=== PATIENT | male | born 1960 | race Caucasian/White ===

== ENCOUNTER → 2016-08-19 | Outpatient (CLI) | payer MEDICARE ==
[~2016-08-19] MED LIST: /ACETCOD2T PO; /DULO30CA OR; /ESOM40CA OR; /OMEP10CA OR; ALEVE; ALEVE OR; AMLO5TAB; AMLO5TAB OR; ASPI81CH12 PO; ASPI81TA31 OR; BABY81CH; BENA2CRE2 TOP; CEFTRIAXONE; CEPH500C OR; FLEXERIL OR; METF500T PO; NAPR500T OR; NICO21DI4; PRED10TA2; PRED20TA; PRIMATENE MIST INH; ROBA750T OR; SIMV40TA2 OR; SYMB16INH INH; TRAM50TA2; VICO5TAB OR; VICODINES TAB PO; ZANA4CAP OR; ZITH250T; ZOCO40TA; ZOCO40TA OR; exalgo PO; spiriva INH
--- NOTE | 2016-08-29 00:02 | ECWPNPC ---
PATIENT NAME: YIMI ESPINOSA : 1960 GENDER: MALE VISIT DATE: 08/19/2016 DISCHARGE DATE: 08/19/16 1459 VISIT LOCKED DATE TIME: PHYSICIAN: JOYCE MCGOVERN RESOURCE: JOYCE MCGOVERN REASON FOR APPOINTMENT 1. WC HISTORY OF PRESENT ILLNESS HISTORY OF PRESENT ILLNESS: PAIN THE PATIENT DESCRIBES THE PAIN... 55 YEAR OLD MALE PATIENT WITH HISTORY OF CHRONIC BACK PAIN. PATIENT DESCRIBES THE PAIN ACHING, SHARP, TENDER, AND SORE WITH PAIN SCORE OF 6/10 ON TODAY'S VISIT. PATIENT WAS INJURED IN A WORK RELATED INJURY ON 12-26-2004 WORKING FOR [employer] A WORK[employer]. PATIENT WAS PICKING UP A CALF WHEN HE INJURED HIS BACK. PATIENT REPORTS OF HAVING BACK SURGERY IN 2009. PATIENT REPORTS OF TRYING PHYSICAL THERAPY IN THE PAST WITH ANY IMPROVEMENTS IN MOBILITY AND FUNCTIONALITY. PATIENT REPORTS THAT HE IS DOING OKAY AT THIS TIME, BUT HE DOES HAVE TO BE CAREFUL DOING TOO MUCH WILL INCREASE HIS PAIN. PATIENT DENIES UNEXPLAINABLE WEIGHT LOSS, FEVER, CHILLS, NEW CHANGES ON HIS URINARY OR BOWEL CONTROL. FALL RISK SCREENING: SCREENING :NO FALLS IN THE PAST YEAR CURRENT MEDICATIONS TAKING AMLODIPINE BESYLATE 10 MG TABLET 1 TABLET ORALLY ONCE A DAY TAKING ASPIR-81 81 MG TABLET DELAYED RELEASE 1 TABLET ORALLY ONCE A DAY TAKING SPIRIVA RESPIMAT 18 AEROSOL SOLUTION 1 CAP INHALATION ONCE A DAY TAKING SYMBICORT 80-4.5 MCG/ACT AEROSOL 2 PUFFS INHALATION TWICE A DAY TAKING ATORVASTATIN CALCIUM 40 MG TABLET 1 TABLET ORALLY ONCE A DAY TAKING METFORMIN HCL 500 MG TABLET 1 TABLET WITH MEALS ORALLY TWICE A DAY TAKING TYLENOL WITH CODEINE #3 300-30 MG TABLET 1 TABLET ORALLY EVERY 6 HRS PRN PAIN MDD=4 NOT-TAKING CYCLOBENZAPRINE HCL 10 MG TABLET 1 TABLET ORALLY THREE TIMES A DAY NOT-TAKING DIPHENHYDRAMINE-ALLANTOIN 2-0.5 % CREAM EXTERNALLY NOT-TAKING TRIAMCINOLONE ACETONIDE 0.5 % CREAM 1 APPLICATION TO AFFECTED AREA EXTERNALLY TWICE A DAY DISCONTINUED SPIRIVA HANDIHALER 18 MCG CAPSULE 1 INHALATION DAILY DISCONTINUED ALBUTEROL SULFATE HFA 108 (90 BASE) MCG/ACT AEROSOL SOLUTION 2 PUFFS NEEDED INHALATION EVERY 4 HRS MEDICATION LIST REVIEWED AND RECONCILED WITH THE PATIENT PAST MEDICAL HISTORY COPD DIABETES HTN LS SPINE DESC HERNIATION WITH RETROLISTHESIS : D[facility]LL HOWELL [facility] PAIN MANAGEMENT DEPRESSION ALLERGIES FENTANYL: HIVES: ALLERGY BEE VENOM: SOB: ALLERGY SURGICAL HISTORY APPENDECTOMY HERNIA REPAIR LEFT INGUINAL FX LEFT ANKLE REPAIR 1997 SPINAL FUSION L3-4 L4-5 L5-S1 2009 COLONOSCOPY 04/2010 FAMILY HISTORY FATHER: 74 YRS, DIAGNOSED WITH HYPERTENSION, HEART DISEASE, STROKE MOTHER: 74 YRS, BREAST CA SOCIAL HISTORY GENERAL: PAIN CLINIC PFS, CLERGY, PUBLIC HEALTH REFERRALS CLERGY REFERRAL NEEDED?NO WAS THE PROVIDER NOTIFIED OF ANY PERTINENT INFO?NO PFS REFERRAL NEEDED?NO PUBLIC HEALTH REFERRAL NEEDED?NO PATIENT: ____. HOSPITALIZATION/MAJOR DIAGNOSTIC PROCEDURE SPINAL SURGERIES PNEUMONIA 2009 COPD EXACERBATION WITH ARDS 06/2012 REVIEW OF SYSTEMS CONSTITUTIONAL: ANY CHANGE IN YOUR MEDICAL CONDITION? NO . CHILLS NO . FEVER NO . INFECTION: DO YOU HAVE NEW INFECTIONS? NO . DO YOU HAVE HISTORY OF MRSA? NO . MUSCULOSKELETAL: ANY NEW PATTERNS OF PAIN OR NUMBNESS? NO . GASTROENTEROLOGY: ANY NEW CHANGE IN BOWEL CONTROL? NO . GENITOURINARY: ANY NEW CHANGE IN BLADDER CONTROL? NO . IS THERE A CHANCE YOU COULD BE ? NO . HEMATOLOGY/LYMPH: DO YOU TAKE ANY BLOOD THINNERS? (FOR EXAMPLE- COUMADIN, PLAVIX, AGGRENOX, PLATEL, PRADAXA, OR XARELTO) NO . WHEN WAS YOUR LAST DOSE? DATE: TIME: . NEUROLOGY: HAVE YOU FALLEN IN THE PAST 6 MONTHS? NO . ANY NEW EXTREMITY NUMBNESS OR WEAKNESS? NO . CARDIOLOGY: DO YOU HAVE A PACEMAKER OR DEFIBRILLATOR? NO . RESPIRATORY: HAVE YOU BEEN SICK IN THE PAST WEEK? NO . FEVER NO . FLU LIKE SYMPTOMS? NO . COUGH NO . INTEGUMENTARY: DO YOU HAVE ANY RASHES OR OPEN SORES? NO . ALLERGIC/IMMUNO: ARE YOU ALLERGIC TO SHELLFISH OR IV DYE? NO . ANY NEW ALLERGIES? NO . PSYCHIATRIC: DO YOU HAVE THOUGHTS OF HURTING YOURSELF OR SOMEONE ELSE? NO . ARE YOU ABUSED, NEGLECTED, OR IN AN UNSAFE ENVIRONMENT? NO . ENDOCRINOLOGY: ARE YOU DIABETIC? YES . OTHER: DO YOU NEED ANY PRESCRIPTIONS? NO . IF YES, PLEASE LIST: ____ . ANY NEW PROBLEMS WITH YOUR MEDICATIONS? NO . WHEN DID YOU LAST EAT? ____ . WHEN DID YOU LAST DRINK? ____ . WHAT DID YOU LAST DRINK? ____ . NAME OF PERSON DRIVING YOU HOME? ____ . DO YOU HAVE ANY OTHER QUESTIONS OR CONCERNS NO . REVIEWED BY: PROVIDER: JOYCE MCGOVERN MD . VITAL SIGNS WT 241.8 LBS, HT 66 IN, BMI 39.02 INDEX, BP 154/77 MM HG, HR 112 /MIN, RR 18 /MIN, TEMP 97.8 F, OXYGEN SAT % 93%, NA INITIALS SC 13:25. EXAMINATION : PATIENT IS ALERT O X 3 AND COOPERATIVE. PATIENT AMBULATES WITH A LIMP ON THE RIGH LEG. PATIENT'S RIGHT LEG IS WEAKER AT FLEXION AND EXTENSION COMPARED TO THE LEFT LEG. PATIENT HAS TENDERNESS IN THE LOW BACK PARASPINAL GROUP. MRI OF THE LUMBAR SPINE DONE ON 05/31/2010 SHOWS A POST POSTERIOR FUSION, DISC BULGE, AND A LIGAMENT TEAR. ASSESSMENTS LOW BACK PAIN - M54.5 (PRIMARY) POSTLAMINECTOMY SYNDROME, NOT ELSEWHERE CLASSIFIED - M96.1 TREATMENT LOW BACK PAIN START GABAPENTIN CAPSULE, 300 MG, 1 CAPSULE, ORALLY, BID FOR PAIN MDD2, 30 DAY(S), 60, REFILLS 2 NOTES: WE DISCUSSED SEVERAL ISSUES WITH MR. ESPINOSA'S PAIN MANAGEMENT CASE. PATIENT BROUGHT HIS MEDICATION BOTTLES TO TODAY'S VISIT. PATIENT WILL START GABAPENTIN FOR NEUROPATHIC PAIN AND IS CURRENTLY TAKING TYLENOL WITH CODEINE FOR SOMATIC PAIN. I DISCUSSED WITH THE PATIENT, I DO NOT DO REFILLS OVER THE PHONE AND IT IS IMPORTANT TO COME TO EVERY FOLLOW UP VISIT. UTOX ORDERED ON 05-10-2016 SHOWS CONSISTENT RESULTS. PATIENT TO FOLLOW UP WITH ME IN 2 MONTHS. INSTRUCTIONS WERE GIVEN, QUESTIONS WERE ANSWERED, PATIENT REPORTS UNDERSTANDING AND AGREES WITH THE PLAN. I, LINDA PRESTON, DOCUMENTED THE ABOVE INFORMATION ACTING A SCRIBE FOR DR. MCGOVERN. I HAVE REVIEWED THE ABOVE DOCUMENT, WRITTEN BY LINDA ARAUJOIBJami AND I VERIFY THAT IT IS ACCURATE. PROCEDURES PN WORKMANS' COMP OPINION IN YOUR OPINION, WAS THE INCIDENT THAT THE PATIENT DESCRIBED THE COMPETENT MEDICAL CAUSE OF THIS INJURY/ILLNESS? YES ARE THE PATIENT'S COMPLAINTS CONSISTENT WITH HIS/HER HISTORY OF THE INJURY/ILLNESS? YES IS THE PATIENT'S HISTORY OF THE INJURY/ILLNESS CONSISTENT WITH YOUR OBJECTIVE FINDING? YES WHAT IS THE PERCENTAGE OF TEMPORARY IMPAIRMENT? MODERATE TO MARKED = 66.7% IS THE PATIENT WORKING? NO DOCTOR ON SITE: JOYCE BEAULIEU MD PROCEDURE CODES FA211 ESTABILISHED PATIENT [facility] FAC[facility] CHARGE G6785 PAIN ASSESS POS TOOL F/U PLAN DOC G8427 DOC MEDS VERIFIED W/PT OR RE DISPOSITION & COMMUNICATION FOLLOW UP 2 MONTHS ELECTRONICALLY SIGNED BY JOYCE MCGOVERN MD ON 08/28/2016 AT 08:38 PM EDT DISCLAIMER : THIS IS A VISIT SUMMARY EXTRACTED FROM THE [employer] CHART. IT IS NOT A COPY OF THE [employer] PROGRESS NOTE. MTDD
== END | disposition home or self-care (01) ==
LOC: M PAIN 13:00
PROVIDERS: ATTEND Anesthesiology
DX: Z09 Encounter for follow-up examination after completed treatment for conditions other than malignant neoplasm (principal); G89.29 Other chronic pain; M54.5 Low back pain; M96.1 Postlaminectomy syndrome, not elsewhere classified; I10 Essential (primary) hypertension; J44.9 Chronic obstructive pulmonary disease, unspecified; E11.9 Type 2 diabetes mellitus without complications; F33.9 Major depressive disorder, recurrent, unspecified; Z79.899 Other long term (current) drug therapy; Z79.82 Long term (current) use of aspirin; Z79.84 Long term (current) use of oral hypoglycemic drugs; Z88.8 Allergy status to other drugs, medicaments and biological substances; Z91.030 Bee allergy status

== ENCOUNTER → 2016-10-06 | Outpatient (REF) | payer OTHER ==
[2016-10-06 11:52] LABS: ALBUMIN 4.2 GM/DL (3.2-5.2); ALBUMIN/GLOBULIN RATIO 1.35 (1.00-1.93); ALKALINE PHOSPHATASE 95 U/L (45-117); ALT/SGPT 85 U/L (12-78); ANION GAP 7 MEQ/L (8-16); AST/SGOT 40 U/L (15-37); BILIRUBIN,TOTAL 0.4 MG/DL (0.2-1.0); BLOOD UREA NITROGEN 11 MG/DL (7-18); CALCIUM LEVEL 8.6 MG/DL (8.5-10.1); CARBON DIOXIDE LEVEL 30 MEQ/L (21-32); CHLORIDE LEVEL 100 MEQ/L (98-107); CHOLESTEROL LEVEL 194 MG/DL (<200); CREATININE FOR GFR 0.78 MG/DL (0.70-1.30); GLOMERULAR FILTRATION RATE > 60.0 (>56); GLUCOSE, FASTING 150 MG/DL (70-105); POTASSIUM SERUM 4.4 MEQ/L (3.5-5.1); SODIUM LEVEL 137 MEQ/L (136-145); TOTAL PROTEIN 7.3 GM/DL (6.4-8.2); TRIGLYCERIDES LEVEL 169 MG/DL (<150)
== END ==
LOC: M SFHCCLAY 07:54
PROVIDERS: ATTEND Nurse Practitioner Family
DX: E11.9 Type 2 diabetes mellitus without complications (principal); E78.5 Hyperlipidemia, unspecified

== ENCOUNTER → 2016-10-10 | Outpatient (REF) | payer MEDICARE | LOC: M SFHCPLAZ 08:52 | PROVIDERS: ATTEND Nurse Practitioner Family | DX: R35.0 Frequency of micturition (principal); E78.5 Hyperlipidemia, unspecified; E11.9 Type 2 diabetes mellitus without complications; J44.9 Chronic obstructive pulmonary disease, unspecified; I10 Essential (primary) hypertension ==

== ENCOUNTER → 2016-10-24 | Outpatient (CLI) | payer OTHER, MEDICARE ==
--- NOTE | 2016-11-09 01:21 | ECWPNPC ---
PATIENT NAME: YIMI ESPINOSA : 1960 GENDER: MALE VISIT DATE: 10/24/2016 DISCHARGE DATE: 10/24/16 1703 VISIT LOCKED DATE TIME: PHYSICIAN: JOYCE MCGOVERN RESOURCE: JOYCE MCGOVERN REASON FOR APPOINTMENT 1. BACK W/C HISTORY OF PRESENT ILLNESS GENERAL: 55 YEAR OLD MALE PATIENT WITH HISTORY OF CHRONIC BACK PAIN. PATIENT DESCRIBES THE PAIN ACHING, SHARP, TENDER, AND SORE WITH PAIN SCORE OF 6/10 ON TODAY'S VISIT. 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 PATIENT WAS PICKING UP A CALF WHEN HE INJURED HIS BACK. PATIENT REPORTS OF HAVING BACK SURGERY IN 2009. PATIENT REPORTS OF TRYING PHYSICAL THERAPY IN THE PAST WITH ANY IMPROVEMENTS IN MOBILITY AND FUNCTIONALITY. PATIENT REPORTS THAT HE IS DOING OKAY AT THIS TIME, BUT HE DOES HAVE TO BE CAREFUL DOING TOO MUCH WILL INCREASE HIS PAIN. MR. ESPINOSA STATES THAT HE IS ONLY USING TYLENOL WITH CODEINE AND GABAPENTIN FOR PAIN MANAGEMENT. PATIENT DENIES UNEXPLAINABLE WEIGHT LOSS, FEVER, CHILLS, NEW CHANGES ON HIS URINARY OR BOWEL CONTROL. CURRENT MEDICATIONS TAKING GABAPENTIN 300 MG CAPSULE 1 CAPSULE ORALLY BID FOR PAIN MDD2 TAKING TYLENOL WITH CODEINE #3 300-30 MG TABLET 1 TABLET ORALLY EVERY 6 HRS PRN PAIN MDD=4 TAKING AMLODIPINE BESYLATE 10 MG TABLET 1 TABLET ORALLY ONCE A DAY TAKING ASPIR-81 81 MG TABLET DELAYED RELEASE 1 TABLET ORALLY ONCE A DAY TAKING SPIRIVA RESPIMAT 18 AEROSOL SOLUTION 1 CAP INHALATION ONCE A DAY TAKING SYMBICORT 80-4.5 MCG/ACT AEROSOL 2 PUFFS INHALATION TWICE A DAY TAKING ALBUTEROL SULFATE HFA 108 (90 BASE) MCG/ACT AEROSOL SOLUTION 2 PUFFS NEEDED INHALATION EVERY 4 HRS TAKING ATORVASTATIN CALCIUM 40 MG TABLET 1 TABLET ORALLY ONCE A DAY TAKING METFORMIN HCL 1000 MG TABLET 1 TABLET WITH MEALS ORALLY TWICE A DAY NOT-TAKING CYCLOBENZAPRINE HCL 10 MG TABLET 1 TABLET ORALLY THREE TIMES A DAY NOT-TAKING DIPHENHYDRAMINE-ALLANTOIN 2-0.5 % CREAM EXTERNALLY NOT-TAKING TRIAMCINOLONE ACETONIDE 0.5 % CREAM 1 APPLICATION TO AFFECTED AREA EXTERNALLY TWICE A DAY MEDICATION LIST REVIEWED AND RECONCILED WITH THE PATIENT PAST MEDICAL HISTORY COPD DIABETES HTN LS SPINE DESC HERNIATION WITH RETROLISTHESIS : DARELL HOWELL, [facility] PAIN MANAGEMENT DEPRESSION ALLERGIES FENTANYL: HIVES: ALLERGY BEE VENOM: SOB: ALLERGY SURGICAL HISTORY APPENDECTOMY HERNIA REPAIR LEFT INGUINAL FX LEFT ANKLE REPAIR 1997 SPINAL FUSION L3-4 L4-5 L5-S1 2009 COLONOSCOPY 04/2010 FAMILY HISTORY FATHER: 74 YRS, DIAGNOSED WITH HYPERTENSION, HEART DISEASE, STROKE MOTHER: 74 YRS, BREAST CA SOCIAL HISTORY GENERAL: TOBACCO USE ARE YOU A:FORMER SMOKER 40 YEARS BMI CARE GOAL FOLLOW-UP ABOVE NORMAL BMI FOLLOW-UPLIFESTYLE EDUCATION REGARDING DIET HIV / HEP-C SCREENING HIV TEST OFFERED TO PATIENT:NO HEP-C TEST OFFERED TO PATIENT:NO LEARNING BARRIERS / SPECIAL NEEDS CHANGE FROM LAST VISIT?NO BARRIERS TO LEARNING?NO HEARING IMPAIRED?NO VISION IMPAIRED?YES COGNITIVELY IMPAIRED?NO :CORRECTIVE LENSES READINESS TO LEARN?YES LEARNING PREFERENCES?NO LEARNING CAPABILITIES PRESENT?YES EMOTIONAL BARRIERS?NO SPECIAL DEVICES?NO JOB FORWARDER NEEDED?NO PAIN CLINIC PFS, CLERGY, PUBLIC HEALTH REFERRALS PFS REFERRAL NEEDED?NO CLERGY REFERRAL NEEDED?NO PUBLIC HEALTH REFERRAL NEEDED?NO WAS THE PROVIDER NOTIFIED OF ANY PERTINENT INFO?NO PATIENT: ____. HOSPITALIZATION/MAJOR DIAGNOSTIC PROCEDURE SPINAL SURGERIES PNEUMONIA 2009 COPD EXACERBATION WITH ARDS 06/2012 VITAL SIGNS WT 240.8 LBS, HT 66 IN, BMI 38.86 INDEX, BP 188/91 L ARM , REPEAT BP 195/104 R ARM, HR 111 /MIN, RR 18 /MIN, TEMP 98.0 F, OXYGEN SAT % 96%, NA INITIALS TL 1523, REVIEWED BY: CMMANUAL BP 172/98, RN Ralph AWARE- TLPT'S B/P HIGHER, STATES IS IN A LOT OF PAIN TODAY. DENIES HEADACHE OR BLURRED VISION. CM. EXAMINATION GENERAL: PATIENT IS ALERT O X 3 AND COOPERATIVE. PATIENT AMBULATES WITH A LIMP ON THE RIGHT LEG. PATIENT'S RIGHT LEG IS WEAKER AT FLEXION AND EXTENSION COMPARED TO THE LEFT LEG. PATIENT HAS TENDERNESS IN THE LOW BACK PARASPINAL GROUP. MRI OF THE LUMBAR SPINE DONE ON 05/31/2010 SHOWS A POST POSTERIOR FUSION, DISC BULGE, AND A LIGAMENT TEAR. ASSESSMENTS POSTLAMINECTOMY SYNDROME, NOT ELSEWHERE CLASSIFIED - M96.1 (PRIMARY) LOW BACK PAIN - M54.5 INTERVERTEBRAL DISC DISORDERS WITH RADICULOPATHY, LUMBAR REGION - M51.16 TREATMENT POSTLAMINECTOMY SYNDROME, NOT ELSEWHERE CLASSIFIED NOTES: WE DISCUSSED SEVERAL ISSUES WITH MR. ESPINOSA'S PAIN MANAGEMENT CASE. AT THIS TIME THE PATIENT WILL CONTINUE WITH THE SAME MEDICATION REGIME BEFORE. I WOULD LIKE THE PATIENT TO START CYMBALTA FOR THE NEUROPATHIC PAIN HE FEELS DOWN HIS LEGS FROM HIS BACK. PATIENT WILL CONTINUE USING TYLENOL WITH CODEINE FOR THE SOMATIC PAIN AND GABAPENTIN FOR THE NEUROPATHIC PAIN. PATIENT DENIES ABUSE OF ANY MEDICATION, DENIES USE OF ILLEGAL SUBSTANCES, AND STATES THAT HE ONLY USES THE MEDICATION FOR PAIN MANAGEMENT. URINE TOXICOLOGY REPORT DONE ON 05/06/2016 SHOWS CONSISTENT RESULTS WITH THE PATIENT'S MEDICATION LIST. PATIENT WAS ADVISED TO BRING ALL MEDICATIONS IN THERE ORIGINAL BOTTLES. PATIENT IS A GOOD CANDIDATE FOR A RADIOFREQUENCY, PATIENT IS AWARE THAT HE WOULD HAVE TO HAVE 2 DIAGNOSTIC TESTS DONE PRIOR TO THE RADIOFREQUENCY AND AT THIS TIME THE PATIENT WOULD LIKE TO MOVE FORWARD WITH MEDICATION MANAGEMENT AND HOLD OFF ON INJECTIONS. PATIENT WILL RETURN TO THE CLINIC IN 2 MONTHS BUT WAS ADVISED TO CALL IF THE PAIN SIGNIFICANTLY WORSENS. INSTRUCTIONS WERE GIVEN, QUESTIONS WERE ANSWERED, PATIENT REPORTS UNDERSTANDING AND AGREES WITH THE PLAN. I, JESUS ROSA, DOCUMENTED THE ABOVE INFORMATION ACTING A SCRIBE FOR DR. MCGOVERN. I HAVE REVIEWED THE ABOVE DOCUMENT, WRITTEN BY JESUS ARAUJOIBJami AND I VERIFY THAT IT IS ACCURATE. LOW BACK PAIN REFILL GABAPENTIN CAPSULE, 300 MG, 1 CAPSULE, ORALLY, BID FOR PAIN MDD2, 30 DAY(S), 60, REFILLS 2 OTHERS REFILL TYLENOL WITH CODEINE #3 TABLET, 300-30 MG, 1 TABLET, ORALLY, EVERY 6 HRS PRN PAIN MDD=4, 30 DAY(S), 110, REFILLS 3 START CYMBALTA CAPSULE DELAYED RELEASE PARTICLES, 30 MG, 1 CAPSULE, ORALLY FOR PAIN, TWICE A DAY, 30 DAY(S), 60, REFILLS 2 PROCEDURES PN WORKMANS' COMP OPINION IN YOUR OPINION, WAS THE INCIDENT THAT THE PATIENT DESCRIBED THE COMPETENT MEDICAL CAUSE OF THIS INJURY/ILLNESS? YES ARE THE PATIENT'S COMPLAINTS CONSISTENT WITH HIS/HER HISTORY OF THE INJURY/ILLNESS? YES IS THE PATIENT'S HISTORY OF THE INJURY/ILLNESS CONSISTENT WITH YOUR OBJECTIVE FINDING? YES WHAT IS THE PERCENTAGE OF TEMPORARY IMPAIRMENT? MODERATE TO MARKED = 66.7% IS THE PATIENT WORKING? NO DOCTOR ON SITE: JOYCE BEAULIEU MD PROCEDURE CODES FA211 ESTABILISHED PATIENT [facility] FACILITY CHARGE [id number] DOC MEDS VERIFIED W/PT OR RE Q8163 PAIN ASSESS POS TOOL F/U PLAN DOC DISPOSITION & COMMUNICATION FOLLOW UP 2 MONTHS ELECTRONICALLY SIGNED BY JOYCE MCGOVERN MD ON 11/07/2016 AT 03:00 PM EDT DISCLAIMER : THIS IS A VISIT SUMMARY EXTRACTED FROM THE [employer] CHART. IT IS NOT A COPY OF THE [employer] PROGRESS NOTE. ZAKIYA
== END ==
LOC: M PAIN 15:20
PROVIDERS: ATTEND Anesthesiology
DX: M96.1 Postlaminectomy syndrome, not elsewhere classified (principal); M54.5 Low back pain; M51.16 Intervertebral disc disorders with radiculopathy, lumbar region; Z79.82 Long term (current) use of aspirin; Z79.84 Long term (current) use of oral hypoglycemic drugs; Z79.899 Other long term (current) drug therapy; Z87.891 Personal history of nicotine dependence; Z88.5 Allergy status to narcotic agent; Z91.030 Bee allergy status

== ENCOUNTER → 2016-12-23 | Outpatient (CLI) | payer OTHER, MEDICARE ==
[~2016-12-23] MED LIST changes: +METF500T13 PO
--- NOTE | 2017-01-09 00:45 | ECWPNPC ---
PATIENT NAME: YIMI ESPINOSA : 1960 GENDER: MALE VISIT DATE: 12/23/2016 DISCHARGE DATE: 12/23/16 1344 VISIT LOCKED DATE TIME: PHYSICIAN: JOYCE MCGOVERN RESOURCE: JOYCE MCGOVERN REASON FOR APPOINTMENT 1. W/C LOW BACK PAIN HISTORY OF PRESENT ILLNESS HISTORY OF PRESENT ILLNESS: PAIN THE PATIENT DESCRIBES THE PAIN... 55 YEAR OLD MALE PATIENT WITH HISTORY OF CHRONIC BACK PAIN. PATIENT DESCRIBES THE PAIN ACHING, SHARP, TENDER, AND SORE WITH PAIN SCORE OF 7/10 ON TODAY'S VISIT. 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 PATIENT WAS PICKING UP A CALF WHEN HE INJURED HIS BACK. PATIENT REPORTS OF HAVING BACK SURGERY IN 2009. PATIENT REPORTS OF TRYING PHYSICAL THERAPY IN THE PAST WITH ANY IMPROVEMENTS IN MOBILITY AND FUNCTIONALITY. PATIENT REPORTS THAT HE IS DOING OKAY AT THIS TIME, BUT HE DOES HAVE TO BE CAREFUL DOING TOO MUCH WILL INCREASE HIS PAIN. MR. ESPINOSA STATES THAT HE IS ONLY USING TYLENOL WITH CODEINE AND GABAPENTIN FOR PAIN MANAGEMENT. PATIENT DENIES UNEXPLAINABLE WEIGHT LOSS, FEVER, CHILLS, NEW CHANGES ON HIS URINARY OR BOWEL CONTROL. FALL RISK SCREENING: SCREENING :NO FALLS IN THE PAST YEAR CURRENT MEDICATIONS TAKING AMLODIPINE BESYLATE 10 MG TABLET 1 TABLET ORALLY ONCE A DAY TAKING ASPIR-81 81 MG TABLET DELAYED RELEASE 1 TABLET ORALLY ONCE A DAY TAKING SPIRIVA RESPIMAT 18 AEROSOL SOLUTION 1 CAP INHALATION ONCE A DAY TAKING ALBUTEROL SULFATE HFA 108 (90 BASE) MCG/ACT AEROSOL SOLUTION 2 PUFFS NEEDED INHALATION EVERY 4 HRS TAKING ATORVASTATIN CALCIUM 40 MG TABLET 1 TABLET ORALLY ONCE A DAY TAKING METFORMIN HCL 1000 MG TABLET 1 TABLET WITH MEALS ORALLY TWICE A DAY TAKING GABAPENTIN 300 MG CAPSULE 1 CAPSULE ORALLY BID FOR PAIN MDD2 TAKING TYLENOL WITH CODEINE #3 300-30 MG TABLET 1 TABLET ORALLY EVERY 6 HRS PRN PAIN MDD=4 TAKING CYMBALTA 30 MG CAPSULE DELAYED RELEASE PARTICLES 1 CAPSULE ORALLY FOR PAIN TWICE A DAY TAKING SYMBICORT 80-4.5 MCG/ACT AEROSOL 2 PUFFS INHALATION TWICE A DAY NOT-TAKING CYCLOBENZAPRINE HCL 10 MG TABLET 1 TABLET ORALLY THREE TIMES A DAY NOT-TAKING DIPHENHYDRAMINE-ALLANTOIN 2-0.5 % CREAM EXTERNALLY NOT-TAKING TRIAMCINOLONE ACETONIDE 0.5 % CREAM 1 APPLICATION TO AFFECTED AREA EXTERNALLY TWICE A DAY MEDICATION LIST REVIEWED AND RECONCILED WITH THE PATIENT PAST MEDICAL HISTORY COPD DIABETES HTN LS SPINE DESC HERNIATION WITH RETROLISTHESIS : [facility] PAIN MANAGEMENT DEPRESSION ALLERGIES FENTANYL: HIVES: ALLERGY BEE VENOM: SOB: ALLERGY REVIEW OF SYSTEMS REVIEWED BY: PROVIDER: JOYCE MCGOVERN MD . CONSTITUTIONAL: ANY CHANGE IN YOUR MEDICAL CONDITION? NO . CHILLS NO . FEVER NO . INFECTION: DO YOU HAVE NEW INFECTIONS? NO . DO YOU HAVE HISTORY OF MRSA? NO . MUSCULOSKELETAL: ANY NEW PATTERNS OF PAIN OR NUMBNESS? NO . GASTROENTEROLOGY: ANY NEW CHANGE IN BOWEL CONTROL? NO . GENITOURINARY: ANY NEW CHANGE IN BLADDER CONTROL? NO . IS THERE A CHANCE YOU COULD BE ? NO . HEMATOLOGY/LYMPH: DO YOU TAKE ANY BLOOD THINNERS? (FOR EXAMPLE- COUMADIN, PLAVIX, AGGRENOX, PLATEL, PRADAXA, OR XARELTO) NO . WHEN WAS YOUR LAST DOSE? DATE: TIME: . NEUROLOGY: HAVE YOU FALLEN IN THE PAST 6 MONTHS? NO . ANY NEW EXTREMITY NUMBNESS OR WEAKNESS? NO . CARDIOLOGY: DO YOU HAVE A PACEMAKER OR DEFIBRILLATOR? NO . RESPIRATORY: HAVE YOU BEEN SICK IN THE PAST WEEK? NO . FEVER NO . FLU LIKE SYMPTOMS? NO . COUGH NO . INTEGUMENTARY: DO YOU HAVE ANY RASHES OR OPEN SORES? NO . ALLERGIC/IMMUNO: ARE YOU ALLERGIC TO SHELLFISH OR IV DYE? NO . ANY NEW ALLERGIES? NO . PSYCHIATRIC: DO YOU HAVE THOUGHTS OF HURTING YOURSELF OR SOMEONE ELSE? NO . ARE YOU ABUSED, NEGLECTED, OR IN AN UNSAFE ENVIRONMENT? NO . ENDOCRINOLOGY: ARE YOU DIABETIC? YES . OTHER: DO YOU NEED ANY PRESCRIPTIONS? NO . IF YES, PLEASE LIST: ____ . ANY NEW PROBLEMS WITH YOUR MEDICATIONS? NO . WHEN DID YOU LAST EAT? ____ . WHEN DID YOU LAST DRINK? ____ . WHAT DID YOU LAST DRINK? ____ . NAME OF PERSON DRIVING YOU HOME? ____ . DO YOU HAVE ANY OTHER QUESTIONS OR CONCERNS NO . VITAL SIGNS WT 239.2 LBS, HT 66 IN, BMI 38.60 INDEX, BP 167/86 MM HG, HR 113 /MIN, RR 18 /MIN, TEMP 96.3 F, OXYGEN SAT % 94%, NA INITIALS MP 1308, REVIEWED BY: LUANNE. EXAMINATION : PATIENT IS ALERT O X 3 AND COOPERATIVE. PATIENT AMBULATES WITH A LIMP ON THE RIGHT LEG. PATIENT'S RIGHT LEG IS WEAKER AT FLEXION AND EXTENSION COMPARED TO THE LEFT LEG. PATIENT HAS TENDERNESS IN THE LOW BACK PARASPINAL GROUP. MRI OF THE LUMBAR SPINE DONE ON 05/31/2010 SHOWS A POST POSTERIOR FUSION, DISC BULGE, AND A LIGAMENT TEAR. ASSESSMENTS POSTLAMINECTOMY SYNDROME, NOT ELSEWHERE CLASSIFIED - M96.1 (PRIMARY) LOW BACK PAIN - M54.5 INTERVERTEBRAL DISC DISORDERS WITH RADICULOPATHY, LUMBAR REGION - M51.16 TREATMENT POSTLAMINECTOMY SYNDROME, NOT ELSEWHERE CLASSIFIED NOTES: WE DISCUSSED SEVERAL ISSUES WITH MR. ESPINOSA'S PAIN MANAGEMENT CASE. AT THIS TIME THE PATIENT WILL CONTINUE TO USE THE TYLENOL WITH CODEINE FOR THE SOMATIC PAIN, GABAPENTIN AND CYMBALTA FOR THE NEUROPATHIC PAIN, AND I WOULD LIKE THE PATIENT TO START USING ZANAFLEX FOR THE MUSCLE SPASMS. PATIENT DENIES ABUSE OF ANY MEDICATION, DENIES USE OF ILLEGAL SUBSTANCES, AND STATES SHE IS ONLY USING THE MEDICATION FOR PAIN MANAGEMENT .WE BRIEFLY DISCUSSED DCS AND PATIENT WAS GIVEN INFORMATION ON THE PRODUCT. AFTER VIEWING WHERE THE PATIENT'S PAIN IS LOCATED AND THE PATIENT'S MRI I WOULD LIKE TO MOVE FORWARD WITH DIAGNOSTIC LUMBAR FACET BLOCK TO CONSIDER A RADIOFREQUENCY. PATIENT IS AWARE WE WILL NEED TO DO TWO DIAGNOSTIC TESTS TO MOVE FORWARD WITH THE RADIOFREQUENCY. WE DISCUSSED THE RISKS, BENENFITS, AND ALTNERATIVES OF THE INJECTION AND THE PATIENT WOULD LIKE TO PROCEED AT THIS TIME. INSTRUCTIONS WERE GIVEN, QUESTIONS WERE ANSWERED, PATIENT REPORTS UNDERSTANDING AND AGREES WITH THE PLAN. I, JESUS ROSA, DOCUMENTED THE ABOVE INFORMATION ACTING A SCRIBE FOR DR. MCGOVERN. I HAVE REVIEWED THE ABOVE DOCUMENT, WRITTEN BY JESUS MACDONALD AND I VERIFY THAT IT IS ACCURATE. LOW BACK PAIN REFILL GABAPENTIN CAPSULE, 300 MG, 1 CAPSULE, ORALLY, THREE TIMES DAILY MDD3, 30 DAY(S), 90, REFILLS 2 START ZANAFLEX CAPSULE, 2 MG, 1 CAPSULE NEEDED, ORALLY, BEFORE BEDTIME MAY REPEAT IN 5 HRS MDD2, 30 DAY(S), 50, REFILLS 2 NOTES: FACET JOINT INJECTION MATERIAL WAS PRINTED,FACET JOINT INJECTION: YOUR EXPERIENCE MATERIAL WAS PRINTED. OTHERS REFILL TYLENOL WITH CODEINE #3 TABLET, 300-30 MG, 1 TABLET, ORALLY, EVERY 6 HRS PRN PAIN MDD=4, 30 DAY(S), 110, REFILLS 3 REFILL CYMBALTA CAPSULE DELAYED RELEASE PARTICLES, 30 MG, 1 CAPSULE, ORALLY FOR PAIN, TWICE A DAY, 30 DAY(S), 60, REFILLS 2 PROCEDURES PN WORKMANS' COMP OPINION IN YOUR OPINION, WAS THE INCIDENT THAT THE PATIENT DESCRIBED THE COMPETENT MEDICAL CAUSE OF THIS INJURY/ILLNESS? YES ARE THE PATIENT'S COMPLAINTS CONSISTENT WITH HIS/HER HISTORY OF THE INJURY/ILLNESS? YES IS THE PATIENT'S HISTORY OF THE INJURY/ILLNESS CONSISTENT WITH YOUR OBJECTIVE FINDING? YES WHAT IS THE PERCENTAGE OF TEMPORARY IMPAIRMENT? MODERATE TO MARKED = 66.7% IS THE PATIENT WORKING? NO DOCTOR ON SITE: JOYCE BEAULIEU MD PROCEDURE CODES FA211 ESTABILISHED PATIENT [facility] FACILITY CHARGE G8427 DOC MEDS VERIFIED W/PT OR RE G8730 PAIN ASSESS POS TOOL F/U PLAN DOC DISPOSITION & COMMUNICATION FOLLOW UP LFBD #1 AFTER APPROVAL ELECTRONICALLY SIGNED BY JOYCE MCGOVERN MD ON 01/08/2017 AT 12:41 PM EDT DISCLAIMER : THIS IS A VISIT SUMMARY EXTRACTED FROM THE [employer] CHART. IT IS NOT A COPY OF THE [employer] PROGRESS NOTE. MTDD
== END ==
LOC: M PAIN 13:00
PROVIDERS: ATTEND Anesthesiology
DX: M96.1 Postlaminectomy syndrome, not elsewhere classified (principal); M54.5 Low back pain; M51.16 Intervertebral disc disorders with radiculopathy, lumbar region; G89.29 Other chronic pain; Z79.82 Long term (current) use of aspirin; Z79.84 Long term (current) use of oral hypoglycemic drugs; Z79.899 Other long term (current) drug therapy; Z88.8 Allergy status to other drugs, medicaments and biological substances; Z91.030 Bee allergy status

== ENCOUNTER → 2017-03-06 | Outpatient (CLI) | payer OTHER, MEDICARE ==
[~2017-03-06] MED LIST changes: +BUPIVACAINE HCL 0.25% 30 ML VIAL As Ordered ONE; +ISOVUE-M 300 61% 15ML VIAL (Q9967) As Ordered ONE; +LIDOCAINE 1% SDV INJ 30 ML VIAL As Ordered ONE
--- NOTE | 2017-03-06 15:47 | REP ---
FACET BLOCK: The images were reviewed with Dr. Townsend. The patient has a history of low back pain. The portable C-Arm was provided in the OR for Dr. Joshi for fluoroscopic guidance. 70 intraoperative last image hold fluoro spot films were obtained for needle placement verification for bilateral lumbar facet injection. The films are on the PACs system and are available for review. 1 minute and 23 seconds of fluoroscopy time was utilized for this procedure. Reviewed by TEZ Alvarez 03/06/2017 05:01 PEdited and Signed by Kmeal Townsend MD 03/07/2017 07:30 P
--- NOTE | 2017-03-12 23:47 | ECWPNPC ---
PATIENT NAME: YIMI ESPINOSA : 1960 GENDER: MALE VISIT DATE: 03/06/2017 DISCHARGE DATE: 03/06/17 1348 VISIT LOCKED DATE TIME: PHYSICIAN: JOYCE MCGOVERN RESOURCE: JOYCE MCGOVERN REASON FOR APPOINTMENT 1. LFBD HISTORY OF PRESENT ILLNESS HISTORY OF PRESENT ILLNESS: PAIN THE PATIENT DESCRIBES THE PAIN... FALL RISK SCREENING: SCREENING :NO FALLS IN THE PAST YEAR CURRENT MEDICATIONS TAKING AMLODIPINE BESYLATE 10 MG TABLET 1 TABLET ORALLY ONCE A DAY, NOTES: 03/05/17 TAKING ASPIR-81 81 MG TABLET DELAYED RELEASE 1 TABLET ORALLY ONCE A DAY, NOTES: 03/05/17 TAKING SPIRIVA RESPIMAT 18 AEROSOL SOLUTION 1 CAP INHALATION ONCE A DAY, NOTES: 03/05/17 TAKING ALBUTEROL SULFATE HFA 108 (90 BASE) MCG/ACT AEROSOL SOLUTION 2 PUFFS NEEDED INHALATION EVERY 4 HRS, NOTES: 03/06/17 0600 TAKING ATORVASTATIN CALCIUM 40 MG TABLET 1 TABLET ORALLY ONCE A DAY, NOTES: 03/05/17 TAKING METFORMIN HCL 1000 MG TABLET 1 TABLET WITH MEALS ORALLY TWICE A DAY, NOTES: 03/05/17 TAKING SYMBICORT 80-4.5 MCG/ACT AEROSOL 2 PUFFS INHALATION TWICE A DAY, NOTES: 03/05/17 TAKING TYLENOL WITH CODEINE #3 300-30 MG TABLET 1 TABLET ORALLY EVERY 6 HRS PRN PAIN MDD=4, NOTES: 03/05/17 TAKING GABAPENTIN 300 MG CAPSULE 1 CAPSULE ORALLY THREE TIMES DAILY MDD3, NOTES: 03/05/17 TAKING ZANAFLEX 2 MG CAPSULE 1 CAPSULE NEEDED ORALLY BEFORE BEDTIME MAY REPEAT IN 5 HRS MDD2, NOTES: 03/05/17 NOT-TAKING CYMBALTA 30 MG CAPSULE DELAYED RELEASE PARTICLES 1 CAPSULE ORALLY FOR PAIN TWICE A DAY, NOTES: DENIED UNKNOWN CYCLOBENZAPRINE HCL 10 MG TABLET 1 TABLET ORALLY THREE TIMES A DAY UNKNOWN DIPHENHYDRAMINE-ALLANTOIN 2-0.5 % CREAM EXTERNALLY UNKNOWN TRIAMCINOLONE ACETONIDE 0.5 % CREAM 1 APPLICATION TO AFFECTED AREA EXTERNALLY TWICE A DAY MEDICATION LIST REVIEWED AND RECONCILED WITH THE PATIENT PAST MEDICAL HISTORY COPD DIABETES HTN LS SPINE DESC HERNIATION WITH RETROLISTHESIS : DARELL HOWELL, [facility] PAIN MANAGEMENT DEPRESSION ALLERGIES FENTANYL: HIVES: ALLERGY BEE VENOM: SOB: ALLERGY SURGICAL HISTORY APPENDECTOMY HERNIA REPAIR LEFT INGUINAL FX LEFT ANKLE REPAIR 1997 SPINAL FUSION L3-4 L4-5 L5-S1 2009 COLONOSCOPY 04/2010 DORSAL COLUMN STIMULATOR PLACED AND REMOVED HOSPITALIZATION/MAJOR DIAGNOSTIC PROCEDURE SPINAL SURGERIES PNEUMONIA 2009 COPD EXACERBATION WITH ARDS 06/2012 REVIEW OF SYSTEMS REVIEWED BY: PROVIDER: . CONSTITUTIONAL: ANY CHANGE IN YOUR MEDICAL CONDITION? NO . CHILLS NO . FEVER NO . INFECTION: DO YOU HAVE NEW INFECTIONS? NO . DO YOU HAVE HISTORY OF MRSA? NO . MUSCULOSKELETAL: ANY NEW PATTERNS OF PAIN OR NUMBNESS? NO . GASTROENTEROLOGY: ANY NEW CHANGE IN BOWEL CONTROL? NO . GENITOURINARY: ANY NEW CHANGE IN BLADDER CONTROL? NO . IS THERE A CHANCE YOU COULD BE ? NO . HEMATOLOGY/LYMPH: DO YOU TAKE ANY BLOOD THINNERS? (FOR EXAMPLE- COUMADIN, PLAVIX, AGGRENOX, PLATEL, PRADAXA, OR XARELTO) NO . WHEN WAS YOUR LAST DOSE? DATE: TIME: . NEUROLOGY: HAVE YOU FALLEN IN THE PAST 6 MONTHS? NO . ANY NEW EXTREMITY NUMBNESS OR WEAKNESS? NO . CARDIOLOGY: DO YOU HAVE A PACEMAKER OR DEFIBRILLATOR? NO . RESPIRATORY: HAVE YOU BEEN SICK IN THE PAST WEEK? NO . FEVER NO . FLU LIKE SYMPTOMS? NO . COUGH NO . INTEGUMENTARY: DO YOU HAVE ANY RASHES OR OPEN SORES? NO . ALLERGIC/IMMUNO: ARE YOU ALLERGIC TO SHELLFISH OR IV DYE? YES . ANY NEW ALLERGIES? NO . PSYCHIATRIC: DO YOU HAVE THOUGHTS OF HURTING YOURSELF OR SOMEONE ELSE? NO . ARE YOU ABUSED, NEGLECTED, OR IN AN UNSAFE ENVIRONMENT? NO . ENDOCRINOLOGY: ARE YOU DIABETIC? NO . OTHER: DO YOU NEED ANY PRESCRIPTIONS? NO . IF YES, PLEASE LIST: ____ . ANY NEW PROBLEMS WITH YOUR MEDICATIONS? NO . WHEN DID YOU LAST EAT? ____ . WHEN DID YOU LAST DRINK? ____ . WHAT DID YOU LAST DRINK? ____ . NAME OF PERSON DRIVING YOU HOME? ____ . DO YOU HAVE ANY OTHER QUESTIONS OR CONCERNS NO . VITAL SIGNS WT 240 LBS, HT 66 IN, BMI 38.73 INDEX, BP 174/96 MM HG, HR 100 /MIN, RR 18 /MIN, TEMP 98.4 F, OXYGEN SAT % 95%, NA INITIALS SC 11:16, REVIEWED BY: YARELY. ASSESSMENTS SPONDYLOSIS OF LUMBAR REGION WITHOUT MYELOPATHY OR RADICULOPATHY - M47.816 (PRIMARY) SPONDYLOSIS OF LUMBOSACRAL REGION WITHOUT MYELOPATHY OR RADICULOPATHY - M47.817 PROCEDURES PN LUMBAR FACET BLOCK DIAGNOSTIC PRE PROCEDURE DIAGNOSIS LUMBAR SPONDYLOSIS, LUMBOSACRAL SPONDYLOSIS POST PROCEDURE DIAGNOSIS LUMBAR SPONDYLOSIS, LUMBOSACRAL SPONDYLOSIS PROCEDURE BILATERAL L4-L5 AND BILATERAL L4-S1 FACET BLOCK DIAGNOSTIC NUMBER [address] JOYCE MCGOVERN QUALITY IMPROVEMENT COORDINATOR NONE ANESTHESIA LOCAL PRE PROCEDURE NOTE THE PATIENT WITH HISTORY OF CHRONIC LOW BACK PAIN. I EVALUATED THE PATIENT AND REVIEWED THE CHART. I WENT OVER THE RISKS, ALTERNATIVES, AND BENEFITS ASSOCIATED WITH THIS PROCEDURE. THE PATIENT WOULD LIKE TO PROCEED AND GAVE CONSENT TO PERFORM THE PROCEDURE. AGREED WITH THE PATIENT WE ARE DOING THIS PROCEDURE TO DETERMINE IF THE PATIENT IS A CANDIDATE FOR A RADIOFREQUENCY ABLATION OF THE FACETS JOINTS. THE PATIENT DENIES UNEXPLAINABLE WEIGHT LOSS, FEVER, CHILLS, OR NEW CHANGES IN URINARY OR BOWEL CONTROL DESCRIPTION OF PROCEDURE THE PATIENT WAS BROUGHT TO THE PROCEDURE ROOM AND PLACED IN THE PRONE POSITION. THE LUMBOSACRAL AREA WAS CLEANED WITH CHLORAPREP SOLUTION AND DRAPED ASEPTICALLY. THE PROCEDURE WAS DONE UNDER STERILE CONDITIONS. I CHECKED LATERALITY AND THE LEVEL WHERE THE PROCEDURE WAS GOING TO BE PERFORMED WITH THE PATIENT AND THE SUPPORTING STAFF AT THE MOMENT OF THE TIME OUT IN THE PROCEDURE ROOM. UNDER FLUOROSCOPIC GUIDANCE, TARGETS WERE SELECTED AT THE INTERSECTION OF THE RIGHT AND LEFT TRANSVERSE PROCESS OF L4, L5 AND ALA OF S1 WITH ITS RESPECTIVE SUPERIOR ARTICULAR PROCESS. LIDOCAINE WAS USED TO NUMB THE SKIN AND THE SUBCUTANEOUS TISSUE BELOW IT. SPINAL NEEDLE, 22-GAUGE WAS ADVANCED UNDER FLUOROSCOPIC GUIDANCE AND FOLLOWING PATIENT FEEDBACK UNTIL THE TARGETS WERE REACHED. POSITION OF THE NEEDLES WAS VERIFIED WITH AP AND LATERAL VIEWS. AFTER PROPER POSITION OF THE NEEDLES WAS ACHIEVED, ISOVUE-M DYE 30% 0.1 ML WAS INJECTED AT EACH SITE SHOWING ADEQUATE SPREAD OF THE DYE. THEN A SOLUTION OF 0.4 ML OF BUPIVACAINE 0.25% WAS INJECTED AT EACH SITE. THERE WAS NO EVIDENCE OF BLOOD, PARESTHESIA OR CEREBROSPINAL FLUID DURING THE PROCEDURE. THE PATIENT WAS SENT TO THE RECOVERY ROOM. THE PATIENT WAS MOVING THE EXTREMITIES AND DOING WELL. THERE WAS NO COMPLICATION DURING THE PROCEDURE. FLUOROSCOPY TIME WAS 83 SECONDS POST PROCEDURE NOTE THE PATIENT WILL DOCUMENT HIS PAIN LEVEL AND RESPONSE TO THIS PROCEDURE EVERY 30 MINUTES. THE PATIENT WILL BE SEEN IN A FOLLOW UP IN THE NEXT FEW WEEKS. FURTHER DETERMINATION FOR HIS CASE WILL BE DONE AT THE NEXT VISIT. INSTRUCTIONS WERE GIVEN, QUESTIONS WERE ANSWERED, AND THE PATIENT EXPRESSED UNDERSTANDING AND AGREED WITH THE PLAN. I, JESUS ROSA, DOCUMENTED THE ABOVE INFORMATION ACTING A SCRIBE FOR DR. MCGOVERN. I HAVE REVIEWED THE ABOVE DOCUMENT, WRITTEN BY JESUS MACDONALD AND I VERIFY THAT IT IS ACCURATE PN WORKMANS' COMP OPINION IN YOUR OPINION, WAS THE INCIDENT THAT THE PATIENT DESCRIBED THE COMPETENT MEDICAL CAUSE OF THIS INJURY/ILLNESS? YES ARE THE PATIENT'S COMPLAINTS CONSISTENT WITH HIS/HER HISTORY OF THE INJURY/ILLNESS? YES IS THE PATIENT'S HISTORY OF THE INJURY/ILLNESS CONSISTENT WITH YOUR OBJECTIVE FINDING? YES WHAT IS THE PERCENTAGE OF TEMPORARY IMPAIRMENT? MODERATE TO MARKED = 66.7% IS THE PATIENT WORKING? NO DOCTOR ON SITE: JOYCE BEAULIEU MD PROCEDURE CODES 89517 INJ PARAVERT F JNT L/S 1 LEV, MODIFIERS: 50 [id number] INJ PARAVERT F JNT L/S 2 LEV, MODIFIERS: 50 [id number] RADXPS IN END [id number] PXD DISPOSITION & COMMUNICATION FOLLOW UP 2 WEEKS ELECTRONICALLY SIGNED BY JOYCE MCGOVERN MD ON 03/12/2017 AT 01:29 PM EDT DISCLAIMER : THIS IS A VISIT SUMMARY EXTRACTED FROM THE [employer] CHART. IT IS NOT A COPY OF THE [employer] PROGRESS NOTE. MTDD
== END ==
LOC: M PAIN 11:00
PROVIDERS: ATTEND Anesthesiology
DX: G89.29 Other chronic pain (principal); M47.816 Spondylosis without myelopathy or radiculopathy, lumbar region; M47.817 Spondylosis without myelopathy or radiculopathy, lumbosacral region; E11.9 Type 2 diabetes mellitus without complications; I10 Essential (primary) hypertension; J44.9 Chronic obstructive pulmonary disease, unspecified; F32.9 Major depressive disorder, single episode, unspecified; Z88.5 Allergy status to narcotic agent; Z91.030 Bee allergy status; Z79.82 Long term (current) use of aspirin; Z79.84 Long term (current) use of oral hypoglycemic drugs; Z79.899 Other long term (current) drug therapy
CPT/HCPCS: 64493; 64494; Q9967

== ENCOUNTER → 2017-04-07 | Outpatient (CLI) | payer OTHER, MEDICARE ==
[~2017-04-07] MED LIST changes: -BUPIVACAINE HCL 0.25% 30 ML VIAL As Ordered ONE; -ISOVUE-M 300 61% 15ML VIAL (Q9967) As Ordered ONE; -LIDOCAINE 1% SDV INJ 30 ML VIAL As Ordered ONE
--- NOTE | 2017-04-10 00:23 | ECWPNPC ---
PATIENT NAME: YIMI ESPINOSA : 1960 GENDER: MALE VISIT DATE: 04/07/2017 DISCHARGE DATE: 04/07/17927 VISIT LOCKED DATE TIME: PHYSICIAN: HARRY HOWELL RESOURCE: HARRY HOWELL REASON FOR APPOINTMENT 1. POST PROCEDURE W/C HISTORY OF PRESENT ILLNESS HISTORY OF PRESENT ILLNESS: PAIN THE PATIENT DESCRIBES THE PAIN... FALL RISK SCREENING: SCREENING :NO FALLS IN THE PAST YEAR TODAY'S VISIT: NOTES: FOLLOWUP FOR BACK PAIN .( DOI 12/26/04). TODAY IS A BAD DAY WITH PAIN RADIATING TO LEFT LEG. DENIES ANY NEW NUMBNESS OR TINGLING TO BUTTUCKS OR LEGS. . DENIES ANY NEW WEAKNESS TO LEGS. IS S/P DIAGNOSTIC LUMBAR FACET BLOCK DONE BILATERALLY AT L4-5 AND L5-S1 (#1) COMPLETED ON 03/06/17. YIMI REPORTS HE HAD NO CHANGE AND NO IMPROVEMENT IN PAIN OVER THE LOW BACK, EVEN FOR A FEW HOURS. STATES THE PAIN WAS ABSOLUTELY UNCHANGED. STATES HE HAS GAINED WEIGHT SINCE STARTING GABAPENTIN AND THAT HE HAS BEEN HAVING INCREASED SWELLING IN HIS LEGS AND FEET. HAS NOTED NO IMPROVEMENT IN BACK NHAN OR IN SLEEP WITH THIS MED. REPORTS HIS TYLENOL WITH CODEINE DOES DECREASE HIS PAIN BY ABOUT 50-6 % AND THIS ALLOWS HIM TO FUNCTION AT HOME. . CURRENT MEDICATIONS TAKING AMLODIPINE BESYLATE 10 MG TABLET 1 TABLET ORALLY ONCE A DAY TAKING ASPIR-81 81 MG TABLET DELAYED RELEASE 1 TABLET ORALLY ONCE A DAY TAKING SPIRIVA RESPIMAT 18 AEROSOL SOLUTION 1 CAP INHALATION ONCE A DAY TAKING ALBUTEROL SULFATE HFA 108 (90 BASE) MCG/ACT AEROSOL SOLUTION 2 PUFFS NEEDED INHALATION EVERY 4 HRS TAKING ATORVASTATIN CALCIUM 40 MG TABLET 1 TABLET ORALLY ONCE A DAY TAKING SYMBICORT 80-4.5 MCG/ACT AEROSOL 2 PUFFS INHALATION TWICE A DAY TAKING TYLENOL WITH CODEINE #3 300-30 MG TABLET 1 TABLET ORALLY EVERY 6 HRS PRN PAIN MDD=4 TAKING GABAPENTIN 300 MG CAPSULE 1 CAPSULE ORALLY THREE TIMES DAILY MDD3 TAKING METFORMIN HCL 1000 MG TABLET 1 TABLET WITH MEALS ORALLY TWICE A DAY NOT-TAKING ZANAFLEX 2 MG CAPSULE 1 CAPSULE NEEDED ORALLY BEFORE BEDTIME MAY REPEAT IN 5 HRS MDD2 NOT-TAKING CYCLOBENZAPRINE HCL 10 MG TABLET 1 TABLET ORALLY THREE TIMES A DAY DISCONTINUED CYMBALTA 30 MG CAPSULE DELAYED RELEASE PARTICLES 1 CAPSULE ORALLY FOR PAIN TWICE A DAY, NOTES: DENIED UNKNOWN DIPHENHYDRAMINE-ALLANTOIN 2-0.5 % CREAM EXTERNALLY UNKNOWN TRIAMCINOLONE ACETONIDE 0.5 % CREAM 1 APPLICATION TO AFFECTED AREA EXTERNALLY TWICE A DAY MEDICATION LIST REVIEWED AND RECONCILED WITH THE PATIENT PAST MEDICAL HISTORY COPD DIABETES HTN LS SPINE DESC HERNIATION WITH RETROLISTHESIS : DARELL HOWELL, [facility] PAIN MANAGEMENT DEPRESSION ALLERGIES FENTANYL: HIVES: ALLERGY BEE VENOM: SOB: ALLERGY SOCIAL HISTORY GENERAL: TOBACCO USE ARE YOU A:FORMER SMOKER 40 YEARS BMI CARE GOAL FOLLOW-UP ABOVE NORMAL BMI FOLLOW-UPLIFESTYLE EDUCATION REGARDING DIET HIV / HEP-C SCREENING HIV TEST OFFERED TO PATIENT:NO HEP-C TEST OFFERED TO PATIENT:NO LEARNING BARRIERS / SPECIAL NEEDS CHANGE FROM LAST VISIT?NO BARRIERS TO LEARNING?NO HEARING IMPAIRED?NO VISION IMPAIRED?YES COGNITIVELY IMPAIRED?NO :CORRECTIVE LENSES READINESS TO LEARN?YES LEARNING PREFERENCES?NO LEARNING CAPABILITIES PRESENT?YES EMOTIONAL BARRIERS?NO SPECIAL DEVICES?NO EDITOR BOOK NEEDED?NO PAIN CLINIC PFS, CLERGY, PUBLIC HEALTH REFERRALS PFS REFERRAL NEEDED?NO CLERGY REFERRAL NEEDED?NO PUBLIC HEALTH REFERRAL NEEDED?NO WAS THE PROVIDER NOTIFIED OF ANY PERTINENT INFO?NO PATIENT: ____. REVIEW OF SYSTEMS REVIEWED BY: PROVIDER: HARRY HUSSEINP . CONSTITUTIONAL: ANY CHANGE IN YOUR MEDICAL CONDITION? NO . CHILLS NO . FEVER NO . INFECTION: DO YOU HAVE NEW INFECTIONS? NO . DO YOU HAVE HISTORY OF MRSA? NO . MUSCULOSKELETAL: ANY NEW PATTERNS OF PAIN OR NUMBNESS? NO . GASTROENTEROLOGY: ANY NEW CHANGE IN BOWEL CONTROL? NO . GENITOURINARY: ANY NEW CHANGE IN BLADDER CONTROL? NO . IS THERE A CHANCE YOU COULD BE ? NO . HEMATOLOGY/LYMPH: DO YOU TAKE ANY BLOOD THINNERS? (FOR EXAMPLE- COUMADIN, PLAVIX, AGGRENOX, PLATEL, PRADAXA, OR XARELTO) NO . WHEN WAS YOUR LAST DOSE? DATE: TIME: . NEUROLOGY: HAVE YOU FALLEN IN THE PAST 6 MONTHS? NO . ANY NEW EXTREMITY NUMBNESS OR WEAKNESS? NO . CARDIOLOGY: DO YOU HAVE A PACEMAKER OR DEFIBRILLATOR? NO . RESPIRATORY: HAVE YOU BEEN SICK IN THE PAST WEEK? NO . FEVER NO . FLU LIKE SYMPTOMS? NO . COUGH NO . INTEGUMENTARY: DO YOU HAVE ANY RASHES OR OPEN SORES? NO . ALLERGIC/IMMUNO: ARE YOU ALLERGIC TO SHELLFISH OR IV DYE? NO . ANY NEW ALLERGIES? NO . PSYCHIATRIC: DO YOU HAVE THOUGHTS OF HURTING YOURSELF OR SOMEONE ELSE? NO . ARE YOU ABUSED, NEGLECTED, OR IN AN UNSAFE ENVIRONMENT? NO . ENDOCRINOLOGY: ARE YOU DIABETIC? YES - BLOOD SUGARS RUNNING HIGH . OTHER: DO YOU NEED ANY PRESCRIPTIONS? YES . IF YES, PLEASE LIST: ZANAFLEX, GABAPENTIN, TYLENOL #3 DIDN'T GET REFILL ON CYMBALTACYMBALTA . ANY NEW PROBLEMS WITH YOUR MEDICATIONS? NO . WHEN DID YOU LAST EAT? ____ . WHEN DID YOU LAST DRINK? ____ . WHAT DID YOU LAST DRINK? ____ . NAME OF PERSON DRIVING YOU HOME? ____ . DO YOU HAVE ANY OTHER QUESTIONS OR CONCERNS NO . VITAL SIGNS WT 245.4 LBS, HT 66 IN, BMI 39.60 INDEX, BP 175/94 MM HG, HR 94%, RR 18 /MIN, TEMP 98.0 F, OXYGEN SAT % 94%, NA INITIALS SC 08:37, REVIEWED BY: KWADWO. EXAMINATION GENERAL EXAMINATION: LUNGS:SCATTERED WHEEZES BILATERALLY. SOME DIFFICULTY WITH TAKING A FULL BREATH. HEART:HEART RATE REGULAR . MUSCULOSKELETAL:MUSCLE STRENGTH TESTING 5/5 BILATERAL LOWER EXTREMITIES. ABLE TO RISE EASILY TO STANDING POSITION. GAIT NON ANTALGIC. TENDER TO PALPATION OVER LUMBAR SPINOUS PROCESSES AND ACROSS THE LUMBALSACRAL AXIS, RIGHT GREATER THAN LEFT . EXTREMITIES:1+ EDEMA BILATERAL LOWER EXTREMITIES. ASSESSMENTS SPONDYLOSIS OF LUMBAR REGION WITHOUT MYELOPATHY OR RADICULOPATHY - M47.816 (PRIMARY) CHRONICALLY ON OPIATE THERAPY - Z79.899 SPONDYLOSIS OF LUMBOSACRAL REGION WITHOUT MYELOPATHY OR RADICULOPATHY - M47.817 TREATMENT SPONDYLOSIS OF LUMBAR REGION WITHOUT MYELOPATHY OR RADICULOPATHY NOTES: UTOX TODAY. CONTINUE WITH TYLENOL WITH CODEINE #3 FOR BACK PAIN.DECREASE RADHA PENTIN TO JUST AT BEDTIME. CALL IF CHANGE IN FLUID RETENTION OR INCREASE IN PAIN. CALL WHEN SCRIPTS DUESTOP TIZANIDINE. WALK TWICE A DAY. ON BAD WEATHER DAYS DO LOWER BACK AND LEG EXERCISES. CLINICAL NOTES: ISTOP REGISTRY REVIEWED AND DEMNOSTRATES COMPLLIANCE. (REF # [id number]) BRINGS IN MEDICATIONS WHICH IS APPROPRIATE FOR WHAT WAS DISPENSED. RECENT URINE TOXICOLOGY REVIEWED. NO UNAUTHORIZED MEDICATIONS. NO ILLICIT SUBSTANCES AND PRESCRIBED MEDICATIONS WERE PRESENT. PROCEDURES PN WORKMANS' COMP OPINION IN YOUR OPINION, WAS THE INCIDENT THAT THE PATIENT DESCRIBED THE COMPETENT MEDICAL CAUSE OF THIS INJURY/ILLNESS? YES ARE THE PATIENT'S COMPLAINTS CONSISTENT WITH HIS/HER HISTORY OF THE INJURY/ILLNESS? YES IS THE PATIENT'S HISTORY OF THE INJURY/ILLNESS CONSISTENT WITH YOUR OBJECTIVE FINDING? YES WHAT IS THE PERCENTAGE OF TEMPORARY IMPAIRMENT? MODERATE TO MARKED = 66.7% IS THE PATIENT WORKING? NO DOCTOR ON SITE: JOYCE BEAULIEU MD PROCEDURE CODES FA211 ESTABILISHED PATIENT [facility] CHARGE DISPOSITION & COMMUNICATION FOLLOW UP 12/07 TO 3 MONTHS (REASON: WC BACK PAIN) ELECTRONICALLY SIGNED BY SEBASTIAN EDWARDS ON 04/09/2017 AT 01:55 PM EST DISCLAIMER : THIS IS A VISIT SUMMARY EXTRACTED FROM THE [employer] CHART. IT IS NOT A COPY OF THE [employer] PROGRESS NOTE. ZAKIYA
== END ==
LOC: M PAIN 08:30
PROVIDERS: ATTEND Nurse Practitioner Family
DX: G89.29 Other chronic pain (principal); M47.816 Spondylosis without myelopathy or radiculopathy, lumbar region; M47.817 Spondylosis without myelopathy or radiculopathy, lumbosacral region; E11.9 Type 2 diabetes mellitus without complications; I10 Essential (primary) hypertension; E78.5 Hyperlipidemia, unspecified; J44.9 Chronic obstructive pulmonary disease, unspecified; F32.9 Major depressive disorder, single episode, unspecified; Z88.5 Allergy status to narcotic agent; Z91.030 Bee allergy status; Z79.891 Long term (current) use of opiate analgesic; Z79.4 Long term (current) use of insulin; Z79.899 Other long term (current) drug therapy; Z87.891 Personal history of nicotine dependence

== ENCOUNTER → 2017-04-24 | Outpatient (REF) | payer OTHER, MEDICARE ==
[2017-04-24 11:23] LABS: BASO # 0.1 10^3/uL (0.0-0.2); BASO % 0.4 % (0.0-1.0); EOS # 0.1 10^3/uL (0.0-0.50); EOS % 0.9 % (0.0-3.0); IMMATURE GRANULOCYTE % 0.5 % (0-0); LYMPH # 1.8 10^3/uL (1.5-4.5); LYMPH % 15.4 % (24.0-44.0); MEAN CORPUSCULAR HEMOGLOBIN 30.4 pg (27.0-33.0); MEAN CORPUSCULAR HGB CONC 33.1 g/dl (32.0-36.5); MEAN CORPUSCULAR VOLUME 92.1 fl (80.0-96.0); NEUTROPHILS # 8.4 10^3/uL (1.8-7.7); NEUTROPHILS % 73.8 % (36.0-66.0); PLATELET COUNT, AUTOMATED 237 10^3/uL (150-450); RED CELL DISTRIBUTION WIDTH 12.2 % (11.5-14.5); WHITE BLOOD COUNT 11.3 10^3/uL (4.0-10.0)
[2017-04-24 11:49] LABS: ALBUMIN 3.8 GM/DL (3.2-5.2); ALBUMIN/GLOBULIN RATIO 1.12 (1.00-1.93); ALKALINE PHOSPHATASE 107 U/L (45-117); ALT/SGPT 65 U/L (12-78); ANION GAP 7 MEQ/L (8-16); AST/SGOT 26 U/L (7-37); BILIRUBIN,TOTAL 0.3 MG/DL (0.2-1.0); BLOOD UREA NITROGEN 8 MG/DL (7-18); CALCIUM LEVEL 9.4 MG/DL (8.5-10.1); CARBON DIOXIDE LEVEL 30 MEQ/L (21-32); CHLORIDE LEVEL 101 MEQ/L (98-107); CHOLESTEROL LEVEL 154 MG/DL (<200); CREATININE FOR GFR 0.78 MG/DL (0.70-1.30); GLOMERULAR FILTRATION RATE > 60.0 (>56); GLUCOSE, FASTING 198 MG/DL (70-105); POTASSIUM SERUM 4.5 MEQ/L (3.5-5.1); SODIUM LEVEL 138 MEQ/L (136-145); TOTAL PROTEIN 7.2 GM/DL (6.4-8.2); TRIGLYCERIDES LEVEL 195 MG/DL (<150)
== END ==
LOC: M SFHCCLAY 07:49
PROVIDERS: ATTEND Nurse Practitioner Family
DX: J44.9 Chronic obstructive pulmonary disease, unspecified (principal); E11.9 Type 2 diabetes mellitus without complications; E78.5 Hyperlipidemia, unspecified

== ENCOUNTER → 2017-05-12 | Outpatient (CLI) | payer MEDICARE ==
--- NOTE | 2017-05-12 10:50 | REP ---
LOW-DOSE LUNG CANCER SCREENING CHEST CT WITHOUT CONTRAST: HISTORY: Tobacco abuse. Lung cancer screening. Greater than 40 pack-year smoking history. Comparison chest CT study May 23, 2009. CT FINDINGS: Digital preliminary labor training manager radiograph demonstrates a granulomatous calcification in the left mid lung zone. This is confirmed on axial CT images as a benign granulomatous calcification. It is unchanged from the 2010 study. There are two other stable granulomatous calcifications adjacent to it in the lingular segment of the left upper lobe. There is a stable benign focus of pleural-based opacity 5 mm in diameter in the of the base of the major fissure on the right unchanged from 2010. There is also a small stable 5 mm nodular opacity in the superior segment right lower lobe on image number 43 of today's study which measures 5 mm in diameter. This is visible on the 2010 study and is unchanged as well and therefore benign. There are two stable nodular opacities in the left lower lobe at the left base. These are visible on May 23, 2009 CT images done as part of the abdominal CT study on that date and are unchanged. There are three small subcentimeter nodules in the right lower lobe which are also all visible and unchanged when compared with the 2010 prior study. No other significant finding. IMPRESSION: Negative low-dose lung cancer screening chest CT. Multiple stable subcentimeter pulmonary nodules bilaterally. No change since [address] imaging. Signed by Yosef Hernandez MD 05/12/2017 01:36 P
== END ==
LOC: M RAD 08:24
PROVIDERS: ATTEND Nurse Practitioner Family
DX: F17.210 Nicotine dependence, cigarettes, uncomplicated (principal)

== ENCOUNTER → 2017-06-23 | Outpatient (CLI) | payer OTHER | LOC: M PAIN 08:30 | DX: M47.816 Spondylosis without myelopathy or radiculopathy, lumbar region (principal); M47.817 Spondylosis without myelopathy or radiculopathy, lumbosacral region; J44.9 Chronic obstructive pulmonary disease, unspecified; E11.9 Type 2 diabetes mellitus without complications; I10 Essential (primary) hypertension; F32.9 Major depressive disorder, single episode, unspecified; Z79.82 Long term (current) use of aspirin; Z79.4 Long term (current) use of insulin; Z79.899 Other long term (current) drug therapy; Z88.5 Allergy status to narcotic agent; Z91.030 Bee allergy status; Z87.891 Personal history of nicotine dependence | CPT/HCPCS: G0463 ==

== ENCOUNTER → 2017-07-07 | Outpatient (REF) | payer OTHER ==
[2017-07-07 12:00] LABS: ALBUMIN 4.1 GM/DL (3.2-5.2); ALBUMIN/GLOBULIN RATIO 1.24 (1.00-1.93); ALKALINE PHOSPHATASE 112 U/L (45-117); ALT/SGPT 49 U/L (12-78); ANION GAP 7 MEQ/L (8-16); AST/SGOT 20 U/L (7-37); BILIRUBIN,TOTAL 0.3 MG/DL (0.2-1.0); BLOOD UREA NITROGEN 10 MG/DL (7-18); CALCIUM LEVEL 9.4 MG/DL (8.5-10.1); CARBON DIOXIDE LEVEL 30 MEQ/L (21-32); CHLORIDE LEVEL 99 MEQ/L (98-107); CHOLESTEROL LEVEL 154 MG/DL (<200); CHOLESTEROL RISK RATIO 2.655 (<5); CREATININE FOR GFR 0.71 MG/DL (0.70-1.30); GLOMERULAR FILTRATION RATE > 60.0 (>56); GLUCOSE, FASTING 146 MG/DL (70-100); HDL CHOLESTEROL 58 MG/DL (>40); LDL CHOLESTEROL 54.6 MG/DL (<100); NON-HDL-C 96 MG/DL; POTASSIUM SERUM 4.4 MEQ/L (3.5-5.1); SODIUM LEVEL 136 MEQ/L (136-145); TOTAL PROTEIN 7.4 GM/DL (6.4-8.2); TRIGLYCERIDES LEVEL 207 MG/DL (<150)
[2017-07-07 12:01] LABS: ESTIMATED AVERAGE GLUCOSE 174 MG/DL (60-110); HEMOGLOBIN A1c 7.7 %
== END ==
LOC: M SFHCCLAY 07:33
DX: E11.9 Type 2 diabetes mellitus without complications (principal); E78.5 Hyperlipidemia, unspecified
CPT/HCPCS: 80053

== ENCOUNTER → 2017-10-06 | Outpatient (REF) | payer OTHER ==
[2017-10-06 11:52] LABS: BASO # 0.1 10^3/uL (0.0-0.2); BASO % 0.5 % (0.0-1.0); EOS # 0.1 10^3/uL (0.0-0.50); EOS % 1.3 % (0.0-3.0); HEMATOCRIT 47.9 % (42.0-52.0); HEMOGLOBIN 15.7 g/dl (13.5-17.5); IMMATURE GRANULOCYTE % 0.7 % (0-3.0); LYMPH # 2.7 10^3/uL (1.5-4.5); LYMPH % 28.7 % (24.0-44.0); MEAN CORPUSCULAR HEMOGLOBIN 30.7 pg (27.0-33.0); MEAN CORPUSCULAR HGB CONC 32.8 g/dl (32.0-36.5); MEAN CORPUSCULAR VOLUME 93.6 fl (80.0-96.0); MONO % 10.3 % (0.0-5.0); NEUTROPHILS # 5.5 10^3/uL (1.8-7.7); NEUTROPHILS % 58.5 % (36.0-66.0); PLATELET COUNT, AUTOMATED 243 10^3/uL (150-450); RED BLOOD COUNT 5.12 10^6/uL (4.30-6.10); RED CELL DISTRIBUTION WIDTH 12.8 % (11.5-14.5); WHITE BLOOD COUNT 9.4 10^3/uL (4.0-10.0)
[2017-10-06 12:05] LABS: ALBUMIN 4.1 GM/DL (3.2-5.2); ALBUMIN/GLOBULIN RATIO 1.21 (1.00-1.93); ALKALINE PHOSPHATASE 98 U/L (45-117); ALT/SGPT 56 U/L (12-78); ANION GAP 6 MEQ/L (8-16); AST/SGOT 27 U/L (7-37); BILIRUBIN,TOTAL 0.3 MG/DL (0.2-1.0); BLOOD UREA NITROGEN 8 MG/DL (7-18); CALCIUM LEVEL 9.3 MG/DL (8.5-10.1); CARBON DIOXIDE LEVEL 31 MEQ/L (21-32); CHLORIDE LEVEL 101 MEQ/L (98-107); CHOLESTEROL LEVEL 146 MG/DL (<200); CHOLESTEROL RISK RATIO 2.474 (<5); CREATININE FOR GFR 0.81 MG/DL (0.70-1.30); GLOMERULAR FILTRATION RATE > 60.0 (>56); GLUCOSE, FASTING 147 MG/DL (70-100); HDL CHOLESTEROL 59 MG/DL (>40); LDL CHOLESTEROL 52.4 MG/DL (<100); NON-HDL-C 87 MG/DL; POTASSIUM SERUM 4.6 MEQ/L (3.5-5.1); SODIUM LEVEL 138 MEQ/L (136-145); TOTAL PROTEIN 7.5 GM/DL (6.4-8.2); TRIGLYCERIDES LEVEL 173 MG/DL (<150)
[2017-10-06 13:47] LABS: ESTIMATED AVERAGE GLUCOSE 171 MG/DL (60-110); HEMOGLOBIN A1c 7.6 %
== END ==
LOC: M SFHCCLAY 07:19
DX: J44.9 Chronic obstructive pulmonary disease, unspecified (principal); E11.9 Type 2 diabetes mellitus without complications; E78.5 Hyperlipidemia, unspecified
CPT/HCPCS: 80053

== ENCOUNTER → 2017-10-06 | Outpatient (CLI) | payer OTHER | LOC: M PAIN 08:30 | DX: M47.816 Spondylosis without myelopathy or radiculopathy, lumbar region (principal); M47.817 Spondylosis without myelopathy or radiculopathy, lumbosacral region; J44.9 Chronic obstructive pulmonary disease, unspecified; E11.9 Type 2 diabetes mellitus without complications; I10 Essential (primary) hypertension; F32.9 Major depressive disorder, single episode, unspecified; Z79.82 Long term (current) use of aspirin; Z79.84 Long term (current) use of oral hypoglycemic drugs; Z79.899 Other long term (current) drug therapy; Z88.5 Allergy status to narcotic agent; Z91.030 Bee allergy status; Z87.891 Personal history of nicotine dependence | CPT/HCPCS: G0463 ==

== ENCOUNTER → 2017-12-29 | Outpatient (CLI) | payer OTHER | LOC: M PAIN 14:00 | DX: M47.816 Spondylosis without myelopathy or radiculopathy, lumbar region (principal); M47.817 Spondylosis without myelopathy or radiculopathy, lumbosacral region; J44.9 Chronic obstructive pulmonary disease, unspecified; E11.9 Type 2 diabetes mellitus without complications; I10 Essential (primary) hypertension; F32.9 Major depressive disorder, single episode, unspecified; Z79.82 Long term (current) use of aspirin; Z79.84 Long term (current) use of oral hypoglycemic drugs; Z79.899 Other long term (current) drug therapy; Z88.5 Allergy status to narcotic agent; Z91.030 Bee allergy status; Z87.891 Personal history of nicotine dependence | CPT/HCPCS: G0463 ==

== ENCOUNTER → 2018-05-03 | Outpatient (CLI) | payer OTHER ==
--- NOTE | 2018-05-23 00:02 | ECWPNPC ---
PATIENT NAME: YIMI ESPINOSA : 1960 GENDER: MALE VISIT DATE: 05/03/2018 DISCHARGE DATE: 05/03/18 1726 VISIT LOCKED DATE TIME: PHYSICIAN: JOYCE MCGOVERN MD RESOURCE: JOYCE MCGOVERN MD REASON FOR APPOINTMENT 1. W/C BACK HISTORY OF PRESENT ILLNESS DEPRESSION SCREENING: PHQ-2 IN LAST TWO WEEKS HAVE YOU BEEN BOTHERED BY LITTLE INTEREST OR PLEASURE IN DOING THINGSNO FEELING DOWN, DEPRESSED, OR HOPELESSNO HISTORY OF PRESENT ILLNESS: PAIN THE PATIENT DESCRIBES THE PAIN... 57 YEAR OLD MALE PATIENT WITH A HISTORY OF CHRONIC LOW BACK PAIN. PATIENT DESCRIBES THE PAIN ACHING, STABBING, AND HAVING IT ALL THE TIME WITH A PAIN SCORE OF 5-9/10 DEPENDING ON PHYSICAL ACTIVITIES SUCH CLEANING AND COOKING. PATIENT WAS HURT IN A WORK RELATED INJURY ON 12/26/2004 WHILE WORKING FOR [employer] A WORKHAND WHEN WAS PICKING UP A CALF AND INJURED HIS BACK. THE PATIENT STATES THAT THE PAIN RADIATES DOWN HIS RIGHT LEG. THE PATIENT IS CURRENTLY TAKING TYLENOL WITH CODEINE #4 AND STATES THAT IT DOES NOT BUSINESS PLANNING DIRECTOR IN PAIN RELIEF. PATIENT DENIES UNEXPLAINABLE WEIGHT LOSS, FEVER, CHILLS, NEW CHANGES ON HIS URINARY OR BOWEL CONTROL. FALL RISK SCREENING: SCREENING :NO FALLS IN THE PAST YEAR CURRENT MEDICATIONS TAKING ASPIR-81 81 MG TABLET DELAYED RELEASE 1 TABLET ORALLY ONCE A DAY TAKING LANCET DEVICE - MISCELLANEOUS DIRECTED SUBCUTANEOUSLY BID TAKING FREESTYLE LITE TEST - STRIP DIRECTED IN VITRO BID TAKING VICTOZA 18 MG/3ML SOLUTION PEN-INJECTOR 1.2 MG SUBCUTANEOUS DAILY TAKING SPIRIVA HANDIHALER 18 MCG CAPSULE 1 CAPSULE INHALATION ONCE A DAY TAKING TYLENOL WITH CODEINE #4 300-60 MG TABLET 1 TABLET NEEDED ORALLY EVERY 6 HRS PRN PAIN MDD=4 TAKING AMLODIPINE BESYLATE 10 MG TABLET 1 TABLET ORALLY ONCE A DAY TAKING SYMBICORT 80-4.5 MCG/ACT AEROSOL 2 PUFFS INHALATION TWICE A DAY TAKING METFORMIN HCL 1000 MG TABLET 1 TABLET WITH MEALS ORALLY TWICE A DAY TAKING PEN NEEDLES 31G X 6 MM MISCELLANEOUS DIRECTED SUBCUTANEOUSLY DAILY TAKING ATORVASTATIN CALCIUM 80 MG TABLET 1 TABLET ORALLY ONCE A DAY NOT-TAKING ALBUTEROL SULFATE HFA 108 (90 BASE) MCG/ACT AEROSOL SOLUTION 2 PUFFS NEEDED INHALATION EVERY 4 HRS NOT-TAKING TYLENOL WITH CODEINE #3 300-30 MG TABLET 1 TABLET ORALLY EVERY 6 HRS PRN PAIN MDD=4 NOT-TAKING INCRUSE ELLIPTA 62.5 MCG/INH AEROSOL POWDER BREATH ACTIVATED 1 PUFF INHALATION ONCE A DAY, NOTES: NOT USIN TOO EXPENSIVE MEDICATION LIST REVIEWED AND RECONCILED WITH THE PATIENT PAST MEDICAL HISTORY COPD DIABETES HTN LS SPINE DESC HERNIATION WITH RETROLISTHESIS : DARELL HOWELL, [facility] PAIN MANAGEMENT DEPRESSION ALLERGIES FENTANYL: HIVES: ALLERGY BEE VENOM: SOB: ALLERGY SURGICAL HISTORY APPENDECTOMY HERNIA REPAIR LEFT INGUINAL FX LEFT ANKLE REPAIR 1997 SPINAL FUSION L3-4 L4-5 L5-S1 2009 COLONOSCOPY 04/2010 DORSAL COLUMN STIMULATOR PLACED AND REMOVED FAMILY HISTORY FATHER: 74 YRS, DIAGNOSED WITH HYPERTENSION, HEART DISEASE, STROKE MOTHER: 74 YRS, BREAST CA SOCIAL HISTORY GENERAL: TOBACCO USE ARE YOU A:FORMER SMOKER 38 YEARS HOW LONG HAS IT BEEN SINCE YOU LAST SMOKED?1-5 YEARS VAPORNO E-CIGARETTENO BMI CARE GOAL FOLLOW-UP ABOVE NORMAL BMI FOLLOW-UPLIFESTYLE EDUCATION REGARDING DIET ALCOHOL SCREENING DID YOU HAVE A DRINK CONTAINING ALCOHOL IN THE PAST YEAR?YES HOW OFTEN DID YOU HAVE SIX OR MORE DRINKS ON ONE OCCASION IN THE PAST YEAR?DAILY OR ALMOST DAILY (4 POINTS) HOW MANY DRINKS DID YOU HAVE ON A TYPICAL DAY WHEN YOU WERE DRINKING IN THE PAST YEAR?7 TO 9 (3 POINTS) HOW OFTEN DID YOU HAVE A DRINK CONTAINING ALCOHOL IN THE PAST YEAR?FOUR OR MORE TIMES A WEEK (4 POINTS) [id number] INTERPRETATIONPOSITIVE RECREATIONAL DRUG USE DRUG USE?NO CAFFEINE CAFFEINE USE?YES HOW OFTEN AND HOW MUCH? 1 CUP PER DAY HIV / HEP-C SCREENING HIV TEST OFFERED TO PATIENT:YES DATE OFFERED:06/26/2017 TEST ACCEPTED:NO HEP-C TEST OFFERED TO PATIENT:YES DATE OFFERED:06/26/2017 REASON:PATIENT DECLINED TEST ACCEPTED:NO REASON:PATIENT DECLINED FAITH [id number] NONE NO EVANGELICAL BELIEFS THAT WOULD IMPACT HEALTH CARE. LANGUAGE LANGUAGES SPOKEN:[place] LEARNING BARRIERS / SPECIAL NEEDS CHANGE FROM LAST VISIT?NO BARRIERS TO LEARNING?NO HEARING IMPAIRED?NO VISION IMPAIRED?YES COGNITIVELY IMPAIRED?NO :CORRECTIVE LENSES READINESS TO LEARN?YES LEARNING PREFERENCES?NO LEARNING CAPABILITIES PRESENT?YES EMOTIONAL BARRIERS?NO SPECIAL DEVICES?NO NUCLEAR EQUIPMENT DESIGN ENGINEER NEEDED?NO OCCUPATION: DISABLED. DIET: REGULAR. MARITAL STATUS: . OTHERS AT HOME: SPOUSE, CHILD. PAIN CLINIC PFS, CLERGY, PUBLIC HEALTH REFERRALS PFS REFERRAL NEEDED?NO CLERGY REFERRAL NEEDED?NO PUBLIC HEALTH REFERRAL NEEDED?NO WAS THE PROVIDER NOTIFIED OF ANY PERTINENT INFO?NO HAS THE PATIENT BEEN EDUCATED REGARDING HIS/HER PLAN OF CARE?YES HAS THE PATIENT BEEN EDUCATED REGARDING PAIN, THE RISK FOR PAIN, THE IMPORTANCE OF EFFECTIVE PAIN MANAGEMENT, AND THE PAIN ASSESSMENT PROCESS?YES ADVANCE DIRECTIVE ADVANCE DIRECTIVE DISCUSSED WITH PATIENT:YES PT DOES NOT HAVE A HCP. PT DOES NOT WANT INFO AT THIS TIME. ASSISTANCE OFFERED WITH FILLING OUT FORM, AND PT DECLINES. 05/03/18 REVIEWED WITH PT 05/03/18 1642 BV. HOSPITALIZATION/MAJOR DIAGNOSTIC PROCEDURE SPINAL SURGERIES PNEUMONIA 2009 COPD EXACERBATION WITH ARDS 06/2012 REVIEW OF SYSTEMS REVIEWED BY: PROVIDER: JOYCE MCGOVERN MD . CONSTITUTIONAL: ANY CHANGE IN YOUR MEDICAL CONDITION? NO . CHILLS NO . FEVER NO . INFECTION: DO YOU HAVE NEW INFECTIONS? NO . DO YOU HAVE HISTORY OF MRSA? NO . MUSCULOSKELETAL: ANY NEW PATTERNS OF PAIN OR NUMBNESS? NO . GASTROENTEROLOGY: ANY NEW CHANGE IN BOWEL CONTROL? NO . GENITOURINARY: ANY NEW CHANGE IN BLADDER CONTROL? NO . IS THERE A CHANCE YOU COULD BE ? NO . HEMATOLOGY/LYMPH: DO YOU TAKE ANY BLOOD THINNERS? (FOR EXAMPLE- COUMADIN, PLAVIX, AGGRENOX, PLATEL, PRADAXA, OR XARELTO) NO . WHEN WAS YOUR LAST DOSE? DATE: TIME: . NEUROLOGY: HAVE YOU FALLEN IN THE PAST 6 MONTHS? NO . ANY NEW EXTREMITY NUMBNESS OR WEAKNESS? NO . CARDIOLOGY: DO YOU HAVE A PACEMAKER OR DEFIBRILLATOR? NO . RESPIRATORY: HAVE YOU BEEN SICK IN THE PAST WEEK? NO . FEVER NO . FLU LIKE SYMPTOMS? NO . COUGH NO . INTEGUMENTARY: DO YOU HAVE ANY RASHES OR OPEN SORES? NO . ALLERGIC/IMMUNO: ARE YOU ALLERGIC TO SHELLFISH OR IV DYE? NO . ANY NEW ALLERGIES? NO . PSYCHIATRIC: DO YOU HAVE THOUGHTS OF HURTING YOURSELF OR SOMEONE ELSE? NO . ARE YOU ABUSED, NEGLECTED, OR IN AN UNSAFE ENVIRONMENT? NO . ENDOCRINOLOGY: ARE YOU DIABETIC? YES, ON MEDICATION . OTHER: DO YOU NEED ANY PRESCRIPTIONS? YES, TYLENOL WITH CODEINE #4 . IF YES, PLEASE LIST: ____ . ANY NEW PROBLEMS WITH YOUR MEDICATIONS? NO . WHEN DID YOU LAST EAT? ____ . WHEN DID YOU LAST DRINK? ____ . WHAT DID YOU LAST DRINK? ____ . NAME OF PERSON DRIVING YOU HOME? ____ . DO YOU HAVE ANY OTHER QUESTIONS OR CONCERNS NO . VITAL SIGNS WT 231.4 LBS, HT 66 IN, BMI 37.34 INDEX, BP 170/91 MM HG, HR 106 /MIN, RR 18 /MIN, TEMP 98.4 F, OXYGEN SAT % 93%, NA INITIALS AW 1611, REVIEWED BY: BV. EXAMINATION GENERAL EXAMINATION: PATIENT IS ALERT O X 3 AND COOPERATIVE. ANTALGIC GAIT. TENDERNESS OVER PARASPINAL MUSCLE GROUP OF THE LOW BACK. STRAIGHT LEG RAISE OF THE RIGHT LEG IS POSITIVE AT 40 DEGREES FOR RADICULOPATHY. MRI OF THE LUMBAR SPINE DONE ON 05/31/10 SHOWS A FUSION AT L3-4, L4-5 AND L5-S1. URINE TOXICOLOGY DONE ON 04/07/17 SHOWS CONCURRENT RESULTS. ASSESSMENTS LUMBAR POST-LAMINECTOMY SYNDROME - M96.1 (PRIMARY) LUMBAR RADICULOPATHY - M54.16 TREATMENT LUMBAR POST-LAMINECTOMY SYNDROME CLINICAL NOTES: WE DISCUSSED SEVERAL ISSUES WITH MR. ESPINOSA'S PAIN MANAGEMENT CASE. AT THIS TIME, I WOULD LIKE TO START THE PATIENT ON CYMBALTA TO BUSINESS PLANNING DIRECTOR IN PAIN RELIEF. I WOULD ALSO LIKE TO ORDER A LUMBAR MRI TO GET A BETTER UNDERSTANDING OF WHERE THE PATIENT'S PAIN IS COMING FROM AND A BUN AND CREATININE TEST TO SEE IF THE PATIENT CAN DO THE MRI WITH CONTRAST. I WILL REQUEST AUTHORIZATION AND BOOK AFTER APPROVED. I WOULD ALSO LIKE FOR THE PATIENT TO DO A URINE TOXICOLOGY TEST AT TODAY'S APPOINTMENT. THE PATIENT WILL FOLLOW UP WITH ME IN 1 MONTH. , INSTRUCTIONS WERE GIVEN, QUESTIONS WERE ANSWERED, PATIENT REPORTS UNDERSTANDING AND AGREES WITH THE PLAN. I, GRAYSON REILLY, DOCUMENTED THE ABOVE INFORMATION ACTING A SCRIBE FOR DR. MCGOVERN. I HAVE REVIEWED THE ABOVE DOCUMENT, WRITTEN BY GRAYSON REILLY SCRIBJami AND I VERIFY THAT IT IS ACCURATE. OTHERS REFILL TYLENOL WITH CODEINE #4 TABLET, 300-60 MG, 1 TABLET NEEDED, ORALLY, EVERY 6 HRS PRN PAIN MDD=4, 30 DAY(S), 110, REFILLS 1 START CYMBALTA CAPSULE DELAYED RELEASE PARTICLES, 30 MG, 1 CAPSULE, ORALLY WITH FOOD, BID FOR PAIN, 30 DAY(S), 60, REFILLS 1 PROCEDURE CODES FA211 ESTABILISHED PATIENT [facility] CHARGE G4554 CURRENT MEDS W/DOSAGES DOCUMENTED G8730 PAIN ASSESS POS TOOL F/U PLAN DOC DISPOSITION & COMMUNICATION FOLLOW UP 3 WEEKS ELECTRONICALLY SIGNED BY JOYCE MCGOVERN MD, MD ON 05/22/2018 AT 05:26 PM EST DISCLAIMER : THIS IS A VISIT SUMMARY EXTRACTED FROM THE [email or web address] CHART. IT IS NOT A COPY OF THE [email or web address] PROGRESS NOTE. MTDD
== END ==
LOC: M PAIN 16:00
PROVIDERS: ATTEND Anesthesiology
DX: M96.1 Postlaminectomy syndrome, not elsewhere classified (principal); M54.16 Radiculopathy, lumbar region; J44.9 Chronic obstructive pulmonary disease, unspecified; E11.9 Type 2 diabetes mellitus without complications; I10 Essential (primary) hypertension; M51.26 Other intervertebral disc displacement, lumbar region; F32.9 Major depressive disorder, single episode, unspecified; Z87.891 Personal history of nicotine dependence; Z79.82 Long term (current) use of aspirin; Z79.84 Long term (current) use of oral hypoglycemic drugs; Z79.899 Other long term (current) drug therapy; Z91.030 Bee allergy status; Z88.5 Allergy status to narcotic agent

== ENCOUNTER → 2018-06-05 | Outpatient (REF) | payer OTHER ==
[2018-06-05 11:56] LABS: BASO # 0.1 10^3/uL (0.0-0.2); BASO % 0.8 % (0.0-1.0); EOS # 0.2 10^3/uL (0.0-0.50); EOS % 1.8 % (0.0-3.0); HEMOGLOBIN 16.1 g/dl (13.5-17.5); LYMPH # 2.5 10^3/uL (1.5-4.5); LYMPH % 24.6 % (24.0-44.0); MEAN CORPUSCULAR HEMOGLOBIN 30.8 pg (27.0-33.0); MEAN CORPUSCULAR HGB CONC 33.5 g/dl (32.0-36.5); MONO % 9.9 % (0.0-5.0); NEUTROPHILS # 6.2 10^3/uL (1.8-7.7); NEUTROPHILS % 62.5 % (36.0-66.0); PLATELET COUNT, AUTOMATED 248 10^3/uL (150-450); RED BLOOD COUNT 5.22 10^6/uL (4.30-6.10)
[2018-06-05 12:17] LABS: ALBUMIN 4.1 GM/DL (3.2-5.2); ALT/SGPT 60 U/L (12-78); BILIRUBIN,TOTAL 0.5 MG/DL (0.2-1.0); BLOOD UREA NITROGEN 5 MG/DL (7-18); CALCIUM LEVEL 8.9 MG/DL (8.5-10.1); CARBON DIOXIDE LEVEL 28 MEQ/L (21-32); CHLORIDE LEVEL 100 MEQ/L (98-107); CREATININE FOR GFR 0.73 MG/DL (0.70-1.30); GLOMERULAR FILTRATION RATE > 60.0 (>56); GLUCOSE, FASTING 138 MG/DL (70-100); POTASSIUM SERUM 4.5 MEQ/L (3.5-5.1); SODIUM LEVEL 136 MEQ/L (136-145); TOTAL PROTEIN 7.2 GM/DL (6.4-8.2)
[2018-06-05 13:56] LABS: HEMOGLOBIN A1c 7.5 %
[2018-06-06 14:04] LABS: CREATININE, URINE 82.1 MG/DL; MALB URINE SIEMENS 42.3 MG/L; MAU/CREAT RATIO 51.5 MCG/MG (0.0-30.0)
== END ==
LOC: M SFHCCLAY 08:08
PROVIDERS: ATTEND Nurse Practitioner Family
DX: J44.9 Chronic obstructive pulmonary disease, unspecified (principal); E11.9 Type 2 diabetes mellitus without complications; I10 Essential (primary) hypertension

== ENCOUNTER → 2018-06-12 | Outpatient (CLI) | payer OTHER, MEDICARE ==
[2018-06-12 18:20] LABS: BLOOD UREA NITROGEN 9 MG/DL (7-18); CREATININE FOR GFR 0.75 MG/DL (0.70-1.30); GLOMERULAR FILTRATION RATE > 60.0 (>56)
== END ==
LOC: M LAB 17:01
PROVIDERS: ATTEND Anesthesiology
DX: M96.1 Postlaminectomy syndrome, not elsewhere classified (principal)

== ENCOUNTER → 2018-06-12 | Outpatient (CLI) | payer OTHER, MEDICARE ==
--- NOTE | 2018-06-25 00:44 | ECWPNPC ---
PATIENT NAME: YIMI ESPINOSA : 1960 GENDER: MALE VISIT DATE: 06/12/2018 DISCHARGE DATE: 06/12/18 1627 VISIT LOCKED DATE TIME: PHYSICIAN: JOYCE MCGOVERN MD RESOURCE: JOYCE MCGOVERN MD REASON FOR APPOINTMENT 1. F/U BACK PAIN W/C HISTORY OF PRESENT ILLNESS HISTORY OF PRESENT ILLNESS: PAIN THE PATIENT DESCRIBES THE PAIN... 57 YEAR OLD MALE PATIENT WITH A HISTORY OF CHRONIC LOW BACK PAIN. THE PATIENT DESCRIBES THE PAIN ACHING, SORE, TENDER, AND CONTINUOUS WITH A PAIN SCORE OF 5-8/10 DEPENDING ON PHYSICAL ACTIVITY. THE PATIENT WAS HURT IN A WORK RELATED INJURY ON 12/26/2004 WHILE WORKING FOR [employer] A WORKHAND WHEN WAS PICKING UP A CALF AND INJURED HIS BACK. THE PATIENT SAYS THAT THE PAIN IS IN HIS LOW BACK AND IT RADIATES DOWN HIS RIGHT LEG WITH SOME OCCASIONAL NUMBNESS. THE PATIENT IS CURRENTLY USING TYLENOL #4 AND CYMBALTA TO AID IN PAIN RELIEF. THE PATIENT STATES THAT THE USE OF THESE MEDICATIONS HELP DECREASE HIS PAIN AND INCREASE HIS FUNCTIONALITY. PATIENT DENIES UNEXPLAINABLE WEIGHT LOSS, FEVER, CHILLS, NEW CHANGES ON HIS URINARY OR BOWEL CONTROL. FALL RISK SCREENING: SCREENING :NO FALLS IN THE PAST YEAR CURRENT MEDICATIONS TAKING TYLENOL WITH CODEINE #4 300-60 MG TABLET 1 TABLET NEEDED ORALLY EVERY 6 HRS PRN PAIN MDD=4 TAKING CYMBALTA 30 MG CAPSULE DELAYED RELEASE PARTICLES 1 CAPSULE ORALLY WITH FOOD BID FOR PAIN TAKING ASPIR-81 81 MG TABLET DELAYED RELEASE 1 TABLET ORALLY ONCE A DAY TAKING LANCET DEVICE - MISCELLANEOUS DIRECTED SUBCUTANEOUSLY BID TAKING FREESTYLE LITE TEST - STRIP DIRECTED IN VITRO BID TAKING SPIRIVA HANDIHALER 18 MCG CAPSULE 1 CAPSULE INHALATION ONCE A DAY TAKING SYMBICORT 80-4.5 MCG/ACT AEROSOL 2 PUFFS INHALATION TWICE A DAY TAKING METFORMIN HCL 1000 MG TABLET 1 TABLET WITH MEALS ORALLY TWICE A DAY TAKING PEN NEEDLES 31G X 6 MM MISCELLANEOUS DIRECTED SUBCUTANEOUSLY DAILY TAKING ATORVASTATIN CALCIUM 80 MG TABLET 1 TABLET ORALLY ONCE A DAY TAKING AMLODIPINE BESYLATE 10 MG TABLET 1 TABLET ORALLY ONCE A DAY TAKING TRULICITY 0.75 MG/0.5ML SOLUTION PEN-INJECTOR DIRECTED SUBCUTANEOUS WEEKLY, NOTES: WILL START AFTER VICTOZA RUNS OUT TAKING VICTOZA 18 MG/3ML SOLUTION PEN-INJECTOR SUBCUTANEOUS , NOTES: STOPPING AFTER HE RUNS OUT NOT-TAKING ALBUTEROL SULFATE HFA 108 (90 BASE) MCG/ACT AEROSOL SOLUTION 2 PUFFS NEEDED INHALATION EVERY 4 HRS NOT-TAKING TYLENOL WITH CODEINE #3 300-30 MG TABLET 1 TABLET ORALLY EVERY 6 HRS PRN PAIN MDD=4 NOT-TAKING INCRUSE ELLIPTA 62.5 MCG/INH AEROSOL POWDER BREATH ACTIVATED 1 PUFF INHALATION ONCE A DAY, NOTES: NOT USIN TOO EXPENSIVE MEDICATION LIST REVIEWED AND RECONCILED WITH THE PATIENT PAST MEDICAL HISTORY COPD DIABETES HTN LS SPINE DESC HERNIATION WITH RETROLISTHESIS : DARELL HOWELL, [facility] PAIN MANAGEMENT DEPRESSION ALLERGIES FENTANYL: HIVES: ALLERGY BEE VENOM: SOB: ALLERGY SURGICAL HISTORY APPENDECTOMY HERNIA REPAIR LEFT INGUINAL FX LEFT ANKLE REPAIR 1997 SPINAL FUSION L3-4 L4-5 L5-S1 2009 COLONOSCOPY 04/2010 DORSAL COLUMN STIMULATOR PLACED AND REMOVED FAMILY HISTORY FATHER: 74 YRS, DIAGNOSED WITH HYPERTENSION, HEART DISEASE, STROKE MOTHER: 74 YRS, BREAST CA SOCIAL HISTORY GENERAL: TOBACCO USE ARE YOU A:FORMER SMOKER 38 YEARS HOW LONG HAS IT BEEN SINCE YOU LAST SMOKED?1-5 YEARS VAPORNO E-CIGARETTENO BMI CARE GOAL FOLLOW-UP ABOVE NORMAL BMI FOLLOW-UPLIFESTYLE EDUCATION REGARDING DIET ALCOHOL SCREENING DID YOU HAVE A DRINK CONTAINING ALCOHOL IN THE PAST YEAR?YES HOW OFTEN DID YOU HAVE SIX OR MORE DRINKS ON ONE OCCASION IN THE PAST YEAR?MONTHLY (2 POINTS) HOW MANY DRINKS DID YOU HAVE ON A TYPICAL DAY WHEN YOU WERE DRINKING IN THE PAST YEAR?5 OR 6 (2 POINTS) HOW OFTEN DID YOU HAVE A DRINK CONTAINING ALCOHOL IN THE PAST YEAR?FOUR OR MORE TIMES A WEEK (4 POINTS) POINTS8 INTERPRETATIONPOSITIVE RECREATIONAL DRUG USE DRUG USE?NO CAFFEINE CAFFEINE USE?YES HOW OFTEN AND HOW MUCH? OCCASIONAL HIV / HEP-C SCREENING HIV TEST OFFERED TO PATIENT:YES DATE OFFERED:06/26/2017 TEST ACCEPTED:NO HEP-C TEST OFFERED TO PATIENT:YES DATE OFFERED:06/26/2017 REASON:PATIENT DECLINED TEST ACCEPTED:NO REASON:PATIENT DECLINED HINDU [id number] NONE NO PENTECOSTAL BELIEFS THAT WOULD IMPACT HEALTH CARE. LANGUAGE LANGUAGES SPOKEN:SPANISH LEARNING BARRIERS / SPECIAL NEEDS CHANGE FROM LAST VISIT?NO 06/07/2018 BARRIERS TO LEARNING?NO HEARING IMPAIRED?NO VISION IMPAIRED?YES :CORRECTIVE LENSES COGNITIVELY IMPAIRED?NO READINESS TO LEARN?YES LEARNING PREFERENCES?NO LEARNING CAPABILITIES PRESENT?YES EMOTIONAL BARRIERS?NO SPECIAL DEVICES?NO BUNKER WORKER NEEDED?NO OCCUPATION: DISABLED. DIET: REGULAR. MARITAL STATUS: . OTHERS AT HOME: SPOUSE, CHILD. PAIN CLINIC PFS, CLERGY, PUBLIC HEALTH REFERRALS PFS REFERRAL NEEDED?NO CLERGY REFERRAL NEEDED?NO PUBLIC HEALTH REFERRAL NEEDED?NO WAS THE PROVIDER NOTIFIED OF ANY PERTINENT INFO?NO HAS THE PATIENT BEEN EDUCATED REGARDING HIS/HER PLAN OF CARE?YES HAS THE PATIENT BEEN EDUCATED REGARDING PAIN, THE RISK FOR PAIN, THE IMPORTANCE OF EFFECTIVE PAIN MANAGEMENT, AND THE PAIN ASSESSMENT PROCESS?YES ADVANCE DIRECTIVE ADVANCE DIRECTIVE DISCUSSED WITH PATIENT:YES PT DOES NOT HAVE A HCP. PT DOES NOT WANT INFO AT THIS TIME. ASSISTANCE OFFERED WITH FILLING OUT FORM, AND PT DECLINES. 05/03/18 REVIEWED WITH PT 05/03/18 1642 BVREVIEWED WITH PATIENT 06/12/18 1537 JS. HOSPITALIZATION/MAJOR DIAGNOSTIC PROCEDURE SPINAL SURGERIES PNEUMONIA 2009 COPD EXACERBATION WITH ARDS 06/2012 REVIEW OF SYSTEMS REVIEWED BY: PROVIDER: JOYCE MCGOVERN MD . CONSTITUTIONAL: ANY CHANGE IN YOUR MEDICAL CONDITION? NO . CHILLS NO . FEVER NO . INFECTION: DO YOU HAVE NEW INFECTIONS? NO . DO YOU HAVE HISTORY OF MRSA? NO . MUSCULOSKELETAL: ANY NEW PATTERNS OF PAIN OR NUMBNESS? NO . GASTROENTEROLOGY: ANY NEW CHANGE IN BOWEL CONTROL? NO . GENITOURINARY: ANY NEW CHANGE IN BLADDER CONTROL? NO . IS THERE A CHANCE YOU COULD BE ? NO . HEMATOLOGY/LYMPH: DO YOU TAKE ANY BLOOD THINNERS? (FOR EXAMPLE- COUMADIN, PLAVIX, AGGRENOX, PLATEL, PRADAXA, OR XARELTO) NO . WHEN WAS YOUR LAST DOSE? DATE: TIME: . NEUROLOGY: HAVE YOU FALLEN IN THE PAST 12 MONTHS? NO . ANY NEW EXTREMITY NUMBNESS OR WEAKNESS? NO . CARDIOLOGY: DO YOU HAVE A PACEMAKER OR DEFIBRILLATOR? NO . RESPIRATORY: HAVE YOU BEEN SICK IN THE PAST WEEK? NO . FEVER NO . FLU LIKE SYMPTOMS? NO . COUGH NO . INTEGUMENTARY: DO YOU HAVE ANY RASHES OR OPEN SORES? NO . ALLERGIC/IMMUNO: ARE YOU ALLERGIC TO IV DYE? NO . ANY NEW ALLERGIES? NO . PSYCHIATRIC: DO YOU HAVE THOUGHTS OF HURTING YOURSELF OR SOMEONE ELSE? NO . ARE YOU ABUSED, NEGLECTED, OR IN AN UNSAFE ENVIRONMENT? NO . ENDOCRINOLOGY: ARE YOU DIABETIC? YES, FSBS 120 YESTERDAY AT 1200 . OTHER: DO YOU NEED ANY PRESCRIPTIONS? NO . IF YES, PLEASE LIST: ____ . ANY NEW PROBLEMS WITH YOUR MEDICATIONS? NO . WHEN DID YOU LAST EAT? ____ . WHEN DID YOU LAST DRINK? ____ . WHAT DID YOU LAST DRINK? ____ . NAME OF PERSON DRIVING YOU HOME? ____ . DO YOU HAVE ANY OTHER QUESTIONS OR CONCERNS NO . VITAL SIGNS WT 227 LBS, HT 66 IN, BMI 36.63 INDEX, BP 163/84 MM HG, HR 109 /MIN, RR 18 /MIN, TEMP 97.3 F, OXYGEN SAT % 90%, BLOOD GLUCOSE LEVEL 120 YESTERDAY, SAFE IN ENV? (Y/N) YES, NA INITIALS AW 1524, REVIEWED BY: JS. EXAMINATION GENERAL EXAMINATION: PATIENT IS ALERT O X 3 AND COOPERATIVE. PATIENT IS LIMPING FROM HIS RIGHT LEG. MRI OF THE LUMBAR SPINE DONE ON 05/31/2010 SHOWS A FUSION AT L3-L4, L4-L5, AND L5-S1. ASSESSMENTS LUMBAR POST-LAMINECTOMY SYNDROME - M96.1 (PRIMARY) LUMBAR RADICULOPATHY - M54.16 TREATMENT LUMBAR POST-LAMINECTOMY SYNDROME CLINICAL NOTES: WE DISCUSSED SEVERAL ISSUES WITH MR. ESPINOSA'S PAIN MANAGEMENT CASE. THE PATIENT IS HAVING A NEW LUMBAR MRI DONE WITHIN THE NEXT FEW WEEKS, SO I WILL REVIEW THAT AFTER IT IS COMPLETED TO GET A BETTER UNDERSTANDING ON WHERE THE PATIENT'S PAIN IS COMING FROM. THE PATIENT WILL CONTINUE USING CYMBALTA, BUT WE WILL REDUCE THE TYLENOL _4 AND THE PATIENT WILL USE IT ONLY NEEDED IF THE PAIN IS SEVERE. URINE TOXICOLOGY DONE ON 05/03/2018 SHOWS CONCURRENT RESULTS. ISTOP [id number] WAS REVIEWED. THE PATIENT BROUGHT HIS MEDICATION TO TODAY'S VISIT IN THE ORIGINAL BOTTLE. THE PATIENT WILL FOLLOW UP IN 2 MONTHS. INSTRUCTIONS WERE GIVEN, QUESTIONS WERE ANSWERED, PATIENT REPORTS UNDERSTANDING AND AGREES WITH THE PLAN. I, KRISTIN CARDENAS, DOCUMENTED THE ABOVE INFORMATION ACTING A SCRIBE FOR DR. MCGOVERN. I HAVE REVIEWED THE ABOVE DOCUMENT, WRITTEN BY KRSITIN ARAUJOIBJami AND I VERIFY THAT IT IS ACCURATE. PROCEDURES PN WORKMANS' COMP OPINION IN YOUR OPINION, WAS THE INCIDENT THAT THE PATIENT DESCRIBED THE COMPETENT MEDICAL CAUSE OF THIS INJURY/ILLNESS? YES ARE THE PATIENT'S COMPLAINTS CONSISTENT WITH HIS/HER HISTORY OF THE INJURY/ILLNESS? YES IS THE PATIENT'S HISTORY OF THE INJURY/ILLNESS CONSISTENT WITH YOUR OBJECTIVE FINDING? YES WHAT IS THE PERCENTAGE OF TEMPORARY IMPAIRMENT? MODERATE TO MARKED = 66.7% IS THE PATIENT WORKING? NO DOCTOR ON SITE: JOYCE BEAULIEU MD PROCEDURE CODES FA211 ESTABILISHED PATIENT [facility] CHARGE G8427 CURRENT MEDS W/DOSAGES DOCUMENTED G8730 PAIN ASSESS POS TOOL F/U PLAN DOC DISPOSITION & COMMUNICATION FOLLOW UP 2 MONTHS ELECTRONICALLY SIGNED BY JOYCE MCGOVERN MD, MD ON 06/24/2018 AT 06:48 PM EST DISCLAIMER : THIS IS A VISIT SUMMARY EXTRACTED FROM THE [employer] CHART. IT IS NOT A COPY OF THE [employer] PROGRESS NOTE. ZAKIYA
== END ==
LOC: M PAIN 15:15
PROVIDERS: ATTEND Anesthesiology
DX: M96.1 Postlaminectomy syndrome, not elsewhere classified (principal); M54.16 Radiculopathy, lumbar region; J44.9 Chronic obstructive pulmonary disease, unspecified; E11.9 Type 2 diabetes mellitus without complications; I10 Essential (primary) hypertension; F32.9 Major depressive disorder, single episode, unspecified; E66.9 Obesity, unspecified; Z68.36 Body mass index [BMI] 36.0-36.9, adult; Z87.891 Personal history of nicotine dependence; Z88.5 Allergy status to narcotic agent; Z91.030 Bee allergy status; Z79.82 Long term (current) use of aspirin; Z79.84 Long term (current) use of oral hypoglycemic drugs; Z79.899 Other long term (current) drug therapy

== ENCOUNTER → 2018-08-10 | Outpatient (CLI) | payer OTHER, MEDICARE ==
[~2018-08-10] MED LIST changes: -/ACETCOD2T PO; -/DULO30CA OR; -/ESOM40CA OR; +ACET1TAB15 PO; +CYMB1CAP5 OR; +NEXI1CAP3 OR
--- NOTE | 2018-08-26 23:57 | ECWPNPC ---
PATIENT NAME: YIMI ESPINOSA : 1960 GENDER: MALE VISIT DATE: 08/10/2018 DISCHARGE DATE: 08/10/18 1456 VISIT LOCKED DATE TIME: PHYSICIAN: JOYCE MCGOVERN MD RESOURCE: JOYCE MCGOVERN MD REASON FOR APPOINTMENT 1. W/C LOW BACK HISTORY OF PRESENT ILLNESS HISTORY OF PRESENT ILLNESS: PAIN THE PATIENT DESCRIBES THE PAIN... 57 YEAR OLD MALE PATIENT WITH A HISTORY OF CHRONIC LOW BACK PAIN. THE PATIENT DESCRIBES THE PAIN ACHING, SORE, SHARP AND CONTINUOUS WITH A PAIN SCORE OF 6-9/10 DEPENDING ON PHYSICAL ACTIVITY. THE PATIENT WAS HURT IN A WORK RELATED INJURY ON 12/26/2004 WHILE WORKING FOR [employer] WHEN HE WAS PICKING UP A CALF AND HURT HIS BACK. THE PATIENT IS CURRENTLY TAKING CYMBALTA 30 MG AND STATES IT IS HELPING BUT HE STILL HAS DIFFICULTY WITH DAILY ACTIVITIES SUCH CLEANING AND COOKING DUE TO PAIN., PATIENT DENIES UNEXPLAINABLE WEIGHT LOSS, FEVER, CHILLS, NEW CHANGES ON HIS URINARY OR BOWEL CONTROL. FALL RISK SCREENING: SCREENING : NO FALLS IN THE PAST YEAR. CURRENT MEDICATIONS TAKING ASPIR-81 81 MG TABLET DELAYED RELEASE 1 TABLET ORALLY ONCE A DAY TAKING LANCET DEVICE - MISCELLANEOUS DIRECTED SUBCUTANEOUSLY BID TAKING FREESTYLE LITE TEST - STRIP DIRECTED IN VITRO BID TAKING SPIRIVA HANDIHALER 18 MCG CAPSULE 1 CAPSULE INHALATION ONCE A DAY TAKING SYMBICORT 80-4.5 MCG/ACT AEROSOL 2 PUFFS INHALATION TWICE A DAY TAKING METFORMIN HCL 1000 MG TABLET 1 TABLET WITH MEALS ORALLY TWICE A DAY TAKING PEN NEEDLES 31G X 6 MM MISCELLANEOUS DIRECTED SUBCUTANEOUSLY DAILY TAKING ATORVASTATIN CALCIUM 80 MG TABLET 1 TABLET ORALLY ONCE A DAY TAKING AMLODIPINE BESYLATE 10 MG TABLET 1 TABLET ORALLY ONCE A DAY TAKING TRULICITY 0.75 MG/0.5ML SOLUTION PEN-INJECTOR DIRECTED SUBCUTANEOUS WEEKLY, NOTES: WILL START AFTER VICTOZA RUNS OUT TAKING VICTOZA 18 MG/3ML SOLUTION PEN-INJECTOR SUBCUTANEOUS , NOTES: STOPPING AFTER HE RUNS OUT TAKING CYMBALTA 30 MG CAPSULE DELAYED RELEASE PARTICLES 1 CAPSULE ORALLY WITH FOOD BID FOR PAIN TAKING ALBUTEROL SULFATE HFA 108 (90 BASE) MCG/ACT AEROSOL SOLUTION 2 PUFFS NEEDED INHALATION EVERY 4 HRS NOT-TAKING TYLENOL WITH CODEINE #4 300-60 MG TABLET 1 TABLET NEEDED ORALLY EVERY 6 HRS PRN PAIN MDD=4 NOT-TAKING TYLENOL WITH CODEINE #3 300-30 MG TABLET 1 TABLET ORALLY EVERY 6 HRS PRN PAIN MDD=4 NOT-TAKING INCRUSE ELLIPTA 62.5 MCG/INH AEROSOL POWDER BREATH ACTIVATED 1 PUFF INHALATION ONCE A DAY, NOTES: NOT USIN TOO EXPENSIVE MEDICATION LIST REVIEWED AND RECONCILED WITH THE PATIENT PAST MEDICAL HISTORY COPD DIABETES HTN LS SPINE DESC HERNIATION WITH RETROLISTHESIS : DARELL HOWELL, [facility] PAIN MANAGEMENT DEPRESSION ALLERGIES FENTANYL: HIVES - ALLERGY BEE VENOM: SOB - ALLERGY SURGICAL HISTORY APPENDECTOMY HERNIA REPAIR LEFT INGUINAL FX LEFT ANKLE REPAIR 1997 SPINAL FUSION L3-4 L4-5 L5-S1 2009 COLONOSCOPY 04/2010 DORSAL COLUMN STIMULATOR PLACED AND REMOVED FAMILY HISTORY FATHER: 74 YRS, DIAGNOSED WITH HYPERTENSION, HEART DISEASE, STROKE MOTHER: 74 YRS, BREAST CA MOM LIVER FAILURE. SOCIAL HISTORY GENERAL: TOBACCO USE ARE YOU A:FORMER SMOKER 38 YEARS HOW LONG HAS IT BEEN SINCE YOU LAST SMOKED?5-10 YEARS VAPORNO E-CIGARETTENO LATEX QUESTIONNAIRE LATEX ALLERGY : HAVE YOU EVER DEVELOPED ANY TYPE OF REACTION AFTER HANDLING LATEX PRODUCTS SUCH RUBBER GLOVES, CONDOMS, DIAPHRAGMS, BALLOONS, SOCKS, OR UNDERWEAR?NO LATEX ALLERGY : HAVE YOU EVER DEVELOPED ANY TYPE OF REACTION DURING OR AFTER DENTAL APPOINTMENT, VAGINAL/RECTAL EXAMINATION, SURGICAL PROCEDURE, OR ANY OTHER EXPOSURE?NO LATEX RISK : HAVE YOU EVER HAD ANY DIFFICULTY BREATHING OR HIVES AFTER EATING OR HANDLING ANY FRUITS, OR VEGETABLES; SUCH KIWI, BANANAS, STONE FRUITS, OR CHESTNUTSNO LATEX RISK : DO YOU HAVE A PREVIOUS PERSONAL HISTORY OF MORE THAN NINE SURGERIES, SPINA BIFIDA, OR REPEATED CATHERTIZATIONS? NO LATEX RISK : ARE YOU FREQUENTLY EXPOSED TO LATEX PRODUCTS IN YOUR OCCUPATION?NO DATE ASKED : 08/10/2018 BMI CARE GOAL FOLLOW-UP ABOVE NORMAL BMI FOLLOW-[facility] EDUCATION REGARDING DIET ALCOHOL SCREENING DID YOU HAVE A DRINK CONTAINING ALCOHOL IN THE PAST YEAR?YES HOW OFTEN DID YOU HAVE A DRINK CONTAINING ALCOHOL IN THE PAST YEAR?FOUR OR MORE TIMES A WEEK (4 POINTS) HOW MANY DRINKS DID YOU HAVE ON A TYPICAL DAY WHEN YOU WERE DRINKING IN THE PAST YEAR?5 OR 6 (2 POINTS) HOW OFTEN DID YOU HAVE SIX OR MORE DRINKS ON ONE OCCASION IN THE PAST YEAR?MONTHLY (2 POINTS) POINTS8 INTERPRETATIONPOSITIVE RECREATIONAL DRUG USE DRUG USE?NO CAFFEINE CAFFEINE USE?YES HOW OFTEN AND HOW MUCH? OCCASIONAL HIV / HEP-C SCREENING HIV TEST OFFERED TO PATIENT:YES DATE OFFERED:06/26/2017 TEST ACCEPTED:NO REASON:PATIENT DECLINED HEP-C TEST OFFERED TO PATIENT:YES DATE OFFERED:06/26/2017 TEST ACCEPTED:NO REASON:PATIENT DECLINED PROTESTANT [id number] NONE NO RESTORATION BELIEFS THAT WOULD IMPACT HEALTH CARE. LANGUAGE LANGUAGES SPOKEN:SCOTTISH LEARNING BARRIERS / SPECIAL NEEDS CHANGE FROM LAST VISIT?NO 06/07/2018 BARRIERS TO LEARNING?NO HEARING IMPAIRED?NO VISION IMPAIRED?YES :CORRECTIVE LENSES COGNITIVELY IMPAIRED?NO READINESS TO LEARN?YES LEARNING PREFERENCES?NO LEARNING CAPABILITIES PRESENT?YES EMOTIONAL BARRIERS?NO SPECIAL DEVICES?NO TELEPHONE DIRECTORY DISTRIBUTOR DRIVER NEEDED?NO OCCUPATION: DISABLED. DIET: REGULAR. MARITAL STATUS: . OTHERS AT HOME: SPOUSE, CHILD. PAIN CLINIC PFS, CLERGY, PUBLIC HEALTH REFERRALS PFS REFERRAL NEEDED?NO CLERGY REFERRAL NEEDED?NO PUBLIC HEALTH REFERRAL NEEDED?NO WAS THE PROVIDER NOTIFIED OF ANY PERTINENT INFO?NO HAS THE PATIENT BEEN EDUCATED REGARDING HIS/HER PLAN OF CARE?YES HAS THE PATIENT BEEN EDUCATED REGARDING PAIN, THE RISK FOR PAIN, THE IMPORTANCE OF EFFECTIVE PAIN MANAGEMENT, AND THE PAIN ASSESSMENT PROCESS?YES ADVANCE DIRECTIVE ADVANCE DIRECTIVE DISCUSSED WITH PATIENT:YES PT DOES NOT HAVE A HCP. PT DOES NOT WANT INFO AT THIS TIME. ASSISTANCE OFFERED WITH FILLING OUT FORM, AND PT DECLINES. REVIEWED WITH PT 05/03/18 1642 BVREVIEWED WITH PATIENT 06/12/18 1537 JSREVIEWED WITH PATIENT 08/10/18 1434 LAS. HOSPITALIZATION/MAJOR DIAGNOSTIC PROCEDURE SPINAL SURGERIES PNEUMONIA 2010 COPD EXACERBATION WITH ARDS 06/2012 REVIEW OF SYSTEMS REVIEWED BY: PROVIDER: JOYCE MCGOVERN MD . CONSTITUTIONAL: ANY CHANGE IN YOUR MEDICAL CONDITION? NO . CHILLS NO . FEVER NO . INFECTION: DO YOU HAVE NEW INFECTIONS? NO . DO YOU HAVE HISTORY OF MRSA? NO . MUSCULOSKELETAL: ANY NEW PATTERNS OF PAIN OR NUMBNESS? NO . GASTROENTEROLOGY: ANY NEW CHANGE IN BOWEL CONTROL? NO . GENITOURINARY: ANY NEW CHANGE IN BLADDER CONTROL? PT REPORTS INCREASED FREQUENCY ESPECIALLY DURING THE NIGHT . IS THERE A CHANCE YOU COULD BE ? NO . HEMATOLOGY/LYMPH: DO YOU TAKE ANY BLOOD THINNERS? (FOR EXAMPLE- COUMADIN, PLAVIX, AGGRENOX, PLATEL, PRADAXA, OR XARELTO) NO . WHEN WAS YOUR LAST DOSE? DATE: TIME: . NEUROLOGY: HAVE YOU FALLEN IN THE PAST 12 MONTHS? NO . ANY NEW EXTREMITY NUMBNESS OR WEAKNESS? NO . CARDIOLOGY: DO YOU HAVE A PACEMAKER OR DEFIBRILLATOR? NO . RESPIRATORY: HAVE YOU BEEN SICK IN THE PAST WEEK? NO . FEVER NO . FLU LIKE SYMPTOMS? NO . COUGH NO . INTEGUMENTARY: DO YOU HAVE ANY RASHES OR OPEN SORES? NO . ALLERGIC/IMMUNO: ARE YOU ALLERGIC TO IV DYE? NO . ANY NEW ALLERGIES? NO . PSYCHIATRIC: DO YOU HAVE THOUGHTS OF HURTING YOURSELF OR SOMEONE ELSE? NO . ARE YOU ABUSED, NEGLECTED, OR IN AN UNSAFE ENVIRONMENT? NO . ENDOCRINOLOGY: ARE YOU DIABETIC? YES . OTHER: DO YOU NEED ANY PRESCRIPTIONS? NO . IF YES, PLEASE LIST: ____ . ANY NEW PROBLEMS WITH YOUR MEDICATIONS? NO . WHEN DID YOU LAST EAT? ____ . WHEN DID YOU LAST DRINK? ____ . WHAT DID YOU LAST DRINK? ____ . NAME OF PERSON DRIVING YOU HOME? ____ . DO YOU HAVE ANY OTHER QUESTIONS OR CONCERNS NO . VITAL SIGNS WT 226.6 LBS, HT 66 IN, BMI 36.57 INDEX, BP 176/82 MM HG, HR 107 /MIN, RR 18 /MIN, TEMP 97.6 F, OXYGEN SAT % 93%. EXAMINATION GENERAL EXAMINATION: PATIENT IS ALERT O X 3 AND COOPERATIVE. TENDERNESS IN THE LOW BACK AREA. PRESENCE OF TRIGGER POINTS IN THE SACRAL LUMBAR AREA. RESTRICTION OF MOVEMENT. MRI OF THE LUMBAR SPINE DONE ON 05/31/2010 SHOWS A FUSION AT L3-L4, L4-L5 AND L5-S1. MRI LUMBAR SPINE DONE 06/22/2018 SHOWS STATUS POST FUSION CHANGES. 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 ESPINOSA'S PAIN MANAGEMENT CASE. I WILL INCREASE THE CYMBALTA TO 60 MG TWICE A DAY. WE DISCUSSED THE POSSIBILITY OF A TRIGGER POINT INJECTION OR FACET BLOCK IN THE FUTURE BUT FOR NOW, THE PATIENT WOULD LIKE TO TRY MEDICATION MANAGEMENT. THE PATIENT WILL FOLLOW UP WITH ME IN 3 MONTHS. INSTRUCTIONS WERE GIVEN, QUESTIONS WERE ANSWERED, PATIENT REPORTS UNDERSTANDING AND AGREES WITH THE PLAN. I, ZAHIDA MATSON, DOCUMENTED THE ABOVE INFORMATION ACTING A SCRIBE FOR DR. MCGOVERN. I HAVE REVIEWED THE ABOVE DOCUMENT, WRITTEN BY ZAHIDA MACDONALD AND I VERIFY THAT IT IS ACCURATE. OTHERS REFILL CYMBALTA CAPSULE DELAYED RELEASE PARTICLES, 60 MG, 1 CAPSULE, ORALLY, BID FOR PAIN, 30 DAY(S), 60, REFILLS 1 PROCEDURES PN WORKMANS' COMP OPINION IN YOUR OPINION, WAS THE INCIDENT THAT THE PATIENT DESCRIBED THE COMPETENT MEDICAL CAUSE OF THIS INJURY/ILLNESS? YES ARE THE PATIENT'S COMPLAINTS CONSISTENT WITH HIS/HER HISTORY OF THE INJURY/ILLNESS? YES IS THE PATIENT'S HISTORY OF THE INJURY/ILLNESS CONSISTENT WITH YOUR OBJECTIVE FINDING? YES WHAT IS THE PERCENTAGE OF TEMPORARY IMPAIRMENT? MODERATE TO MARKED = 66.7% IS THE PATIENT WORKING? NO DOCTOR ON SITE: JOYCE BEAULIEU MD PROCEDURE CODES FA211 ESTABILISHED PATIENT [facility] FACILITY CHARGE G8427 CURRENT MEDS W/DOSAGES DOCUMENTED G8730 PAIN ASSESS POS TOOL F/U PLAN DOC DISPOSITION & COMMUNICATION ELECTRONICALLY SIGNED BY JOYCE MCGOVERN MD, MD ON 08/26/2018 AT 03:57 PM EDT DISCLAIMER : THIS IS A VISIT SUMMARY EXTRACTED FROM THE [employer] CHART. IT IS NOT A COPY OF THE [employer] PROGRESS NOTE. ZAKIYA
== END ==
LOC: M PAIN 14:15
PROVIDERS: ATTEND Anesthesiology
DX: M96.1 Postlaminectomy syndrome, not elsewhere classified (principal); M54.16 Radiculopathy, lumbar region; J44.9 Chronic obstructive pulmonary disease, unspecified; E11.9 Type 2 diabetes mellitus without complications; I10 Essential (primary) hypertension; Z79.82 Long term (current) use of aspirin; Z79.84 Long term (current) use of oral hypoglycemic drugs; Z79.899 Other long term (current) drug therapy; Z87.891 Personal history of nicotine dependence; Z88.5 Allergy status to narcotic agent; Z91.030 Bee allergy status

== ENCOUNTER → 2018-08-27 | Outpatient (REF) | payer MEDICARE | LOC: M SFHCCLAY 07:59 | PROVIDERS: ATTEND Nurse Practitioner Family | DX: R35.0 Frequency of micturition (principal) | CPT/HCPCS: 81002; G0103; G0463 ==

== ENCOUNTER → 2018-11-09 | Outpatient (CLI) | payer OTHER, MEDICARE ==
--- NOTE | 2018-11-20 02:22 | ECWPNPC ---
PATIENT NAME: YIMI ESPINOSA : 1960 GENDER: MALE VISIT DATE: 11/09/2018 DISCHARGE DATE: 11/09/18 0950 VISIT LOCKED DATE TIME: PHYSICIAN: JOYCE MCGOVERN MD RESOURCE: JOYCE MCGOVERN MD DISCLAIMER : THIS IS A VISIT SUMMARY EXTRACTED FROM THE [employer] CHART. IT IS NOT A COPY OF THE [employer] PROGRESS NOTE. MTDD
== END ==
LOC: M PAIN 08:30
PROVIDERS: ATTEND Anesthesiology
DX: M76.891 Other specified enthesopathies of right lower limb, excluding foot (principal); M96.1 Postlaminectomy syndrome, not elsewhere classified; J44.9 Chronic obstructive pulmonary disease, unspecified; E11.9 Type 2 diabetes mellitus without complications; I10 Essential (primary) hypertension; F32.9 Major depressive disorder, single episode, unspecified; Z87.891 Personal history of nicotine dependence; Z79.82 Long term (current) use of aspirin; Z79.84 Long term (current) use of oral hypoglycemic drugs; Z79.899 Other long term (current) drug therapy; Z91.030 Bee allergy status; Z88.8 Allergy status to other drugs, medicaments and biological substances

== ENCOUNTER → 2018-11-26 | Outpatient (REF) | payer MEDICARE, OTHER ==
[2018-11-26 12:13] LABS: BASO # 0.1 10^3/uL (0.0-0.2); BASO % 0.6 % (0.0-1.0); EOS # 0.2 10^3/uL (0.0-0.50); EOS % 2.1 % (0.0-3.0); HEMATOCRIT 47.1 % (42.0-52.0); HEMOGLOBIN 15.7 g/dl (13.5-17.5); LYMPH % 25.2 % (24.0-44.0); MEAN CORPUSCULAR HEMOGLOBIN 31.8 pg (27.0-33.0); MEAN CORPUSCULAR HGB CONC 33.3 g/dl (32.0-36.5); MEAN CORPUSCULAR VOLUME 95.5 fl (80.0-96.0); MONO # 0.9 10^3/uL (0.0-0.8); MONO % 11.6 % (0.0-5.0); NEUTROPHILS # 4.7 10^3/uL (1.8-7.7); NEUTROPHILS % 59.9 % (36.0-66.0); PLATELET COUNT, AUTOMATED 258 10^3/uL (150-450); RED BLOOD COUNT 4.93 10^6/uL (4.30-6.10); WHITE BLOOD COUNT 7.9 10^3/uL (4.0-10.0)
[2018-11-26 12:21] LABS: ALBUMIN 4.2 GM/DL (3.2-5.2); ALT/SGPT 35 U/L (12-78); BILIRUBIN,TOTAL 0.4 MG/DL (0.2-1.0); BLOOD UREA NITROGEN 8 MG/DL (7-18); CALCIUM LEVEL 8.9 MG/DL (8.5-10.1); CARBON DIOXIDE LEVEL 30 MEQ/L (21-32); CHLORIDE LEVEL 103 MEQ/L (98-107); CREATININE FOR GFR 0.78 MG/DL (0.70-1.30); GLOMERULAR FILTRATION RATE > 60.0 (>56); GLUCOSE, FASTING 150 MG/DL (70-100); POTASSIUM SERUM 5.1 MEQ/L (3.5-5.1); SODIUM LEVEL 138 MEQ/L (136-145); TOTAL PROTEIN 7.3 GM/DL (6.4-8.2)
[2018-11-26 12:31] LABS: HEMOGLOBIN A1c 6.8 %
== END ==
LOC: M SFHCCLAY 07:48
PROVIDERS: ATTEND Nurse Practitioner Family
DX: E11.9 Type 2 diabetes mellitus without complications (principal); I10 Essential (primary) hypertension
CPT/HCPCS: 80053; 83036; 85025; G0463

== ENCOUNTER → 2019-01-01 | Outpatient (CLI) | payer OTHER ==
[~2019-01-01] MED LIST changes: +BUPIVACAINE HCL 0.25% 30 ML VIAL As Ordered ONE; +ISOVUE-M 200 41% 20ML VIAL (Q9966) As Ordered ONE; +LIDOCAINE 1% SDV INJ 30 ML VIAL As Ordered ONE; +TRIAMCINOLONE ACETONIDE SUSP 40 MG/ML VIAL (J3301) As Ordered ONE; +diazePAM 5 MG TAB As Ordered ONE; +oxyCODONE 5MG TAB As Ordered ONE
--- NOTE | 2019-01-01 13:39 | REP ---
Right pelvis: limited three views. History: Fluoroscopic guidance. Right ileal lumbar ligament injection for pain. 13 seconds of fluoroscopy time is reported. Findings: A sequence of three last image hold fluoroscopic spot radiographs document needle position and contrast injection associated with injection was. Electronically Signed by Yosef Hernandez MD 01/01/2019 01:30 P
--- NOTE | 2019-01-09 01:15 | ECWPNPC ---
PATIENT NAME: YIMI ESPINOSA : 1960 GENDER: MALE VISIT DATE: 01/01/2019 DISCHARGE DATE: 01/01/19 1216 VISIT LOCKED DATE TIME: PHYSICIAN: JOYCE MCGOVERN MD RESOURCE: JOYCE MCGOVERN MD REASON FOR APPOINTMENT 1. RIGHT ILIOLUMBAR LIGAMENT INJECTION UNDER FLUORO HISTORY OF PRESENT ILLNESS HISTORY OF PRESENT ILLNESS: PAIN THE PATIENT DESCRIBES THE PAIN... FALL RISK SCREENING: SCREENING :NO FALLS REPORTED IN THE LAST YEAR CURRENT MEDICATIONS TAKING AMLODIPINE BESYLATE 10 MG TABLET 1 TABLET ORALLY ONCE A DAY, NOTES: 12/31/181999 TAKING LANCET DEVICE - MISCELLANEOUS DIRECTED SUBCUTANEOUSLY BID TAKING FREESTYLE LITE TEST - STRIP DIRECTED IN VITRO BID TAKING SPIRIVA HANDIHALER 18 MCG CAPSULE 1 CAPSULE INHALATION ONCE A DAY, NOTES: 01/01/19 08 TAKING SYMBICORT 80-4.5 MCG/ACT AEROSOL 2 PUFFS INHALATION TWICE A DAY, NOTES: 01/01/19 08 TAKING PEN NEEDLES 31G X 6 MM MISCELLANEOUS DIRECTED SUBCUTANEOUSLY DAILY TAKING ALBUTEROL SULFATE HFA 108 (90 BASE) MCG/ACT AEROSOL SOLUTION 2 PUFFS NEEDED INHALATION EVERY 4 HRS, NOTES: > 1 MONTH TAKING METFORMIN HCL 1000 MG TABLET 1 TABLET WITH MEALS ORALLY TWICE A DAY, NOTES: 12/31/181999 TAKING CYMBALTA 60 MG CAPSULE DELAYED RELEASE PARTICLES 1 CAPSULE ORALLY ONCE A DAY, NOTES: > 1 MONTH TAKING ATORVASTATIN CALCIUM 80 MG TABLET 1 TABLET ORALLY ONCE A DAY, NOTES: 12/31/181999 TAKING TRULICITY 0.75 MG/0.5ML SOLUTION PEN-INJECTOR DIRECTED SUBCUTANEOUS WEEKLY, NOTES: 12/30/18 MEDICATION LIST REVIEWED AND RECONCILED WITH THE PATIENT PAST MEDICAL HISTORY COPD DIABETES HTN LS SPINE DESC HERNIATION WITH RETROLISTHESIS : DARELL HOWELL, [facility] PAIN MANAGEMENT DEPRESSION ALLERGIES FENTANYL: HIVES - ALLERGY BEE VENOM: SOB - ALLERGY SURGICAL HISTORY APPENDECTOMY HERNIA REPAIR LEFT INGUINAL FX LEFT ANKLE REPAIR 1997 SPINAL FUSION L3-4 L4-5 L5-S1 2009 COLONOSCOPY 04/2010 DORSAL COLUMN STIMULATOR PLACED AND REMOVED FAMILY HISTORY FATHER: 74 YRS, DIAGNOSED WITH HYPERTENSION, HEART DISEASE, STROKE MOTHER: 74 YRS, BREAST CA MOM LIVER FAILURE. SOCIAL HISTORY GENERAL: TOBACCO USE ARE YOU A:FORMER SMOKER 38 YEARS HOW LONG HAS IT BEEN SINCE YOU LAST SMOKED?5-10 YEARS VAPORNO E-CIGARETTENO HIV / HEP-C SCREENING HIV TEST OFFERED TO PATIENT:YES DATE OFFERED:08/27/2018 TEST ACCEPTED:NO REASON:PATIENT DECLINED BROCHURE PROVIDED TO PATIENTYANNICK HEP-C TEST OFFERED TO PATIENT:YES DATE OFFERED:08/27/2018 TEST ACCEPTED:NO REASON:PATIENT DECLINED OTHERS AT HOME: SPOUSE, CHILD. DIET: REGULAR. LANGUAGE LANGUAGES SPOKEN:TAJIK DOMESTIC VIOLENCE DO YOU FEEL SAFE IN YOUR ENVIRONMENT?YES BMI CARE GOAL FOLLOW-UP ABOVE NORMAL BMI FOLLOW-UPLIFESTYLE EDUCATION REGARDING DIET RECREATIONAL DRUG USE DRUG USE?NO EXERCISE: NO REGULAR EXERCISE. LEARNING BARRIERS / SPECIAL NEEDS CHANGE FROM LAST VISIT?NO 11/26/2018 BARRIERS TO LEARNING?NO HEARING IMPAIRED?NO VISION IMPAIRED?YES :CORRECTIVE LENSES COGNITIVELY IMPAIRED?NO READINESS TO LEARN?YES LEARNING PREFERENCES?NO LEARNING CAPABILITIES PRESENT?YES EMOTIONAL BARRIERS?NO SPECIAL DEVICES?NO MUSHROOM GROWER NEEDED?NO PAIN CLINIC PFS, CLERGY, PUBLIC HEALTH REFERRALS PFS REFERRAL NEEDED?NO CLERGY REFERRAL NEEDED?NO PUBLIC HEALTH REFERRAL NEEDED?NO WAS THE PROVIDER NOTIFIED OF ANY PERTINENT INFO?NO HAS THE PATIENT BEEN EDUCATED REGARDING HIS/HER PLAN OF CARE?YES HAS THE PATIENT BEEN EDUCATED REGARDING PAIN, THE RISK FOR PAIN, THE IMPORTANCE OF EFFECTIVE PAIN MANAGEMENT, AND THE PAIN ASSESSMENT PROCESS?YES LATEX QUESTIONNAIRE LATEX ALLERGY : HAVE YOU EVER DEVELOPED ANY TYPE OF REACTION AFTER HANDLING LATEX PRODUCTS SUCH RUBBER GLOVES, CONDOMS, DIAPHRAGMS, BALLOONS, SOCKS, OR UNDERWEAR?NO LATEX ALLERGY : HAVE YOU EVER DEVELOPED ANY TYPE OF REACTION DURING OR AFTER DENTAL APPOINTMENT, VAGINAL/RECTAL EXAMINATION, SURGICAL PROCEDURE, OR ANY OTHER EXPOSURE?NO LATEX RISK : HAVE YOU EVER HAD ANY DIFFICULTY BREATHING OR HIVES AFTER EATING OR HANDLING ANY FRUITS, OR VEGETABLES; SUCH KIWI, BANANAS, STONE FRUITS, OR CHESTNUTSNO LATEX RISK : DO YOU HAVE A PREVIOUS PERSONAL HISTORY OF MORE THAN NINE SURGERIES, SPINA BIFIDA, OR REPEATED CATHERIZATIONS? NO LATEX RISK : ARE YOU FREQUENTLY EXPOSED TO LATEX PRODUCTS IN YOUR OCCUPATION?NO DATE ASKED : 08/10/2018 CAFFEINE CAFFEINE USE?YES HOW OFTEN AND HOW MUCH? OCCASIONAL ADVANCE DIRECTIVE ADVANCE DIRECTIVE DISCUSSED WITH PATIENT:YES PT DOES NOT HAVE A HCP. PT DOES NOT WANT INFO AT THIS TIME. ASSISTANCE OFFERED WITH FILLING OUT FORM, AND PT DECLINES. JUDAISM [id number] NONE NO RASTAFARIAN BELIEFS THAT WOULD IMPACT HEALTH CARE. MARITAL STATUS: . ALCOHOL SCREENING DID YOU HAVE A DRINK CONTAINING ALCOHOL IN THE PAST YEAR?YES HOW OFTEN DID YOU HAVE A DRINK CONTAINING ALCOHOL IN THE PAST YEAR?FOUR OR MORE TIMES A WEEK (4 POINTS) HOW MANY DRINKS DID YOU HAVE ON A TYPICAL DAY WHEN YOU WERE DRINKING IN THE PAST YEAR?5 OR 6 (2 POINTS) HOW OFTEN DID YOU HAVE SIX OR MORE DRINKS ON ONE OCCASION IN THE PAST YEAR?MONTHLY (2 POINTS) POINTS8 INTERPRETATIONPOSITIVE OCCUPATION: DISABLED. REVIEWED WITH PT 05/03/18 1642 BVREVIEWED WITH PATIENT 06/12/18 1537 JSREVIEWED WITH PATIENT 08/10/18 1434 LASREVIEWED WITH PATIENT 01/01/19 1000 LAS. HOSPITALIZATION/MAJOR DIAGNOSTIC PROCEDURE SPINAL SURGERIES PNEUMONIA 2009 COPD EXACERBATION WITH ARDS 06/2012 REVIEW OF SYSTEMS REVIEWED BY: PROVIDER: . CONSTITUTIONAL: ANY CHANGE IN YOUR MEDICAL CONDITION? NO . CHILLS NO . FEVER NO . INFECTION: DO YOU HAVE NEW INFECTIONS? NO . DO YOU HAVE HISTORY OF MRSA? NO . MUSCULOSKELETAL: ANY NEW PATTERNS OF PAIN OR NUMBNESS? NO . GASTROENTEROLOGY: ANY NEW CHANGE IN BOWEL CONTROL? NO . GENITOURINARY: ANY NEW CHANGE IN BLADDER CONTROL? NO . IS THERE A CHANCE YOU COULD BE ? NO . HEMATOLOGY/LYMPH: DO YOU TAKE ANY BLOOD THINNERS? (FOR EXAMPLE- COUMADIN, PLAVIX, AGGRENOX, PLATEL, PRADAXA, OR XARELTO) NO . WHEN WAS YOUR LAST DOSE? DATE: TIME: . NEUROLOGY: HAVE YOU FALLEN IN THE PAST 12 MONTHS? NO . ANY NEW EXTREMITY NUMBNESS OR WEAKNESS? NO . CARDIOLOGY: DO YOU HAVE A PACEMAKER OR DEFIBRILLATOR? NO . RESPIRATORY: HAVE YOU BEEN SICK IN THE PAST WEEK? NO . FEVER NO . FLU LIKE SYMPTOMS? NO . COUGH NO . INTEGUMENTARY: DO YOU HAVE ANY RASHES OR OPEN SORES? NO . ALLERGIC/IMMUNO: ARE YOU ALLERGIC TO IV DYE? NO . ANY NEW ALLERGIES? NO . PSYCHIATRIC: DO YOU HAVE THOUGHTS OF HURTING YOURSELF OR SOMEONE ELSE? NO . ARE YOU ABUSED, NEGLECTED, OR IN AN UNSAFE ENVIRONMENT? NO . ENDOCRINOLOGY: ARE YOU DIABETIC? YES . OTHER: DO YOU NEED ANY PRESCRIPTIONS? NO . IF YES, PLEASE LIST: ____ . ANY NEW PROBLEMS WITH YOUR MEDICATIONS? NO . WHEN DID YOU LAST EAT? ____12/31/18 1200 . WHEN DID YOU LAST DRINK? ____12/31/18 1200 . WHAT DID YOU LAST DRINK? ____WATER . NAME OF PERSON DRIVING YOU HOME? ____WIFE . DO YOU HAVE ANY OTHER QUESTIONS OR CONCERNS NO . VITAL SIGNS WT 225.8 LBS, HT 66 IN, BMI 36.44 INDEX, BP 182/87 MM HG, HR 108 /MIN, RR 18 /MIN, TEMP 99.1 F, OXYGEN SAT % 92%, BLOOD GLUCOSE LEVEL 110 THIS AM PER PT, SAFE IN ENV? (Y/N) YES, NA INITIALS AW 0943, REVIEWED BY: NANETTE. ASSESSMENTS OTHER SPECIFIED ENTHESOPATHIES OF RIGHT LOWER LIMB, EXCLUDING FOOT - M76.891 (PRIMARY) TREATMENT OTHER SPECIFIED ENTHESOPATHIES OF RIGHT LOWER LIMB, EXCLUDING FOOT [facility] FLUORO GUIDANCE (PAIN)[id number] CLINICAL NOTES: PRE-PROCEDURE DIAGNOSIS: RIGHT ILIO-LUMBAR LIGAMENT INFLAMMATION POST-PROCEDURE DIAGNOSIS: RIGHT ILIO-LUMBAR LIGAMENT INFLAMMATION PROCEDURE: RIGHT ILIO-LUMBAR LIGAMENT BLOCK SURGEON: JOYCE MCGOVERN MD ANESTHESIA: LOCAL COMPLICATIONS: NONE PRE-PROCEDURE NOTE: THE PATIENT IS SUFFERING OF BACK PAIN. I REVIEWED THE CHART AND DISCUSSED THE CASE WITH THE PATIENT. DUE TO THE PAIN LOCATION AND SYMPTOMS I WOULD LIKE TO PROCEED WITH A RIGHT ILIOLUMBAR LIGAMENT INJECTION. I DISCUSSED ALTERNATIVES AND THE PATIENT EXPRESSED THAT HE WOULD LIKE TO MOVE FORWARD. THE PATIENT DENIES UNEXPLAINABLE, WEIGHT LOSS, FEVER, CHILLS, OR CHANGES IN URINARY OR BOWEL CONTROL. PROCEDURE NOTE: AFTER REVIEW THE CASE WITH THE PATIENT HE WAS BROUGHT TO THE PROCEDURE ROOM AND PLACED IN THE PRONE POSITION. THE TARGET AREA WAS CLEANED WITH CHLORAPREP SOLUTION AND DRAPED ASEPTICALLY. TARGET WAS SELECTED AT THE SUPERIOR BORDER OF THE RIGHT ILIAC CREST. LIDOCAINE 1% WAS USED LOCAL ANESTHETIC. SPINAL NEEDLE 22 GAUGE WAS ADVANCED UNDER FLUOROSCOPIC GUIDANCE UNTIL THE TARGET WAS REACHED. ISOVUE M-200 CONTRAST WAS INJECTED SHOWING ADEQUATE SPREAD OF THE DYE. THEN A SOLUTION OF 20 CC OF BUPIVACAINE 0.125% AND KENALOG 20 MG WAS INJECTED AT THE RIGHT SIDE. THE PATIENT TOLERATES THE PROCEDURE WITHOUT COMPLICATIONS AND WAS SENT TO THE RECOVERY ROOM. FLUOROSCOPY TIME WAS 13 SECONDS. POST-PROCEDURE NOTE: I WILL SEE THE PATIENT IN A FOLLOW UP IN THE NEXT FEW WEEKS. WE ARE LOOKING FOR LONG LASTING PAIN RELIEVE WITH THIS INTERVENTION. INSTRUCTIONS WERE GIVEN QUESTIONS WERE ANSWERED AND THE PATIENT REPORTS UNDERSTANDING AND AGREES. I, ELIAS FLYNN, DOCUMENTED THE ABOVE INFORMATION ACTING A SCRIBE FOR DR. MCGOVERN. I HAVE REVIEWED THE ABOVE DOCUMENT, WRITTEN BY ELIAS ARAUJOIBJami AND I VERIFY THAT IT IS ACCURATE.. PROCEDURES PN WORKMANS' COMP OPINION IN YOUR OPINION, WAS THE INCIDENT THAT THE PATIENT DESCRIBED THE COMPETENT MEDICAL CAUSE OF THIS INJURY/ILLNESS? YES ARE THE PATIENT'S COMPLAINTS CONSISTENT WITH HIS/HER HISTORY OF THE INJURY/ILLNESS? YES IS THE PATIENT'S HISTORY OF THE INJURY/ILLNESS CONSISTENT WITH YOUR OBJECTIVE FINDING? YES WHAT IS THE PERCENTAGE OF TEMPORARY IMPAIRMENT? MODERATE TO MARKED = 66.7% IS THE PATIENT WORKING? NO DOCTOR ON SITE: JOYCE BEAULIEU MD PROCEDURE CODES 07189 INJ TENDON SHEATH/LIGAMENT, MODIFIERS: RT 15052 NEEDLE LOCALIZATION BY XRAY, MODIFIERS: [id number] RADXPS IN END [id number] PXD DISPOSITION & COMMUNICATION FOLLOW UP 3 WEEKS ELECTRONICALLY SIGNED BY JOYCE MCGOVERN MD, MD ON 01/08/2019 AT 03:35 PM EDT DISCLAIMER : THIS IS A VISIT SUMMARY EXTRACTED FROM THE [employer] CHART. IT IS NOT A COPY OF THE [employer] PROGRESS NOTE. MTDD
== END ==
LOC: M PAIN 09:45
PROVIDERS: ATTEND Anesthesiology
DX: M76.891 Other specified enthesopathies of right lower limb, excluding foot (principal); J44.9 Chronic obstructive pulmonary disease, unspecified; E11.9 Type 2 diabetes mellitus without complications; I10 Essential (primary) hypertension; Z79.84 Long term (current) use of oral hypoglycemic drugs; Z79.899 Other long term (current) drug therapy; Z88.8 Allergy status to other drugs, medicaments and biological substances; Z91.030 Bee allergy status; Z87.891 Personal history of nicotine dependence
CPT/HCPCS: 20550; 77002; J3301; Q9966

== ENCOUNTER → 2019-01-15 | Outpatient (CLI) | payer OTHER ==
[~2019-01-15] MED LIST changes: -BUPIVACAINE HCL 0.25% 30 ML VIAL As Ordered ONE; -ISOVUE-M 200 41% 20ML VIAL (Q9966) As Ordered ONE; -LIDOCAINE 1% SDV INJ 30 ML VIAL As Ordered ONE; -TRIAMCINOLONE ACETONIDE SUSP 40 MG/ML VIAL (J3301) As Ordered ONE; -diazePAM 5 MG TAB As Ordered ONE; -oxyCODONE 5MG TAB As Ordered ONE
--- NOTE | 2019-01-17 00:12 | ECWPNPC ---
PATIENT NAME: YIMI ESPINOSA : 1960 GENDER: MALE VISIT DATE: 01/15/2019 DISCHARGE DATE: 01/15/19 0945 VISIT LOCKED DATE TIME: PHYSICIAN: BECKIE CALVILLO RESOURCE: BECKIE CALVILLO REASON FOR APPOINTMENT 1. W/C, POST PROC HISTORY OF PRESENT ILLNESS HISTORY OF PRESENT ILLNESS: PAIN THE PATIENT DESCRIBES THE PAIN... 58 YEAR OLD MALE IN FOR POST ILIOLUMBAR INJECTION. HE FEELS THE PROCEDURE WORKED FOR ABOUT A WEEK AND WOULD RATE HIS PAIN AT A 6/10 PRE PROCEDURE AND A 2/10 POST PROCEDURE. HE WOULD RATE HIS PAIN AT A 5/10 CURRENTLY AND DESCRIBES IT ACHING, SHARP, AND TENDER. FALL RISK SCREENING: SCREENING :NO FALLS REPORTED IN THE LAST YEAR CURRENT MEDICATIONS TAKING AMLODIPINE BESYLATE 10 MG TABLET 1 TABLET ORALLY ONCE A DAY TAKING LANCET DEVICE - MISCELLANEOUS DIRECTED SUBCUTANEOUSLY BID TAKING FREESTYLE LITE TEST - STRIP DIRECTED IN VITRO BID TAKING SPIRIVA HANDIHALER 18 MCG CAPSULE 1 CAPSULE INHALATION ONCE A DAY TAKING SYMBICORT 80-4.5 MCG/ACT AEROSOL 2 PUFFS INHALATION TWICE A DAY TAKING PEN NEEDLES 31G X 6 MM MISCELLANEOUS DIRECTED SUBCUTANEOUSLY DAILY TAKING ALBUTEROL SULFATE HFA 108 (90 BASE) MCG/ACT AEROSOL SOLUTION 2 PUFFS NEEDED INHALATION EVERY 4 HRS TAKING METFORMIN HCL 1000 MG TABLET 1 TABLET WITH MEALS ORALLY TWICE A DAY TAKING CYMBALTA 60 MG CAPSULE DELAYED RELEASE PARTICLES 1 CAPSULE ORALLY ONCE A DAY TAKING ATORVASTATIN CALCIUM 80 MG TABLET 1 TABLET ORALLY ONCE A DAY TAKING TRULICITY 0.75 MG/0.5ML SOLUTION PEN-INJECTOR DIRECTED SUBCUTANEOUS WEEKLY MEDICATION LIST REVIEWED AND RECONCILED WITH THE PATIENT PAST MEDICAL HISTORY COPD DIABETES HTN LS SPINE DESC HERNIATION WITH RETROLISTHESIS : DARELL HOWELL, [facility] PAIN MANAGEMENT DEPRESSION ALLERGIES FENTANYL: HIVES - ALLERGY BEE VENOM: SOB - ALLERGY SURGICAL HISTORY APPENDECTOMY HERNIA REPAIR LEFT INGUINAL FX LEFT ANKLE REPAIR 1997 SPINAL FUSION L3-4 L4-5 L5-S1 2009 COLONOSCOPY 04/2010 DORSAL COLUMN STIMULATOR PLACED AND REMOVED FAMILY HISTORY FATHER: 74 YRS, DIAGNOSED WITH STROKE, HYPERTENSION, HEART DISEASE MOTHER: 74 YRS, BREAST CA MOM LIVER FAILURE. SOCIAL HISTORY GENERAL: TOBACCO USE ARE YOU A:FORMER SMOKER 40 YEARS HOW LONG HAS IT BEEN SINCE YOU LAST SMOKED?5-10 YEARS VAPORNO E-CIGARETTENO HIV / HEP-C SCREENING HIV TEST OFFERED TO PATIENT:YES DATE OFFERED:08/27/2018 TEST ACCEPTED:NO REASON:PATIENT DECLINED BROCHURE PROVIDED TO PATIENTYES HEP-C TEST OFFERED TO PATIENT:YES DATE OFFERED:08/27/2018 TEST ACCEPTED:NO REASON:PATIENT DECLINED OTHERS AT HOME: SPOUSE, CHILD. DIET: REGULAR. LANGUAGE LANGUAGES SPOKEN:SYRIAC DOMESTIC VIOLENCE DO YOU FEEL SAFE IN YOUR ENVIRONMENT?YES BMI CARE GOAL FOLLOW-UP ABOVE NORMAL BMI FOLLOW-UPLIFESTYLE EDUCATION REGARDING DIET RECREATIONAL DRUG USE DRUG USE?NO EXERCISE: NO REGULAR EXERCISE. LEARNING BARRIERS / SPECIAL NEEDS CHANGE FROM LAST VISIT?NO 11/26/2018 BARRIERS TO LEARNING?NO HEARING IMPAIRED?NO VISION IMPAIRED?YES :CORRECTIVE LENSES COGNITIVELY IMPAIRED?NO READINESS TO LEARN?YES LEARNING PREFERENCES?NO LEARNING CAPABILITIES PRESENT?YES EMOTIONAL BARRIERS?NO SPECIAL DEVICES?NO EVENT DECORATOR AND DESIGNER NEEDED?NO PAIN CLINIC PFS, CLERGY, PUBLIC HEALTH REFERRALS PFS REFERRAL NEEDED?NO CLERGY REFERRAL NEEDED?NO PUBLIC HEALTH REFERRAL NEEDED?NO WAS THE PROVIDER NOTIFIED OF ANY PERTINENT INFO?NO HAS THE PATIENT BEEN EDUCATED REGARDING HIS/HER PLAN OF CARE?YES HAS THE PATIENT BEEN EDUCATED REGARDING PAIN, THE RISK FOR PAIN, THE IMPORTANCE OF EFFECTIVE PAIN MANAGEMENT, AND THE PAIN ASSESSMENT PROCESS?YES LATEX QUESTIONNAIRE LATEX ALLERGY : HAVE YOU EVER DEVELOPED ANY TYPE OF REACTION AFTER HANDLING LATEX PRODUCTS SUCH RUBBER GLOVES, CONDOMS, DIAPHRAGMS, BALLOONS, SOCKS, OR UNDERWEAR?NO LATEX ALLERGY : HAVE YOU EVER DEVELOPED ANY TYPE OF REACTION DURING OR AFTER DENTAL APPOINTMENT, VAGINAL/RECTAL EXAMINATION, SURGICAL PROCEDURE, OR ANY OTHER EXPOSURE?NO LATEX RISK : HAVE YOU EVER HAD ANY DIFFICULTY BREATHING OR HIVES AFTER EATING OR HANDLING ANY FRUITS, OR VEGETABLES; SUCH KIWI, BANANAS, STONE FRUITS, OR CHESTNUTSNO LATEX RISK : DO YOU HAVE A PREVIOUS PERSONAL HISTORY OF MORE THAN NINE SURGERIES, SPINA BIFIDA, OR REPEATED CATHERIZATIONS? NO LATEX RISK : ARE YOU FREQUENTLY EXPOSED TO LATEX PRODUCTS IN YOUR OCCUPATION?NO DATE ASKED : 08/10/2018 CAFFEINE CAFFEINE USE?YES HOW OFTEN AND HOW MUCH? OCCASIONAL ADVANCE DIRECTIVE ADVANCE DIRECTIVE DISCUSSED WITH PATIENT:YES PT DOES NOT HAVE A HCP. PT DOES NOT WANT INFO AT THIS TIME. ASSISTANCE OFFERED WITH FILLING OUT FORM, AND PT DECLINES. WORSHIP [id number] NONE NO JAIN BELIEFS THAT WOULD IMPACT HEALTH CARE. MARITAL STATUS: . ALCOHOL SCREENING DID YOU HAVE A DRINK CONTAINING ALCOHOL IN THE PAST YEAR?YES HOW OFTEN DID YOU HAVE A DRINK CONTAINING ALCOHOL IN THE PAST YEAR?FOUR OR MORE TIMES A WEEK (4 POINTS) HOW MANY DRINKS DID YOU HAVE ON A TYPICAL DAY WHEN YOU WERE DRINKING IN THE PAST YEAR?5 OR 6 (2 POINTS) HOW OFTEN DID YOU HAVE SIX OR MORE DRINKS ON ONE OCCASION IN THE PAST YEAR?MONTHLY (2 POINTS) POINTS8 INTERPRETATIONPOSITIVE OCCUPATION: DISABLED. REVIEWED WITH PT 05/03/18 1642 BVREVIEWED WITH PATIENT 06/12/18 1537 JSREVIEWED WITH PATIENT 08/10/18 1434 LASREVIEWED WITH PATIENT 01/01/19 1000 LASREVIEWED WITH PATIENT 01/15/19 0909 NLJ. HOSPITALIZATION/MAJOR DIAGNOSTIC PROCEDURE SPINAL SURGERIES PNEUMONIA 2010 COPD EXACERBATION WITH ARDS 06/2012 REVIEW OF SYSTEMS REVIEWED BY: PROVIDER: SAVITA CORTES . CONSTITUTIONAL: ANY CHANGE IN YOUR MEDICAL CONDITION? NO . CHILLS NO . FEVER NO . INFECTION: DO YOU HAVE NEW INFECTIONS? NO . DO YOU HAVE HISTORY OF MRSA? NO . MUSCULOSKELETAL: ANY NEW PATTERNS OF PAIN OR NUMBNESS? YES- INCREASED PAIN IN LOWER BACK, STATES THAT EFFECT OF INJECTIONS IS STARTING TO WEAR OFF . GASTROENTEROLOGY: ANY NEW CHANGE IN BOWEL CONTROL? NO . GENITOURINARY: ANY NEW CHANGE IN BLADDER CONTROL? NO . IS THERE A CHANCE YOU COULD BE ? NO . HEMATOLOGY/LYMPH: DO YOU TAKE ANY BLOOD THINNERS? (FOR EXAMPLE- COUMADIN, PLAVIX, AGGRENOX, PLATEL, PRADAXA, OR XARELTO) NO . WHEN WAS YOUR LAST DOSE? DATE: TIME: . NEUROLOGY: HAVE YOU FALLEN IN THE PAST 12 MONTHS? NO . ANY NEW EXTREMITY NUMBNESS OR WEAKNESS? NO . CARDIOLOGY: DO YOU HAVE A PACEMAKER OR DEFIBRILLATOR? NO . RESPIRATORY: HAVE YOU BEEN SICK IN THE PAST WEEK? NO . FEVER NO . FLU LIKE SYMPTOMS? NO . COUGH NO . INTEGUMENTARY: DO YOU HAVE ANY RASHES OR OPEN SORES? NO . ALLERGIC/IMMUNO: ARE YOU ALLERGIC TO IV DYE? NO . ANY NEW ALLERGIES? NO . PSYCHIATRIC: DO YOU HAVE THOUGHTS OF HURTING YOURSELF OR SOMEONE ELSE? NO . ARE YOU ABUSED, NEGLECTED, OR IN AN UNSAFE ENVIRONMENT? NO . ENDOCRINOLOGY: ARE YOU DIABETIC? YES . OTHER: DO YOU NEED ANY PRESCRIPTIONS? NO . IF YES, PLEASE LIST: ____ . ANY NEW PROBLEMS WITH YOUR MEDICATIONS? NO . WHEN DID YOU LAST EAT? ____ . WHEN DID YOU LAST DRINK? ____ . WHAT DID YOU LAST DRINK? ____ . NAME OF PERSON DRIVING YOU HOME? ____ . DO YOU HAVE ANY OTHER QUESTIONS OR CONCERNS YES- INJECTION WORKED WELL FOR ABOUT 1 TO 1 1/2 WEEKS PAIN IS STARTING TO RETURN . VITAL SIGNS WT 219.8 LBS, HT 66 IN, BMI 35.47 INDEX, BP 193/90 MM HG, HR 105 /MIN, RR 18 /MIN, TEMP 96.0 F, OXYGEN SAT % 94%, SAFE IN ENV? (Y/N) YES, NA INITIALS AW 0909, REVIEWED BY: DELORIS. EXAMINATION GENERAL EXAMINATION: GENERALNO ACUTE DISTRESS, WELL NOURISHED AND HYDRATED. PSYCHAPPROPRIATE MOOD AND AFFECT . LUNGS:CLEAR TO AUSCULTATION BILATERALLY, NO WHEEZES, RHONCHI, RALES. HEART:NO MURMURS, REGULAR RATE AND RHYTHM. BACK:POINT TENDER OVER LUMBAR SPINE, SURROUNDING SKIN SHOWS NO ERYTHEMA, INCREASED WARMTH, ECCHYMOSIS, AND/OR SKIN ERUPTIONS.. ASSESSMENTS OTHER SPECIFIED ENTHESOPATHIES OF RIGHT LOWER LIMB, EXCLUDING FOOT - M76.891 (PRIMARY) TREATMENT OTHER SPECIFIED ENTHESOPATHIES OF RIGHT LOWER LIMB, EXCLUDING FOOT NOTES: RIGHT ILIOLUMBAR INJECTION . CLINICAL NOTES: 66 YEAR OLD MALE IN FOR S/P ILIOLUMBAR PROCEDURE. GIVEN PRESENTING SYMPTOMS AND RESULTS OF PHYSICAL EXAMINATION RECOMMENDED REPEAT PROCEDURE WITH FOLLOW UP. PATIENT HAS EXPRESSED UNDERSTANDING OF AND WAS IN AGREEMENT WITH TREATMENT PLAN. GIVEN TIME TO ASK QUESTIONS AND EXPRESS CONCERNS. PROCEDURES PN WORKMANS' COMP OPINION IN YOUR OPINION, WAS THE INCIDENT THAT THE PATIENT DESCRIBED THE COMPETENT MEDICAL CAUSE OF THIS INJURY/ILLNESS? YES ARE THE PATIENT'S COMPLAINTS CONSISTENT WITH HIS/HER HISTORY OF THE INJURY/ILLNESS? YES IS THE PATIENT'S HISTORY OF THE INJURY/ILLNESS CONSISTENT WITH YOUR OBJECTIVE FINDING? YES WHAT IS THE PERCENTAGE OF TEMPORARY IMPAIRMENT? MODERATE TO MARKED = 66.7% IS THE PATIENT WORKING? NO DOCTOR ON SITE: JOYCE BEAULIEU MD PREVENTIVE MEDICINE PAIN CLINIC TEACHING: PROCEDURE TEACHING ILIO LUMBAR LIGAMENT INJECTION PROCEDURE REVIEWED WITH PATIENT, PATIENT DECLINED PRINTED MATERIAL. 01/15/19 0946 DELORIS. PROCEDURE CODES FA211 ESTABILISHED PATIENT [facility] FACILITY CHARGE DISPOSITION & COMMUNICATION FOLLOW UP POST PROCEDURE (REASON: RIGHT ILIOLUMBAR INJECTION ) ELECTRONICALLY SIGNED BY ESMER CASTAÑEDA ON 01/16/2019 AT 01:18 PM EDT DISCLAIMER : THIS IS A VISIT SUMMARY EXTRACTED FROM THE [employer] CHART. IT IS NOT A COPY OF THE [employer] PROGRESS NOTE. ZAKIYA
== END ==
LOC: M PAIN 09:00
PROVIDERS: ATTEND Family Medicine
DX: M76.891 Other specified enthesopathies of right lower limb, excluding foot (principal); J44.9 Chronic obstructive pulmonary disease, unspecified; E11.9 Type 2 diabetes mellitus without complications; I10 Essential (primary) hypertension; Z86.59 Personal history of other mental and behavioral disorders; Z87.891 Personal history of nicotine dependence; Z88.5 Allergy status to narcotic agent; Z91.030 Bee allergy status; Z79.84 Long term (current) use of oral hypoglycemic drugs; Z79.899 Other long term (current) drug therapy

== ENCOUNTER → 2019-03-12 | Outpatient (CLI) | payer OTHER ==
--- NOTE | 2019-03-14 00:29 | ECWPNPC ---
PATIENT NAME: YIMI ESPINOSA : 1960 GENDER: MALE VISIT DATE: 03/12/2019 DISCHARGE DATE: 03/12/19 1520 VISIT LOCKED DATE TIME: PHYSICIAN: BECKIE CALVILLO RESOURCE: BECKIE CALVILLO REASON FOR APPOINTMENT 1. W/C PROC DENIAL HISTORY OF PRESENT ILLNESS HISTORY OF PRESENT ILLNESS: PAIN THE PATIENT DESCRIBES THE PAIN... THE PATIENT DESCRIBES THE PAIN... 57 YEAR OLD MALE PATIENT WITH A HISTORY OF CHRONIC LOW BACK PAIN. THE PATIENT DESCRIBES THE PAIN ACHING, SHARP, TENDER, AND CONTINUOUS WITH A PAIN SCORE OF 6/10 DEPENDING ON PHYSICAL ACTIVITY. THE PATIENT WAS HURT IN A WORK RELATED INJURY ON 12/26/2004 WHILE WORKING FOR [employer] WHEN HE WAS PICKING UP A CALF AND INJURED HIS BACK. THE PATIENT SAYS HE HAS DIFFICULTY DOING DAILY ACTIVITIES SUCH WORKING AROUND HIS HOUSE, WALKING, AND CLEANING DUE TO THIS PAIN. THE PATIENT SAYS THAT HE IS ONLY ABLE TO WALK AROUND FOR 2 MINUTES BEFORE HE HAS TO SIT DOWN. FALL RISK SCREENING: SCREENING :NO FALLS REPORTED IN THE LAST YEAR CURRENT MEDICATIONS TAKING LANCET DEVICE - MISCELLANEOUS DIRECTED SUBCUTANEOUSLY BID TAKING FREESTYLE LITE TEST - STRIP DIRECTED IN VITRO BID TAKING SPIRIVA HANDIHALER 18 MCG CAPSULE 1 CAPSULE INHALATION ONCE A DAY TAKING PEN NEEDLES 31G X 6 MM MISCELLANEOUS DIRECTED SUBCUTANEOUSLY DAILY TAKING ALBUTEROL SULFATE HFA 108 (90 BASE) MCG/ACT AEROSOL SOLUTION 2 PUFFS NEEDED INHALATION EVERY 4 HRS TAKING METFORMIN HCL 1000 MG TABLET 1 TABLET WITH MEALS ORALLY TWICE A DAY TAKING CYMBALTA 60 MG CAPSULE DELAYED RELEASE PARTICLES 1 CAPSULE ORALLY ONCE A DAY TAKING ATORVASTATIN CALCIUM 80 MG TABLET 1 TABLET ORALLY ONCE A DAY TAKING SYMBICORT 80-4.5 MCG/ACT AEROSOL 2 PUFFS INHALATION TWICE A DAY TAKING TRULICITY 0.75 MG/0.5ML SOLUTION PEN-INJECTOR DIRECTED SUBCUTANEOUS WEEKLY TAKING AMLODIPINE BESYLATE 10 MG TABLET 1 TABLET ORALLY ONCE A DAY TAKING ASPIRIN 81 MG TABLET CHEWABLE 1 TABLET ORALLY ONCE A DAY MEDICATION LIST REVIEWED AND RECONCILED WITH THE PATIENT PAST MEDICAL HISTORY COPD DIABETES HTN LS SPINE DESC HERNIATION WITH RETROLISTHESIS : ADRELL HOWELL, [facility] PAIN MANAGEMENT DEPRESSION ALLERGIES FENTANYL: HIVES - ALLERGY BEE VENOM: SOB - ALLERGY SURGICAL HISTORY APPENDECTOMY HERNIA REPAIR LEFT INGUINAL FX LEFT ANKLE REPAIR 1997 SPINAL FUSION L3-4 L4-5 L5-S1 2009 COLONOSCOPY 04/2010 DORSAL COLUMN STIMULATOR PLACED AND REMOVED FAMILY HISTORY FATHER: 74 YRS, DIAGNOSED WITH UNSPECIFIED HEART DISEASE, HYPERTENSION, UNSPECIFIED CEREBRAL ARTERY OCCLUSION WITH CEREBRAL INFARCTION MOTHER: 74 YRS, BREAST CA MOM LIVER FAILURE. SOCIAL HISTORY GENERAL: TOBACCO USE ARE YOU A:FORMER SMOKER 38 YEARS HOW LONG HAS IT BEEN SINCE YOU LAST SMOKED?5-10 YEARS VAPORNO E-CIGARETTENO HIV / HEP-C SCREENING HIV TEST OFFERED TO PATIENT:YES DATE OFFERED:08/27/2018 TEST ACCEPTED:NO HEP-C TEST OFFERED TO PATIENT:YES DATE OFFERED:08/27/2018 REASON:PATIENT DECLINED TEST ACCEPTED:NO REASON:PATIENT DECLINED BROCHURE PROVIDED TO PATIENTYES OTHERS AT HOME: SPOUSE, CHILD. DIET: REGULAR. LANGUAGE LANGUAGES SPOKEN:URDU DOMESTIC VIOLENCE DO YOU FEEL SAFE IN YOUR ENVIRONMENT?YES BMI CARE GOAL FOLLOW-UP ABOVE NORMAL BMI FOLLOW-UPLIFESTYLE EDUCATION REGARDING DIET RECREATIONAL DRUG USE DRUG USE?NO EXERCISE: NO REGULAR EXERCISE. LEARNING BARRIERS / SPECIAL NEEDS CHANGE FROM LAST VISIT?NO 11/26/2018 BARRIERS TO LEARNING?NO HEARING IMPAIRED?NO VISION IMPAIRED?YES COGNITIVELY IMPAIRED?NO :CORRECTIVE LENSES READINESS TO LEARN?YES LEARNING PREFERENCES?NO LEARNING CAPABILITIES PRESENT?YES EMOTIONAL BARRIERS?NO SPECIAL DEVICES?NO FILING AND POLISHING SUPERVISOR NEEDED?NO PAIN CLINIC PFS, CLERGY, PUBLIC HEALTH REFERRALS PFS REFERRAL NEEDED?NO CLERGY REFERRAL NEEDED?NO PUBLIC HEALTH REFERRAL NEEDED?NO WAS THE PROVIDER NOTIFIED OF ANY PERTINENT INFO?NO HAS THE PATIENT BEEN EDUCATED REGARDING HIS/HER PLAN OF CARE?YES HAS THE PATIENT BEEN EDUCATED REGARDING PAIN, THE RISK FOR PAIN, THE IMPORTANCE OF EFFECTIVE PAIN MANAGEMENT, AND THE PAIN ASSESSMENT PROCESS?YES LATEX QUESTIONNAIRE LATEX ALLERGY : HAVE YOU EVER DEVELOPED ANY TYPE OF REACTION AFTER HANDLING LATEX PRODUCTS SUCH RUBBER GLOVES, CONDOMS, DIAPHRAGMS, BALLOONS, SOCKS, OR UNDERWEAR?NO LATEX ALLERGY : HAVE YOU EVER DEVELOPED ANY TYPE OF REACTION DURING OR AFTER DENTAL APPOINTMENT, VAGINAL/RECTAL EXAMINATION, SURGICAL PROCEDURE, OR ANY OTHER EXPOSURE?NO DATE ASKED : 08/10/2018 LATEX RISK : HAVE YOU EVER HAD ANY DIFFICULTY BREATHING OR HIVES AFTER EATING OR HANDLING ANY FRUITS, OR VEGETABLES; SUCH KIWI, BANANAS, STONE FRUITS, OR CHESTNUTSNO LATEX RISK : DO YOU HAVE A PREVIOUS PERSONAL HISTORY OF MORE THAN NINE SURGERIES, SPINA BIFIDA, OR REPEATED CATHERIZATIONS? NO LATEX RISK : ARE YOU FREQUENTLY EXPOSED TO LATEX PRODUCTS IN YOUR OCCUPATION?NO CAFFEINE CAFFEINE USE?YES HOW OFTEN AND HOW MUCH? OCCASIONAL ADVANCE DIRECTIVE ADVANCE DIRECTIVE DISCUSSED WITH PATIENT:YES PT DOES NOT HAVE A HCP. PT DOES NOT WANT INFO AT THIS TIME. ASSISTANCE OFFERED WITH FILLING OUT FORM, AND PT DECLINES. YAZIDI [id number] NONE NO ANGLICAN BELIEFS THAT WOULD IMPACT HEALTH CARE. MARITAL STATUS: . ALCOHOL SCREENING DID YOU HAVE A DRINK CONTAINING ALCOHOL IN THE PAST YEAR?YES HOW OFTEN DID YOU HAVE SIX OR MORE DRINKS ON ONE OCCASION IN THE PAST YEAR?MONTHLY (2 POINTS) HOW MANY DRINKS DID YOU HAVE ON A TYPICAL DAY WHEN YOU WERE DRINKING IN THE PAST YEAR?5 OR 6 (2 POINTS) HOW OFTEN DID YOU HAVE A DRINK CONTAINING ALCOHOL IN THE PAST YEAR?FOUR OR MORE TIMES A WEEK (4 POINTS) POINTS8 INTERPRETATIONPOSITIVE OCCUPATION: DISABLED. REVIEWED WITH PT 05/03/18 1642 BVREVIEWED WITH PATIENT 06/12/18 1537 JSREVIEWED WITH PATIENT 08/10/18 1434 LASREVIEWED WITH PATIENT 01/01/19 1000 LASREVIEWED WITH PATIENT 01/15/19 0909 NLJREVIEWED WITH PATIENT 03/12/19 1436 NLJ. HOSPITALIZATION/MAJOR DIAGNOSTIC PROCEDURE SPINAL SURGERIES PNEUMONIA 2009 COPD EXACERBATION WITH ARDS 06/2012 REVIEW OF SYSTEMS REVIEWED BY: PROVIDER: SAVITA CORTES . CONSTITUTIONAL: ANY CHANGE IN YOUR MEDICAL CONDITION? NO . CHILLS NO . FEVER NO . INFECTION: DO YOU HAVE NEW INFECTIONS? NO . DO YOU HAVE HISTORY OF MRSA? NO . MUSCULOSKELETAL: ANY NEW PATTERNS OF PAIN OR NUMBNESS? YES- STATES PAIN REMAINS IN LOWER BACK, STATES HE FEELS LIKE THE MEDS DO NOT HELP WITH PAIN . GASTROENTEROLOGY: ANY NEW CHANGE IN BOWEL CONTROL? NO . GENITOURINARY: ANY NEW CHANGE IN BLADDER CONTROL? NO . IS THERE A CHANCE YOU COULD BE ? NO . HEMATOLOGY/LYMPH: DO YOU TAKE ANY BLOOD THINNERS? (FOR EXAMPLE- COUMADIN, PLAVIX, AGGRENOX, PLATEL, PRADAXA, OR XARELTO) YES- ASPIRIN . WHEN WAS YOUR LAST DOSE? DATE:03/12/19 TIME: 700 . NEUROLOGY: HAVE YOU FALLEN IN THE PAST 12 MONTHS? NO . ANY NEW EXTREMITY NUMBNESS OR WEAKNESS? NO . CARDIOLOGY: DO YOU HAVE A PACEMAKER OR DEFIBRILLATOR? NO . RESPIRATORY: HAVE YOU BEEN SICK IN THE PAST WEEK? NO . FEVER NO . FLU LIKE SYMPTOMS? NO . COUGH NO . INTEGUMENTARY: DO YOU HAVE ANY RASHES OR OPEN SORES? NO . ALLERGIC/IMMUNO: ARE YOU ALLERGIC TO IV DYE? NO . ANY NEW ALLERGIES? NO . PSYCHIATRIC: DO YOU HAVE THOUGHTS OF HURTING YOURSELF OR SOMEONE ELSE? NO . ARE YOU ABUSED, NEGLECTED, OR IN AN UNSAFE ENVIRONMENT? NO . ENDOCRINOLOGY: ARE YOU DIABETIC? YES . OTHER: DO YOU NEED ANY PRESCRIPTIONS? NO . IF YES, PLEASE LIST: ____ . ANY NEW PROBLEMS WITH YOUR MEDICATIONS? NO . WHEN DID YOU LAST EAT? ____ . WHEN DID YOU LAST DRINK? ____ . WHAT DID YOU LAST DRINK? ____ . NAME OF PERSON DRIVING YOU HOME? ____ . DO YOU HAVE ANY OTHER QUESTIONS OR CONCERNS YES- STATES HE WOULD LIKE TO MOVE FORWARD WITH A PROCEDURE FOR HIS PAIN THAT [facility] BE APPROVED . VITAL SIGNS WT 218 LBS, HT 66 IN, BMI 35.18 INDEX, BP 176/98 MM HG, HR 98 /MIN, RR 18 /MIN, TEMP 98.8 F, OXYGEN SAT % 96%, SAFE IN ENV? (Y/N) YES, NA INITIALS SC 14:40, REVIEWED BY: DELORIS. EXAMINATION GENERAL EXAMINATION: GENERALNO ACUTE DISTRESS, WELL NOURISHED AND HYDRATED. PSYCHAPPROPRIATE MOOD AND AFFECT . LUNGS:CLEAR TO AUSCULTATION BILATERALLY, NO WHEEZES, RHONCHI, RALES. HEART:NO MURMURS, REGULAR RATE AND RHYTHM. BACK:POINT TENDER LOW BACK SURROUNDING SKIN SHOWS NO ERYTHEMA, ECCHYMOSIS, INCREASED WARMTH, AND/OR SKIN ERUPTIONS NOTED. . ASSESSMENTS MYALGIA, OTHER SITE - M79.18 (PRIMARY) TREATMENT MYALGIA, OTHER SITE NOTES: BILATERAL LOW BACK TPI. CLINICAL NOTES: WORKMEN'S COMP. CHRONIC PAIN FOLLOW-UP. GIVEN PRESENTING SYMPTOMS AND RESULTS OF PHYSICAL EXAMINATION RECOMMENDED BILATERAL TPI OF THE LOW BACK WITH POST PROCEDURAL FOLLOW-UP. PATIENT HAS EXPRESSED UNDERSTANDING OF AND WAS IN AGREEMENT WITH TREATMENT PLAN. GIVEN TIME TO ASK QUESTIONS AND EXPRESS CONCERNS. OTHERS NOTES: TRIGGER POINT INJECTION MATERIAL WAS PRINTED AND REVIEWED WITH PATIENT 03/12/19 5765 DELORIS. PROCEDURES PN WORKMANS' COMP OPINION IN YOUR OPINION, WAS THE INCIDENT THAT THE PATIENT DESCRIBED THE COMPETENT MEDICAL CAUSE OF THIS INJURY/ILLNESS? YES ARE THE PATIENT'S COMPLAINTS CONSISTENT WITH HIS/HER HISTORY OF THE INJURY/ILLNESS? YES IS THE PATIENT'S HISTORY OF THE INJURY/ILLNESS CONSISTENT WITH YOUR OBJECTIVE FINDING? YES WHAT IS THE PERCENTAGE OF TEMPORARY IMPAIRMENT? MODERATE TO MARKED = 66.7% IS THE PATIENT WORKING? NO DOCTOR ON SITE: JOYCE BEAULIEU MD PROCEDURE CODES FA211 ESTABILISHED PATIENT [facility] CHARGE DISPOSITION & COMMUNICATION FOLLOW UP POSTPROCEDURE (REASON: BILATERAL LOW BACK TPI) ELECTRONICALLY SIGNED BY ESMER CASTAÑEDA ON 03/13/2019 AT 04:26 PM EDT DISCLAIMER : THIS IS A VISIT SUMMARY EXTRACTED FROM THE [employer] CHART. IT IS NOT A COPY OF THE [employer] PROGRESS NOTE. ZAKIYA
== END ==
LOC: M PAIN 14:15
PROVIDERS: ATTEND Family Medicine
DX: M79.18 Myalgia, other site (principal); J44.9 Chronic obstructive pulmonary disease, unspecified; E11.9 Type 2 diabetes mellitus without complications; I10 Essential (primary) hypertension; Z86.59 Personal history of other mental and behavioral disorders; Z87.891 Personal history of nicotine dependence; Z88.5 Allergy status to narcotic agent; Z91.030 Bee allergy status; Z79.82 Long term (current) use of aspirin; Z79.84 Long term (current) use of oral hypoglycemic drugs; Z79.899 Other long term (current) drug therapy

== ENCOUNTER → 2019-04-15 | Outpatient (CLI) | payer OTHER ==
[~2019-04-15] MED LIST changes: +BUPIVACAINE HCL 0.25% 10 ML VIAL As Ordered ONE; +BUPIVACAINE HCL 0.25% 30 ML VIAL As Ordered ONE; +TRIAMCINOLONE ACETONIDE SUSP 40 MG/ML VIAL (J3301) As Ordered ONE; +diazePAM 5 MG TAB As Ordered ONE; +oxyCODONE 5MG TAB As Ordered ONE
--- NOTE | 2019-05-01 03:50 | ECWPNPC ---
PATIENT NAME: YIMI ESPINOSA : 1960 GENDER: MALE VISIT DATE: 04/15/2019 DISCHARGE DATE: 04/15/19 1431 VISIT LOCKED DATE TIME: PHYSICIAN: JOYCE MCGOVERN MD RESOURCE: JOYCE MCGOVERN MD REASON FOR APPOINTMENT 1. BILATERAL LOW BACK TPI-W/C HISTORY OF PRESENT ILLNESS HISTORY OF PRESENT ILLNESS: PAIN THE PATIENT DESCRIBES THE PAIN... FALL RISK SCREENING: SCREENING :NO FALLS REPORTED IN THE LAST YEAR CURRENT MEDICATIONS TAKING LANCET DEVICE - MISCELLANEOUS DIRECTED SUBCUTANEOUSLY BID TAKING SPIRIVA HANDIHALER 18 MCG CAPSULE 1 CAPSULE INHALATION ONCE A DAY, NOTES: 04/14 1300 TAKING PEN NEEDLES 31G X 6 MM MISCELLANEOUS DIRECTED SUBCUTANEOUSLY DAILY TAKING ALBUTEROL SULFATE HFA 108 (90 BASE) MCG/ACT AEROSOL SOLUTION 2 PUFFS NEEDED INHALATION EVERY 4 HRS, NOTES: 04/14 1300 TAKING ATORVASTATIN CALCIUM 80 MG TABLET 1 TABLET ORALLY ONCE A DAY, NOTES: 04/15 7AM TAKING SYMBICORT 80-4.5 MCG/ACT AEROSOL 2 PUFFS INHALATION TWICE A DAY, NOTES: 04/14 1300 TAKING TRULICITY 0.75 MG/0.5ML SOLUTION PEN-INJECTOR DIRECTED SUBCUTANEOUS WEEKLY, NOTES: LAST WEEK TAKING AMLODIPINE BESYLATE 10 MG TABLET 1 TABLET ORALLY ONCE A DAY, NOTES: 04/15 07 TAKING ASPIRIN 81 MG TABLET CHEWABLE 1 TABLET ORALLY ONCE A DAY, NOTES: 04/14 1300 TAKING FREESTYLE LITE TEST - STRIP DIRECTED IN VITRO BID TAKING GLUCOMETER (VERIO IQ) GLUCOMETER DIRECTED E11.9 - TAKING TRULICITY 0.75 MG/0.5ML SOLUTION PEN-INJECTOR DIRECTED SUBCUTANEOUS WEEKLY TAKING FLOMAX 0.4 MG CAPSULE 1 CAPSULE ORALLY ONCE A DAY, NOTES: 04/15 07 TAKING METFORMIN HCL 1000 MG TABLET 1 TABLET WITH MEALS ORALLY TWICE A DAY, NOTES: 04/15 700 MEDICATION LIST REVIEWED AND RECONCILED WITH THE PATIENT PAST MEDICAL HISTORY COPD DIABETES HTN LS SPINE DESC HERNIATION WITH RETROLISTHESIS : DARELL HOWELL, [facility] PAIN MANAGEMENT DEPRESSION ALLERGIES FENTANYL: HIVES - ALLERGY BEE VENOM: SOB - ALLERGY SURGICAL HISTORY APPENDECTOMY HERNIA REPAIR LEFT INGUINAL FX LEFT ANKLE REPAIR 1997 SPINAL FUSION L3-4 L4-5 L5-S1 2009 COLONOSCOPY 04/2010 DORSAL COLUMN STIMULATOR PLACED AND REMOVED FAMILY HISTORY FATHER: 74 YRS, DIAGNOSED WITH UNSPECIFIED CEREBRAL ARTERY OCCLUSION WITH CEREBRAL INFARCTION, HYPERTENSION, UNSPECIFIED HEART DISEASE MOTHER: 74 YRS, BREAST CA MOM LIVER FAILURE. SOCIAL HISTORY GENERAL: TOBACCO USE ARE YOU A:FORMER SMOKER 38 YEARS HOW LONG HAS IT BEEN SINCE YOU LAST SMOKED?5-10 YEARS VAPORNO E-CIGARETTENO HIV / HEP-C SCREENING HIV TEST OFFERED TO PATIENT:YES DATE OFFERED:08/27/2018 TEST ACCEPTED:NO HEP-C TEST OFFERED TO PATIENT:YES DATE OFFERED:08/27/2018 REASON:PATIENT DECLINED TEST ACCEPTED:NO REASON:PATIENT DECLINED BROCHURE PROVIDED TO PATIENTYES OTHERS AT HOME: SPOUSE, CHILD. DIET: REGULAR. LANGUAGE LANGUAGES SPOKEN:LUX[place]OURGISH DOMESTIC VIOLENCE DO YOU FEEL SAFE IN YOUR ENVIRONMENT?YES BMI CARE GOAL FOLLOW-UP ABOVE NORMAL BMI FOLLOW-UPLIFESTYLE EDUCATION REGARDING DIET RECREATIONAL DRUG USE DRUG USE?NO EXERCISE: NO REGULAR EXERCISE. LEARNING BARRIERS / SPECIAL NEEDS CHANGE FROM LAST VISIT?NO 03/21/2019 BARRIERS TO LEARNING?NO HEARING IMPAIRED?NO VISION IMPAIRED?YES COGNITIVELY IMPAIRED?NO :CORRECTIVE LENSES READINESS TO LEARN?YES LEARNING PREFERENCES?NO LEARNING CAPABILITIES PRESENT?YES EMOTIONAL BARRIERS?NO SPECIAL DEVICES?NO PRODUCT LINE MANAGER NEEDED?NO PAIN CLINIC PFS, CLERGY, PUBLIC HEALTH REFERRALS PFS REFERRAL NEEDED?NO CLERGY REFERRAL NEEDED?NO PUBLIC HEALTH REFERRAL NEEDED?NO WAS THE PROVIDER NOTIFIED OF ANY PERTINENT INFO?YES HAS THE PATIENT BEEN EDUCATED REGARDING HIS/HER PLAN OF CARE?YES HAS THE PATIENT BEEN EDUCATED REGARDING PAIN, THE RISK FOR PAIN, THE IMPORTANCE OF EFFECTIVE PAIN MANAGEMENT, AND THE PAIN ASSESSMENT PROCESS?YES LATEX QUESTIONNAIRE LATEX ALLERGY : HAVE YOU EVER DEVELOPED ANY TYPE OF REACTION AFTER HANDLING LATEX PRODUCTS SUCH RUBBER GLOVES, CONDOMS, DIAPHRAGMS, BALLOONS, SOCKS, OR UNDERWEAR?NO LATEX ALLERGY : HAVE YOU EVER DEVELOPED ANY TYPE OF REACTION DURING OR AFTER DENTAL APPOINTMENT, VAGINAL/RECTAL EXAMINATION, SURGICAL PROCEDURE, OR ANY OTHER EXPOSURE?NO LATEX RISK : HAVE YOU EVER HAD ANY DIFFICULTY BREATHING OR HIVES AFTER EATING OR HANDLING ANY FRUITS, OR VEGETABLES; SUCH KIWI, BANANAS, STONE FRUITS, OR CHESTNUTSNO LATEX RISK : DO YOU HAVE A PREVIOUS PERSONAL HISTORY OF MORE THAN NINE SURGERIES, SPINA BIFIDA, OR REPEATED CATHERIZATIONS? NO LATEX RISK : ARE YOU FREQUENTLY EXPOSED TO LATEX PRODUCTS IN YOUR OCCUPATION?NO DATE ASKED : 04/15/2019 CAFFEINE CAFFEINE USE?YES HOW OFTEN AND HOW MUCH? OCCASIONAL ADVANCE DIRECTIVE ADVANCE DIRECTIVE DISCUSSED WITH PATIENT:YES PT DOES NOT HAVE A HCP. PT DOES NOT WANT INFO AT THIS TIME. ASSISTANCE OFFERED WITH FILLING OUT FORM, AND PT DECLINES. JEWISH [id number] NONE NO HOLINESS BELIEFS THAT WOULD IMPACT HEALTH CARE. MARITAL STATUS: . ALCOHOL SCREENING DID YOU HAVE A DRINK CONTAINING ALCOHOL IN THE PAST YEAR?YES HOW OFTEN DID YOU HAVE SIX OR MORE DRINKS ON ONE OCCASION IN THE PAST YEAR?MONTHLY (2 POINTS) HOW MANY DRINKS DID YOU HAVE ON A TYPICAL DAY WHEN YOU WERE DRINKING IN THE PAST YEAR?5 OR 6 (2 POINTS) HOW OFTEN DID YOU HAVE A DRINK CONTAINING ALCOHOL IN THE PAST YEAR?FOUR OR MORE TIMES A WEEK (4 POINTS) POINTS8 INTERPRETATIONPOSITIVE OCCUPATION: DISABLED. REVIEWED WITH PT 05/03/18 1642 BVREVIEWED WITH PATIENT 06/12/18 1537 JSREVIEWED WITH PATIENT 08/10/18 1434 LASREVIEWED WITH PATIENT 01/01/19 1000 LASREVIEWED WITH PATIENT 01/15/19 0909 NLJREVIEWED WITH PATIENT 03/12/19 1436 NLJ. HOSPITALIZATION/MAJOR DIAGNOSTIC PROCEDURE SPINAL SURGERIES PNEUMONIA 2010 COPD EXACERBATION WITH ARDS 06/2012 REVIEW OF SYSTEMS REVIEWED BY: PROVIDER: . CONSTITUTIONAL: ANY CHANGE IN YOUR MEDICAL CONDITION? NO . CHILLS NO . FEVER NO . INFECTION: DO YOU HAVE NEW INFECTIONS? NO . DO YOU HAVE HISTORY OF MRSA? NO . MUSCULOSKELETAL: ANY NEW PATTERNS OF PAIN OR NUMBNESS? NO . GASTROENTEROLOGY: ANY NEW CHANGE IN BOWEL CONTROL? NO . GENITOURINARY: ANY NEW CHANGE IN BLADDER CONTROL? NO . IS THERE A CHANCE YOU COULD BE ? NO . HEMATOLOGY/LYMPH: DO YOU TAKE ANY BLOOD THINNERS? (FOR EXAMPLE- COUMADIN, PLAVIX, AGGRENOX, PLATEL, PRADAXA, OR XARELTO) NO . WHEN WAS YOUR LAST DOSE? DATE: TIME: . NEUROLOGY: HAVE YOU FALLEN IN THE PAST 12 MONTHS? NO . ANY NEW EXTREMITY NUMBNESS OR WEAKNESS? NO . CARDIOLOGY: DO YOU HAVE A PACEMAKER OR DEFIBRILLATOR? NO . RESPIRATORY: HAVE YOU BEEN SICK IN THE PAST WEEK? NO . FEVER NO . FLU LIKE SYMPTOMS? NO . COUGH NO . INTEGUMENTARY: DO YOU HAVE ANY RASHES OR OPEN SORES? NO . ALLERGIC/IMMUNO: ARE YOU ALLERGIC TO IV DYE? NO . ANY NEW ALLERGIES? NO . PSYCHIATRIC: DO YOU HAVE THOUGHTS OF HURTING YOURSELF OR SOMEONE ELSE? NO . ARE YOU ABUSED, NEGLECTED, OR IN AN UNSAFE ENVIRONMENT? NO . ENDOCRINOLOGY: ARE YOU DIABETIC? YES , FSBS 110 @ 1200 . OTHER: DO YOU NEED ANY PRESCRIPTIONS? NO . IF YES, PLEASE LIST: ____ . ANY NEW PROBLEMS WITH YOUR MEDICATIONS? NO . WHEN DID YOU LAST EAT? 04-15 . WHEN DID YOU LAST DRINK? 04/15 700 . WHAT DID YOU LAST DRINK? WATER . NAME OF PERSON DRIVING YOU HOME? . DO YOU HAVE ANY OTHER QUESTIONS OR CONCERNS YES, PT STATES THAT HE TOOK METFORMIN THIS MORNING AROUND 7AM, MD MCGOVERN NOTIFIED. DS . VITAL SIGNS WT 212.2 LBS, HT 66 IN, BMI 34.25 INDEX, BP 173/90 MM HG, HR 112 /MIN, RR 18 /MIN, TEMP 98.7 F, OXYGEN SAT % 96%, BLOOD GLUCOSE LEVEL 110, SAFE IN ENV? (Y/N) JB, NA INITIALS GA 13:34, REVIEWED BY: JB. ASSESSMENTS MYALGIA, OTHER SITE - M79.18 (PRIMARY) PROCEDURES PN WORKMANS' COMP OPINION IN YOUR OPINION, WAS THE INCIDENT THAT THE PATIENT DESCRIBED THE COMPETENT MEDICAL CAUSE OF THIS INJURY/ILLNESS? YES ARE THE PATIENT'S COMPLAINTS CONSISTENT WITH HIS/HER HISTORY OF THE INJURY/ILLNESS? YES IS THE PATIENT'S HISTORY OF THE INJURY/ILLNESS CONSISTENT WITH YOUR OBJECTIVE FINDING? YES WHAT IS THE PERCENTAGE OF TEMPORARY IMPAIRMENT? MODERATE TO MARKED = 66.7% IS THE PATIENT WORKING? NO DOCTOR ON SITE: JOYCE BEAULIEU MD PN TRIGGER POINT INJECTION WITH STEROIDS PRE PROCEDURE DIAGNOSIS 1. MYALGIA 2. PAIN AT RIGHT AND LEFT LOW BACK AREA. POST PROCEDURE DIAGNOSIS 1. MYALGIA 2. PAIN AT RIGHT AND LEFT LOW BACK AREA. PROCEDURE TRIGGER POINT INJECTION AT RIGHT AND LEFT LOW BACK AREA. SURGEON DR. JOYCE MCGOVERN RETAIL PRODUCT ADVISOR NONE ANESTHESIA LOCAL PRE PROCEDURE NOTE THE PATIENT HAS A HISTORY OF CHRONIC PAIN AT THE RIGHT AND LEFT LOW BACK AREA. I EVALUATED THE PATIENT AND REVIEWED THE CHART. THERE IS EVIDENCE OF BANDS OF TISSUE WITH RESTRICTION OF MOVEMENT AND PRESENCE OF TRIGGER POINT AT THE AFFECTED AREA. I WENT OVER THE RISKS, ALTERNATIVES, AND BENEFITS ASSOCIATED WITH THIS PROCEDURE. THE PATIENT WOULD LIKE TO PROCEED AND GIVES CONSENT TO PERFORM THE PROCEDURE. THE PATIENT DENIES UNEXPLAINABLE WEIGHT LOSS, FEVER, CHILLS, OR NEW CHANGES IN URINARY OR BOWEL CONTROL DESCRIPTION OF PROCEDURE THE PATIENT WAS BROUGHT TO THE PROCEDURE ROOM AND PLACED IN THE SITTING POSITION. THE AREA WAS CLEANED WITH ALCOHOL. THE PROCEDURE WAS DONE USING ASEPTIC STERILE TECHNIQUE. I CHECKED LATERALITY AND THE LEVEL WHERE THE PROCEDURE WAS GOING TO BE PERFORMED WITH THE PATIENT AND THE SUPPORTING STAFF AT THE MOMENT OF THE TIME OUT IN THE PROCEDURE ROOM. USING A 25-GAUGE NEEDLE, TRIGGER POINTS WERE INJECTED AT THE RIGHT AND LEFT LOW BACK AREA WITH A TOTAL OF 40 ML OF BUPIVACAINE 0.25% AND KENALOG 40 MG. THERE WAS NO EVIDENCE OF BLOOD, PARESTHESIA OR CEREBROSPINAL FLUID DURING THE PROCEDURE. THE PATIENT WAS SENT TO THE RECOVERY ROOM. THE PATIENT WAS MOVING THE EXTREMITIES AND DOING WELL. THERE WAS NO COMPLICATION DURING THE PROCEDURE POST PROCEDURE NOTE THE PATIENT WILL BE SEEN IN A FOLLOW UP IN THE NEXT FEW WEEKS. I AM LOOKING FOR LONG LASTING PAIN RELIEF WITH THIS INJECTION FOR THE PATIENT. INSTRUCTIONS WERE GIVEN, QUESTIONS WERE ANSWERED, AND THE PATIENT EXPRESSED UNDERSTANDING AND AGREES WITH THE PLAN. I, ELIAS FLYNN, DOCUMENTED THE ABOVE INFORMATION ACTING A SCRIBE FOR DR. MCGOVERN. I HAVE REVIEWED THE ABOVE DOCUMENT, WRITTEN BY ELIAS FLYNN SCRIBE AND I VERIFY THAT IT IS ACCURATE. PROCEDURE CODES 29307 INJ TRIGGER POINT / MUSC DISPOSITION & COMMUNICATION FOLLOW UP 3 WEEKS ELECTRONICALLY SIGNED BY JOYCE MCGOVERN MD, MD ON 04/30/2019 AT 07:53 PM EST DISCLAIMER : THIS IS A VISIT SUMMARY EXTRACTED FROM THE [employer] CHART. IT IS NOT A COPY OF THE [employer] PROGRESS NOTE. ZAKIYA
== END ==
LOC: M PAIN 13:30
PROVIDERS: ATTEND Anesthesiology
DX: M79.18 Myalgia, other site (principal); J44.9 Chronic obstructive pulmonary disease, unspecified; E11.9 Type 2 diabetes mellitus without complications; I10 Essential (primary) hypertension; Z86.59 Personal history of other mental and behavioral disorders; Z87.891 Personal history of nicotine dependence; Z88.5 Allergy status to narcotic agent; Z91.030 Bee allergy status; Z79.82 Long term (current) use of aspirin; Z79.84 Long term (current) use of oral hypoglycemic drugs; Z79.899 Other long term (current) drug therapy
CPT/HCPCS: 20552; J3301

== ENCOUNTER → 2019-05-28 | Outpatient (CLI) | payer OTHER ==
[~2019-05-28] MED LIST changes: -BUPIVACAINE HCL 0.25% 10 ML VIAL As Ordered ONE; -BUPIVACAINE HCL 0.25% 30 ML VIAL As Ordered ONE; -TRIAMCINOLONE ACETONIDE SUSP 40 MG/ML VIAL (J3301) As Ordered ONE; -diazePAM 5 MG TAB As Ordered ONE; -oxyCODONE 5MG TAB As Ordered ONE
--- NOTE | 2019-05-30 01:42 | ECWPNPC ---
PATIENT NAME: YIMI ESPINOSA : 1960 GENDER: MALE VISIT DATE: 05/28/2019 DISCHARGE DATE: 05/28/19 1030 VISIT LOCKED DATE TIME: PHYSICIAN: BECKIE CALVILLO RESOURCE: BECKIE CALVILLO REASON FOR APPOINTMENT 1. W/C POST TPI HISTORY OF PRESENT ILLNESS HISTORY OF PRESENT ILLNESS: PAIN THE PATIENT DESCRIBES THE PAIN... 57 YEAR OLD MALE PATIENT WITH A HISTORY OF CHRONIC LOW BACK PAIN. THE PATIENT DESCRIBES THE PAIN ACHING, SHARP, TENDER, AND CONTINUOUS WITH A PAIN SCORE OF 4/10 DEPENDING ON PHYSICAL ACTIVITY. THE PATIENT WAS HURT IN A WORK RELATED INJURY ON 12/26/2004 WHILE WORKING FOR [employer] A WORKHAND WHEN HE WAS PICKING UP A CALF AND INJURED HIS BACK. THE PATIENT SAYS HE HAS DIFFICULTY DOING DAILY ACTIVITIES SUCH WORKING AROUND HIS HOUSE, WALKING, AND CLEANING DUE TO THIS PAIN. THE PATIENT SAYS THAT HE IS ONLY ABLE TO WALK AROUND FOR 2 MINUTES BEFORE HE HAS TO SIT DOWN. THE PATIENT HAD TRIGGER POINT INJECTIONS DONE IN MARCH AND REPORTS RELIEF OF SYMPTOMS TIMES ONE MONTH. HE WOULD LIKE TO DISCUSS REPEAT TRIGGER POINT INJECTIONS WITH A GOAL OF INCREASED FUNCTIONALITY AND A DECREASE IN PAIN. FALL RISK SCREENING: SCREENING :NO FALLS REPORTED IN THE LAST YEAR CURRENT MEDICATIONS TAKING LANCET DEVICE - MISCELLANEOUS DIRECTED SUBCUTANEOUSLY BID TAKING SPIRIVA HANDIHALER 18 MCG CAPSULE 1 CAPSULE INHALATION ONCE A DAY TAKING PEN NEEDLES 31G X 6 MM MISCELLANEOUS DIRECTED SUBCUTANEOUSLY DAILY TAKING ALBUTEROL SULFATE HFA 108 (90 BASE) MCG/ACT AEROSOL SOLUTION 2 PUFFS NEEDED INHALATION EVERY 4 HRS TAKING SYMBICORT 80-4.5 MCG/ACT AEROSOL 2 PUFFS INHALATION TWICE A DAY TAKING TRULICITY 0.75 MG/0.5ML SOLUTION PEN-INJECTOR DIRECTED SUBCUTANEOUS WEEKLY TAKING AMLODIPINE BESYLATE 10 MG TABLET 1 TABLET ORALLY ONCE A DAY TAKING ASPIRIN 81 MG TABLET CHEWABLE 1 TABLET ORALLY ONCE A DAY TAKING FREESTYLE LITE TEST - STRIP DIRECTED IN VITRO BID TAKING GLUCOMETER (VERIO IQ) GLUCOMETER DIRECTED E11.9 - TAKING FLOMAX 0.4 MG CAPSULE 1 CAPSULE ORALLY ONCE A DAY TAKING METFORMIN HCL 1000 MG TABLET 1 TABLET WITH MEALS ORALLY TWICE A DAY TAKING ATORVASTATIN CALCIUM 80 MG TABLET 1 TABLET ORALLY ONCE A DAY DISCONTINUED TRULICITY 0.75 MG/0.5ML SOLUTION PEN-INJECTOR DIRECTED SUBCUTANEOUS WEEKLY MEDICATION LIST REVIEWED AND RECONCILED WITH THE PATIENT PAST MEDICAL HISTORY COPD DIABETES HTN LS SPINE DESC HERNIATION WITH RETROLISTHESIS : DARELL HOWELL [facility] PAIN MANAGEMENT DEPRESSION ALLERGIES FENTANYL: HIVES - ALLERGY BEE VENOM: SOB - ALLERGY SURGICAL HISTORY APPENDECTOMY HERNIA REPAIR LEFT INGUINAL FX LEFT ANKLE REPAIR 1997 SPINAL FUSION L3-4 L4-5 L5-S1 2009 COLONOSCOPY 04/2010 DORSAL COLUMN STIMULATOR PLACED AND REMOVED FAMILY HISTORY FATHER: 74 YRS, DIAGNOSED WITH UNSPECIFIED HEART DISEASE, UNSPECIFIED CEREBRAL ARTERY OCCLUSION WITH CEREBRAL INFARCTION, HYPERTENSION MOTHER: 74 YRS, BREAST CA 1 SON(S) , 2 DAUGHTER(S) - HEALTHY. MOM LIVER FAILURE. SOCIAL HISTORY GENERAL: TOBACCO USE ARE YOU A:FORMER SMOKER 38 YEARS HOW LONG HAS IT BEEN SINCE YOU LAST SMOKED?5-10 YEARS VAPORNO E-CIGARETTENO HIV / HEP-C SCREENING HIV TEST OFFERED TO PATIENT:YES DATE OFFERED:08/27/2018 TEST ACCEPTED:NO HEP-C TEST OFFERED TO PATIENT:YES DATE OFFERED:08/27/2018 REASON:PATIENT DECLINED TEST ACCEPTED:NO REASON:PATIENT DECLINED BROCHURE PROVIDED TO PATIENTYES OTHERS AT HOME: SPOUSE, CHILD. DIET: REGULAR. LANGUAGE LANGUAGES SPOKEN:NAURUAN DOMESTIC VIOLENCE DO YOU FEEL SAFE IN YOUR ENVIRONMENT?YES BMI CARE GOAL FOLLOW-UP ABOVE NORMAL BMI FOLLOW-UPLIFESTYLE EDUCATION REGARDING DIET RECREATIONAL DRUG USE DRUG USE?NO EXERCISE: NO REGULAR EXERCISE. LEARNING BARRIERS / SPECIAL NEEDS CHANGE FROM LAST VISIT?NO 03/21/2019 BARRIERS TO LEARNING?NO HEARING IMPAIRED?NO VISION IMPAIRED?YES COGNITIVELY IMPAIRED?NO :CORRECTIVE LENSES READINESS TO LEARN?YES LEARNING PREFERENCES?NO LEARNING CAPABILITIES PRESENT?YES EMOTIONAL BARRIERS?NO SPECIAL DEVICES?NO MACHINE STRIPPER NEEDED?NO PAIN CLINIC PFS, CLERGY, PUBLIC HEALTH REFERRALS PFS REFERRAL NEEDED?NO CLERGY REFERRAL NEEDED?NO PUBLIC HEALTH REFERRAL NEEDED?NO WAS THE PROVIDER NOTIFIED OF ANY PERTINENT INFO?YES HAS THE PATIENT BEEN EDUCATED REGARDING HIS/HER PLAN OF CARE?YES HAS THE PATIENT BEEN EDUCATED REGARDING PAIN, THE RISK FOR PAIN, THE IMPORTANCE OF EFFECTIVE PAIN MANAGEMENT, AND THE PAIN ASSESSMENT PROCESS?YES LATEX QUESTIONNAIRE LATEX ALLERGY : HAVE YOU EVER DEVELOPED ANY TYPE OF REACTION AFTER HANDLING LATEX PRODUCTS SUCH RUBBER GLOVES, CONDOMS, DIAPHRAGMS, BALLOONS, SOCKS, OR UNDERWEAR?NO LATEX ALLERGY : HAVE YOU EVER DEVELOPED ANY TYPE OF REACTION DURING OR AFTER DENTAL APPOINTMENT, VAGINAL/RECTAL EXAMINATION, SURGICAL PROCEDURE, OR ANY OTHER EXPOSURE?NO DATE ASKED : 04/15/2019 LATEX RISK : HAVE YOU EVER HAD ANY DIFFICULTY BREATHING OR HIVES AFTER EATING OR HANDLING ANY FRUITS, OR VEGETABLES; SUCH KIWI, BANANAS, STONE FRUITS, OR CHESTNUTSNO LATEX RISK : DO YOU HAVE A PREVIOUS PERSONAL HISTORY OF MORE THAN NINE SURGERIES, SPINA BIFIDA, OR REPEATED CATHERIZATIONS? NO LATEX RISK : ARE YOU FREQUENTLY EXPOSED TO LATEX PRODUCTS IN YOUR OCCUPATION?NO CAFFEINE CAFFEINE USE?YES HOW OFTEN AND HOW MUCH? OCCASIONAL ADVANCE DIRECTIVE ADVANCE DIRECTIVE DISCUSSED WITH PATIENT:YES PT DOES NOT HAVE A HCP. PT DOES NOT WANT INFO AT THIS TIME. ASSISTANCE OFFERED WITH FILLING OUT FORM, AND PT DECLINES. RELIGIOUS [id number] NONE NO AMISH BELIEFS THAT WOULD IMPACT HEALTH CARE. MARITAL STATUS: . ALCOHOL SCREENING DID YOU HAVE A DRINK CONTAINING ALCOHOL IN THE PAST YEAR?YES HOW OFTEN DID YOU HAVE SIX OR MORE DRINKS ON ONE OCCASION IN THE PAST YEAR?MONTHLY (2 POINTS) HOW MANY DRINKS DID YOU HAVE ON A TYPICAL DAY WHEN YOU WERE DRINKING IN THE PAST YEAR?5 OR 6 (2 POINTS) HOW OFTEN DID YOU HAVE A DRINK CONTAINING ALCOHOL IN THE PAST YEAR?FOUR OR MORE TIMES A WEEK (4 POINTS) POINTS8 INTERPRETATIONPOSITIVE OCCUPATION: DISABLED. REVIEWED WITH PT 05/03/18 1642 BVREVIEWED WITH PATIENT 06/12/18 1537 JSREVIEWED WITH PATIENT 08/10/18 1434 LASREVIEWED WITH PATIENT 01/01/19 1000 LASREVIEWED WITH PATIENT 01/15/19 0909 NLJREVIEWED WITH PATIENT 03/12/19 1436 NLJ. HOSPITALIZATION/MAJOR DIAGNOSTIC PROCEDURE SPINAL SURGERIES PNEUMONIA 2010 COPD EXACERBATION WITH ARDS 06/2012 REVIEW OF SYSTEMS REVIEWED BY: PROVIDER: SAVITA CORTES . CONSTITUTIONAL: ANY CHANGE IN YOUR MEDICAL CONDITION? NO . CHILLS NO . FEVER NO . INFECTION: DO YOU HAVE NEW INFECTIONS? NO . DO YOU HAVE HISTORY OF MRSA? NO . MUSCULOSKELETAL: ANY NEW PATTERNS OF PAIN OR NUMBNESS? NO . GASTROENTEROLOGY: ANY NEW CHANGE IN BOWEL CONTROL? NO . GENITOURINARY: ANY NEW CHANGE IN BLADDER CONTROL? YES, STRESS INCONTINENCE X 2 MOS PCP AWARE, FLOMAX PRESCRIBED . IS THERE A CHANCE YOU COULD BE ? NO . HEMATOLOGY/LYMPH: DO YOU TAKE ANY BLOOD THINNERS? (FOR EXAMPLE- COUMADIN, PLAVIX, AGGRENOX, PLATEL, PRADAXA, OR XARELTO) NO . WHEN WAS YOUR LAST DOSE? DATE: TIME: . NEUROLOGY: HAVE YOU FALLEN IN THE PAST 12 MONTHS? NO . ANY NEW EXTREMITY NUMBNESS OR WEAKNESS? NO . CARDIOLOGY: DO YOU HAVE A PACEMAKER OR DEFIBRILLATOR? NO . RESPIRATORY: HAVE YOU BEEN SICK IN THE PAST WEEK? YES, URI . FEVER NO . FLU LIKE SYMPTOMS? NO . COUGH YES, PRODUCTIVE YELLOW SPUTUM . INTEGUMENTARY: DO YOU HAVE ANY RASHES OR OPEN SORES? NO . ALLERGIC/IMMUNO: ARE YOU ALLERGIC TO IV DYE? NO . ANY NEW ALLERGIES? NO . PSYCHIATRIC: DO YOU HAVE THOUGHTS OF HURTING YOURSELF OR SOMEONE ELSE? NO . ARE YOU ABUSED, NEGLECTED, OR IN AN UNSAFE ENVIRONMENT? NO . ENDOCRINOLOGY: ARE YOU DIABETIC? YES . OTHER: DO YOU NEED ANY PRESCRIPTIONS? NO . IF YES, PLEASE LIST: ____ . ANY NEW PROBLEMS WITH YOUR MEDICATIONS? NO . WHEN DID YOU LAST EAT? ____ . WHEN DID YOU LAST DRINK? ____ . WHAT DID YOU LAST DRINK? ____ . NAME OF PERSON DRIVING YOU HOME? ____ . DO YOU HAVE ANY OTHER QUESTIONS OR CONCERNS NO . VITAL SIGNS WT 211.2 LBS, HT 66 IN, BMI 34.08 INDEX, BP 182/83 MM HG, HR 113 /MIN, RR 18 /MIN, TEMP 97.0 F, OXYGEN SAT % 94%, NA INITIALS AW 1002, REVIEWED BY: EM. EXAMINATION GENERAL EXAMINATION: GENERALNO ACUTE DISTRESS, WELL NOURISHED AND HYDRATED. PSYCHAPPROPRIATE MOOD AND AFFECT . LUNGS:CLEAR TO AUSCULTATION BILATERALLY, NO WHEEZES, RHONCHI, RALES. HEART:NO MURMURS, REGULAR RATE AND RHYTHM. BACK:POINT TENDER BILATERAL LOW BACK, SURROUNDING SKIN SHOWS NO ERYTHEMA, ECCHYMOSIS, INCREASED WARMTH, AND/OR SKIN ERUPTIONS NOTED. . ASSESSMENTS MYALGIA, OTHER SITE - M79.18 (PRIMARY) TREATMENT MYALGIA, OTHER SITE NOTES: TPI LOW BACK BILATERALLY. 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 CHRONIC PAIN FOLLOW-UP. GIVEN PRESENTING SYMPTOMS AND RESULTS PHYSICAL EXAMINATION RECOMMENDED TPI OF THE LOW BACK BILATERALLY WITH POST PROCEDURAL FOLLOW-UP. PATIENT HAS EXPRESSED UNDERSTANDING OF AND WAS IN AGREEMENT WITH TREATMENT PLAN. GIVEN TIME TO ASK QUESTIONS AND EXPRESS CONCERNS. PROCEDURES PN WORKMANS' COMP OPINION IN YOUR OPINION, WAS THE INCIDENT THAT THE PATIENT DESCRIBED THE COMPETENT MEDICAL CAUSE OF THIS INJURY/ILLNESS? YES ARE THE PATIENT'S COMPLAINTS CONSISTENT WITH HIS/HER HISTORY OF THE INJURY/ILLNESS? YES IS THE PATIENT'S HISTORY OF THE INJURY/ILLNESS CONSISTENT WITH YOUR OBJECTIVE FINDING? YES WHAT IS THE PERCENTAGE OF TEMPORARY IMPAIRMENT? MODERATE TO MARKED = 66.7% IS THE PATIENT WORKING? NO DOCTOR ON SITE: JOYCE BEAULIEU MD PROCEDURE CODES FA211 ESTABILISHED PATIENT [facility] CHARGE DISPOSITION & COMMUNICATION FOLLOW UP POSTPROCEDURE (REASON: TPI BILATERAL LOW BACK) ELECTRONICALLY SIGNED BY ESMER CASTAÑEDA ON 05/29/2019 AT 08:08 AM EST DISCLAIMER : THIS IS A VISIT SUMMARY EXTRACTED FROM THE [employer] CHART. IT IS NOT A COPY OF THE [employer] PROGRESS NOTE. ZAKIYA
== END ==
LOC: M PAIN 10:00
PROVIDERS: ATTEND Family Medicine
DX: M79.18 Myalgia, other site (principal); E11.9 Type 2 diabetes mellitus without complications; I10 Essential (primary) hypertension; Z79.82 Long term (current) use of aspirin; Z79.84 Long term (current) use of oral hypoglycemic drugs; Z79.899 Other long term (current) drug therapy; Z87.891 Personal history of nicotine dependence; Z88.8 Allergy status to other drugs, medicaments and biological substances; Z91.030 Bee allergy status

== ENCOUNTER → 2019-06-21 | Outpatient (CLI) | payer OTHER ==
[~2019-06-21] MED LIST changes: +BUPIVACAINE HCL 0.25% 30 ML VIAL As Ordered ONE; +diazePAM 5 MG TAB As Ordered ONE; +oxyCODONE 5MG TAB As Ordered ONE
--- NOTE | 2019-06-29 03:37 | ECWPNPC ---
PATIENT NAME: YIMI ESPINOSA : 1960 GENDER: MALE VISIT DATE: 06/21/2019 DISCHARGE DATE: 06/21/19 1011 VISIT LOCKED DATE TIME: PHYSICIAN: JOYCE MCGOVERN MD RESOURCE: JOYCE MCGOVERN MD REASON FOR APPOINTMENT 1. W/C, TPI BILATERAL LOW BACK HISTORY OF PRESENT ILLNESS HISTORY OF PRESENT ILLNESS: PAIN THE PATIENT DESCRIBES THE PAIN... FALL RISK SCREENING: SCREENING :NO FALLS REPORTED IN THE LAST YEAR CURRENT MEDICATIONS TAKING LANCET DEVICE - MISCELLANEOUS DIRECTED SUBCUTANEOUSLY BID TAKING SPIRIVA HANDIHALER 18 MCG CAPSULE 1 CAPSULE INHALATION ONCE A DAY, NOTES: 06/20/19 TAKING PEN NEEDLES 31G X 6 MM MISCELLANEOUS DIRECTED SUBCUTANEOUSLY DAILY TAKING ALBUTEROL SULFATE HFA 108 (90 BASE) MCG/ACT AEROSOL SOLUTION 2 PUFFS NEEDED INHALATION EVERY 4 HRS, NOTES: NONE RECENT TAKING TRULICITY 0.75 MG/0.5ML SOLUTION PEN-INJECTOR DIRECTED SUBCUTANEOUS WEEKLY, NOTES: 2 WEEKS AGO TAKING ASPIRIN 81 MG TABLET CHEWABLE 1 TABLET ORALLY ONCE A DAY, NOTES: 06/20/19 TAKING FREESTYLE LITE TEST - STRIP DIRECTED IN VITRO BID TAKING GLUCOMETER (VERIO IQ) GLUCOMETER DIRECTED E11.9 - TAKING METFORMIN HCL 1000 MG TABLET 1 TABLET WITH MEALS ORALLY TWICE A DAY, NOTES: 06/20/191999 TAKING ATORVASTATIN CALCIUM 80 MG TABLET 1 TABLET ORALLY ONCE A DAY, NOTES: 06/20/191999 TAKING AMLODIPINE BESYLATE 10 MG TABLET 1 TABLET ORALLY ONCE A DAY, NOTES: 06/20/19 TAKING FLOMAX 0.4 MG CAPSULE 1 CAPSULE ORALLY ONCE A DAY, NOTES: 06/20/29 TAKING SYMBICORT 80-4.5 MCG/ACT AEROSOL 2 PUFFS INHALATION TWICE A DAY, NOTES: 06/20/19 1400 MEDICATION LIST REVIEWED AND RECONCILED WITH THE PATIENT PAST MEDICAL HISTORY COPD DIABETES HTN LS SPINE DESC HERNIATION WITH RETROLISTHESIS : DARELL HOWELL, [facility] PAIN MANAGEMENT DEPRESSION ALLERGIES FENTANYL: HIVES - ALLERGY BEE VENOM: SOB - ALLERGY SURGICAL HISTORY APPENDECTOMY HERNIA REPAIR LEFT INGUINAL FX LEFT ANKLE REPAIR 1997 SPINAL FUSION L3-4 L4-5 L5-S1 2009 COLONOSCOPY 04/2010 DORSAL COLUMN STIMULATOR PLACED AND REMOVED FAMILY HISTORY FATHER: 74 YRS, DIAGNOSED WITH UNSPECIFIED CEREBRAL ARTERY OCCLUSION WITH CEREBRAL INFARCTION, HYPERTENSION, UNSPECIFIED HEART DISEASE MOTHER: 74 YRS, BREAST CA 1 SON(S) , 2 DAUGHTER(S) - HEALTHY. MOM LIVER FAILURE. SOCIAL HISTORY GENERAL: TOBACCO USE ARE YOU A:FORMER SMOKER 38 YEARS HOW LONG HAS IT BEEN SINCE YOU LAST SMOKED?5-10 YEARS VAPORNO E-CIGARETTENO HIV / HEP-C SCREENING HIV TEST OFFERED TO PATIENT:YES DATE OFFERED:08/27/2018 TEST ACCEPTED:NO HEP-C TEST OFFERED TO PATIENT:YES DATE OFFERED:08/27/2018 REASON:PATIENT DECLINED TEST ACCEPTED:NO REASON:PATIENT DECLINED BROCHURE PROVIDED TO PATIENTYES OTHERS AT HOME: SPOUSE, CHILD. DIET: REGULAR. LANGUAGE LANGUAGES SPOKEN:POLISH DOMESTIC VIOLENCE DO YOU FEEL SAFE IN YOUR ENVIRONMENT?YES BMI CARE GOAL FOLLOW-UP ABOVE NORMAL BMI FOLLOW-UPLIFESTYLE EDUCATION REGARDING DIET RECREATIONAL DRUG USE DRUG USE?NO EXERCISE: NO REGULAR EXERCISE. LEARNING BARRIERS / SPECIAL NEEDS CHANGE FROM LAST VISIT?NO 03/21/2019 BARRIERS TO LEARNING?NO HEARING IMPAIRED?NO VISION IMPAIRED?YES COGNITIVELY IMPAIRED?NO :CORRECTIVE LENSES READINESS TO LEARN?YES LEARNING PREFERENCES?NO LEARNING CAPABILITIES PRESENT?YES EMOTIONAL BARRIERS?NO SPECIAL DEVICES?NO BASEBALL GLOVE SHAPER NEEDED?NO PAIN CLINIC PFS, CLERGY, PUBLIC HEALTH REFERRALS PFS REFERRAL NEEDED?NO CLERGY REFERRAL NEEDED?NO PUBLIC HEALTH REFERRAL NEEDED?NO WAS THE PROVIDER NOTIFIED OF ANY PERTINENT INFO?YES HAS THE PATIENT BEEN EDUCATED REGARDING HIS/HER PLAN OF CARE?YES HAS THE PATIENT BEEN EDUCATED REGARDING PAIN, THE RISK FOR PAIN, THE IMPORTANCE OF EFFECTIVE PAIN MANAGEMENT, AND THE PAIN ASSESSMENT PROCESS?YES LATEX QUESTIONNAIRE LATEX ALLERGY : HAVE YOU EVER DEVELOPED ANY TYPE OF REACTION AFTER HANDLING LATEX PRODUCTS SUCH RUBBER GLOVES, CONDOMS, DIAPHRAGMS, BALLOONS, SOCKS, OR UNDERWEAR?NO LATEX ALLERGY : HAVE YOU EVER DEVELOPED ANY TYPE OF REACTION DURING OR AFTER DENTAL APPOINTMENT, VAGINAL/RECTAL EXAMINATION, SURGICAL PROCEDURE, OR ANY OTHER EXPOSURE?NO DATE ASKED : 04/15/2019 LATEX RISK : HAVE YOU EVER HAD ANY DIFFICULTY BREATHING OR HIVES AFTER EATING OR HANDLING ANY FRUITS, OR VEGETABLES; SUCH KIWI, BANANAS, STONE FRUITS, OR CHESTNUTSNO LATEX RISK : DO YOU HAVE A PREVIOUS PERSONAL HISTORY OF MORE THAN NINE SURGERIES, SPINA BIFIDA, OR REPEATED CATHERIZATIONS? NO LATEX RISK : ARE YOU FREQUENTLY EXPOSED TO LATEX PRODUCTS IN YOUR OCCUPATION?NO CAFFEINE CAFFEINE USE?YES HOW OFTEN AND HOW MUCH? OCCASIONAL ADVANCE DIRECTIVE ADVANCE DIRECTIVE DISCUSSED WITH PATIENT:YES PT DOES NOT HAVE A HCP. PT DOES NOT WANT INFO AT THIS TIME. ASSISTANCE OFFERED WITH FILLING OUT FORM, AND PT DECLINES. MANDAEN [id number] NONE NO MUSLIM BELIEFS THAT WOULD IMPACT HEALTH CARE. MARITAL STATUS: . ALCOHOL SCREENING DID YOU HAVE A DRINK CONTAINING ALCOHOL IN THE PAST YEAR?YES HOW OFTEN DID YOU HAVE SIX OR MORE DRINKS ON ONE OCCASION IN THE PAST YEAR?MONTHLY (2 POINTS) HOW MANY DRINKS DID YOU HAVE ON A TYPICAL DAY WHEN YOU WERE DRINKING IN THE PAST YEAR?5 OR 6 (2 POINTS) HOW OFTEN DID YOU HAVE A DRINK CONTAINING ALCOHOL IN THE PAST YEAR?FOUR OR MORE TIMES A WEEK (4 POINTS) POINTS8 INTERPRETATIONPOSITIVE OCCUPATION: DISABLED. REVIEWED WITH PT 05/03/18 1642 BVREVIEWED WITH PATIENT 06/12/18 1537 JSREVIEWED WITH PATIENT 08/10/18 1434 LASREVIEWED WITH PATIENT 01/01/19 1000 LASREVIEWED WITH PATIENT 01/15/19 0909 NLJREVIEWED WITH PATIENT 03/12/19 1436 NLJREVIEWED WITH PATIENT 06/21/19 0900 BV. HOSPITALIZATION/MAJOR DIAGNOSTIC PROCEDURE SPINAL SURGERIES PNEUMONIA 2009 COPD EXACERBATION WITH ARDS 06/2012 REVIEW OF SYSTEMS REVIEWED BY: PROVIDER: . CONSTITUTIONAL: ANY CHANGE IN YOUR MEDICAL CONDITION? NO . CHILLS NO . FEVER NO . INFECTION: DO YOU HAVE NEW INFECTIONS? NO . DO YOU HAVE HISTORY OF MRSA? NO . MUSCULOSKELETAL: ANY NEW PATTERNS OF PAIN OR NUMBNESS? NO . GASTROENTEROLOGY: ANY NEW CHANGE IN BOWEL CONTROL? NO . GENITOURINARY: ANY NEW CHANGE IN BLADDER CONTROL? PT STATES THIS IS NOT NEW, STATES HE HAS BEEN TREATED BY UROLOGIST FOR STRESS INCONTINENCY FOR SEVERAL MONTHS. CURRENTLY ON FLOMAX . IS THERE A CHANCE YOU COULD BE ? NO . HEMATOLOGY/LYMPH: DO YOU TAKE ANY BLOOD THINNERS? (FOR EXAMPLE- COUMADIN, PLAVIX, AGGRENOX, PLATEL, PRADAXA, OR XARELTO) NO . WHEN WAS YOUR LAST DOSE? DATE: TIME: . NEUROLOGY: HAVE YOU FALLEN IN THE PAST 12 MONTHS? NO . ANY NEW EXTREMITY NUMBNESS OR WEAKNESS? NO . CARDIOLOGY: DO YOU HAVE A PACEMAKER OR DEFIBRILLATOR? NO . RESPIRATORY: HAVE YOU BEEN SICK IN THE PAST WEEK? YES, PT STATES HE HAS A COUGH FOR THE PAST COUPLE WEEKS, DENIES ANY OTHER FLU-LIKE SYMPTOMS. DENIES ANY FEVER. DR. MCGOVERN IS AWARE, AND OKAY TO PROCEDURE WITH PROCEDURE . FEVER NO . FLU LIKE SYMPTOMS? NO . COUGH NO . INTEGUMENTARY: DO YOU HAVE ANY RASHES OR OPEN SORES? NO . ALLERGIC/IMMUNO: ARE YOU ALLERGIC TO IV DYE? NO . ANY NEW ALLERGIES? NO . PSYCHIATRIC: DO YOU HAVE THOUGHTS OF HURTING YOURSELF OR SOMEONE ELSE? NO . ARE YOU ABUSED, NEGLECTED, OR IN AN UNSAFE ENVIRONMENT? NO . ENDOCRINOLOGY: ARE YOU DIABETIC? NO . OTHER: DO YOU NEED ANY PRESCRIPTIONS? NO . IF YES, PLEASE LIST: ____ . ANY NEW PROBLEMS WITH YOUR MEDICATIONS? NO . WHEN DID YOU LAST EAT? YES, 06/20/19 6PM . WHEN DID YOU LAST DRINK? 06/21/19 0600 AM . WHAT DID YOU LAST DRINK? WATER . NAME OF PERSON DRIVING YOU HOME? . DO YOU HAVE ANY OTHER QUESTIONS OR CONCERNS NO . VITAL SIGNS WT 211.4 LBS, HT 66 IN, BMI 34.12 INDEX, BP 173/84 MM HG, HR 92 /MIN, RR 18 /MIN, TEMP 98.4 F, OXYGEN SAT % 97, REVIEWED BY: YARELY. ASSESSMENTS MYALGIA, OTHER SITE - M79.18 (PRIMARY) PROCEDURES PN WORKMANS' COMP OPINION IN YOUR OPINION, WAS THE INCIDENT THAT THE PATIENT DESCRIBED THE COMPETENT MEDICAL CAUSE OF THIS INJURY/ILLNESS? YES ARE THE PATIENT'S COMPLAINTS CONSISTENT WITH HIS/HER HISTORY OF THE INJURY/ILLNESS? YES IS THE PATIENT'S HISTORY OF THE INJURY/ILLNESS CONSISTENT WITH YOUR OBJECTIVE FINDING? YES WHAT IS THE PERCENTAGE OF TEMPORARY IMPAIRMENT? MODERATE TO MARKED = 66.7% IS THE PATIENT WORKING? NO DOCTOR ON SITE: JOYCE BEAULIEU MD PN TRIGGER POINT INJECTION NO STEROIDS DATE OF PROCEDURE : PRE PROCEDURE DIAGNOSIS 1. MYALGIA 2. PAIN AT BILATERAL LOW BACK AREA. POST PROCEDURE DIAGNOSIS 1. MYALGIA 2. PAIN AT BILATERAL LOW BACK AREA. PROCEDURE TRIGGER POINT INJECTION AT RIGHT AND LEFT LOW BACK AREA. SURGEON DR. JOYCE MCGOVERN SPECIALIZED DEVELOPER NONE ANESTHESIA LOCAL PRE PROCEDURE NOTE 58 YEAR-OLD PATIENT WITH HISTORY OF CHRONIC PAIN AT RIGHT AND LEFT LOW BACK AREA. I EVALUATED THE PATIENT AND REVIEWED THE CHART. THERE IS EVIDENCE OF BANDS OF TISSUE WITH RESTRICTION OF MOVEMENT AND PRESENCE OF TRIGGER POINT AT THE AFFECTED AREA. I WENT OVER THE RISKS, ALTERNATIVES, AND BENEFITS ASSOCIATED WITH THIS PROCEDURE. THE PATIENT WOULD LIKE TO PROCEED AND GAVE CONSENT TO PERFORM THE PROCEDURE. THE PATIENT DENIES UNEXPLAINABLE WEIGHT LOSS, FEVER, CHILLS, OR NEW CHANGES IN URINARY OR BOWEL CONTROL. DESCRIPTION OF PROCEDURE THE PATIENT WAS BROUGHT TO THE PROCEDURE ROOM AND PLACED IN THE SITTING POSITION. THE AREA WAS CLEANED WITH ALCOHOL. THE PROCEDURE WAS DONE USING ASEPTIC STERILE TECHNIQUES. I CHECKED LATERALITY AND THE LEVEL WHERE THE PROCEDURE WAS GOING TO BE PERFORMED WITH THE PATIENT AND THE SUPPORTING STAFF AT THE MOMENT OF THE TIME OUT IN THE PROCEDURE ROOM. USING A 25-GAUGE NEEDLE, TRIGGER POINTS WERE INJECTED AT THE RIGHT AND LEFT LOW BACK AREA WITH A TOTAL OF 40 ML OF BUPIVACAINE 0.25%. AGREED WITH THE PATIENT THE PROCEDURE WAS DONE WITHOUT STEROIDS. THERE WAS NO EVIDENCE OF BLOOD, PARESTHESIA OR CEREBROSPINAL FLUID DURING THE PROCEDURE. THE PATIENT WAS SENT TO THE RECOVERY ROOM. THE PATIENT WAS MOVING THE EXTREMITIES AND DOING WELL. THERE WAS NO COMPLICATION DURING THE PROCEDURE. POST PROCEDURE NOTE THE PATIENT WILL BE SEEN IN A FOLLOW UP IN THE NEXT FEW WEEKS. I AM LOOKING FOR LONG LASTING PAIN RELIEF WITH THIS INJECTION. INSTRUCTIONS WERE GIVEN, QUESTIONS WERE ANSWERED, AND THE PATIENT EXPRESSED UNDERSTANDING AND AGREED WITH THE PLAN. I, ELIAS FLYNN, DOCUMENTED THE ABOVE INFORMATION ACTING A SCRIBE FOR DR. MCGOVERN. I HAVE REVIEWED THE ABOVE DOCUMENT, WRITTEN BY ELIAS MACDONALD AND I VERIFY THAT IT IS ACCURATE. PROCEDURE CODES 15000 INJ TRIGGER POINT 05/23 [facility] DISPOSITION & COMMUNICATION FOLLOW UP 3 WEEKS ELECTRONICALLY SIGNED BY JOYCE MCGOVERN MD, MD ON 06/28/2019 AT 03:28 PM EST DISCLAIMER : THIS IS A VISIT SUMMARY EXTRACTED FROM THE [employer] CHART. IT IS NOT A COPY OF THE [employer] PROGRESS NOTE. MTDBhavana
== END ==
LOC: M PAIN 08:45
PROVIDERS: ATTEND Anesthesiology
DX: M79.18 Myalgia, other site (principal)

== ENCOUNTER → 2019-07-02 | Outpatient (REF) | payer MEDICARE ==
[~2019-07-02] MED LIST changes: -BUPIVACAINE HCL 0.25% 30 ML VIAL As Ordered ONE; -diazePAM 5 MG TAB As Ordered ONE; -oxyCODONE 5MG TAB As Ordered ONE
[2019-07-02 16:45] LABS: BASO # 0.1 10^3/uL (0.0-0.2); BASO % 0.5 % (0.0-1.0); EOS # 0.1 10^3/uL (0.0-0.5); EOS % 0.9 % (0.0-3.0); HEMATOCRIT 45.8 % (42.0-52.0); HEMOGLOBIN 14.8 g/dl (13.5-17.5); LYMPH # 2.1 10^3/uL (1.5-5.0); LYMPH % 23.2 % (24.0-44.0); MEAN CORPUSCULAR HEMOGLOBIN 30.5 pg (27.0-33.0); MEAN CORPUSCULAR HGB CONC 32.3 g/dl (32.0-36.5); MEAN CORPUSCULAR VOLUME 94.4 fl (80.0-96.0); MONO # 0.8 10^3/uL (0.0-0.8); MONO % 9.1 % (0.0-5.0); NEUTROPHILS % 65.9 % (36.0-66.0); PLATELET COUNT, AUTOMATED 226 10^3/uL (150-450); RED BLOOD COUNT 4.85 10^6/uL (4.30-6.10); WHITE BLOOD COUNT 9.1 10^3/uL (4.0-10.0)
[2019-07-02 18:03] LABS: ALT/SGPT 21 U/L (12-78); BILIRUBIN,TOTAL 0.4 MG/DL (0.2-1.0); BLOOD UREA NITROGEN 20 MG/DL (7-18); CALCIUM LEVEL 9.5 MG/DL (8.8-10.2); CARBON DIOXIDE LEVEL 29 MEQ/L (21-32); CHLORIDE LEVEL 102 MEQ/L (98-107); CREATININE FOR GFR 1.21 MG/DL (0.70-1.30); GLOMERULAR FILTRATION RATE > 60.0 (>49); GLUCOSE, FASTING 123 MG/DL (70-100); POTASSIUM SERUM 4.6 MEQ/L (3.5-5.1); SODIUM LEVEL 139 MEQ/L (136-145); TOTAL PROTEIN 7.3 GM/DL (6.4-8.2)
== END ==
LOC: M SFHCCLAY 14:01
PROVIDERS: ATTEND Nurse Practitioner Family
DX: J44.1 Chronic obstructive pulmonary disease with (acute) exacerbation (principal)

== ENCOUNTER → 2019-07-02 | Outpatient (CLI) | payer MEDICARE ==
--- NOTE | 2019-07-02 14:49 | REP ---
Clinical: COPD with acute exacerbation . Comparison: 05/26/2009 . Technique: PA and lateral. Findings: The mediastinum and cardiac silhouette are normal. The lung nguyen are clear and without acute consolidation, effusion, or pneumothorax. Stable calcified granuloma in the periphery of the left mid lung zone. The skeletal structures are intact and normal. Impression: 1. No acute cardiopulmonary process. Electronically Signed by Hermes Monroy MD 07/02/2019 02:41 P
== END ==
LOC: M CLY 14:22
PROVIDERS: ATTEND Nurse Practitioner Family
DX: J44.1 Chronic obstructive pulmonary disease with (acute) exacerbation (principal)

== ENCOUNTER → 2019-07-05 | Outpatient (CLI) | payer OTHER, MEDICARE ==
--- NOTE | 2019-07-16 02:35 | ECWPNPC ---
PATIENT NAME: YIMI ESPINOSA : 1960 GENDER: MALE VISIT DATE: 07/05/2019 DISCHARGE DATE: 07/05/19 1032 VISIT LOCKED DATE TIME: PHYSICIAN: BECKIE CALVILLO RESOURCE: BECKIE CALVILLO REASON FOR APPOINTMENT 1. W/C POST TPI HISTORY OF PRESENT ILLNESS HISTORY OF PRESENT ILLNESS: PAIN THE PATIENT DESCRIBES THE PAIN... 58-YEAR-OLD MALE IN FOR WORKER'S COMP. POST TPI FOLLOW-UP. PATIENT FEELS THE PROCEDURE WORKED WELL OVERALL STATING THAT HE HAS GAINED GREATER THAN 50% PAIN RELIEF AND THAT CONTINUES TODAY. HE RATES HIS PAIN CURRENTLY AT A 4 OUT OF 10 AND DESCRIBES IT ACHING, SHARP, AND SORE. THE PATIENT WAS HURT IN A WORK RELATED INJURY ON 12/26/2004 WHILE WORKING FOR [employer] A WORKHAND WHEN HE WAS PICKING UP A CALF AND INJURED HIS BACK. THE PATIENT SAYS HE HAS DIFFICULTY DOING DAILY ACTIVITIES SUCH WORKING AROUND HIS HOUSE, WALKING, AND CLEANING DUE TO THIS PAIN. FALL RISK SCREENING: SCREENING :NO FALLS REPORTED IN THE LAST YEAR CURRENT MEDICATIONS TAKING LANCET DEVICE - MISCELLANEOUS DIRECTED SUBCUTANEOUSLY BID TAKING SPIRIVA HANDIHALER 18 MCG CAPSULE 1 CAPSULE INHALATION ONCE A DAY TAKING PEN NEEDLES 31G X 6 MM MISCELLANEOUS DIRECTED SUBCUTANEOUSLY DAILY TAKING ALBUTEROL SULFATE HFA 108 (90 BASE) MCG/ACT AEROSOL SOLUTION 2 PUFFS NEEDED INHALATION EVERY 4 HRS TAKING TRULICITY 0.75 MG/0.5ML SOLUTION PEN-INJECTOR DIRECTED SUBCUTANEOUS WEEKLY TAKING ASPIRIN 81 MG TABLET CHEWABLE 1 TABLET ORALLY ONCE A DAY TAKING FREESTYLE LITE TEST - STRIP DIRECTED IN VITRO BID TAKING GLUCOMETER (VERIO IQ) GLUCOMETER DIRECTED E11.9 - TAKING METFORMIN HCL 1000 MG TABLET 1 TABLET WITH MEALS ORALLY TWICE A DAY TAKING ATORVASTATIN CALCIUM 80 MG TABLET 1 TABLET ORALLY ONCE A DAY TAKING AMLODIPINE BESYLATE 10 MG TABLET 1 TABLET ORALLY ONCE A DAY TAKING SYMBICORT 80-4.5 MCG/ACT AEROSOL 2 PUFFS INHALATION TWICE A DAY TAKING TRULICITY 0.75 MG/0.5ML SOLUTION PEN-INJECTOR DIRECTED SUBCUTANEOUS WEEKLY TAKING FLOMAX 0.4 MG CAPSULE 1 CAPSULE ORALLY ONCE A DAY TAKING ALBUTEROL SULFATE HFA 108 (90 BASE) MCG/ACT AEROSOL SOLUTION 1 PUFF NEEDED INHALATION EVERY 4 HRS TAKING PREDNISONE 20 MG TABLET 2 TABLET ORALLY ONCE A DAY TAKING AMOXICILLIN-POT CLAVULANATE 875-125 MG TABLET 1 TABLET ORALLY EVERY 12 HRS MEDICATION LIST REVIEWED AND RECONCILED WITH THE PATIENT PAST MEDICAL HISTORY COPD DIABETES HTN LS SPINE DESC HERNIATION WITH RETROLISTHESIS : [facility] HOW[facility] PAIN MANAGEMENT DEPRESSION ALLERGIES FENTANYL: HIVES - ALLERGY BEE VENOM: SOB - ALLERGY SURGICAL HISTORY APPENDECTOMY HERNIA REPAIR LEFT INGUINAL FX LEFT ANKLE REPAIR 1997 SPINAL FUSION L3-4 L4-5 L5-S1 2009 COLONOSCOPY 04/2010 DORSAL COLUMN STIMULATOR PLACED AND REMOVED FAMILY HISTORY FATHER: 74 YRS, DIAGNOSED WITH HYPERTENSION, UNSPECIFIED HEART DISEASE, UNSPECIFIED CEREBRAL ARTERY OCCLUSION WITH CEREBRAL INFARCTION MOTHER: 74 YRS, BREAST CA 1 SON(S) , 2 DAUGHTER(S) - HEALTHY. MOM LIVER FAILURE. SOCIAL HISTORY GENERAL: TOBACCO USE ARE YOU A:FORMER SMOKER 38 YEARS HOW LONG HAS IT BEEN SINCE YOU LAST SMOKED?5-10 YEARS VAPORNO E-CIGARETTENO HIV / HEP-C SCREENING HIV TEST OFFERED TO PATIENT:YES DATE OFFERED:08/27/2018 TEST ACCEPTED:NO HEP-C TEST OFFERED TO PATIENT:YES DATE OFFERED:08/27/2018 REASON:PATIENT DECLINED TEST ACCEPTED:NO REASON:PATIENT DECLINED BROCHURE PROVIDED TO PATIENTYES OTHERS AT HOME: SPOUSE, CHILD. DIET: REGULAR. LANGUAGE LANGUAGES SPOKEN:KAZAKH DOMESTIC VIOLENCE DO YOU FEEL SAFE IN YOUR ENVIRONMENT?YES BMI CARE GOAL FOLLOW-UP ABOVE NORMAL BMI FOLLOW-UPLIFESTYLE EDUCATION REGARDING DIET RECREATIONAL DRUG USE DRUG USE?NO EXERCISE: NO REGULAR EXERCISE. LEARNING BARRIERS / SPECIAL NEEDS CHANGE FROM LAST VISIT?NO 07/02/2019 BARRIERS TO LEARNING?NO HEARING IMPAIRED?NO VISION IMPAIRED?YES COGNITIVELY IMPAIRED?NO :CORRECTIVE LENSES READINESS TO LEARN?YES LEARNING PREFERENCES?NO LEARNING CAPABILITIES PRESENT?YES EMOTIONAL BARRIERS?NO SPECIAL DEVICES?NO STEAM BOX TENDER NEEDED?NO PAIN CLINIC PFS, CLERGY, PUBLIC HEALTH REFERRALS PFS REFERRAL NEEDED?NO CLERGY REFERRAL NEEDED?NO PUBLIC HEALTH REFERRAL NEEDED?NO WAS THE PROVIDER NOTIFIED OF ANY PERTINENT INFO?YES HAS THE PATIENT BEEN EDUCATED REGARDING HIS/HER PLAN OF CARE?YES HAS THE PATIENT BEEN EDUCATED REGARDING PAIN, THE RISK FOR PAIN, THE IMPORTANCE OF EFFECTIVE PAIN MANAGEMENT, AND THE PAIN ASSESSMENT PROCESS?YES LATEX QUESTIONNAIRE LATEX ALLERGY : HAVE YOU EVER DEVELOPED ANY TYPE OF REACTION AFTER HANDLING LATEX PRODUCTS SUCH RUBBER GLOVES, CONDOMS, DIAPHRAGMS, BALLOONS, SOCKS, OR UNDERWEAR?NO LATEX ALLERGY : HAVE YOU EVER DEVELOPED ANY TYPE OF REACTION DURING OR AFTER DENTAL APPOINTMENT, VAGINAL/RECTAL EXAMINATION, SURGICAL PROCEDURE, OR ANY OTHER EXPOSURE?NO LATEX RISK : HAVE YOU EVER HAD ANY DIFFICULTY BREATHING OR HIVES AFTER EATING OR HANDLING ANY FRUITS, OR VEGETABLES; SUCH KIWI, BANANAS, STONE FRUITS, OR CHESTNUTSNO LATEX RISK : DO YOU HAVE A PREVIOUS PERSONAL HISTORY OF MORE THAN NINE SURGERIES, SPINA BIFIDA, OR REPEATED CATHERIZATIONS? NO LATEX RISK : ARE YOU FREQUENTLY EXPOSED TO LATEX PRODUCTS IN YOUR OCCUPATION?NO DATE ASKED : 07/05/2019 CAFFEINE CAFFEINE USE?YES HOW OFTEN AND HOW MUCH? OCCASIONAL ADVANCE DIRECTIVE ADVANCE DIRECTIVE DISCUSSED WITH PATIENT:YES PT DOES NOT HAVE A HCP. PT DOES NOT WANT INFO AT THIS TIME. ASSISTANCE OFFERED WITH FILLING OUT FORM, AND PT DECLINES. CATHOLIC [id number] NONE NO PENTECOSTALISM BELIEFS THAT WOULD IMPACT HEALTH CARE. MARITAL STATUS: . ALCOHOL SCREENING DID YOU HAVE A DRINK CONTAINING ALCOHOL IN THE PAST YEAR?YES HOW OFTEN DID YOU HAVE SIX OR MORE DRINKS ON ONE OCCASION IN THE PAST YEAR?MONTHLY (2 POINTS) HOW MANY DRINKS DID YOU HAVE ON A TYPICAL DAY WHEN YOU WERE DRINKING IN THE PAST YEAR?5 OR 6 (2 POINTS) HOW OFTEN DID YOU HAVE A DRINK CONTAINING ALCOHOL IN THE PAST YEAR?FOUR OR MORE TIMES A WEEK (4 POINTS) POINTS8 INTERPRETATIONPOSITIVE OCCUPATION: DISABLED. REVIEWED WITH PT 05/03/18 1642 BVREVIEWED WITH PATIENT 06/12/18 1537 JSREVIEWED WITH PATIENT 08/10/18 1434 LASREVIEWED WITH PATIENT 01/01/19 1000 LASREVIEWED WITH PATIENT 01/15/19 0909 NLJREVIEWED WITH PATIENT 03/12/19 1436 NLJREVIEWED WITH PATIENT 06/21/19 0900 BVREVIEWED WITH PATIENT 07/05/2019 DS. HOSPITALIZATION/MAJOR DIAGNOSTIC PROCEDURE SPINAL SURGERIES PNEUMONIA 2009 COPD EXACERBATION WITH ARDS 06/2012 REVIEW OF SYSTEMS REVIEWED BY: PROVIDER: SAVITA CORTES . CONSTITUTIONAL: ANY CHANGE IN YOUR MEDICAL CONDITION? NO . CHILLS NO . FEVER NO . INFECTION: DO YOU HAVE NEW INFECTIONS? NO . DO YOU HAVE HISTORY OF MRSA? NO . MUSCULOSKELETAL: ANY NEW PATTERNS OF PAIN OR NUMBNESS? YES, DECREASED IN INTENSITY . GASTROENTEROLOGY: ANY NEW CHANGE IN BOWEL CONTROL? NO . GENITOURINARY: ANY NEW CHANGE IN BLADDER CONTROL? YES, PT CONSULTING WITH UROLOGIST . IS THERE A CHANCE YOU COULD BE ? NO . HEMATOLOGY/LYMPH: DO YOU TAKE ANY BLOOD THINNERS? (FOR EXAMPLE- COUMADIN, PLAVIX, AGGRENOX, PLATEL, PRADAXA, OR XARELTO) NO . WHEN WAS YOUR LAST DOSE? DATE: TIME: . NEUROLOGY: HAVE YOU FALLEN IN THE PAST 12 MONTHS? NO . ANY NEW EXTREMITY NUMBNESS OR WEAKNESS? NO . CARDIOLOGY: DO YOU HAVE A PACEMAKER OR DEFIBRILLATOR? NO . RESPIRATORY: HAVE YOU BEEN SICK IN THE PAST WEEK? YES, PT STATES COUGH, CONGESTION, FEVER HAS RESOLVED . FEVER NO . FLU LIKE SYMPTOMS? NO . COUGH NO . INTEGUMENTARY: DO YOU HAVE ANY RASHES OR OPEN SORES? NO . ALLERGIC/IMMUNO: ARE YOU ALLERGIC TO IV DYE? NO . ANY NEW ALLERGIES? NO . PSYCHIATRIC: DO YOU HAVE THOUGHTS OF HURTING YOURSELF OR SOMEONE ELSE? NO . ARE YOU ABUSED, NEGLECTED, OR IN AN UNSAFE ENVIRONMENT? NO . ENDOCRINOLOGY: ARE YOU DIABETIC? YES, MANAGED WITH MEDS AND DIET . OTHER: DO YOU NEED ANY PRESCRIPTIONS? NO . IF YES, PLEASE LIST: ____ . ANY NEW PROBLEMS WITH YOUR MEDICATIONS? NO . WHEN DID YOU LAST EAT? ____ . WHEN DID YOU LAST DRINK? ____ . WHAT DID YOU LAST DRINK? ____ . NAME OF PERSON DRIVING YOU HOME? ____ . DO YOU HAVE ANY OTHER QUESTIONS OR CONCERNS NO . VITAL SIGNS WT 213.0 LBS, HT 66 IN, BMI 34.38 INDEX, BP 175/80 MM HG, HR 121 /MIN, RR 18 /MIN, TEMP 97.2 F, OXYGEN SAT % 94%, SAFE IN ENV? (Y/N) Y, NA INITIALS AW 1012, REVIEWED BY: DSLET NURSE KNOW ABOUT HRPT STATES THAT HE USED INHALER JUST PRIOR TO APPT, CAUSING INCREASED HR. EXAMINATION GENERAL EXAMINATION: GENERALNO ACUTE DISTRESS, WELL NOURISHED AND HYDRATED. PSYCHAPPROPRIATE MOOD AND AFFECT . LUNGS:CLEAR TO AUSCULTATION BILATERALLY, NO WHEEZES, RHONCHI, RALES. HEART:NO MURMURS, REGULAR RATE AND RHYTHM. ASSESSMENTS MYALGIA, OTHER SITE - M79.18 (PRIMARY) TREATMENT MYALGIA, OTHER SITE CLINICAL NOTES: 58-YEAR-OLD MALE IN FOR POST TPI WORKER'S COMP. CHRONIC PAIN FOLLOW-UP. GIVEN PRESENTING SYMPTOMS AND RESULTS OF PHYSICAL EXAMINATION RECOMMEND FOLLOW-UP IN 3 MONTHS. PATIENT HAS EXPRESSED UNDERSTANDING OF AND WAS IN AGREEMENT WITH TREATMENT PLAN. GIVEN TIME TO ASK QUESTIONS AND EXPRESS CONCERNS. PROCEDURES PN WORKMANS' COMP OPINION IN YOUR OPINION, WAS THE INCIDENT THAT THE PATIENT DESCRIBED THE COMPETENT MEDICAL CAUSE OF THIS INJURY/ILLNESS? YES ARE THE PATIENT'S COMPLAINTS CONSISTENT WITH HIS/HER HISTORY OF THE INJURY/ILLNESS? YES IS THE PATIENT'S HISTORY OF THE INJURY/ILLNESS CONSISTENT WITH YOUR OBJECTIVE FINDING? YES WHAT IS THE PERCENTAGE OF TEMPORARY IMPAIRMENT? MODERATE TO MARKED = 66.7% IS THE PATIENT WORKING? NO DOCTOR ON SITE: JOYCE BEAULIEU MD PREVENTIVE MEDICINE PAIN CLINIC TEACHING: THE PATIENT HAS BEEN EDUCATED REGARDING PAIN, THE RISK FOR PAIN, THE IMPORTANCE OF EFFECTIVE PAIN MANAGEMENT, AND THE PAIN ASSESSMENT PROCESS. : REVIEWED AND DISCUSSED TREATMENT PLAN WITH PT, PT ACKNOWLEDGED UNDERSTANDING. DS PROCEDURE CODES FA211 ESTABILISHED PATIENT [facility] CHARGE DISPOSITION & COMMUNICATION FOLLOW UP 3 MONTHS (REASON: LOW BACK PAIN, WORKER'S COMP.) ELECTRONICALLY SIGNED BY ESMER CASTAÑEDA ON 07/15/2019 AT 10:07 AM EST DISCLAIMER : THIS IS A VISIT SUMMARY EXTRACTED FROM THE [employer] CHART. IT IS NOT A COPY OF THE [employer] PROGRESS NOTE. ZAKIYA
== END ==
LOC: M PAIN 10:00
PROVIDERS: ATTEND Family Medicine
DX: M79.18 Myalgia, other site (principal); J44.9 Chronic obstructive pulmonary disease, unspecified; E11.9 Type 2 diabetes mellitus without complications; I10 Essential (primary) hypertension; Z86.59 Personal history of other mental and behavioral disorders; Z87.891 Personal history of nicotine dependence; Z88.5 Allergy status to narcotic agent; Z91.030 Bee allergy status; Z79.82 Long term (current) use of aspirin; Z79.84 Long term (current) use of oral hypoglycemic drugs; Z79.899 Other long term (current) drug therapy

== ENCOUNTER → 2019-07-16 | Outpatient (REF) | payer MEDICARE ==
[2019-07-16 17:45] LABS: APPEARANCE, URINE CLEAR (CLEAR); BACTERIA, URINE AUTO NEGATIVE (NEGATIVE); BILIRUBIN, URINE AUTO NEGATIVE (NEGATIVE); BLOOD, URINE BLOOD NEGATIVE (NEGATIVE); COLOR, URINE STRAW (YELLOW); GLUCOSE, URINE (UA) AUTO NEGATIVE (NEGATIVE); KETONE, URINE AUTO NEGATIVE (NEGATIVE); LEUKOCYTE ESTERASE, URINE AUTO 1+ (NEGATIVE); MUCUS, URINE SMALL (NEGATIVE); NITRITE, URINE AUTO NEGATIVE (NEGATIVE); PROTEIN, URINE AUTO NEGATIVE (NEGATIVE); RBC, URINE AUTO 2 /HPF (0-3); SQUAMOUS EPITHELIAL CELL UR AU 0 /HPF (0-6); UROBILINOGEN, URINE AUTO 0.2 mg/dL (0.0-2.0); WBC, URINE AUTO 22 /HPF (0-3)
== END ==
LOC: M SMT 17:01
PROVIDERS: ATTEND Nurse Practitioner Family
DX: R32 Unspecified urinary incontinence (principal)
CPT/HCPCS: 51702; 51798; 81001; 87088; 87186; G0463

== ENCOUNTER → 2019-07-23 | Outpatient (CLI) | payer MEDICARE ==
--- NOTE | 2019-07-23 13:44 | REP ---
RENAL ULTRASOUND: Real-time sonographic evaluation of the kidneys performed. Kidneys are mildly prominent in size, right kidney measuring 13.7 x 6.3 x 6.9 cm and left kidney 14.7 x 6.9 x 6.5 cm. There is moderate to severe bilateral hydronephrosis. There is moderate to severe proximal hydroureter bilaterally. No renal stone is seen bilaterally. Urinary bladder is mildly distended. There is bladder wall thickening. This is most significantly posteriorly. With Doppler color evaluation minimal right ureteral jet is visualized. A left ureteral jet is not seen. IMPRESSION: Moderate to severe bilateral hydroureteronephrosis. Posterior bladder wall thickening. Very small right ureteral jet. No left ureteral jet. Electronically Signed by Kemal Townsend MD 07/23/2019 07:56 P
== END ==
LOC: M RAD 12:37
PROVIDERS: ATTEND Nurse Practitioner Family
DX: N13.30 Unspecified hydronephrosis (principal); N32.89 Other specified disorders of bladder

== ENCOUNTER → 2019-08-01 | Outpatient (CLI) | payer MEDICARE ==
[~2019-08-01] MED LIST changes: +ISOVUE-370 76% 100ML VIAL (Q9967) As Ordered ONE
--- NOTE | 2019-08-02 05:09 | REP ---
Clinical: Hydronephrosis. Technique: Axial precontrast, contrast enhanced, and delayed images of the abdomen and pelvis using 100 ml Isovue 370 intravenous contrast material with coronal and sagittal re-formations. Volume rendered 3-D urogram obtained. Comparison: 05/23/2009 Findings: Evaluation of the urinary check system demonstrates mild subtle perinephric, periureteral and perivesicular stranding along with mild bilateral renal pelviectasis (right greater than left) and tortuous appearance of the proximal ureters (right greater than left). No nephroureterolithiasis, hydroureter, renal cystic or mass lesion is identified. Rene catheter is noted within the partially collapsed bladder with suggestions for irregular bladder wall thickening. Liver, spleen, pancreas, gallbladder, and right adrenal gland are normal. Left adrenal gland demonstrates stable 1.7 cm benign adenoma. The enteric system is without obstruction or acute inflammatory process. Scattered diverticulosis noted without acute diverticulitis. Mildly prominent prostate gland with parenchymal calcifications identified. No ascites. No significant adenopathy. Atherosclerotic changes to the aorta and vasculature noted without aneurysm. Musculoskeletal structures demonstrate degenerative and postsurgical changes without focal acute abnormality. Lung bases demonstrate small calcified and noncalcified granulomata similar to prior examination. Impression: 1. Changes related to the urinary tract system as described above may represent element of pyelonephritis. 2. Irregular bladder wall thickening cannot be excluded and evaluation is somewhat limited due to a Rene catheter in collapsed state of the bladder. Consider cystoscopy if necessary. 3. Stable benign left adrenal adenoma. 4. Colonic diverticula without acute diverticulitis. Electronically Signed by Hermes Monroy MD 08/02/2019 05:00 A
== END ==
LOC: M RAD 13:32
PROVIDERS: ATTEND Nurse Practitioner Family
DX: N13.30 Unspecified hydronephrosis (principal); D35.00 Benign neoplasm of unspecified adrenal gland; K57.30 Diverticulosis of large intestine without perforation or abscess without bleeding
CPT/HCPCS: 74178; Q9967

== ENCOUNTER → 2019-08-16 | Outpatient (REF) | payer MEDICARE ==
[~2019-08-16] MED LIST changes: +ALBU8.5H INH; -ISOVUE-370 76% 100ML VIAL (Q9967) As Ordered ONE; +NORV5TAB PO; +SIMV40TA20 PO; +TRUL10IN SQ
[2019-08-16 13:57] LABS: APPEARANCE, URINE CLOUDY (CLEAR); BACTERIA, URINE AUTO 1+ (NEGATIVE); BILIRUBIN, URINE AUTO NEGATIVE (NEGATIVE); BLOOD, URINE BLOOD 1+ (NEGATIVE); COLOR, URINE AMBER (YELLOW); GLUCOSE, URINE (UA) AUTO NEGATIVE (NEGATIVE); KETONE, URINE AUTO NEGATIVE (NEGATIVE); LEUKOCYTE ESTERASE, URINE AUTO 3+ (NEGATIVE); NITRITE, URINE AUTO POSITIVE (NEGATIVE); PROTEIN, URINE AUTO 2+ mg/dL (NEGATIVE); RBC, URINE AUTO 2 /HPF (0-3); SPECIFIC GRAVITY URINE AUTO 1.009 (1.002-1.035); SQUAMOUS EPITHELIAL CELL UR AU 0 /HPF (0-6); UROBILINOGEN, URINE AUTO 0.2 mg/dL (0.0-2.0); WBC, URINE AUTO TNTC /HPF (0-3)
== END ==
LOC: M SMT 13:37
PROVIDERS: ATTEND Urology
DX: R33.9 Retention of urine, unspecified (principal)
CPT/HCPCS: 51703; 81001; 87088; 87186; 96372; J0696

== ENCOUNTER → 2019-09-12 | Outpatient (REF) | payer MEDICARE ==
[~2019-09-12] MED LIST changes: +AMLO1TAB25 PO; +ATOR80TA59 PO; +EPIN11.7 IH; +METF10004 PO; +PANT40TA29 PO; +TIOT18INH INH
[2019-09-12 18:07] LABS: APPEARANCE, URINE TURBID (CLEAR); BACTERIA, URINE AUTO 1+ (NEGATIVE); BILIRUBIN, URINE AUTO NEGATIVE (NEGATIVE); BLOOD, URINE BLOOD 1+ (NEGATIVE); COLOR, URINE YELLOW (YELLOW); GLUCOSE, URINE (UA) AUTO NEGATIVE (NEGATIVE); KETONE, URINE AUTO NEGATIVE (NEGATIVE); LEUKOCYTE ESTERASE, URINE AUTO 3+ (NEGATIVE); NITRITE, URINE AUTO NEGATIVE (NEGATIVE); PROTEIN, URINE AUTO 2+ mg/dL (NEGATIVE); RBC, URINE AUTO 54 /HPF (0-3); SPECIFIC GRAVITY URINE AUTO 1.013 (1.002-1.035); SQUAMOUS EPITHELIAL CELL UR AU 0 /HPF (0-6); UROBILINOGEN, URINE AUTO 0.2 mg/dL (0.0-2.0); WBC, URINE AUTO TNTC /HPF (0-3)
== END ==
LOC: M SMT 16:28
PROVIDERS: ATTEND Urology
DX: N39.0 Urinary tract infection, site not specified (principal)

== ENCOUNTER → 2019-09-13 | Outpatient (CLI) | payer MEDICARE ==
[~2019-09-13] MED LIST changes: -AMLO1TAB25 PO; -ATOR80TA59 PO; -EPIN11.7 IH; -METF10004 PO; -PANT40TA29 PO; -TIOT18INH INH
--- NOTE | 2019-09-13 17:39 | REP ---
CHEST, TWO VIEWS: Two views of the chest are performed and compared to prior study of 07/02/2019. There is no acute infiltrate or pulmonary edema. There is a calcified granuloma in the left base. The heart is normal in size. There is mild calcification of the thoracic aorta. Mediastinal silhouette is unchanged. There are mild degenerative changes of the spine. IMPRESSION: No acute pulmonary disease. Electronically Signed by Kemal Townsend MD 09/13/2019 07:28 P
== END ==
LOC: M CLY 13:09
PROVIDERS: ATTEND Urology
DX: R33.9 Retention of urine, unspecified (principal); I10 Essential (primary) hypertension

== ENCOUNTER → 2019-09-13 | Outpatient (REF) | payer MEDICARE ==
[2019-09-13 16:42] LABS: INR 0.94; PROTHROMBIN TIME 12.3 SECONDS (11.8-14.0)
[2019-09-13 16:43] LABS: PARTIAL THROMBOPLASTIN TIME 31.1 SECONDS (25.0-38.4)
== END ==
LOC: M LABSMT 13:03
PROVIDERS: ATTEND Nurse Practitioner Women's Health
DX: R33.9 Retention of urine, unspecified (principal); I10 Essential (primary) hypertension

== ENCOUNTER → 2019-09-17 | Outpatient (CLI) | payer MEDICARE | LOC: M LABSMTC 11:51 | PROVIDERS: ATTEND Anesthesiology | DX: Z11.59 Encounter for screening for other viral diseases (principal) ==

== ENCOUNTER → 2019-09-17 | Outpatient (REF) | payer MEDICARE ==
[2019-09-17 11:17] LABS: HEMATOCRIT 41.3 % (42.0-52.0); HEMOGLOBIN 13.3 g/dl (13.5-17.5); MEAN CORPUSCULAR HEMOGLOBIN 29.4 pg (27.0-33.0); MEAN CORPUSCULAR HGB CONC 32.2 g/dl (32.0-36.5); MEAN CORPUSCULAR VOLUME 91.4 fl (80.0-96.0); PLATELET COUNT, AUTOMATED 357 10^3/uL (150-450); RED BLOOD COUNT 4.52 10^6/uL (4.30-6.10); WHITE BLOOD COUNT 8.2 10^3/uL (4.0-10.0)
[2019-09-17 11:50] LABS: BLOOD UREA NITROGEN 13 MG/DL (7-18); CALCIUM LEVEL 9.7 MG/DL (8.8-10.2); CARBON DIOXIDE LEVEL 29 MEQ/L (21-32); CHLORIDE LEVEL 106 MEQ/L (98-107); CREATININE FOR GFR 1.13 MG/DL (0.70-1.30); GLOMERULAR FILTRATION RATE > 60.0 (>49); GLUCOSE, FASTING 127 MG/DL (70-100); POTASSIUM SERUM 4.3 MEQ/L (3.5-5.1); SODIUM LEVEL 141 MEQ/L (136-145)
== END ==
LOC: M LABSMT 09:05
PROVIDERS: ATTEND Nurse Practitioner Women's Health
DX: I10 Essential (primary) hypertension (principal); Z11.59 Encounter for screening for other viral diseases
CPT/HCPCS: 80048; 85027; U0002

== ENCOUNTER 2019-09-18 11:28 | Day surgery (SDC) | payer MEDICARE ==
[~2019-09-18] VITALS: Ht 167.6 cm; Wt 90.7 kg
[~2019-09-18 11:28] MED LIST changes: +LR 1,000 ML IV ONE; +ceFAZolin SOD 2 GM in IV 1 EA IV ONE
[2019-09-18] MEDS ORDERED: propofoL 200 MG/20 ML VIAL As Ordered ONE (15:01)
[2019-09-18] MEDS ORDERED: MIDAZOLAM INJ 2MG/2ML VIAL (J2250 PER 1MG) As Ordered ONE (15:01)
[2019-09-18] MEDS ORDERED: LIDOCAINE 2% 100MG/5ML SDV (FOR ANES.) As Ordered ONE (15:01)
[2019-09-18] MEDS ORDERED: dexameTHASONE 4 MG/ML 1ML VIAL (J1100 PER 1MG) As Ordered ONE (15:01)
[2019-09-18] MEDS ORDERED: fentaNYL 250 MCG/5 ML INJECTION (J3010) As Ordered ONE (15:01)
[2019-09-18] MEDS ORDERED: ONDANSETRON 4MG/2ML VIAL As Ordered ONE ×2 (15:01→16:31)
[2019-09-18] MEDS ORDERED: HYDROmorphone HCL 2 MG/ML 1ML VIAL (J1170) As Ordered ONE (15:05)
[2019-09-18] MEDS ORDERED: FUROSEMIDE 100MG/10ML VIAL (J1940) As Ordered ONE (15:50)
[2019-09-18] MEDS ORDERED: ACETAMINOPHEN 1000MG 100ML IV BTL (OFIRMEV) (J0131 PER 10MG) As Ordered ONE (16:06)
[2019-09-18] MEDS ORDERED: PERCOCET 5MG/325MG TAB PO PRN (16:30)
[2019-09-18] MEDS ORDERED: METOCLOPRAMIDE INJ 10MG/2ML VIAL (J2765 PER 1) IV PRN (16:30)
[2019-09-18] MEDS ORDERED: LR 1,000 ML IV SCH (16:30)
[2019-09-18] MEDS ORDERED: ONDANSETRON 4MG/2ML VIAL IV PRN (16:30)
[2019-09-18] MEDS ORDERED: PERCOCET 5MG/325MG TAB As Ordered ONE (16:32)
[2019-09-18] MEDS ORDERED: ACETAMINOPHEN TAB 650MG DOSE (2X325MG) PO PRN (16:45)
[2019-09-18] MEDS ORDERED: MORPHINE 4 MG/ML 1ML VIAL/SYRINGE (J2270) IV PRN (16:45)
[2019-09-18 18:00] VITALS: BP 152/78
--- NOTE | 2019-09-19 18:26 | RO ---
DATE OF PROCEDURE: 09/18/2019 PREPROCEDURE DIAGNOSIS: Benign prostatic hyperplasia. POSTPROCEDURE DIAGNOSIS: Benign prostatic hyperplasia. PROCEDURE: Cystoscopy, button transurethral electrovaporization of the prostate. SURGEON: Nikita Mejía MD WEBSPHERE PROCESS SERVER DEVELOPER: None. ANESTHESIA: General. OPERATIVE INDICATIONS: This is a 58-year-old male with benign prostatic hyperplasia and urinary retention who was brought to the operating room today for treatment. DESCRIPTION OF PROCEDURE: The patient was brought to the operating room and general anesthesia was induced. Prophylactic antibiotics were infused. He was placed in the dorsal lithotomy position and prepped and draped in the usual sterile fashion. At this point, I attempted to insert a resectoscope into the urethral meatus using a visual obturator, but it would not go as the urethral meatus was a little bit too narrow. I, therefore, dilated the urethral meatus to a 30-Dutch using curved metal sounds. I then was able to advance the resectoscope into the urethra and into the bladder. Of note, the patient had trilobar benign prostatic hyperplasia. I made note of the location of both ureteral orifices, as well as the verumontanum. At this point, I began vaporizing hyperplastic tissue on the median lobe and then circumferentially of the bladder neck. I then vaporized hyperplastic tissue on both lateral lobes. I kept doing this until there was a clear channel established. Once there was a clear channel established, hemostasis was obtained using the coagulation current. Once satisfied with hemostasis, the resectoscope was removed and an 18-Dutch Rene catheter was inserted into the bladder. The balloon was filled with 15 mL of sterile water and then the catheter was connected to gravity drainage. This marked the conclusion of the procedure. The patient was taken out of the dorsal lithotomy position, awakened from anesthesia and transported to the recovery room in stable condition. Estimated blood loss:15 mL. Complications: None. Specimens: None. PLAN: The patient will followup in the clinic in approximately 1 week for catheter removal and a voiding trial. ZAKIYA
== END 2019-09-18 18:05 | disposition home or self-care (01) ==
LOC: M SDC 11:28
PROVIDERS: ATTEND Urology
DX: N40.0 Benign prostatic hyperplasia without lower urinary tract symptoms (principal); R33.9 Retention of urine, unspecified; R39.0 Extravasation of urine; E11.9 Type 2 diabetes mellitus without complications; J44.9 Chronic obstructive pulmonary disease, unspecified; I10 Essential (primary) hypertension; F32.9 Major depressive disorder, single episode, unspecified; M51.27 Other intervertebral disc displacement, lumbosacral region; M43.17 Spondylolisthesis, lumbosacral region; Z79.899 Other long term (current) drug therapy; Z79.2 Long term (current) use of antibiotics; Z79.51 Long term (current) use of inhaled steroids; Z79.84 Long term (current) use of oral hypoglycemic drugs; Z88.6 Allergy status to analgesic agent; Z91.030 Bee allergy status; Z87.891 Personal history of nicotine dependence
CPT/HCPCS: 52601; J0131; J0690; J1100; J1170; J1940; J2250; J2405; J3010

== ENCOUNTER → 2019-10-04 | Outpatient (CLI) | payer MEDICARE ==
[~2019-10-04] MED LIST changes: -LR 1,000 ML IV ONE; -ceFAZolin SOD 2 GM in IV 1 EA IV ONE
--- NOTE | 2019-10-08 04:49 | ECWPNPC ---
PATIENT NAME: YIMI ESPINOSA : 1960 GENDER: MALE VISIT DATE: 10/04/2019 DISCHARGE DATE: 10/04/19 1521 VISIT LOCKED DATE TIME: PHYSICIAN: BECKIE CALVILLO RESOURCE: BECKIE CALVILLO REASON FOR APPOINTMENT 1. LOW BACK PAIN, WORKER''S HISTORY OF PRESENT ILLNESS HISTORY OF PRESENT ILLNESS: PAIN THE PATIENT DESCRIBES THE PAIN... PERMISSION REQUESTED AND RECEIVED FROM PATIENT TO PERFORM TELEPHONE VISIT. 58-YEAR-OLD MALE IN FOR WORKER'S COMP. CHRONIC PAIN FOLLOW-UP. HE RATES HIS PAIN CURRENTLY AT A 4 OUT OF 10 AND DESCRIBES IT SHARP. HE DOES ADMIT TO A RECENT TURP PROCEDURE PERFORMED ON SEPTEMBER 17. THE PATIENT WAS HURT IN A WORK RELATED INJURY ON 12/26/2004 WHILE WORKING FOR [employer] A WORKHAND WHEN HE WAS PICKING UP A CALF AND INJURED HIS BACK. THE PATIENT SAYS HE HAS DIFFICULTY DOING DAILY ACTIVITIES SUCH WORKING AROUND HIS HOUSE, WALKING, AND CLEANING DUE TO THIS PAIN. FALL RISK SCREENING: SCREENING :NO FALLS REPORTED IN THE LAST YEAR CURRENT MEDICATIONS TAKING TRULICITY 0.75 MG/0.5ML SOLUTION PEN-INJECTOR DIRECTED SUBCUTANEOUS WEEKLY TAKING ALBUTEROL SULFATE HFA 108 (90 BASE) MCG/ACT AEROSOL SOLUTION 1 PUFF NEEDED INHALATION EVERY 4 HRS TAKING SULFAMETHOXAZOLE-TRIMETHOPRIM 800-160 MG TABLET 1 TABLET ORALLY TWICE A DAY TAKING LANCET DEVICE - MISCELLANEOUS DIRECTED SUBCUTANEOUSLY BID TAKING SPIRIVA HANDIHALER 18 MCG CAPSULE 1 CAPSULE INHALATION ONCE A DAY TAKING PEN NEEDLES 31G X 6 MM MISCELLANEOUS DIRECTED SUBCUTANEOUSLY DAILY TAKING TRULICITY 0.75 MG/0.5ML SOLUTION PEN-INJECTOR DIRECTED SUBCUTANEOUS WEEKLY TAKING GLUCOMETER (VERIO IQ) GLUCOMETER DIRECTED E11.9 - TAKING METFORMIN HCL 1000 MG TABLET 1 TABLET WITH MEALS ORALLY TWICE A DAY TAKING ATORVASTATIN CALCIUM 80 MG TABLET 1 TABLET ORALLY ONCE A DAY TAKING SYMBICORT 80-4.5 MCG/ACT AEROSOL 2 PUFFS INHALATION TWICE A DAY TAKING FREESTYLE LITE TEST - STRIP DIRECTED IN VITRO BID TAKING AMLODIPINE BESYLATE 10 MG TABLET 1 TABLET ORALLY ONCE A DAY NOT-TAKING FLOMAX 0.4 MG CAPSULE 1 CAPSULE ORALLY ONCE A DAY NOT-TAKING BACTRIM DS 800-160 MG TABLET 1 TABLET 1 HOUR PRIOR TO YOUR CYSTOSCOPY ORALLY ONCE NOT-TAKING BACTRIM DS 800-160 MG TABLET 1 TABLET ORALLY TWICE A DAY NOT-TAKING PREDNISONE 20 MG TABLET 2 TABLET ORALLY ONCE A DAY NOT-TAKING AMOXICILLIN-POT CLAVULANATE 875-125 MG TABLET 1 TABLET ORALLY EVERY 12 HRS MEDICATION LIST REVIEWED AND RECONCILED WITH THE PATIENT PAST MEDICAL HISTORY COPD DIABETES HTN LS SPINE DESC HERNIATION WITH RETROLISTHESIS : DARELL HOWELL, [facility] PAIN MANAGEMENT DEPRESSION ALLERGIES FENTANYL: HIVES - ALLERGY BEE VENOM: SOB - ALLERGY SURGICAL HISTORY APPENDECTOMY HERNIA REPAIR LEFT INGUINAL FX LEFT ANKLE REPAIR 1997 SPINAL FUSION L3-4 L4-5 L5-S1 2009 COLONOSCOPY 04/2010 DORSAL COLUMN STIMULATOR PLACED AND REMOVED CYSTOSCOPY 07/2019 TURP 09/18/2019 FAMILY HISTORY FATHER: 74 YRS, DIAGNOSED WITH UNSPECIFIED CEREBRAL ARTERY OCCLUSION WITH CEREBRAL INFARCTION, HYPERTENSION, UNSPECIFIED HEART DISEASE MOTHER: 74 YRS, BREAST CA 1 SON(S) , 2 DAUGHTER(S) - HEALTHY. MOM LIVER FAILURE. SOCIAL HISTORY GENERAL: TOBACCO USE ARE YOU A:FORMER SMOKER 38 YEARS HOW LONG HAS IT BEEN SINCE YOU LAST SMOKED?5-10 YEARS VAPORNO E-CIGARETTENO LATEX QUESTIONNAIRE LATEX ALLERGY : HAVE YOU EVER DEVELOPED ANY TYPE OF REACTION AFTER HANDLING LATEX PRODUCTS SUCH RUBBER GLOVES, CONDOMS, DIAPHRAGMS, BALLOONS, SOCKS, OR UNDERWEAR?NO LATEX ALLERGY : HAVE YOU EVER DEVELOPED ANY TYPE OF REACTION DURING OR AFTER DENTAL APPOINTMENT, VAGINAL/RECTAL EXAMINATION, SURGICAL PROCEDURE, OR ANY OTHER EXPOSURE?NO DATE ASKED : 09/12/2019 LATEX RISK : HAVE YOU EVER HAD ANY DIFFICULTY BREATHING OR HIVES AFTER EATING OR HANDLING ANY FRUITS, OR VEGETABLES; SUCH KIWI, BANANAS, STONE FRUITS, OR CHESTNUTSNO LATEX RISK : DO YOU HAVE A PREVIOUS PERSONAL HISTORY OF MORE THAN NINE SURGERIES, SPINA BIFIDA, OR REPEATED CATHERIZATIONS? YES - PLEASE INDICATE : REPEATED CATHETERIZATIONS LATEX RISK : ARE YOU FREQUENTLY EXPOSED TO LATEX PRODUCTS IN YOUR OCCUPATION?NO BMI CARE GOAL FOLLOW-UP ABOVE NORMAL BMI FOLLOW-[facility] SHORE EDUCATION REGARDING DIET ALCOHOL SCREENING DID YOU HAVE A DRINK CONTAINING ALCOHOL IN THE PAST YEAR?YES HOW OFTEN DID YOU HAVE SIX OR MORE DRINKS ON ONE OCCASION IN THE PAST YEAR?MONTHLY (2 POINTS) HOW MANY DRINKS DID YOU HAVE ON A TYPICAL DAY WHEN YOU WERE DRINKING IN THE PAST YEAR?5 OR 6 (2 POINTS) HOW OFTEN DID YOU HAVE A DRINK CONTAINING ALCOHOL IN THE PAST YEAR?FOUR OR MORE TIMES A WEEK (4 POINTS) POINTS8 INTERPRETATIONPOSITIVE RECREATIONAL DRUG USE DRUG USE?NO CAFFEINE CAFFEINE USE?YES HOW OFTEN AND HOW MUCH? OCCASIONAL HIV / HEP-C SCREENING HIV TEST OFFERED TO PATIENT:YES DATE OFFERED:08/27/2018 TEST ACCEPTED:NO HEP-C TEST OFFERED TO PATIENT:YES DATE OFFERED:08/27/2018 REASON:PATIENT DECLINED TEST ACCEPTED:NO REASON:PATIENT DECLINED BROCHURE PROVIDED TO PATIENTYES JAIN [id number] NONE NO CHRISTIANITY BELIEFS THAT WOULD IMPACT HEALTH CARE. LANGUAGE LANGUAGES SPOKEN:BULGARIAN LEARNING BARRIERS / SPECIAL NEEDS CHANGE FROM LAST VISIT?NO 10/03/2019 BARRIERS TO LEARNING?NO HEARING IMPAIRED?NO VISION IMPAIRED?YES :CORRECTIVE LENSES COGNITIVELY IMPAIRED?NO READINESS TO LEARN?YES LEARNING PREFERENCES?NO LEARNING CAPABILITIES PRESENT?YES EMOTIONAL BARRIERS?NO SPECIAL DEVICES?NO SUPERANNUATION FUNDS MANAGER NEEDED?NO DOMESTIC VIOLENCE DO YOU FEEL SAFE IN YOUR ENVIRONMENT?YES OCCUPATION: DISABLED. DIET: REGULAR. EXERCISE: NO REGULAR EXERCISE. MARITAL STATUS: . OTHERS AT HOME: SPOUSE, CHILD. NEW PATIENT PAIN DIARY TODAY'S VISIT 10/03/19 PATIENT DESCRIBES PAIN :HAVE IT ALL THE TIME, SHARP, STABBING FROM 0-10, WHAT LEVEL IS YOUR PAIN TODAY?4 PRECIPITATING FACTORS BENDING OVER, CERTAIN POSITIONS ALLEVIATING FACTORS LAYING FLAT PAIN CLINIC PFS, CLERGY, PUBLIC HEALTH REFERRALS PFS REFERRAL NEEDED?NO CLERGY REFERRAL NEEDED?NO PUBLIC HEALTH REFERRAL NEEDED?NO WAS THE PROVIDER NOTIFIED OF ANY PERTINENT INFO?YES HAS THE PATIENT BEEN EDUCATED REGARDING HIS/HER PLAN OF CARE?YES HAS THE PATIENT BEEN EDUCATED REGARDING PAIN, THE RISK FOR PAIN, THE IMPORTANCE OF EFFECTIVE PAIN MANAGEMENT, AND THE PAIN ASSESSMENT PROCESS?YES ADVANCE DIRECTIVE ADVANCE DIRECTIVE DISCUSSED WITH PATIENT:YES PT DOES NOT HAVE A HCP. PT DOES NOT WANT INFO AT THIS TIME. ASSISTANCE OFFERED WITH FILLING OUT FORM, AND PT DECLINES. HOSPITALIZATION/MAJOR DIAGNOSTIC PROCEDURE SPINAL SURGERIES PNEUMONIA 2009 COPD EXACERBATION WITH ARDS 06/2012 REVIEW OF SYSTEMS REVIEWED BY: PROVIDER: SAVITA CORTES . CONSTITUTIONAL: ANY CHANGE IN YOUR MEDICAL CONDITION? NO . CHILLS NO . FEVER NO . INFECTION: DO YOU HAVE NEW INFECTIONS? NO . DO YOU HAVE HISTORY OF MRSA? NO . MUSCULOSKELETAL: ANY NEW PATTERNS OF PAIN OR NUMBNESS? NO . GASTROENTEROLOGY: ANY NEW CHANGE IN BOWEL CONTROL? NO . GENITOURINARY: ANY NEW CHANGE IN BLADDER CONTROL? NO . IS THERE A CHANCE YOU COULD BE ? NO . HEMATOLOGY/LYMPH: DO YOU TAKE ANY BLOOD THINNERS? (FOR EXAMPLE- COUMADIN, PLAVIX, AGGRENOX, PLATEL, PRADAXA, OR XARELTO) NO . WHEN WAS YOUR LAST DOSE? DATE: TIME: . NEUROLOGY: HAVE YOU FALLEN IN THE PAST 12 MONTHS? NO . ANY NEW EXTREMITY NUMBNESS OR WEAKNESS? NO . CARDIOLOGY: DO YOU HAVE A PACEMAKER OR DEFIBRILLATOR? NO . RESPIRATORY: HAVE YOU BEEN SICK IN THE PAST WEEK? NO . FEVER NO . FLU LIKE SYMPTOMS? NO . COUGH NO . INTEGUMENTARY: DO YOU HAVE ANY RASHES OR OPEN SORES? NO . ALLERGIC/IMMUNO: ARE YOU ALLERGIC TO IV DYE? NO . ANY NEW ALLERGIES? NO . PSYCHIATRIC: DO YOU HAVE THOUGHTS OF HURTING YOURSELF OR SOMEONE ELSE? NO . ARE YOU ABUSED, NEGLECTED, OR IN AN UNSAFE ENVIRONMENT? NO . ENDOCRINOLOGY: ARE YOU DIABETIC? YES . OTHER: DO YOU NEED ANY PRESCRIPTIONS? NO . IF YES, PLEASE LIST: ____ . ANY NEW PROBLEMS WITH YOUR MEDICATIONS? NO . WHEN DID YOU LAST EAT? ____ . WHEN DID YOU LAST DRINK? ____ . WHAT DID YOU LAST DRINK? ____ . NAME OF PERSON DRIVING YOU HOME? ____ . DO YOU HAVE ANY OTHER QUESTIONS OR CONCERNS NO . EXAMINATION GENERAL EXAMINATION: PSYCHAPPROPRIATE MOOD AND AFFECT , ORIENTED X 3. ASSESSMENTS MYALGIA, OTHER SITE - M79.18 (PRIMARY) TREATMENT MYALGIA, OTHER SITE CLINICAL NOTES: 58-YEAR-OLD MALE IN FOR WORKER'S COMP. CHRONIC PAIN FOLLOW-UP. GIVEN PRESENTING SYMPTOMS RECOMMEND FOLLOW-UP IN 3 MONTHS. PATIENT HAS EXPRESSED UNDERSTANDING OF AND WAS IN AGREEMENT WITH TREATMENT PLAN. GIVEN TIME TO ASK QUESTIONS AND ADDRESS CONCERNS. VISIT TO BE BILLED BASED ON TIME SPENT WITH PATIENT. TIME SPENT WITH PATIENT 11 MINUTES. OTHERS NOTES: NO VITAL SIGNS TAKEN, THIS IS A PHONE/VIRTUAL VISIT. PROCEDURES PN WORKMANS' COMP OPINION IN YOUR OPINION, WAS THE INCIDENT THAT THE PATIENT DESCRIBED THE COMPETENT MEDICAL CAUSE OF THIS INJURY/ILLNESS? YES ARE THE PATIENT'S COMPLAINTS CONSISTENT WITH HIS/HER HISTORY OF THE INJURY/ILLNESS? YES IS THE PATIENT'S HISTORY OF THE INJURY/ILLNESS CONSISTENT WITH YOUR OBJECTIVE FINDING? YES WHAT IS THE PERCENTAGE OF TEMPORARY IMPAIRMENT? MODERATE TO MARKED = 66.7% IS THE PATIENT WORKING? NO DOCTOR ON SITE: JOYCE MCGOVERN-UMBERTO, MD DISPOSITION & COMMUNICATION FOLLOW UP 3 MONTHS (REASON: BACK PAIN, WORKER'S COMP.) ELECTRONICALLY SIGNED BY ESMER CASTAÑEDA ON 10/07/2019 AT 09:15 AM EDT DISCLAIMER : THIS IS A VISIT SUMMARY EXTRACTED FROM THE [employer] CHART. IT IS NOT A COPY OF THE [employer] PROGRESS NOTE. ZAKIYA
== END ==
LOC: M PAIN 14:30
PROVIDERS: ATTEND Family Medicine
DX: M79.18 Myalgia, other site (principal); E11.9 Type 2 diabetes mellitus without complications; I10 Essential (primary) hypertension; J44.9 Chronic obstructive pulmonary disease, unspecified; Z79.84 Long term (current) use of oral hypoglycemic drugs; Z79.899 Other long term (current) drug therapy; Z87.891 Personal history of nicotine dependence; Z88.8 Allergy status to other drugs, medicaments and biological substances; Z91.030 Bee allergy status

== ENCOUNTER → 2019-10-18 | Outpatient (REF) | payer MEDICARE ==
[2019-10-18 12:50] LABS: HEMOGLOBIN A1c 6.7 %
[2019-10-18 13:38] LABS: ALBUMIN 3.8 GM/DL (3.2-5.2); ALT/SGPT 22 U/L (12-78); BILIRUBIN,TOTAL 0.6 MG/DL (0.2-1.0); BLOOD UREA NITROGEN 12 MG/DL (7-18); CALCIUM LEVEL 9.2 MG/DL (8.8-10.2); CARBON DIOXIDE LEVEL 27 MEQ/L (21-32); CHLORIDE LEVEL 104 MEQ/L (98-107); CHOLESTEROL LEVEL 167 MG/DL (<200); CHOLESTEROL RISK RATIO 2.693 (<5); CREATININE FOR GFR 0.64 MG/DL (0.70-1.30); GLOMERULAR FILTRATION RATE > 60.0 (>49); GLUCOSE, FASTING 118 MG/DL (70-100); HDL CHOLESTEROL 62 MG/DL (>40); LDL CHOLESTEROL 77 MG/DL (<100); NON-HDL-C 105 MG/DL; POTASSIUM SERUM 4.4 MEQ/L (3.5-5.1); SODIUM LEVEL 136 MEQ/L (136-145); TOTAL PROTEIN 7.2 GM/DL (6.4-8.2); TRIGLYCERIDES LEVEL 140 MG/DL (<150)
[2019-10-18 13:56] LABS: CREATININE, URINE 44.1 MG/DL; MAU/CREAT RATIO 256.2 MCG/MG (0.0-30.0)
== END ==
LOC: M SFHCCLAY 08:02
PROVIDERS: ATTEND Nurse Practitioner Family
DX: E11.9 Type 2 diabetes mellitus without complications (principal); E78.5 Hyperlipidemia, unspecified

== ENCOUNTER → 2020-01-03 | Outpatient (CLI) | payer MEDICARE | LOC: M PAIN 09:45 | PROVIDERS: ATTEND Family Medicine | DX: M79.18 Myalgia, other site (principal) ==

== ENCOUNTER → 2020-03-26 | Outpatient (CLI) | payer MEDICARE ==
[~2020-03-26] MED LIST changes: +E-Z-GAS II EFFERVESCENT PACKET (SODIUM BICARB./CITRIC ACID/SIMETHICONE) As Ordered ONE; +E-Z-HD 98% w/w 340GM SUSP BTL As Ordered ONE; +E-Z-PAQUE 96% w/w SUSP 176GM BTL As Ordered ONE
--- NOTE | 2020-03-26 09:09 | REP ---
INDICATION: SMOKING GREATER THAN [address] 1ST XR 2ND FILE ROOM. COMPARISON: CT 05/12/2017, 05/23/2009 TECHNIQUE: Low-dose lung screening CT protocol FINDINGS: The study again shows a densely calcified granuloma subpleural region in the lingula on image 57. There are stable nodular opacities in the right lung in the superior segment of the lower lobe in image 46 in the lateral basal segment the anteriorly on image 66 and more posteriorly on image 70 in the right lower lobe. Tiny left lower lobe nodule seen on image 83 also stable. Zone of chronic atelectatic change and fibrosis seen in the medial segment of the right middle lobe unchanged. There are some coronary artery calcifications. Heart is not enlarged. No pneumomediastinum or pneumothorax. No pleural effusion, pleural thickening or pleural based calcification IMPRESSION: 1. Multiple noncalcified nodules unchanged and a calcified granuloma in the lingula stable. 2. Chronic atelectatic and fibrotic change in the medial segment right middle lobe, stable 3. LungRADS category 2 benign, benign findings. Patient is in this category generally have a 1-2% chance of malignancy at the time of the examination. 4. Follow-up exam recommended 1 year with low-dose lung screening CT for patients at high risk. <Electronically signed by Marck Shelton > 03/26/20 0906
--- NOTE | 2020-03-26 16:45 | REP ---
INDICATION: OROPHARYNGEAL DYSPHAGIA CT 1ST XR 2ND FILE ROOM. COMPARISON: None. TECHNIQUE: This procedure was performed under the direct supervision of Dr. Townsend. Images were reviewed with Dr. Townsend. Liquid barium and gas producing granules were given in the erect position as well as liquid barium in the prone oblique positions in order to perform a double contrast esophagram examination. FINDINGS: A single view PA chest x-ray is submitted as a study assistant film. There is no change compared with the previous chest x-ray performed on 07/02/2019. During the oral and pharyngeal stages of deglutition the patient did aspirate. During esophageal transporter tertiary waves. There is no soft tissue abscess stricture mucosal ring or hiatal hernia. There is gastroesophageal reflux demonstrated to above the level of the josé luis. IMPRESSION: 1. Aspiration 2. Tertiary waves. 3. There is gastroesophageal reflux demonstrated to above the level of the josé luis. 0.9 minutes of fluoroscopy time was utilized for this procedure. <Electronically signed by Rj Elias > 03/26/20 1529 <Electronically signed by Kemal Townsend > 03/26/20 1641
== END ==
LOC: M RAD 08:11
PROVIDERS: ATTEND Nurse Practitioner Family
DX: R13.12 Dysphagia, oropharyngeal phase (principal); F17.210 Nicotine dependence, cigarettes, uncomplicated
CPT/HCPCS: 74220; G0297

== ENCOUNTER → 2020-04-03 | Outpatient (CLI) | payer OTHER, MEDICARE ==
[~2020-04-03] MED LIST changes: -E-Z-GAS II EFFERVESCENT PACKET (SODIUM BICARB./CITRIC ACID/SIMETHICONE) As Ordered ONE; -E-Z-HD 98% w/w 340GM SUSP BTL As Ordered ONE; -E-Z-PAQUE 96% w/w SUSP 176GM BTL As Ordered ONE
--- NOTE | 2020-04-07 05:02 | ECWPNPC ---
PATIENT NAME: YIMI ESPINOSA : 1960 GENDER: MALE VISIT DATE: 04/03/2020 DISCHARGE DATE: 04/03/20 1531 VISIT LOCKED DATE TIME: PHYSICIAN: BECKIE CALVILLO PHYSICIAN PAGER NO: ACTIVE RESOURCE: BECKIE CALVILLO REASON FOR APPOINTMENT 1. W/C BACK PAIN HISTORY OF PRESENT ILLNESS GENERAL: 59-YEAR-OLD MALE IN FOR CHRONIC PAIN FOLLOW-UP. HE RATES HIS PAIN CURRENTLY AT A 4-5 OUT OF 10. THE PATIENT WAS HURT IN A WORK RELATED INJURY ON 12/26/2004 WHILE WORKING FOR [employer] A WORKHAND WHEN HE WAS PICKING UP A CALF AND INJURED HIS BACK. THE PATIENT SAYS HE HAS DIFFICULTY DOING DAILY ACTIVITIES SUCH WORKING AROUND HIS HOUSE, WALKING, AND CLEANING DUE TO THIS PAIN. -. FALL RISK SCREENING: SCREENING :NO FALLS REPORTED IN THE LAST YEAR PAIN SCREENING: PATIENT HAS A COMPLAINT OF ACUTE OR CHRONIC PAIN :YES LOCATION OF PAIN:LOW BACK INTENSITY OF PAIN (SCALE OF 1 TO 10):5 WHAT DOES YOUR PAIN FEEL LIKE:ACHING, CONTINOUS DURATION:CONTINOUS PAIN IS INCREASED BY:ACTIVITIES PAIN IS DECREASED BY:OTHERS LYING FLAT NURSING NOTE: -. PAIN CENTER INTAKE QUESTIONS: DO YOU HAVE A HISTORY OF MRSA? :NO DO YOU TAKE A BLOOD THINNERS? :NO DO YOU HAVE ANY BLEEDING DISORDERS? :NO ANY NEW NUMBNESS OR WEAKNESS IN YOUR LEGS OR ARMS? :NO ANY PACEMAKER,DEFIBRILLATOR, OR DORSAL COLUMN STIMULATOR? :NO DO YOU HAVE ANY RASHES OR OPEN SORES? :NO ARE YOU ALLERGIC TO IV DYE? :NO ARE YOU DIABETIC? :YES ANY NEW PROBLEMS WITH YOUR MEDICATIONS? :NO HAVE YOU RECEIVED A VACCINE IN THE PAST 30 DAYS? :YES IF SO WHAT VACCINE AND WHEN? FLU SHOT 2019 DO YOU PLAN TO RECEIVE A VACCINE IN THE NEXT 21 DAYS? :NO DO YOU NEED ANY PRESCRIPTION? :NO DO YOU TAKE ANY IMMUNOSUPPRESSIVE MEDICATIONS? :NO ANY HISTORY OF SEIZURES? :NO ANY HISTORY OF CARDIAC ISSUES OR EVENTS? :NO DO YOU HAVE SLEEP APNEA? :NO ANY RECENT HEAD INJURY? :NO DO YOU HAVE ANY NEW INFECTIONS? :NO IS THERE A CHANCE YOU COULD BE ? :NO ARE YOU BREAST FEEDING? :NO CURRENT MEDICATIONS TAKING LANCET DEVICE - MISCELLANEOUS DIRECTED SUBCUTANEOUSLY BID TAKING SPIRIVA HANDIHALER 18 MCG CAPSULE 1 CAPSULE INHALATION ONCE A DAY TAKING PEN NEEDLES 31G X 6 MM MISCELLANEOUS DIRECTED SUBCUTANEOUSLY DAILY TAKING GLUCOMETER (VERIO IQ) GLUCOMETER DIRECTED E11.9 - TAKING FREESTYLE LITE TEST - STRIP DIRECTED IN VITRO BID TAKING AMLODIPINE BESYLATE 10 MG TABLET 1 TABLET ORALLY ONCE A DAY TAKING TRULICITY 0.75 MG/0.5ML SOLUTION PEN-INJECTOR DIRECTED SUBCUTANEOUS WEEKLY TAKING METFORMIN HCL 1000 MG TABLET 1 TABLET WITH MEALS ORALLY TWICE A DAY TAKING ATORVASTATIN CALCIUM 80 MG TABLET 1 TABLET ORALLY ONCE A DAY TAKING BACTRIM DS 800-160 MG TABLET 1 TABLET ORALLY TWICE A DAY TAKING ALBUTEROL SULFATE HFA 108 (90 BASE) MCG/ACT AEROSOL SOLUTION 1 PUFF NEEDED INHALATION EVERY 4 HRS TAKING SYMBICORT 80-4.5 MCG/ACT AEROSOL 2 PUFFS INHALATION TWICE A DAY SEAN TAKING COMPRESSOR NEBULIZER - MISCELLANEOUS DIRECTED J44.9 MASK AND TUBING TAKING PANTOPRAZOLE SODIUM 40 MG TABLET DELAYED RELEASE 1 TABLET ORALLY ONCE A DAY NOT-TAKING SULFAMETHOXAZOLE-TRIMETHOPRIM 800-160 MG TABLET 1 TABLET ORALLY TWICE A DAY NOT-TAKING TRULICITY 0.75 MG/0.5ML SOLUTION PEN-INJECTOR DIRECTED SUBCUTANEOUS WEEKLY, NOTES: DUPLICATE NOT-TAKING BACTRIM DS 800-160 MG TABLET 1 TABLET 1 HOUR PRIOR TO YOUR CYSTOSCOPY ORALLY ONCE NOT-TAKING BACTRIM DS 800-160 MG TABLET 1 TABLET ORALLY TWICE A DAY NOT-TAKING PREDNISONE 20 MG TABLET 2 TABLET ORALLY ONCE A DAY NOT-TAKING AMOXICILLIN-POT CLAVULANATE 875-125 MG TABLET 1 TABLET ORALLY EVERY 12 HRS MEDICATION LIST REVIEWED AND RECONCILED WITH THE PATIENT PAST MEDICAL HISTORY COPD DIABETES HTN LS SPINE DESC HERNIATION WITH RETROLISTHESIS : DARELL HOWELL [facility] PAIN MANAGEMENT DEPRESSION ALLERGIES FENTANYL: HIVES - ALLERGY BEE VENOM: DYSPNEA - ALLERGY SURGICAL HISTORY APPENDECTOMY HERNIA REPAIR LEFT INGUINAL FX LEFT ANKLE REPAIR 1997 SPINAL FUSION L3-4 L4-5 L5-S1 2009 COLONOSCOPY 04/2010 DORSAL COLUMN STIMULATOR PLACED AND REMOVED CYSTOSCOPY 07/2019 TURP 09/18/2019 FAMILY HISTORY FATHER: 74 YRS, DIAGNOSED WITH UNSPECIFIED HEART DISEASE, UNSPECIFIED CEREBRAL ARTERY OCCLUSION WITH CEREBRAL INFARCTION, HYPERTENSION MOTHER: 74 YRS, BREAST CA 1 SON(S) , 2 DAUGHTER(S) - HEALTHY. MOM LIVER FAILURE. SOCIAL HISTORY GENERAL: TOBACCO USE ARE YOU A:FORMER SMOKER 38 YEARS HOW LONG HAS IT BEEN SINCE YOU LAST SMOKED?5-10 YEARS VAPORNO E-CIGARETTENO LATEX QUESTIONNAIRE LATEX ALLERGY : HAVE YOU EVER DEVELOPED ANY TYPE OF REACTION AFTER HANDLING LATEX PRODUCTS SUCH RUBBER GLOVES, CONDOMS, DIAPHRAGMS, BALLOONS, SOCKS, OR UNDERWEAR?NO LATEX ALLERGY : HAVE YOU EVER DEVELOPED ANY TYPE OF REACTION DURING OR AFTER DENTAL APPOINTMENT, VAGINAL/RECTAL EXAMINATION, SURGICAL PROCEDURE, OR ANY OTHER EXPOSURE?NO LATEX RISK : HAVE YOU EVER HAD ANY DIFFICULTY BREATHING OR HIVES AFTER EATING OR HANDLING ANY FRUITS, OR VEGETABLES; SUCH KIWI, BANANAS, STONE FRUITS, OR CHESTNUTSNO LATEX RISK : DO YOU HAVE A PREVIOUS PERSONAL HISTORY OF MORE THAN NINE SURGERIES, SPINA BIFIDA, OR REPEATED CATHERIZATIONS? NO LATEX RISK : ARE YOU FREQUENTLY EXPOSED TO LATEX PRODUCTS IN YOUR OCCUPATION?NO DATE ASKED : 04/03/2020 BMI CARE GOAL FOLLOW-UP ABOVE NORMAL BMI FOLLOW-UPLIFESTYLE EDUCATION REGARDING DIET ALCOHOL SCREENING DID YOU HAVE A DRINK CONTAINING ALCOHOL IN THE PAST YEAR?YES HOW OFTEN DID YOU HAVE SIX OR MORE DRINKS ON ONE OCCASION IN THE PAST YEAR?MONTHLY (2 POINTS) HOW MANY DRINKS DID YOU HAVE ON A TYPICAL DAY WHEN YOU WERE DRINKING IN THE PAST YEAR?5 OR 6 (2 POINTS) HOW OFTEN DID YOU HAVE A DRINK CONTAINING ALCOHOL IN THE PAST YEAR?FOUR OR MORE TIMES A WEEK (4 POINTS) POINTS8 INTERPRETATIONPOSITIVE RECREATIONAL DRUG USE DRUG USE?NO CAFFEINE CAFFEINE USE?YES HOW OFTEN AND HOW MUCH? OCCASIONAL HIV / HEP-C SCREENING HIV TEST OFFERED TO PATIENT:YES DATE OFFERED:08/27/2018 TEST ACCEPTED:NO HEP-C TEST OFFERED TO PATIENT:YES DATE OFFERED:08/27/2018 REASON:PATIENT DECLINED TEST ACCEPTED:NO REASON:PATIENT DECLINED BROCHURE PROVIDED TO PATIENTYES JAINISM [id number] NONE NO SIKHISM BELIEFS THAT WOULD IMPACT HEALTH CARE. LANGUAGE LANGUAGES SPOKEN:CYMRAES LEARNING BARRIERS / SPECIAL NEEDS CHANGE FROM LAST VISIT?NO BARRIERS TO LEARNING?NO HEARING IMPAIRED?NO VISION IMPAIRED?YES COGNITIVELY IMPAIRED?NO :CORRECTIVE LENSES READINESS TO LEARN?YES LEARNING PREFERENCES?NO LEARNING CAPABILITIES PRESENT?YES EMOTIONAL BARRIERS?NO SPECIAL DEVICES?NO EFFERVESCENT SALTS COMPOUNDER NEEDED?NO DOMESTIC VIOLENCE DO YOU FEEL SAFE IN YOUR ENVIRONMENT?YES OCCUPATION: DISABLED. DIET: REGULAR. EXERCISE: NO REGULAR EXERCISE. MARITAL STATUS: . OTHERS AT HOME: SPOUSE, CHILD. TODAY'S VISIT 10/03/19, PATIENT DESCRIBES PAIN : HAVE IT ALL THE TIME, SHARP, STABBING, FROM 0-10, WHAT LEVEL IS YOUR PAIN TODAY? 4, PRECIPITATING FACTORS BENDING OVER, CERTAIN POSITIONS, ALLEVIATING FACTORS LAYING FLAT. PAIN CLINIC PFS, CLERGY, PUBLIC HEALTH REFERRALS PFS REFERRAL NEEDED?NO CLERGY REFERRAL NEEDED?NO PUBLIC HEALTH REFERRAL NEEDED?NO WAS THE PROVIDER NOTIFIED OF ANY PERTINENT INFO?YES HAS THE PATIENT BEEN EDUCATED REGARDING HIS/HER PLAN OF CARE?YES HAS THE PATIENT BEEN EDUCATED REGARDING PAIN, THE RISK FOR PAIN, THE IMPORTANCE OF EFFECTIVE PAIN MANAGEMENT, AND THE PAIN ASSESSMENT PROCESS?YES ADVANCE DIRECTIVE ADVANCE DIRECTIVE DISCUSSED WITH PATIENT:YES PT DOES NOT HAVE A HCP. PT DOES NOT WANT INFO AT THIS TIME. ASSISTANCE OFFERED WITH FILLING OUT FORM, AND PT DECLINES. HOSPITALIZATION/MAJOR DIAGNOSTIC PROCEDURE SPINAL SURGERIES PNEUMONIA 2009 COPD EXACERBATION WITH ARDS 06/2012 REVIEW OF SYSTEMS CONSTITUTIONAL: ANY RECENT FEVER NO . CHILLS NO . WEIGHT CHANGE OF UNKNOWN REASONS NO . GASTROENTEROLOGY: NEW UNEXPLAINABLE CHANGES IN BOWEL CONTROL NO . CONSTIPATION NO . GENITOURINARY: ANY NEW CHANGE IN BLADDER CONTROL? NO . NEUROLOGY: NEW ONSET DIZZINESS OR NEUROLOGICAL CHANGES NOT MENTIONED NO . NEW NUMBNESS OR PAIN PATTERNS NOT MENTIONED AND PERTINENT TO TODAY'S VISIT NO . CARDIOLOGY: NEW CHEST PRESSURE NO . NEW CHEST PAIN NO . RESPIRATORY: UNEXPLAINABLE COUGH NO . NEW SHORTNESS OF BREATH NO . VITAL SIGNS WT 217.0 LBS, HT 66 IN, BMI 35.02 INDEX, BP 174/80 MM HG, HR 97 /MIN, RR 18 /MIN, TEMP 98.1 F, OXYGEN SAT % 97%, SAFE IN ENV? (Y/N) YES, REVIEWED BY: AMBER LEARY RN. EXAMINATION GENERAL EXAMINATION: GENERALNO ACUTE DISTRESS, WELL NOURISHED AND HYDRATED. PSYCHAPPROPRIATE MOOD AND AFFECT . LUNGS:CLEAR TO AUSCULTATION BILATERALLY, NO WHEEZES, RHONCHI, RALES. HEART:NO MURMURS, REGULAR RATE AND RHYTHM. ASSESSMENTS MYALGIA, OTHER SITE - M79.18 (PRIMARY) TREATMENT MYALGIA, OTHER SITE NOTES: 59-YEAR-OLD MALE IN FOR CHRONIC PAIN FOLLOW-UP. GIVEN PRESENTING SYMPTOMS RECOMMEND FOLLOW-UP IN 2 MONTHS. PROCEDURES WERE DISCUSSED WITH PATIENT HOWEVER AT THIS TIME HE DOES NOT FEEL THEY'RE NECESSARY. PATIENT HAS EXPRESSED UNDERSTANDING OF AND WAS IN AGREEMENT WITH TREATMENT PLAN. GIVEN TIME TO ASK QUESTIONS AND EXPRESS CONCERNS. PROCEDURES PN WORKMANS' COMP OPINION IN YOUR OPINION, WAS THE INCIDENT THAT THE PATIENT DESCRIBED THE COMPETENT MEDICAL CAUSE OF THIS INJURY/ILLNESS? YES ARE THE PATIENT'S COMPLAINTS CONSISTENT WITH HIS/HER HISTORY OF THE INJURY/ILLNESS? YES IS THE PATIENT'S HISTORY OF THE INJURY/ILLNESS CONSISTENT WITH YOUR OBJECTIVE FINDING? YES WHAT IS THE PERCENTAGE OF TEMPORARY IMPAIRMENT? MODERATE TO MARKED = 66.7% IS THE PATIENT WORKING? NO DOCTOR ON SITE: JOYCE BEAULIEU MD PROCEDURE CODES FA211 ESTABILISHED PATIENT [facility] CHARGE DISPOSITION & COMMUNICATION FOLLOW UP 2 MONTHS (REASON: WORKER'S COMP. CHRONIC PAIN) ELECTRONICALLY SIGNED BY ESMER CASTAÑEDA ON 04/06/2020 AT 08:40 AM EST DISCLAIMER : THIS IS A VISIT SUMMARY EXTRACTED FROM THE [employer] CHART. IT IS NOT A COPY OF THE [employer] PROGRESS NOTE. ZAKIYA
== END ==
LOC: M PAIN 14:30
PROVIDERS: ATTEND Family Medicine
DX: M79.18 Myalgia, other site (principal); J44.9 Chronic obstructive pulmonary disease, unspecified; E11.9 Type 2 diabetes mellitus without complications; I10 Essential (primary) hypertension; F32.9 Major depressive disorder, single episode, unspecified; Z87.891 Personal history of nicotine dependence; Z79.84 Long term (current) use of oral hypoglycemic drugs; Z79.899 Other long term (current) drug therapy; Z91.030 Bee allergy status; Z88.5 Allergy status to narcotic agent

== ENCOUNTER → 2020-04-09 | Outpatient (REF) | payer MEDICARE ==
[2020-04-09 11:57] LABS: BASO # 0.1 10^3/uL (0.0-0.2); BASO % 0.7 % (0.0-1.0); EOS # 0.1 10^3/uL (0.0-0.5); EOS % 1.4 % (0.0-3.0); HEMOGLOBIN 15.4 g/dl (13.5-17.5); LYMPH # 1.6 10^3/uL (1.5-5.0); LYMPH % 18.4 % (24.0-44.0); MEAN CORPUSCULAR HEMOGLOBIN 31.2 pg (27.0-33.0); MEAN CORPUSCULAR HGB CONC 32.8 g/dl (32.0-36.5); MEAN CORPUSCULAR VOLUME 95.3 fl (80.0-96.0); MONO % 10.8 % (0.0-5.0); NEUTROPHILS % 68.1 % (36.0-66.0); PLATELET COUNT, AUTOMATED 238 10^3/uL (150-450); RED BLOOD COUNT 4.93 10^6/uL (4.30-6.10); WHITE BLOOD COUNT 8.8 10^3/uL (4.0-10.0)
[2020-04-09 12:39] LABS: ALBUMIN 3.9 GM/DL (3.2-5.2); ALT/SGPT 26 U/L (12-78); BILIRUBIN,TOTAL 0.4 MG/DL (0.2-1.0); BLOOD UREA NITROGEN 11 MG/DL (7-18); CALCIUM LEVEL 9.3 MG/DL (8.8-10.2); CARBON DIOXIDE LEVEL 29 MEQ/L (21-32); CHLORIDE LEVEL 103 MEQ/L (98-107); CHOLESTEROL LEVEL 160 MG/DL (<200); CHOLESTEROL RISK RATIO 2.352 (<5); CREATININE FOR GFR 0.85 MG/DL (0.70-1.30); FREE T4 0.89 NG/DL (0.76-1.46); GLOMERULAR FILTRATION RATE > 60.0 (>49); GLUCOSE, FASTING 161 MG/DL (70-100); HDL CHOLESTEROL 68 MG/DL (>40); LDL CHOLESTEROL 77 MG/DL (<100); NON-HDL-C 92 MG/DL; POTASSIUM SERUM 4.7 MEQ/L (3.5-5.1); SODIUM LEVEL 139 MEQ/L (136-145); TRIGLYCERIDES LEVEL 77 MG/DL (<150)
[2020-04-09 20:56] LABS: HEMOGLOBIN A1c 6.5 %
== END ==
LOC: M SFHCCLAY 07:33
PROVIDERS: ATTEND Nurse Practitioner Family
DX: E11.9 Type 2 diabetes mellitus without complications (principal); I10 Essential (primary) hypertension

== ENCOUNTER → 2020-06-03 | Outpatient (CLI) | payer OTHER ==
--- NOTE | 2020-06-05 01:07 | ECWPNPC ---
PATIENT NAME: YIMI ESPINOSA : 1960 GENDER: MALE VISIT DATE: 06/03/2020 DISCHARGE DATE: 06/03/20 1519 VISIT LOCKED DATE TIME: PHYSICIAN: BECKIE CALVILLO PHYSICIAN PAGER NO: ACTIVE RESOURCE: BECKIE CALVILLO REASON FOR APPOINTMENT 1. WORKER'S COMP. 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 CHRONIC PAIN FOLLOW-UP. HE RATES HIS PAIN CURRENTLY AT A 4 OUT OF 10 AND DESCRIBES IT SHARP, AND SHOOTING. THE PATIENT WAS HURT IN A WORK RELATED INJURY ON 12/26/2004 WHILE WORKING FOR [employer] A WORKHAND WHEN HE WAS PICKING UP A CALF AND INJURED HIS BACK. THE PATIENT SAYS HE HAS DIFFICULTY DOING DAILY ACTIVITIES SUCH WORKING AROUND HIS HOUSE, WALKING, AND CLEANING DUE TO THIS PAIN. GENERAL: -. FALL RISK SCREENING: SCREENING :NO FALLS REPORTED IN THE LAST YEAR PAIN SCREENING: PATIENT HAS A COMPLAINT OF ACUTE OR CHRONIC PAIN :YES LOCATION OF PAIN:LOW BACK INTENSITY OF PAIN (SCALE OF 1 TO 10):4 WHAT DOES YOUR PAIN FEEL LIKE:SHARP, SHOOTING DURATION:CONTINOUS, CONSTANT, ALL DAY PAIN IS INCREASED BY:ACTIVITIES PAIN IS DECREASED BY:USE OF PAIN MEDICATIONS TREATMENT/MEDICATIONS USED TO MANAGE PAIN:OPIOIDS LEVEL OF RELIEF FROM PAIN TREATMENTS IN THE PAST:25% NURSING NOTE: -. PAIN CENTER INTAKE QUESTIONS: DO YOU HAVE A HISTORY OF MRSA? :NO DO YOU TAKE A BLOOD THINNERS? :NO DO YOU HAVE ANY BLEEDING DISORDERS? :NO ANY NEW NUMBNESS OR WEAKNESS IN YOUR LEGS OR ARMS? :NO ANY PACEMAKER,DEFIBRILLATOR, OR DORSAL COLUMN STIMULATOR? :NO DO YOU HAVE ANY RASHES OR OPEN SORES? :NO ARE YOU ALLERGIC TO IV DYE? :NO ARE YOU DIABETIC? :NO ANY NEW PROBLEMS WITH YOUR MEDICATIONS? :NO HAVE YOU RECEIVED A VACCINE IN THE PAST 30 DAYS? :NO DO YOU PLAN TO RECEIVE A VACCINE IN THE NEXT 21 DAYS? :NO DO YOU NEED ANY PRESCRIPTION? :NO DO YOU TAKE ANY IMMUNOSUPPRESSIVE MEDICATIONS? :NO IS THERE A CHANCE YOU COULD BE ? :NO ARE YOU BREAST FEEDING? :NO CURRENT MEDICATIONS TAKING LANCET DEVICE - MISCELLANEOUS DIRECTED SUBCUTANEOUSLY BID TAKING PEN NEEDLES 31G X 6 MM MISCELLANEOUS DIRECTED SUBCUTANEOUSLY DAILY TAKING GLUCOMETER (VERIO IQ) GLUCOMETER DIRECTED E11.9 - TAKING FREESTYLE LITE TEST - STRIP DIRECTED IN VITRO BID TAKING AMLODIPINE BESYLATE 10 MG TABLET 1 TABLET ORALLY ONCE A DAY TAKING ALBUTEROL SULFATE HFA 108 (90 BASE) MCG/ACT AEROSOL SOLUTION 1 PUFF NEEDED INHALATION EVERY 4 HRS TAKING SPIRIVA HANDIHALER 18 MCG CAPSULE 1 CAPSULE INHALATION ONCE A DAY TAKING SYMBICORT 80-4.5 MCG/ACT AEROSOL 2 PUFFS INHALATION TWICE A DAY SEAN TAKING METFORMIN HCL 1000 MG TABLET 1 TABLET WITH MEALS ORALLY TWICE A DAY TAKING PANTOPRAZOLE SODIUM 40 MG TABLET DELAYED RELEASE 1 TABLET ORALLY ONCE A DAY TAKING ATORVASTATIN CALCIUM 80 MG TABLET 1 TABLET ORALLY ONCE A DAY NOT-TAKING COMPRESSOR NEBULIZER - MISCELLANEOUS DIRECTED J44.9 MASK AND TUBING NOT-TAKING TRULICITY 0.75 MG/0.5ML SOLUTION PEN-INJECTOR DIRECTED SUBCUTANEOUS WEEKLY NOT-TAKING BACTRIM DS 800-160 MG TABLET 1 TABLET ORALLY TWICE A DAY NOT-TAKING SULFAMETHOXAZOLE-TRIMETHOPRIM 800-160 MG TABLET 1 TABLET ORALLY TWICE A DAY NOT-TAKING TRULICITY 0.75 MG/0.5ML SOLUTION PEN-INJECTOR DIRECTED SUBCUTANEOUS WEEKLY, NOTES: DUPLICATE NOT-TAKING BACTRIM DS 800-160 MG TABLET 1 TABLET 1 HOUR PRIOR TO YOUR CYSTOSCOPY ORALLY ONCE NOT-TAKING BACTRIM DS 800-160 MG TABLET 1 TABLET ORALLY TWICE A DAY NOT-TAKING PREDNISONE 20 MG TABLET 2 TABLET ORALLY ONCE A DAY NOT-TAKING AMOXICILLIN-POT CLAVULANATE 875-125 MG TABLET 1 TABLET ORALLY EVERY 12 HRS MEDICATION LIST REVIEWED AND RECONCILED WITH THE PATIENT PAST MEDICAL HISTORY COPD DIABETES HTN LS SPINE DESC HERNIATION WITH RETROLISTHESIS : DARELL HOWELL, [facility] PAIN MANAGEMENT DEPRESSION ALLERGIES FENTANYL: HIVES - ALLERGY BEE VENOM: DYSPNEA - ALLERGY SURGICAL HISTORY APPENDECTOMY HERNIA REPAIR LEFT INGUINAL FX LEFT ANKLE REPAIR 1997 SPINAL FUSION L3-4 L4-5 L5-S1 2009 COLONOSCOPY 04/2010 DORSAL COLUMN STIMULATOR PLACED AND REMOVED CYSTOSCOPY 07/2019 TURP 09/18/2019 FAMILY HISTORY FATHER: 74 YRS, DIAGNOSED WITH HYPERTENSION, UNSPECIFIED HEART DISEASE, UNSPECIFIED CEREBRAL ARTERY OCCLUSION WITH CEREBRAL INFARCTION MOTHER: 74 YRS, BREAST CA 1 SON(S) , 2 DAUGHTER(S) - HEALTHY. MOM LIVER FAILURE. SOCIAL HISTORY GENERAL: TOBACCO USE ARE YOU A:FORMER SMOKER 38 YEARS HOW LONG HAS IT BEEN SINCE YOU LAST SMOKED?5-10 YEARS VAPORNO E-CIGARETTENO LATEX QUESTIONNAIRE LATEX ALLERGY : HAVE YOU EVER DEVELOPED ANY TYPE OF REACTION AFTER HANDLING LATEX PRODUCTS SUCH RUBBER GLOVES, CONDOMS, DIAPHRAGMS, BALLOONS, SOCKS, OR UNDERWEAR?NO LATEX ALLERGY : HAVE YOU EVER DEVELOPED ANY TYPE OF REACTION DURING OR AFTER DENTAL APPOINTMENT, VAGINAL/RECTAL EXAMINATION, SURGICAL PROCEDURE, OR ANY OTHER EXPOSURE?NO LATEX RISK : HAVE YOU EVER HAD ANY DIFFICULTY BREATHING OR HIVES AFTER EATING OR HANDLING ANY FRUITS, OR VEGETABLES; SUCH KIWI, BANANAS, STONE FRUITS, OR CHESTNUTSNO LATEX RISK : DO YOU HAVE A PREVIOUS PERSONAL HISTORY OF MORE THAN NINE SURGERIES, SPINA BIFIDA, OR REPEATED CATHERIZATIONS? NO LATEX RISK : ARE YOU FREQUENTLY EXPOSED TO LATEX PRODUCTS IN YOUR OCCUPATION?NO DATE ASKED : 06/03/2020 BMI CARE GOAL FOLLOW-UP ABOVE NORMAL BMI FOLLOW-UPLIFESTYLE EDUCATION REGARDING DIET ALCOHOL SCREENING DID YOU HAVE A DRINK CONTAINING ALCOHOL IN THE PAST YEAR?YES HOW OFTEN DID YOU HAVE SIX OR MORE DRINKS ON ONE OCCASION IN THE PAST YEAR?MONTHLY (2 POINTS) HOW MANY DRINKS DID YOU HAVE ON A TYPICAL DAY WHEN YOU WERE DRINKING IN THE PAST YEAR?5 OR 6 (2 POINTS) HOW OFTEN DID YOU HAVE A DRINK CONTAINING ALCOHOL IN THE PAST YEAR?FOUR OR MORE TIMES A WEEK (4 POINTS) POINTS8 INTERPRETATIONPOSITIVE RECREATIONAL DRUG USE DRUG USE?NO CAFFEINE CAFFEINE USE?YES HOW OFTEN AND HOW MUCH? OCCASIONAL HIV / HEP-C SCREENING HIV TEST OFFERED TO PATIENT:YES DATE OFFERED:08/27/2018 TEST ACCEPTED:NO HEP-C TEST OFFERED TO PATIENT:YES DATE OFFERED:08/27/2018 REASON:PATIENT DECLINED TEST ACCEPTED:NO REASON:PATIENT DECLINED BROCHURE PROVIDED TO PATIENTYES ISLAM [id number] NONE NO MOS[place] BELIEFS THAT WOULD IMPACT HEALTH CARE. LANGUAGE LANGUAGES SPOKEN:ALBANIAN LEARNING BARRIERS / SPECIAL NEEDS CHANGE FROM LAST VISIT?NO BARRIERS TO LEARNING?NO HEARING IMPAIRED?NO VISION IMPAIRED?YES :CORRECTIVE LENSES COGNITIVELY IMPAIRED?NO READINESS TO LEARN?YES LEARNING PREFERENCES?NO LEARNING CAPABILITIES PRESENT?YES EMOTIONAL BARRIERS?NO SPECIAL DEVICES?NO FURNACE KEEPER NEEDED?NO DOMESTIC VIOLENCE DO YOU FEEL SAFE IN YOUR ENVIRONMENT?YES OCCUPATION: DISABLED. DIET: REGULAR. EXERCISE: NO REGULAR EXERCISE. MARITAL STATUS: . OTHERS AT HOME: SPOUSE, CHILD. TODAY'S VISIT 10/03/19, PATIENT DESCRIBES PAIN : HAVE IT ALL THE TIME, SHARP, STABBING, FROM 0-10, WHAT LEVEL IS YOUR PAIN TODAY? 4, PRECIPITATING FACTORS BENDING OVER, CERTAIN POSITIONS, ALLEVIATING FACTORS LAYING FLAT. PAIN CLINIC PFS, CLERGY, PUBLIC HEALTH REFERRALS PFS REFERRAL NEEDED?NO CLERGY REFERRAL NEEDED?NO PUBLIC HEALTH REFERRAL NEEDED?NO WAS THE PROVIDER NOTIFIED OF ANY PERTINENT INFO?YES HAS THE PATIENT BEEN EDUCATED REGARDING HIS/HER PLAN OF CARE?YES HAS THE PATIENT BEEN EDUCATED REGARDING PAIN, THE RISK FOR PAIN, THE IMPORTANCE OF EFFECTIVE PAIN MANAGEMENT, AND THE PAIN ASSESSMENT PROCESS?YES ADVANCE DIRECTIVE ADVANCE DIRECTIVE DISCUSSED WITH PATIENT:YES PT DOES NOT HAVE A HCP. PT DOES NOT WANT INFO AT THIS TIME. ASSISTANCE OFFERED WITH FILLING OUT FORM, AND PT DECLINES. HOSPITALIZATION/MAJOR DIAGNOSTIC PROCEDURE SPINAL SURGERIES PNEUMONIA 2009 COPD EXACERBATION WITH ARDS 06/2012 REVIEW OF SYSTEMS CONSTITUTIONAL: ANY RECENT FEVER NO . CHILLS NO . WEIGHT CHANGE OF UNKNOWN REASONS NO . GASTROENTEROLOGY: NEW UNEXPLAINABLE CHANGES IN BOWEL CONTROL NO . CONSTIPATION NO . GENITOURINARY: ANY NEW CHANGE IN BLADDER CONTROL? NO . NEUROLOGY: NEW ONSET DIZZINESS OR NEUROLOGICAL CHANGES NOT MENTIONED NO . NEW NUMBNESS OR PAIN PATTERNS NOT MENTIONED AND PERTINENT TO TODAY'S VISIT NO . CARDIOLOGY: NEW CHEST PRESSURE NO . NEW CHEST PAIN NO . RESPIRATORY: UNEXPLAINABLE COUGH NO . NEW SHORTNESS OF BREATH NO . VITAL SIGNS WT 217 LBS, HT 66 IN, BMI 35.02 INDEX, BP 181/86 MM HG, HR 109 /MIN, RR 18 /MIN, TEMP 97 F, OXYGEN SAT % 9, SAFE IN ENV? (Y/N) YEST.AVINASH BURNHAM. EXAMINATION GENERAL EXAMINATION: GENERALNO ACUTE DISTRESS, WELL NOURISHED AND HYDRATED. PSYCHAPPROPRIATE MOOD AND AFFECT . LUNGS:CLEAR TO AUSCULTATION BILATERALLY, NO WHEEZES, RHONCHI, RALES. HEART:NO MURMURS, REGULAR RATE AND RHYTHM. 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 CHRONIC PAIN FOLLOW-UP. GIVEN PRESENTING SYMPTOMS RECOMMEND FOLLOW-UP IN 3 MONTHS. PATIENT EXPRESSED UNDERSTANDING OF AND WAS IN AGREEMENT WITH TREATMENT PLAN. GIVEN TIME TO ASK QUESTIONS AND EXPRESS CONCERNS. PROCEDURES PN WORKMANS' COMP OPINION IN YOUR OPINION, WAS THE INCIDENT THAT THE PATIENT DESCRIBED THE COMPETENT MEDICAL CAUSE OF THIS INJURY/ILLNESS? YES ARE THE PATIENT'S COMPLAINTS CONSISTENT WITH HIS/HER HISTORY OF THE INJURY/ILLNESS? YES IS THE PATIENT'S HISTORY OF THE INJURY/ILLNESS CONSISTENT WITH YOUR OBJECTIVE FINDING? YES WHAT IS THE PERCENTAGE OF TEMPORARY IMPAIRMENT? MODERATE TO MARKED = 66.7% IS THE PATIENT WORKING? NO DOCTOR ON SITE: JOYCE BEAULIEU MD PROCEDURE CODES FA211 ESTABILISHED PATIENT [facility] CHARGE DISPOSITION & COMMUNICATION FOLLOW UP 3 MONTHS (REASON: LOW BACK PAIN WORKER'S COMP.) ELECTRONICALLY SIGNED BY ESMER CASTAÑEDA ON 06/04/2020 AT 02:07 PM EST DISCLAIMER : THIS IS A VISIT SUMMARY EXTRACTED FROM THE [employer] CHART. IT IS NOT A COPY OF THE [employer] PROGRESS NOTE. ZAKIYA
== END ==
LOC: M PAIN 14:45
PROVIDERS: ATTEND Family Medicine
DX: M47.817 Spondylosis without myelopathy or radiculopathy, lumbosacral region (principal); G89.29 Other chronic pain; J44.9 Chronic obstructive pulmonary disease, unspecified; E11.9 Type 2 diabetes mellitus without complications; Z86.59 Personal history of other mental and behavioral disorders; Z87.891 Personal history of nicotine dependence; Z88.5 Allergy status to narcotic agent; Z91.030 Bee allergy status; Z79.84 Long term (current) use of oral hypoglycemic drugs; Z79.899 Other long term (current) drug therapy

== ENCOUNTER → 2020-06-30 | Outpatient (CLI) | payer OTHER ==
[~2020-06-30] MED LIST changes: +AMLO1TAB25 PO; +ATOR80TA59 PO; +EPIN11.7 IH; +METF10004 PO; +PANT40TA29 PO; +TIOT18INH INH
--- NOTE | 2020-06-30 08:04 | REP ---
INDICATION: ABD DISTENSION. COMPARISON: Comparison CT study 01 August 2019.. FINDINGS: Scanning through the right upper quadrant of the abdomen demonstrates a normal sized and walled gallbladder without evidence of stone or polyp. Common bile duct is normal measuring 0.4 cm in greatest diameter. Limited views of pancreas show no abnormality. Liver parenchyma show some increased echogenicity diffusely question fatty infiltration. No focal liver lesion is seen. The liver is near the upper range of normal in size. There is no evidence of ascites or right renal abnormality. The right kidney measures 11.3 x 6.3 x 6.0 cm. IMPRESSION: Mild fatty infiltration of the liver suggested. Otherwise negative right upper quadrant sonography. <Electronically signed by Spenser Hernandez > 06/30/20 0800
== END ==
LOC: M RAD 07:01
PROVIDERS: ATTEND Internal Medicine Gastroenterology
DX: R14.0 Abdominal distension (gaseous) (principal)

== ENCOUNTER → 2020-07-04 | Outpatient (CLI) | payer OTHER | LOC: M LABSMTC 10:14 | PROVIDERS: ATTEND Anesthesiology | DX: Z01.812 Encounter for preprocedural laboratory examination (principal); Z20.822 Contact with and (suspected) exposure to COVID-19 ==

== ENCOUNTER 2020-07-09 11:42 | Day surgery (SDC) | payer OTHER ==
[~2020-07-09] VITALS: Ht 167.6 cm; Wt 98.9 kg
[~2020-07-09 11:42] MED LIST changes: +NS 1,000 ML IV ONE
--- OUTSIDE RECORDS SUMMARY | 2020-07-09 11:50 | CCD ---
Author Author [facility] Organization 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 Active 35417227 Problem Intervertebral disc disorders with radiculopathy , lumbar region M51.16 Active 423370507598857 Problem Smoking greater than 40 pack years F17.210 Activ e 92695490 Problem Spondylosis of lumbar region without myelopathy or radiculopathy M47.816 Active 24392815 Problem Other specified enthesopathies of right lower li mb, excluding foot M76.891 Active 630974808 Problem Myalgia, other site M79.18 Active 74487175 Problem COPD exacerbation J44.1 Active 924306412 Problem Oropharyngeal dysphagia R13.12 Active 11309289 Problem Lumbar radiculopathy M54.16 Active 150375845 Problem COPD (chronic obstructive pulmonary disease) J44.9 Active 70695961 Problem Gastroesophageal reflux dise ase, unspecified whether esophagitis present K21.9 Active 880955471 Problem Lumbar post-laminectomy syndrome M96.1 Active 907293960 Problem Diabetes E11.9 Active 32921374 Problem Depression F32.9 Active 12697898 Problem Urinary incontinence R32 Active 498885492 Problem Urinary retention R33.9 Active 678246929 Problem UTI (urinary tract infection) N39.0 Active 68 093608 Problem Urinary retention due to benign prostatic hyperplasia N28.89 Active 380303468 ALLERGIES Allergen (clinical drug ingredient) Drug/Non Drug Allergy do cumented on EMR Reaction Allergy Type Onset Date Status Bee venom Bee venom Dyspnea Non Drug Allergy Active fentanyl Fentanyl([facility] Code:[address]-94) Hives Drug Allergy Active ENCOUNTERS from 1958 to 2020-06-04 Encounter Location Date Provider Diagnosis [facility] [address] [place] [address] 13 May, 2020 Yariel Jenkins Spondylosis of lumbosacral region withou t myelopathy or radiculopathy M47.817 IMMUNIZATIONS Vaccine Route Administration Date Status Influenza (18 yrs & older) Flublok IM Intramuscular Apr 09, 2020 Administered Influenza (18 yrs & older) Flublok IM Intramuscular Mar 21, 2019 Administered Pneumococcal Adult 0.5mL (Pneumovax 23) IM Intramuscular Apr 24, 2017 Administered TDAP 0.5mL (Boostrix) IM Intramuscular Mar 21, 2019 Administe red Pneumococcal 0.5mL (Prevnar 13) IM Intramuscular Jun 13, 2016 Administered Influenza (6mo & up) Fluzone IM Intramuscular Apr 24, 2017 Ad ministered Influenza (6mo & up) Fluzone IM Intramuscular Jun 13, 2016 Ad ministered SOCIAL HISTORY Tobacco Use: Social History Observation Description Date Details (start date - stop date) Former Smoker Sex Assigned At : Social History Observation Description Sex Assigned At Unknown Audit Question Answer Notes Total Score: 10 Interpretation: Simple Advice Language: Question Answer Notes Languages spoken: Turkish Taoist: Question Answer Notes Taoist 33 None No adventism beliefs that would impact health care. Drug and Alcohol Question Answer Notes Total Score: 0 Interpretation: No problems reported Alcohol Screening: Question Answer Notes Did you have a drink containing alcohol in the past year? Ye s Points 8 Interpretation Positive How often did you have six or more drinks on one occas ion in the past year? Monthly (2 points) How many drinks did you have on a typica l day when you were drinking in the past year? 5 or 6 (2 points) How often did you have a drink containing alcohol in t he past year? Four or more times a week (4 points) BMI Care Goal Follow-Up Question Answer Notes Above Normal BMI Follow-Up Lifestyle education regarding t Tobacco Use: Question Answer Notes Are you a: former smoker 40 years How long has it been since you last smoked? 5-10 years REASON FOR REFERRAL No Information VITAL SIGNS Weight 217 lbs May, Height 66 in May, BMI 35.02 kg/m2 May, Heart Rate 109 /min May, Respiratory Rate 18 /min May, Temperature 97 degrees Fahrenheit May, Oximetry 9 May, Blood pressure systolic 181 mm Hg May, Blood pressure diastolic 86 mm Hg May, MEDICATIONS Medication SIG (Take, Route, Frequency, Duration) Notes Start Da te End Date Status AmLODIPine Besylate 10 MG 1 tablet Orally Once a day Active PredniSONE 20 MG 2 tablet Orally Once a day for 5 day(s) Jun, Not-Taking Trulicity 0.75 MG/0.5ML as directed Subcutaneous weekly for 90 day(s) Not-Taking Pantoprazole Sodium 40 MG 1 tablet Orally Once a day for 30 day(s) Active Bactrim DS 800-160 MG 1 tablet Orally Twice a day for 10 day(s) Jun, Not-Taking Bactrim DS 800-160 MG 1 tablet Orally Twice a day for 10 day(s) Oct, Not-Taking Bactrim DS 800-160 MG 1 tablet 1 hour prior to you r cystoscopy Orally Once for 1 days Jun, Not-Taking Sulfamethoxazole-Trimethoprim 800-160 MG 1 tablet Oral ly Twice a day for 10 day(s) Jul, Not-Taking Glucometer (Verio IQ) as directed E11.9 - for 30 day(s) Feb, Active FreeStyle Lite Test - as directed In Vitro bid for 25 Active Symbicort 80-4.5 MCG/ACT 2 puffs Inhalation Twice a day SEAN Active Metformin HCl 1000 MG 1 tablet with meals Orally Twice a day Active Pen [place] 31G X 6 MM as directed subcutaneously Daily for 90 Active Amoxicillin-Pot Clavulanate 875-125 MG 1 tablet Orally every 12 hrs for 10 day(s) Jun, Not-Taking Lancet Device - as directed subcutaneously bid for 30 day(s) Active Spiriva HandiHaler 18 MCG 1 capsule Inhalation Once a day Nov, Active Trulicity 0.75 MG/0.5ML as directed Subcutaneous weekly for 90 days Not-Taking Compressor Nebulizer - as directed J44.9 mask and tubing 0 Mar, Not-Taking Atorvastatin Calcium 80 MG 1 tablet Orally Once a day for 90 Active Albuterol Sulfate HFA 108 (90 Base) MCG/ACT 1 puff as needed Inhalation every 4 hrs Active PROCEDURES No Information RESULTS No Results REASON FOR VISIT Worker's Comp. chronic pain MEDICAL (GENERAL) HISTORY Type Description Date Medical History COPD Medical History Diabetes Medical History HTN Medical History LS spine DEsc herniation wit h Retrolisthesis : Yohana Gaxiola, [facility] Medical History Depression Surgical History Appendectomy Surgical History Hernia repair left inguinal Surgical History Fx left ankle repair 1997 Surgical History Spinal fusion L3-4 L4-5 L5-S1 2009 Surgical History Colonoscopy 04/2010 Surgical History Dorsal column stimulator placed and owen crescencio Surgical History CYSTOSCOPY 07/2019 Surgical History TURP 09/18/2019 Hospitalization History Spinal surgeries Hospitalization History Pneumonia 2009 Hospitalization History COPD exacerbation with ARDS 06/2012 Goals Section No Information Health Concerns No Information MEDICAL EQUIPMENT No Information MENTAL STATUS No Information FUNCTIONAL STATUS No Information ASSESSMENTS Encounter Date Diagnosis Assessment Notes Treatment Notes Treatm ent Clinical Notes May, Spondylosis of lumbosacral r egion without myelopathy or radiculopathy (ICD-10 - M47.817) 49-year-old male in for Worker's Comp. chronic pain follow-up. Given presenting symptoms recommend follow-up in 3 months. Patient expressed understanding of and was in agreement with treatment plan. Given time to ask questions and express concerns. PLAN OF TREATMENT Treatment Notes Assessment Notes Clinical Notes Spondylosis of lumbosacral region without myelopathy o r radiculopathy 49-year-old male in for Worker's Comp. chronic pain follow-up. Given presenting symptoms recommend follow-up in 3 months. Patient expressed understanding of and was in agreement with treatment plan. Given time to ask questions and express concerns. Next Appt Details 3 Months Reason:low back pain Worker's C omp. Provider Name:Yariel Jenkins, 2020-09-01 02:00:00 PM, [address] [place], [address], Provider Name:Kate Zamora, 10-07 04:00:00 PM, [address] , [place], [address], Follow Up:3 Monthslow back pain Worker's Comp. Insurance Providers Payer Name Payer Address Payer Phone Insured Name Patient Relati onship to Insured Coverage Start Date Coverage End Date [facility] [address] [facility] [phone] YIMI ESPINOSA 2006
--- OUTSIDE RECORDS SUMMARY | 2020-07-09 11:50 | CCD ---
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 Active 32558174 Problem Intervertebral disc disorders with radiculopathy , lumbar region M51.16 Active 913013521440833 Problem Smoking greater than 40 pack years F17.210 Activ e 16952607 Problem Spondylosis of lumbar region without myelopathy or radiculopathy M47.816 Active 20825451 Problem Other specified enthesopathies of right lower li mb, excluding foot M76.891 Active 629978147 Problem Myalgia, other site M79.18 Active 80287970 Problem COPD exacerbation J44.1 Active 465165303 Problem Oropharyngeal dysphagia R13.12 Active 92001516 Problem Lumbar radiculopathy M54.16 Active 627083169 Problem COPD (chronic obstructive pulmonary disease) J44.9 Active 19190231 Problem Gastroesophageal reflux dise ase, unspecified whether esophagitis present K21.9 Active 822275445 Problem Lumbar post-laminectomy syndrome M96.1 Active 436021201 Problem Diabetes E11.9 Active 54192502 Problem Depression F32.9 Active 02556164 Problem Urinary incontinence R32 Active 422893557 Problem Urinary retention R33.9 Active 735709980 Problem UTI (urinary tract infection) N39.0 Active 68 486457 Problem Urinary retention due to benign prostatic hyperplasia N28.89 Active 006168065 ALLERGIES Allergen (clinical drug ingredient) Drug/Non Drug Allergy do cumented on EMR Reaction Allergy Type Onset Date Status Bee venom Dyspnea Non Drug Allergy Active fentanyl Fentanyl([facility] Code:[address]-29) Hives Drug Allergy Active ENCOUNTERS from 1958 to 2020-04-14 Encounter Location Date Provider Diagnosis [facility] [address] [place] [address] Mar Kate Alberry Diabetes E11.9 ; HTN (hypertension) I10 ; Gastroesophageal reflux disease, unspecified whether esophagitis present K21.9 ; Encounter for immunization Z23 ; Aspiration into airway, subsequent encounter T17.908D ; Hyperlipidemia E78.5 ; COPD (chronic obstructive pulmonary disease) J44.9 and Urinary retention R33.9 IMMUNIZATIONS Vaccine Route Administration Date Status Influenza [...] Advice Language: Question Answer Notes Languages spoken: Polish Yazidi: Question Answer Notes Yazidi 33 None No cheondoism beliefs that would impact health care. Drug [...] FOR REFERRAL No Information VITAL SIGNS Weight 216 lbs Mar, Height 66 in Mar, BMI 34.86 kg/m2 Mar, Heart Rate 106 /min Mar, Respiratory Rate 16 /min Mar, Temperature 97.7 degrees Fahrenheit Mar, Oximetry 95 Mar, Blood pressure systolic 130 mm Hg Mar, Blood pressure diastolic 72 mm Hg Mar, MEDICATIONS Medication SIG (Take, Route, Frequency, Duration) Notes Start Da te End Date Status Compressor Nebulizer - as directed J44.9 mask and tubing 0 Mar, Active Lancet Device - as directed subcutaneously bid for 30 day(s) Active Bactrim DS 800-160 MG 1 tablet Orally Twice a day for 10 day(s) Oct, Not-Taking Bactrim DS 800-160 MG 1 tablet Orally Twice a day for 10 day(s) Jun, Not-Taking AmLODIPine Besylate 10 MG 1 tablet Orally Once a day Active Metformin HCl 1000 MG 1 tablet with meals Orally Twice a day Active Amoxicillin-Pot Clavulanate 875-125 MG 1 tablet Orally every 12 hrs for 10 day(s) Jun, Not-Taking Sulfamethoxazole-Trimethoprim 800-160 MG 1 tablet Oral ly Twice a day for 10 day(s) Jul, Not-Taking Pen [place] 31G X 6 MM as directed subcutaneously Daily for 90 Active Glucometer (Verio IQ) as directed E11.9 - for 30 day(s) Feb, Active Bactrim DS 800-160 MG 1 tablet 1 hour prior to you r cystoscopy Orally Once for 1 days Jun, Not-Taking Spiriva HandiHaler 18 MCG 1 capsule Inhalation Once a day Nov, Active Pantoprazole Sodium 40 MG 1 tablet Orally Once a day for 30 day(s) Active Trulicity 0.75 MG/0.5ML as directed Subcutaneous weekly for 90 days Not-Taking Albuterol Sulfate HFA 108 (90 Base) MCG/ACT 1 puff as needed Inhalation every 4 hrs Active Symbicort 80-4.5 MCG/ACT 2 puffs Inhalation Twice a day SEAN Active Atorvastatin Calcium 80 MG 1 tablet Orally Once a day for 90 Active FreeStyle Lite Test - as directed In Vitro bid for 25 Active PredniSONE 20 MG 2 tablet Orally Once a day for 5 day(s) 1 1 Jun, 2019 Not-Taking Trulicity 0.75 MG/0.5ML as directed Subcutaneous weekly for 90 day(s) Active PROCEDURES Procedure Date Ordered Result Body Site Immunization: Flublok Quadrivalent (18 years & older) 0.5mL IM (Influenza) 2020-04-09 N/A RESULTS REASON FOR VISIT 6 month follow up labs prior MEDICAL (GENERAL) HISTORY Type Description Date Medical History COPD Medical History Diabetes Medical History HTN Medical History LS spine DEsc herniation wit h Retrolisthesis : Yohana Walker, [facility] Pain Management Medical History Depression Surgical History [...] Notes Treatment Notes Treatm ent Clinical Notes Mar, Diabetes (ICD-10 - E11.9) Eval labs today. BS sstable on home monitor. Mar, HTN (hypertension) (ICD-10 - I10) stable Mar, Gastroesophageal reflux dise ase, unspecified whether esophagitis present (ICD-10 - K21.9) Conitnue with gastro eval and PPI. Mar, Encounter for immunization (ICD-10 - Z23) Patient Educated with: FLU Vaccine, Inactivated [id number] (FLU Vaccine, Inactivated [id number]) Mar, Aspiration into airway, subsequent encounter (IC D-10 - T17.908D) Speech eval pending. reviewed s/s aspiration into airway. Mar, Hyperlipidemia (ICD-10 - E78.5) on high dose atorvastatin. needs lipid check annually. Mar, COPD (chronic obstructive pulmonary disease) (IC D-10 - J44.9) stable. Mar, Urinary retention (ICD-10 - R33.9) Continue with Urology Mar, Other Patient and wif e verbalized understanding and agreement with stated plan. PLAN OF TREATMENT Medication Medication Name Sig Start Date Stop Date Pantoprazole Sodium 40 MG 1 tablet Orally Once a day for 30 day( s) Metformin HCl 1000 MG 1 tablet with meals Orally Twice a day Spiriva HandiHaler 18 MCG 1 capsule Inhalation Once a day Nov Albuterol Sulfate HFA 108 (90 Base) MCG/ACT 1 puff as needed Inhalation every 4 hrs Trulicity 0.75 MG/0.5ML as directed Subcutaneous weekly for 90 d ay(s) Symbicort 80-4.5 MCG/ACT 2 puffs Inhalation Twice a day SEAN Atorvastatin Calcium 80 MG 1 tablet Orally Once a day for 90 AmLODIPine Besylate 10 MG 1 tablet Orally Once a day Treatment Notes Assessment Notes Clinical Notes Diabetes Eval labs today. BS sstable on home monitor. HTN (hypertension) stable Gastroesophageal reflux disease, unspecified whether esophag itis present Conitnue with gastro eval and PPI. Encounter for immunization Patient Educated with: FLU Vaccine, Inactivated [id number] (FLU Vaccine, Inactivated [id number]) Aspiration into airway, subsequent encounter Speech eval pending. reviewed s/s aspiration into airway. Hyperlipidemia on high dose atorvas tatin. needs lipid check annually. COPD (chronic obstructive pulmonary disease) stable. Urinary retention Continue with Urolog y Treatment Notes Test Name Order Date Hemoglobin A1c Send Out ONLY 2020-04-14 Future Test Test Name Order Date Comprehensive Metabolic Profile (CMP) [id number] HEMOGLOBIN A1c [id number] Next Appt Details 6 Months, labs prior Reason: Provider Name:Yariel Jenkins, 2020-06-03 02:45:00 PM, [address] [place], [address], Provider Name:Kate Zamora, 10-07 04:00:00 PM, [address] [place] [address], [phone], Insurance Providers Payer Name Payer Address Payer Phone Insured Name Patient Relati onship to Insured Coverage Start Date Coverage End Date [facility] [address] [address] [facility] [phone] [phone] YIMI ESPINOSA self
--- OUTSIDE RECORDS SUMMARY | 2020-07-09 11:50 | CCD | Continuity of Care Document ---
Author Author Mumtaz CANNON M.D. 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 Onset: Hypoxemia Britt Toussaint M.D. Onset: Sleep apnea Britt Toussaint M.D. Onset: Gastroesophageal reflux disease Michel Barcenas Onset: 08/01/2012 Ex-smoker Britt Toussaint M.D. Onset: Obesity Britt Toussaint M.D. Onset: Body mass index 30+ - obesity Britt Toussaint M.D. Onset: 03/13/2013 Posterior rhinorrhea Britt Toussaint M.D. Onset: Social History Type Date Description Comments Sex Unknown ETOH Use 3 A Day Tobacco Use Start: Unknown End: Unknown Patient is a former smoker hx:1-2ppd x 40 yrs, quit July 2012 Allergies, Adverse Reactions, Alerts Active Allergies Reaction Severity Comments Date Fentanyl Anaphylaxis 08/01/2012 Medications Active Medications SIG Qnty Indications Ordering Provide r Date Symbicort 80-4.5mcg/Act Aerosol 2 puff bid. use spacer. rinse mouth after using 10.200gm Britt Toussaint M.D. 09/12/2013 Spiriva Handihaler 18mcg Capsules 1 puff daily 30caps Britt Toussaint M.D. Amlodipine Besylate 5mg Tablets 1 by mouth every day Unknown Simvastatin 40mg Tablets 1 by mouth every day Unknown Ventolin HFA 108(90Base) mcg/Act A erosol 2 puffs q4 hour prn with spacer 3units Unknown Pantoprazole Sodium 40mg Tablets D R 1 daily Unknown Atorvastatin Calcium 80mg Tablets daily Unknown Metformin HCL 1000mg Tablets bid Unknown Primatene Mist 0.125mg/Act Aerosol Unknown Immunizations CPT Code Status Date Vaccine Lot # [id number] Given 03/13/2013 Influenza Vaccine 3 Years Of Age Or Older (Flulaval) [id number] Given 03/13/2013 Influenza Virus Split 3 Yrs And Above For Intramuscular Use [id number] Given 05/03/2012 Influenza Virus Split 3 Yrs And Above For Intramuscular Use 43544 Given 05/03/2011 Pneumococcal [id number] Vital Signs Date Vital Result Comment 06/09/2020 8:38am BP Systolic 170 mmHg BP Diastolic 80 mmHg Height 67 inches 5'7" Weight 217.00 lb BMI (Body Mass Index) 34.0 kg/m2 [place] Body Weight 148 lb Weight 98.431 kg BSA (Body Surface Area) 2.09 m2 09/12/2013 3:27pm BP Systolic 140 mmHg BP Diastolic 80 mmHg Heart Rate 100 /min O2 % BldC Oximetry 94 % Height 66 inches 5'6" Weight 230.00 lb BMI (Body Mass Index) 37.1 kg/m2 [place] Body Weight 142 lb Weight 104.328 kg BSA (Body Surface Area) 2.12 m2 Results Description No Information Available Procedures Description No Information Available Medical Devices Description No Information Available Encounters Description No Information Available Assessments Description No Information Available Plan of Treatment 06/09/2020 - Fran Cannon M.D.* * Recommendations:* -- EGD -- USG abdomen. Functional Status Description No Information Available Mental Status Description No Information Available Referrals Refer to Reason for Referral Status Appt Date Fran Cannon M.D. GERD WITH ASPIRATION AND TE RTIARY CONTRACTIONS ON ESOPHAGRAM Scheduled 05/18/[address] [place] [address], [facility] [address] [id number] [phone]
--- OUTSIDE RECORDS SUMMARY | 2020-07-09 11:50 | CCD ---
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 Active 04022064 Problem Intervertebral disc disorders with radiculopathy , lumbar region M51.16 Active 799756860241283 Problem Smoking greater than 40 pack years F17.210 Activ e 12490852 Problem Spondylosis of lumbar region without myelopathy or radiculopathy M47.816 Active 04706059 Problem Other specified enthesopathies of right lower li mb, excluding foot M76.891 Active 279687498 Problem Myalgia, other site M79.18 Active 22758061 Problem COPD exacerbation J44.1 Active 233647864 Problem Oropharyngeal dysphagia R13.12 Active 49836270 Problem Lumbar radiculopathy M54.16 Active 783827674 Problem COPD (chronic obstructive pulmonary disease) J44.9 Active 35216608 Problem Gastroesophageal reflux dise ase, unspecified whether esophagitis present K21.9 Active 527394499 Problem Lumbar post-laminectomy syndrome M96.1 Active 124225987 Problem Diabetes E11.9 Active 16124852 Problem Depression F32.9 Active 59462207 Problem Urinary incontinence R32 Active 038511153 Problem Urinary retention R33.9 Active 144309757 Problem UTI (urinary tract infection) N39.0 Active 68 488262 Problem Urinary retention due to benign prostatic hyperplasia N28.89 Active 132542461 ALLERGIES Allergen (clinical drug ingredient) Drug/Non Drug Allergy do cumented on EMR Reaction Allergy Type Onset Date Status Bee venom Dyspnea Non Drug Allergy Active fentanyl Fentanyl([facility] Code:[address]-00) Hives Drug Allergy Active ENCOUNTERS from 1960 to 2020-04-24 Encounter Location Date Provider Diagnosis [facility] [address] [place] [address] Apr Kate Zamora IMMUNIZATIONS Vaccine Route Administration Date Status Influenza [...] Advice Language: Question Answer Notes Languages spoken: Spanish Methodist: Question Answer Notes Methodist 33 None No gnosticism beliefs that would impact health care. Drug [...] REASON FOR REFERRAL No Information VITAL SIGNS No information MEDICATIONS Medication SIG (Take, Route, Frequency, Duration) Notes Start Da te End Date Status Compressor Nebulizer - as directed J44.9 mask and tubing 0 5 Mar, 2020 Active Lancet Device - as directed subcutaneously [...] day for 10 day(s) Jul, Not-Taking Pen [place] 31G X 6 MM as directed subcutaneously [...] Once a day for 5 day(s) 1 Jun, Not-Taking Trulicity 0.75 MG/0.5ML as directed Subcutaneous weekly for 90 day(s) Active PROCEDURES No Information RESULTS No Results REASON FOR VISIT Referral MEDICAL (GENERAL) HISTORY Type Description Date Medical [...] No Information FUNCTIONAL STATUS No Information ASSESSMENTS No Information PLAN OF TREATMENT Medication Medication Name Sig [...] MG 1 tablet Orally Once a day Next Appt Details Provider Name:Yariel Jenkins, 2020-06-03 02:45:00 PM, [address] [place], [address], Provider Name:Kate Zamora, 10-07 04:00:00 PM, [address] [place] [address], [phone], Insurance Providers Payer Name Payer Address Payer Phone Insured Name Patient Relati onship to Insured Coverage Start Date Coverage End Date [facility] [address] [address] [facility] [phone] YIMI ESPINOSA
--- OUTSIDE RECORDS SUMMARY | 2020-07-09 11:51 | CCD ---
Author Author [facility] Organization [facility] Address Unknown Phone Unavailable Care Team Providers Care Loss Prevention Investigator Name Role Phone Jami Joshi MD Unavailable Unavailable Jami Joshi MD Unavailable Unavailable Adi E Jerry HERRERA Unavailable Unavailable Doris-Solange E Jerry HERRERA Unavailable Unavailable Adi E Jerry HERRERA Unavailable Unavailable Adi E Jerry HERRERA Unavailable Unavailable Doris-Solange E Jerry HERRERA Unavailable Unavailable Jami Joshi MD Unavailable Unavailable Adi E Jeryr HERRERA Unavailable Unavailable Jami Joshi MD Unavailable Unavailable Jami Joshi MD Unavailable Unavailable Doris-Solange E Jerry HERRERA Unavailable Unavailable Adi E Jerry HERRERA Unavailable Unavailable Adi E Jerry HERRERA Unavailable Unavailable Jami Joshi MD Unavailable Unavailable Jami Joshi MD Unavailable Unavailable Doris-Solange E Jerry HERRERA Unavailable Unavailable Adi E Jerry HERRERA Unavailable Unavailable Jami Joshi MD Unavailable Unavailable Jami Joshi MD Unavailable Unavailable Jami Joshi MD Unavailable Unavailable Doris-Solange E Jerry HERRERA Unavailable Unavailable Jami Joshi MD Unavailable Unavailable Adi E Jerry HERRERA Unavailable Unavailable Jami Joshi MD Unavailable Unavailable Doris-Solange, E Jerry MD Unavailable Unavailable George-Solange, E Jerry MD Unavailable Unavailable George-Solange, E Jerry MD Unavailable Unavailable George-Solange, E Jerry MD Unavailable Unavailable George-Solange, E Jerry MD Unavailable Unavailable George-Solange, E Jerry MD Unavailable Unavailable George-Solange, E Jerry MD Unavailable Unavailable George-Solange, E Jerry MD Unavailable Unavailable George-Solange, E Jerry MD Unavailable Unavailable George-Solange, E Jerry MD Unavailable Unavailable George-Solange, E Jerry MD Unavailable Unavailable Re-disclosure Warning The records that you are about to access may contain information from federally-assisted alcohol or drug abuse programs. If such information is present, then the following federally mandated warning applies: This information has been disclosed to you from records protected by federal confidentiality rules (42 CFR part 2). The federal rules prohibit you from making any further disclosure of this information unless further disclosure is expressly permitted by the written consent of the person to whom it pertains or as otherwise permitted by 42 CFR part 2. A general authorization for the release of medical or other information is NOT sufficient for this purpose. The Federal rules restrict any use of the information to criminally investigate or prosecute any alcohol or drug abuse patient.The records that you are about to access may contain highly sensitive health information, the redisclosure of which is protected by Article 27-F of the [facility] Public Health law. If you continue you may have access to information: Regarding HIV / AIDS; Provided by facilities licensed or operated by the [facility] Office of Mental Health; or Provided by the [facility] Office for People With Developmental Disabilities. If such information is present, then the following [facility] mandated warning applies: This information has been disclosed to you from confidential records which are protected by state law. State law prohibits you from making any further disclosure of this information without the specific written consent of the person to whom it pertains, or as otherwise permitted by law. Any unauthorized further disclosure in violation of state law may result in a fine or alf sentence or both. A general authorization for the release of medical or other information is NOT sufficient authorization for further disc losure. Allergies and Adverse Reactions Type Description Substance Reaction Status Data Source(s ) Drug allergy Fentanyl Fentanyl Hives Active eCW1 ([facility]) Bee venom Bee venom Bee venom Dyspnea Active eCW1 ([facility]) Bee venom Bee venom Bee venom SOB Active eCW1 ([facility]) Bee venom Bee venom Bee venom SOB Active eCW1 ([facility]) Bee venom Bee venom Bee venom SOB Active eCW1 ([facility]) Bee venom Bee venom Bee venom SOB Active eCW1 ([facility]) Bee venom Bee venom Bee venom SOB Active eCW1 ([facility]) Bee venom Bee venom Bee venom SOB Active eCW1 ([facility]) Bee venom Bee venom Bee venom SOB Active eCW1 ([facility]) Bee venom Bee venom Bee venom SOB Active eCW1 ([facility]) Bee venom Bee venom Bee venom SOB Active eCW1 ([facility]) Bee venom Bee venom Bee venom SOB Active eCW1 ([facility]) Bee venom Bee venom Bee venom SOB Active eCW1 ([facility]) Encounters Encounter Providers Location Date Indications Data Source(s ) Outpatient [address] [facility] [place] [address] 06/03/2020 12:00:00 AM EST eCW1 ([facility]) Unknown [address] [facility] [place] [address] 04/23/2020 12:00:00 AM EST eCW1 ([facility]) Outpatient [address] [facility] [place] [address] 04/09/2020 12:00:00 AM EST eCW1 ([facility]) Outpatient [address] [facility] Y [address] 04/03/2020 12:00:00 AM EST eCW1 ([facility]) Unknown [address] [facility] [place] [address] 03/26/2020 12:00:00 AM EST eCW1 ([facility]) Unknown [address] [facility] [place] [address] 03/11/2020 12:00:00 AM EDT eCW1 ([facility]) [place] [address] [facility] [place] [address] 03/11/2020 12:00:00 AM EDT eCW1 ([facility]) [facility] [address] [facility] [place] [address] 01/09/2020 12:00:00 AM EDT eCW1 ([facility]) [facility] Center [address] [place] [phone] 01/03/2020 12:00:00 AM EDT eCW1 ([facility]) [facility] [address] [facility] Y [address] 10/17/2019 12:00:00 AM EDT eCW1 ([facility]) [facility] [address] [facility] [place] [address] 10/10/2019 12:00:00 AM EDT eCW1 ([facility]) [facility] [address] [facility] [address] 10/08/2019 12:00:00 AM EDT eCW1 ([facility]) [facility] [address] [facility] [place] [address] 10/08/2019 12:00:00 AM EDT eCW1 ([facility]) [facility] [address] [place] [phone] 10/04/2019 12:00:00 AM EDT eCW1 ([facility]) [facility] [address] [facility] [address] 09/25/2019 12:00:00 AM EDT eCW1 ([facility]) [facility] [address] [facility] [place] [address] 09/17/2019 12:00:00 AM EDT eCW1 ([facility]) [facility] [address] [facility] [place] [address] 09/16/2019 12:00:00 AM EDT eCW1 ([facility]) [facility] [address] [facility] [place] [address] 09/16/2019 12:00:00 AM EDT eCW1 ([facility]) [facility] [address] [facility] [place] [address] 09/13/2019 12:00:00 AM EDT eCW1 ([facility]) [facility] [address] [facility] [address] 09/12/2019 12:00:00 AM EDT eCW1 ([facility]) [facility] [address] [facility] [place] [address] 09/11/2019 12:00:00 AM EDT eCW1 ([facility]) [facility] [address] [facility] [address] 08/19/2019 12:00:00 AM EDT eCW1 ([facility]) [facility] [address] [facility] [address] 08/16/2019 12:00:00 AM EDT eCW1 ([facility]) [facility] [address] [facility] [address] 08/15/2019 12:00:00 AM EDT eCW1 ([facility]) [facility] [address] [facility] [address] 08/15/2019 12:00:00 AM EDT eCW1 ([facility]) [facility] [address] [facility] [address] 08/14/2019 12:00:00 AM EDT eCW1 ([facility]) [facility] [address] [facility] [address] 08/09/2019 12:00:00 AM EDT eCW1 ([facility]) [facility] [address] [facility] [address] 08/09/2019 12:00:00 AM EDT eCW1 ([facility]) [facility] [address] [facility] [address] 08/09/2019 12:00:00 AM EDT eCW1 ([facility]) [facility] [address] [facility] [address] 07/24/2019 12:00:00 AM EST eCW1 ([facility]) [facility] [address] [facility] [place] [address] 07/24/2019 12:00:00 AM EST eCW1 ([facility]) [facility] [address] [facility] [place] [address] 07/18/2019 12:00:00 AM EST eCW1 ([facility]) Outpatient Referrer: Jerry Joshi MD 07/16/2019 07: 10:00 AM EST [facility] [address] [facility] [address] 07/16/2019 12:00:00 AM EST eCW1 ([facility]) [facility] [address] [place] [phone] 07/05/2019 12:00:00 AM EST eCW1 ([facility]) [facility] [address] [place] [address], [place] [address] 07/03/2019 12:00:00 AM EST eCW1 ([facility]) [facility] [address] [facility] [place] [address] 07/02/2019 12:00:00 AM EST eCW1 ([facility]) [facility] [address] [facility] [place] [address] 06/21/2019 12:00:00 AM EST eCW1 ([facility]) [facility] [address] [place] [phone] 06/21/2019 12:00:00 AM EST eCW1 ([facility]) [facility] [address] [facility] [place] [address] 06/20/2019 12:00:00 AM EST eCW1 ([facility]) [facility] [address] [facility] [place] [address] 06/05/2019 12:00:00 AM EST eCW1 ([facility]) [facility] [address] [place] [address] 05/28/2019 12:00:00 AM EST eCW1 ([facility]) Immunizations Vaccine Date Status Description Data Source(s) influenza, recombinant, quadrIvalent,injectable, prese rvative free 04/09/2020 07:28:00 AM EST completed eCW1 ([facility]) influenza, recombinant, quadrIvalent,injectable, prese rvative free 04/09/2020 07:28:00 AM EST completed eCW1 ([facility]) influenza, recombinant, quadrIvalent,injectable, prese rvative free 04/09/2020 07:28:00 AM EST completed eCW1 ([facility]) Medications Medication Brand Name Start Date Product Form Dose Route Admi nistrative Instructions Pharmacy Instructions Status Indications Reaction Description Data Source(s) pantoprazole 40 MG Delayed Release Oral Tablet PANTOPRAZOLE SODIUM 06/23/2020 12:00:00 AM EST tablet,delayed release (DR/EC) 30 T CHARLES ONE TABLET BY MOUTH EVERY DAY TAKE ONE TABLET BY MOUTH EVERY DAY SOLD: 06/27/2020 [facility] atorvastatin 80 MG Oral Tablet ATORVASTATIN CALCIUM 04/13/2020 1 2:00:00 AM EST tablet 90 TAKE ONE TABLET BY MOUTH EVERY D AY TAKE ONE TABLET BY MOUTH EVERY DAY SOLD: 04/19/2020 [facility] Metformin hydrochloride 1000 MG Oral Tablet 1,000 mg METFORM IN HCL 04/08/2020 12:00:00 AM EST tablet 180 TAKE ONE TABLET BY MOUTH TWICE A DAY WITH MEALS TAKE ONE TABLET BY MOUTH TWICE A DAY WITH MEALS SOLD: 04/19/2020 [facility] pantoprazole 40 MG Delayed Release Oral Tablet PANTOPRAZOLE SODIUM 03/27/2020 12:00:00 AM EST tablet,delayed release (DR/EC) 30 T CHARLES ONE TABLET BY MOUTH EVERY DAY TAKE ONE TABLET BY MOUTH EVERY DAY SOLD: 04/26/2020 [facility] pantoprazole 40 MG Delayed Release Oral Tablet PANTOPRAZOLE SODIUM 03/27/2020 12:00:00 AM EST tablet,delayed release (DR/EC) 30 T CHARLES ONE TABLET BY MOUTH EVERY DAY TAKE ONE TABLET BY MOUTH EVERY DAY SOLD: 03/28/2020 [facility] pantoprazole 40 MG Delayed Release Oral Tablet PANTOPRAZOLE SODIUM 03/27/2020 12:00:00 AM EST tablet,delayed release (DR/EC) 30 T CHARLES ONE TABLET BY MOUTH EVERY DAY TAKE ONE TABLET BY MOUTH EVERY DAY SOLD: 05/23/2020 [facility] pantoprazole 40 MG Delayed Release Oral Tablet Pantopr azole Sodium 40 MG Pantoprazole Sodium 40 MG 03/26/2020 12:00:00 AM EST 1.0 {tablet} active Pantoprazole Sodium 40 MG [facility]CW[facility] ( [facility]) Compressor Nebulizer - Compressor Nebulizer - 03/26/2020 12:00:[address] active Compressor Nebulizer - eC W1 ([facility]) Compressor Nebulizer - Compressor Nebulizer - 03/26/2020 12:00:[address] suspended Compressor Nebulizer - eC W1 ([facility]) Compressor Nebulizer - Compressor Nebulizer - 03/26/2020 12:00:[address] active Compressor Nebulizer - eC W1 ([facility]) Compressor Nebulizer - Compressor Nebulizer - 03/26/2020 12:00:[address] active Compressor Nebulizer - eC W1 ([facility]) Compressor Nebulizer - Compressor Nebulizer - 03/26/2020 12:00:[address] active Compressor Nebulizer - eC W1 ([facility]) pantoprazole 40 MG Delayed Release Oral Tablet Pantopr azole Sodium 40 MG Pantoprazole Sodium 40 MG 03/26/2020 12:00:00 AM EST 1.0 {tablet} active Pantoprazole Sodium 40 MG eCW1 ( [facility]) 80-4.5 mcg/actuation 03/24/2020 12:00:00 AM EST HFA aerosol inhaler 10 INHALE TWO PUFFS BY MOUTH TWICE A DAY INHALE TWO PUFFS BY MOUTH TWICE A DAY SOLD: 06/27/2020 [facility] 80-4.5 mcg/actuation 03/24/2020 12:00:00 AM EST HFA aerosol inhaler 10 INHALE TWO PUFFS BY MOUTH TWICE A DAY INHALE TWO PUFFS BY MOUTH TWICE A DAY SOLD: 05/23/2020 [facility] 10 mg 12/25/2019 12:00:00 AM EDT tablet 90 TAKE ONE TABLET BY MOUTH EVERY DAY TAKE ONE TABLET BY MOUTH EVERY DAY SOLD: 06/23/2020 [facility] 10 mg 12/25/2019 12:00:00 AM EDT tablet 90 TAKE ONE TABLET BY MOUTH EVERY DAY TAKE ONE TABLET BY MOUTH EVERY DAY SOLD: 12/25/2019 [facility] 80-4.5 mcg/actuation 2019 12:00:00 AM EDT HFA aerosol inhaler 10 INHALE TWO PUFFS BY MOUTH TWICE A DAY INHALE TWO PUFFS BY MOUTH TWICE A DAY SOLD: 02/18/2020 [facility] 80-4.5 mcg/actuation 2019 12:00:00 AM EDT HFA aerosol inhaler 10 INHALE TWO PUFFS BY MOUTH TWICE A DAY INHALE TWO PUFFS BY MOUTH TWICE A DAY SOLD: 2019 [facility] 80-4.5 mcg/actuation 2019 12:00:00 AM EDT HFA aerosol inhaler 10 INHALE TWO PUFFS BY MOUTH TWICE A DAY INHALE TWO PUFFS BY MOUTH TWICE A DAY SOLD: 01/17/2020 [facility] 90 mcg/actuation 12/11/2019 12:00:00 AM EDT HFA aerosol inha ler 8 INHALE ONE PUFF BY MOUTH EVERY 4 HOURS NEEDED INHALE ONE PUFF BY MOUTH EVERY 4 HOURS A S NEEDED SOLD: 12/11/2019 [facility] 90 mcg/actuation 11/06/2019 12:00:00 AM EDT HFA aerosol inha ler 8 INHALE ONE PUFF BY MOUTH EVERY 4 HOURS NEEDED INHALE ONE PUFF BY MOUTH EVERY 4 HOURS A S NEEDED SOLD: 11/09/2019 [facility] Sulfamethoxazole 800 MG / Trimethoprim 1 60 MG Oral Tablet [Bactrim] Bactrim DS 800-160 MG Bactrim DS 800-160 MG 10/21/2019 12:00:00 AM EDT 1.0 {table t} active Bactrim DS 800-160 MG eCW1 ( [facility]) Sulfamethoxazole 800 MG / Trimethoprim 1 60 MG Oral Tablet [Bactrim] Bactrim DS 800-160 MG Bactrim DS 800-160 MG 10/21/2019 12:00:00 AM EDT 1.0 {table t} active Bactrim DS 800-160 MG eCW1 ( [facility]) Sulfamethoxazole 800 MG / Trimethoprim 1 60 MG Oral Tablet [Bactrim] Bactrim DS 800-160 MG Bactrim DS 800-160 MG 10/21/2019 12:00:00 AM EDT 1.0 {table t} active Bactrim DS 800-160 MG eCW1 ( [facility]) Sulfamethoxazole 800 MG / Trimethoprim 1 60 MG Oral Tablet [Bactrim] Bactrim DS 800-160 MG Bactrim DS 800-160 MG 10/21/2019 12:00:00 AM EDT 1.0 {table t} suspended Bactrim DS 800-160 MG eCW1 ( [facility]) Sulfamethoxazole 800 MG / Trimethoprim 1 60 MG Oral Tablet [Bactrim] Bactrim DS 800-160 MG Bactrim DS 800-160 MG 10/21/2019 12:00:00 AM EDT 1.0 {table t} suspended Bactrim DS 800-160 MG eCW1 ( [facility]) 800-160 mg 10/21/2019 12:00:00 AM EDT tablet 20 TAKE ONE TABLET BY MOUTH TWICE A DAY TAKE ONE TABLET BY MOUTH TWICE A DAY SOLD: 10/21/2019 [facility] Sulfamethoxazole 800 MG / Trimethoprim 1 60 MG Oral Tablet [Bactrim] Bactrim DS 800-160 MG Bactrim DS 800-160 MG 10/21/2019 12:00:00 AM EDT active 1 tablet eCW1 ([facility]) atorvastatin 80 MG Oral Tablet ATORVASTATIN CALCIUM 10/21/2019 1 2:00:00 AM EDT tablet 90 TAKE ONE TABLET BY MOUTH EVERY D AY TAKE ONE TABLET BY MOUTH EVERY DAY SOLD: 10/21/2019 [facility] Sulfamethoxazole 800 MG / Trimethoprim 1 60 MG Oral Tablet [Bactrim] Bactrim DS 800-160 MG Bactrim DS 800-160 MG 10/21/2019 12:00:00 AM EDT 1.0 {table t} suspended Bactrim DS 800-160 MG eCW1 ( [facility]) Sulfamethoxazole 800 MG / Trimethoprim 1 60 MG Oral Tablet [Bactrim] Bactrim DS 800-160 MG Bactrim DS 800-160 MG 10/21/2019 12:00:00 AM EDT 1.0 {table t} active Bactrim DS 800-160 MG eCW1 ( [facility]) atorvastatin 80 MG Oral Tablet ATORVASTATIN CALCIUM 10/21/2019 1 2:00:00 AM EDT tablet 90 TAKE ONE TABLET BY MOUTH EVERY D AY TAKE ONE TABLET BY MOUTH EVERY DAY SOLD: 01/17/2020 [facility] 1,000 mg 10/10/2019 12:00:00 AM EDT tablet 180 TAKE ONE TABLET BY MOUTH TWICE A DAY WITH MEALS TAKE ONE TABLET BY MOUTH TWICE A DAY WITH MEALS SOLD: 01/12/2020 [facility] 1,000 mg 10/10/2019 12:00:00 AM EDT tablet 180 TAKE ONE TABLET BY MOUTH TWICE A DAY WITH MEALS TAKE ONE TABLET BY MOUTH TWICE A DAY WITH MEALS SOLD: 10/11/2019 [facility] Levofloxacin 500 MG Oral Tablet Levofloxacin 500 MG 09/16/2019 1 2:00:00 AM EDT active 1 tablet eCW1 ([facility]) 500 mg 09/16/2019 12:00:00 AM EDT tablet 10 TAKE ONE TABLET BY MOUTH EVERY DAY FOR 10 DAYS TAKE ONE TABLET BY MOUTH EVERY DAY FOR 10 DAYS SOLD: 020 [facility] 10 mg 09/06/2019 12:00:00 AM EDT tablet 90 TAKE ONE TABLET BY MOUTH EVERY DAY TAKE ONE TABLET BY MOUTH EVERY DAY SOLD: 09/06/2019 [facility] 90 mcg/actuation 09/06/2019 12:00:00 AM EDT HFA aerosol inha ler 8 INHALE ONE PUFF BY MOUTH EVERY 4 HOURS NEEDED INHALE ONE PUFF BY MOUTH EVERY 4 HOURS A S NEEDED SOLD: 09/06/2019 [facility] Sulfamethoxazole 800 MG / Trimethoprim 1 60 MG Oral Tablet Sulfamethoxazole- Trimethoprim 800-160 MG Sulfamethoxazole-Trimethoprim 800-160 MG 08/16/2019 12:00:00 AM EDT 1.0 {tablet} suspended Sulfamethoxazole-Trimethoprim 800-160 MG eCW1 ([facility]) Sulfamethoxazole 800 MG / Trimethoprim 1 60 MG Oral Tablet Sulfamethoxazole- Trimethoprim 800-160 MG Sulfamethoxazole-Trimethoprim 800-160 MG 08/16/2019 12:00:00 AM EDT 1.0 {tablet} suspended Sulfamethoxazole-Trimethoprim 800-160 MG eCW1 ([facility]) Sulfamethoxazole 800 MG / Trimethoprim 1 60 MG Oral Tablet Sulfamethoxazole- Trimethoprim 800-160 MG Sulfamethoxazole-Trimethoprim 800-160 MG 08/16/2019 12:00:00 AM EDT 1.0 {tablet} suspended Sulfamethoxazole-Trimethoprim 800-160 MG eCW1 ([facility]) Sulfamethoxazole 800 MG / Trimethoprim 1 60 MG Oral Tablet Sulfamethoxazole- Trimethoprim 800-160 MG Sulfamethoxazole-Trimethoprim 800-160 MG 08/16/2019 12:00:00 AM EDT active 1 tablet eCW1 ([facility]) Sulfamethoxazole 800 MG / Trimethoprim 1 60 MG Oral Tablet Sulfamethoxazole- Trimethoprim 800-160 MG Sulfamethoxazole-Trimethoprim 800-160 MG 08/16/2019 12:00:00 AM EDT active 1 tablet eCW1 ([facility]) 800-160 mg 08/16/2019 12:00:00 AM EDT tablet 20 TAKE ONE TABLET BY MOUTH TWICE A DAY FOR 10 DAYS TAKE ONE TABLET BY MOUTH TWICE A DAY FOR 10 DAYS SOLD: 08/16/2019 [facility] Sulfamethoxazole 800 MG / Trimethoprim 1 60 MG Oral Tablet Sulfamethoxazole- Trimethoprim 800-160 MG Sulfamethoxazole-Trimethoprim 800-160 MG 08/16/2019 12:00:00 AM EDT 1.0 {tablet} suspended Sulfamethoxazole-Trimethoprim 800-160 MG eCW1 ([facility]) Sulfamethoxazole 800 MG / Trimethoprim 1 60 MG Oral Tablet Sulfamethoxazole- Trimethoprim 800-160 MG Sulfamethoxazole-Trimethoprim 800-160 MG 08/16/2019 12:00:00 AM EDT active 1 tablet eCW1 ([facility]) Sulfamethoxazole 800 MG / Trimethoprim 1 60 MG Oral Tablet Sulfamethoxazole- Trimethoprim 800-160 MG Sulfamethoxazole-Trimethoprim 800-160 MG 08/16/2019 12:00:00 AM EDT suspended 1 tab let eCW1 ([facility]) Sulfamethoxazole 800 MG / Trimethoprim 1 60 MG Oral Tablet Sulfamethoxazole- Trimethoprim 800-160 MG Sulfamethoxazole-Trimethoprim 800-160 MG 08/16/2019 12:00:00 AM EDT 1.0 {tablet} suspended Sulfamethoxazole-Trimethoprim 800-160 MG eCW1 ([facility]) Sulfamethoxazole 800 MG / Trimethoprim 1 60 MG Oral Tablet Sulfamethoxazole- Trimethoprim 800-160 MG Sulfamethoxazole-Trimethoprim 800-160 MG 08/16/2019 12:00:00 AM EDT active 1 tablet eCW1 ([facility]) Sulfamethoxazole 800 MG / Trimethoprim 1 60 MG Oral Tablet Sulfamethoxazole- Trimethoprim 800-160 MG Sulfamethoxazole-Trimethoprim 800-160 MG 08/16/2019 12:00:00 AM EDT 1.0 {tablet} suspended Sulfamethoxazole-Trimethoprim 800-160 MG eCW1 ([facility]) Sulfamethoxazole 800 MG / Trimethoprim 1 60 MG Oral Tablet Sulfamethoxazole- Trimethoprim 800-160 MG Sulfamethoxazole-Trimethoprim 800-160 MG 08/16/2019 12:00:00 AM EDT 1.0 {tablet} suspended Sulfamethoxazole-Trimethoprim 800-160 MG eCW1 ([facility]) Sulfamethoxazole 800 MG / Trimethoprim 1 60 MG Oral Tablet Sulfamethoxazole- Trimethoprim 800-160 MG Sulfamethoxazole-Trimethoprim 800-160 MG 08/16/2019 12:00:00 AM EDT active 1 tablet eCW1 ([facility]) Phenazopyridine hydrochloride 200 MG Oral Tablet Phena zopyridine HCl 200 MG Phenazopyridine HCl 200 MG 08/09/2019 12:00:00 AM EDT active 1 tablet after meals eCW1 ([facility]) Phenazopyridine hydrochloride 200 MG Oral Tablet Phena zopyridine HCl 200 MG Phenazopyridine HCl 200 MG 08/09/2019 12:00:00 AM EDT active 1 tablet after meals eCW1 ([facility]) 0.75 mg/0.5 mL 08/08/2019 12:00:00 AM EDT pen injector 2 INJECT DIRECTED WEEKLY UNDER THE SKIN INJECT DIRECTED WEEKLY UNDER THE SKIN SOLD: 09/02/2019 [facility] 0.75 mg/0.5 mL 08/08/2019 12:00:00 AM EDT pen injector 2 INJECT DIRECTED WEEKLY UNDER THE SKIN INJECT DIRECTED WEEKLY UNDER THE SKIN SOLD: 08/09/2019 [facility] Sulfamethoxazole 800 MG / Trimethoprim 1 60 MG Oral Tablet [Bactrim] Bactrim DS 800-160 MG Bactrim DS 800-160 MG 07/18/2019 12:00:00 AM EST 1.0 {table t} suspended Bactrim DS 800-160 MG eCW1 ( [facility]) Sulfamethoxazole 800 MG / Trimethoprim 1 60 MG Oral Tablet [Bactrim] Bactrim DS 800-160 MG Bactrim DS 800-160 MG 07/18/2019 12:00:00 AM EST active 1 tablet eCW1 ([facility]) Sulfamethoxazole 800 MG / Trimethoprim 1 60 MG Oral Tablet [Bactrim] Bactrim DS 800-160 MG Bactrim DS 800-160 MG 07/18/2019 12:00:00 AM EST suspended 1 tablet eCW1 ([facility]) Sulfamethoxazole 800 MG / Trimethoprim 1 60 MG Oral Tablet [Bactrim] Bactrim DS 800-160 MG Bactrim DS 800-160 MG 07/18/2019 12:00:00 AM EST 1.0 {table t} suspended Bactrim DS 800-160 MG [facility] ( [facility] Sulfamethoxazole 800 MG / Trimethoprim 1 60 MG Oral Tablet [Bactrim] Bactrim DS 800-160 MG Bactrim DS 800-160 MG 07/18/2019 12:00:00 AM EST active 1 tablet eCW1 ([facility]) 800-160 mg 07/18/2019 12:00:00 AM EST tablet 20 TAKE ONE TABLET BY MOUTH TWICE A DAY TAKE ONE TABLET BY MOUTH TWICE A DAY SOLD: 07/18/2019 [facility] Sulfamethoxazole 800 MG / Trimethoprim 1 60 MG Oral Tablet [Bactrim] Bactrim DS 800-160 MG Bactrim DS 800-160 MG 07/18/2019 12:00:00 AM EST suspended 1 tablet eCW1 ([facility]) Sulfamethoxazole 800 MG / Trimethoprim 1 60 MG Oral Tablet [Bactrim] Bactrim DS 800-160 MG Bactrim DS 800-160 MG 07/18/2019 12:00:00 AM EST 1.0 {table t} suspended Bactrim DS 800-160 MG eCW1 ( [facility] Sulfamethoxazole 800 MG / Trimethoprim 1 60 MG Oral Tablet [Bactrim] Bactrim DS 800-160 MG Bactrim DS 800-160 MG 07/18/2019 12:00:00 AM EST 1.0 {table t} suspended Bactrim DS 800-160 MG eCW1 ( [facility] Sulfamethoxazole 800 MG / Trimethoprim 1 60 MG Oral Tablet [Bactrim] Bactrim DS 800-160 MG Bactrim DS 800-160 MG 07/18/2019 12:00:00 AM EST suspended 1 tablet eCW1 ([facility]) Sulfamethoxazole 800 MG / Trimethoprim 1 60 MG Oral Tablet [Bactrim] Bactrim DS 800-160 MG Bactrim DS 800-160 MG 07/18/2019 12:00:00 AM EST 1.0 {table t} suspended Bactrim DS 800-160 MG eCW1 ( [facility]) Sulfamethoxazole 800 MG / Trimethoprim 1 60 MG Oral Tablet [Bactrim] Bactrim DS 800-160 MG Bactrim DS 800-160 MG 07/18/2019 12:00:00 AM EST suspended 1 tablet eCW1 ([facility]) Sulfamethoxazole 800 MG / Trimethoprim 1 60 MG Oral Tablet [Bactrim] Bactrim DS 800-160 MG Bactrim DS 800-160 MG 07/18/2019 12:00:00 AM EST suspended 1 tablet eCW1 ([facility]) Sulfamethoxazole 800 MG / Trimethoprim 1 60 MG Oral Tablet [Bactrim] Bactrim DS 800-160 MG Bactrim DS 800-160 MG 07/18/2019 12:00:00 AM EST 1.0 {table t} suspended Bactrim DS 800-160 MG eCW1 ( [facility] Sulfamethoxazole 800 MG / Trimethoprim 1 60 MG Oral Tablet [Bactrim] Bactrim DS 800-160 MG Bactrim DS 800-160 MG 07/18/2019 12:00:00 AM EST suspended 1 tablet eCW1 ([facility]) Sulfamethoxazole 800 MG / Trimethoprim 1 60 MG Oral Tablet [Bactrim] Bactrim DS 800-160 MG Bactrim DS 800-160 MG 07/18/2019 12:00:00 AM EST 1.0 {table t} suspended Bactrim DS 800-160 MG eCW1 ( [facility] Sulfamethoxazole 800 MG / Trimethoprim 1 60 MG Oral Tablet [Bactrim] Bactrim DS 800-160 MG Bactrim DS 800-160 MG 07/16/2019 12:00:00 AM EST suspended 1 tablet 1 hour prior to your cystoscopy eCW1 ([facility]) Sulfamethoxazole 800 MG / Trimethoprim 1 60 MG Oral Tablet [Bactrim] Bactrim DS 800-160 MG Bactrim DS 800-160 MG 07/16/2019 12:00:00 AM EST suspended 1 tablet 1 hour prior to your cystoscopy eCW1 ([facility]) Sulfamethoxazole 800 MG / Trimethoprim 1 60 MG Oral Tablet [Bactrim] Bactrim DS 800-160 MG Bactrim DS 800-160 MG 07/16/2019 12:00:00 AM EST suspended Bactrim DS 800-160 MG eCW1 ([facility]) Sulfamethoxazole 800 MG / Trimethoprim 1 60 MG Oral Tablet [Bactrim] Bactrim DS 800-160 MG Bactrim DS 800-160 MG 07/16/2019 12:00:00 AM EST suspended 1 tablet 1 hour prior to your cystoscopy eCW1 ([facility]) Sulfamethoxazole 800 MG / Trimethoprim 1 60 MG Oral Tablet [Bactrim] Bactrim DS 800-160 MG Bactrim DS 800-160 MG 07/16/2019 12:00:00 AM EST suspended Bactrim DS 800-160 MG eCW1 ([facility]) Sulfamethoxazole 800 MG / Trimethoprim 1 60 MG Oral Tablet [Bactrim] Bactrim DS 800-160 MG Bactrim DS 800-160 MG 07/16/2019 12:00:00 AM EST suspended Bactrim DS 800-160 MG eCW1 ([facility]) Sulfamethoxazole 800 MG / Trimethoprim 1 60 MG Oral Tablet [Bactrim] Bactrim DS 800-160 MG Bactrim DS 800-160 MG 07/16/2019 12:00:00 AM EST suspended Bactrim DS 800-160 MG eCW1 ([facility]) Sulfamethoxazole 800 MG / Trimethoprim 1 60 MG Oral Tablet [Bactrim] Bactrim DS 800-160 MG Bactrim DS 800-160 MG 07/16/2019 12:00:00 AM EST suspended 1 tablet 1 hour prior to your cystoscopy eCW1 ([facility]) Sulfamethoxazole 800 MG / Trimethoprim 1 60 MG Oral Tablet [Bactrim] Bactrim DS 800-160 MG Bactrim DS 800-160 MG 07/16/2019 12:00:00 AM EST suspended 1 tablet 1 hour prior to your cystoscopy eCW1 ([facility]) Sulfamethoxazole 800 MG / Trimethoprim 1 60 MG Oral Tablet [Bactrim] Bactrim DS 800-160 MG Bactrim DS 800-160 MG 07/16/2019 12:00:00 AM EST suspended 1 tablet 1 hour prior to your cystoscopy eCW1 ([facility]) 800-160 mg 07/16/2019 12:00:00 AM EST tablet 1 TAKE 1 TABLET BY MOUTH 1 HOUR PRIOR TO YOUR CYSTOSCOPY TAKE 1 TABLET BY MOUTH 1 HOUR PRIOR TO Y OUR CYSTOSCOPY SOLD: 07/16/2019 [facility] Sulfamethoxazole 800 MG / Trimethoprim 1 60 MG Oral Tablet [Bactrim] Bactrim DS 800-160 MG Bactrim DS 800-160 MG 07/16/2019 12:00:00 AM EST active 1 tablet 1 hour prior to your cystoscopy eCW1 ([facility]) Sulfamethoxazole 800 MG / Trimethoprim 1 60 MG Oral Tablet [Bactrim] Bactrim DS 800-160 MG Bactrim DS 800-160 MG 07/16/2019 12:00:00 AM EST suspended Bactrim DS 800-160 MG eCW1 ([facility]) Sulfamethoxazole 800 MG / Trimethoprim 1 60 MG Oral Tablet [Bactrim] Bactrim DS 800-160 MG Bactrim DS 800-160 MG 07/16/2019 12:00:00 AM EST suspended Bactrim DS 800-160 MG eCW1 ([facility]) Sulfamethoxazole 800 MG / Trimethoprim 1 60 MG Oral Tablet [Bactrim] Bactrim DS 800-160 MG Bactrim DS 800-160 MG 07/16/2019 12:00:00 AM EST active 1 tablet 1 hour prior to your cystoscopy eCW1 ([facility]) Sulfamethoxazole 800 MG / Trimethoprim 1 60 MG Oral Tablet [Bactrim] Bactrim DS 800-160 MG Bactrim DS 800-160 MG 07/16/2019 12:00:00 AM EST suspended Bactrim DS 800-160 MG eCW1 ([facility]) 80-4.5 mcg/actuation 07/08/2019 12:00:00 AM EST HFA aerosol inhaler 10 INHALE TWO PUFFS BY MOUTH TWICE A DAY INHALE TWO PUFFS BY MOUTH TWICE A DAY SOLD: 09/02/2019 [facility] 80-4.5 mcg/actuation 07/08/2019 12:00:00 AM EST HFA aerosol inhaler 10 INHALE TWO PUFFS BY MOUTH TWICE A DAY INHALE TWO PUFFS BY MOUTH TWICE A DAY SOLD: 11/05/2019 [facility] 80-4.5 mcg/actuation 07/08/2019 12:00:00 AM EST HFA aerosol inhaler 10 INHALE TWO PUFFS BY MOUTH TWICE A DAY INHALE TWO PUFFS BY MOUTH TWICE A DAY SOLD: 07/16/2019 [facility] Prednisone 20 MG Oral Tablet PredniSONE 20 MG PredniSONE 20 MG 07/02/2019 12:00:00 AM EST suspended 2 tab let [facility]CW[facility] Prednisone 20 MG Oral Tablet PredniSONE 20 MG PredniSONE 20 MG 07/02/2019 12:00:00 AM EST suspended 2 tab let eCW1 ([facility]) 90 mcg/actuation 07/02/2019 12:00:00 AM EST HFA aerosol inha ler 8 INHALE ONE PUFF BY MOUTH EVERY 4 HOURS NEEDED INHALE ONE PUFF BY MOUTH EVERY 4 HOURS A S NEEDED SOLD: 07/02/2019 [facility] Prednisone 20 MG Oral Tablet PredniSONE 20 MG PredniSONE 20 MG 07/02/2019 12:00:00 AM EST 2.0 {tablet} suspended PredniSONE 20 MG eCW1 ([facility]) Prednisone 20 MG Oral Tablet PredniSONE 20 MG PredniSONE 20 MG 07/02/2019 12:00:00 AM EST suspended 2 tab let eCW1 ([facility]) Amoxicillin 875 MG / Clavulanate 125 MG Oral Tablet Amoxicillin-Pot Clavulanate 875-125 MG Amoxicillin-Pot Clavulanate 875-125 MG 07/02/2019 12:00:00 AM ES T 1.0 {tablet} suspended Amoxicillin-Pot C lavulanate 875-125 MG eCW1 ([facility]) Amoxicillin 875 MG / Clavulanate 125 MG Oral Tablet Amoxicillin-Pot Clavulanate 875-125 MG Amoxicillin-Pot Clavulanate 875-125 MG 07/02/2019 12:00:00 AM ES T suspended 1 tablet eCW1 ([facility]) Albuterol Sulfate HFA 108 (90 Base) MCG/ACT Albuterol Sulfate HFA 108 (90 Base) MCG/ACT 07/02/2019 12:00:00 AM EST active 1 puff as needed eCW1 ([facility]) Prednisone 20 MG Oral Tablet PredniSONE 20 MG PredniSONE 20 MG 07/02/2019 12:00:00 AM EST 2.0 {tablet} suspended PredniSONE 20 MG eCW1 ([facility]) Amoxicillin 875 MG / Clavulanate 125 MG Oral Tablet Amoxicillin-Pot Clavulanate 875-125 MG Amoxicillin-Pot Clavulanate 875-125 MG 07/02/2019 12:00:00 AM ES T suspended 1 tablet eCW1 ([facility]) Prednisone 20 MG Oral Tablet PredniSONE 20 MG PredniSONE 20 MG 07/02/2019 12:00:00 AM EST suspended 2 tab let eCW1 ([facility]) Albuterol Sulfate HFA 108 (90 Base) MCG/ACT Albuterol Sulfate HFA 108 (90 Base) MCG/ACT 07/02/2019 12:00:00 AM EST active 1 puff as needed eCW1 ([facility]) Amoxicillin 875 MG / Clavulanate 125 MG Oral Tablet Amoxicillin-Pot Clavulanate 875-125 MG Amoxicillin-Pot Clavulanate 875-125 MG 07/02/2019 12:00:00 AM ES T 1.0 {tablet} suspended Amoxicillin-Pot C lavulanate 875-125 MG eCW1 ([facility]) Prednisone 20 MG Oral Tablet PredniSONE 20 MG PredniSONE 20 MG 07/02/2019 12:00:00 AM EST suspended 2 tab let eCW1 ([facility]) Prednisone 20 MG Oral Tablet PredniSONE 20 MG PredniSONE 20 MG 07/02/2019 12:00:00 AM EST 2.0 {tablet} suspended PredniSONE 20 MG eCW1 ([facility] Prednisone 20 MG Oral Tablet PredniSONE 20 MG PredniSONE 20 MG 07/02/2019 12:00:00 AM EST suspended 2 tab let eCW1 ([facility]) Amoxicillin 875 MG / Clavulanate 125 MG Oral Tablet Amoxicillin-Pot Clavulanate 875-125 MG Amoxicillin-Pot Clavulanate 875-125 MG 07/02/2019 12:00:00 AM ES T active 1 tablet eCW1 ([facility] Prednisone 20 MG Oral Tablet PredniSONE 20 MG PredniSONE 20 MG 07/02/2019 12:00:00 AM EST active 2 tablet eCW1 ([facility]) Amoxicillin 875 MG / Clavulanate 125 MG Oral Tablet Amoxicillin-Pot Clavulanate 875-125 MG Amoxicillin-Pot Clavulanate 875-125 MG 07/02/2019 12:00:00 AM ES T suspended 1 tablet eCW1 ([facility]) Amoxicillin 875 MG / Clavulanate 125 MG Oral Tablet Amoxicillin-Pot Clavulanate 875-125 MG Amoxicillin-Pot Clavulanate 875-125 MG 07/02/2019 12:00:00 AM ES T suspended 1 tablet eCW1 ([facility]) Albuterol Sulfate HFA 108 (90 Base) MCG/ACT Albuterol Sulfate HFA 108 (90 Base) MCG/ACT 07/02/2019 12:00:00 AM EST active 1 puff as needed eCW1 ([facility]) Amoxicillin 875 MG / Clavulanate 125 MG Oral Tablet Amoxicillin-Pot Clavulanate 875-125 MG Amoxicillin-Pot Clavulanate 875-125 MG 07/02/2019 12:00:00 AM ES T suspended 1 tablet eCW1 ([facility]) Amoxicillin 875 MG / Clavulanate 125 MG Oral Tablet Amoxicillin-Pot Clavulanate 875-125 MG Amoxicillin-Pot Clavulanate 875-125 MG 07/02/2019 12:00:00 AM ES T 1.0 {tablet} suspended Amoxicillin-Pot C lavulanate 875-125 MG eCW1 ([facility]) Amoxicillin 875 MG / Clavulanate 125 MG Oral Tablet Amoxicillin-Pot Clavulanate 875-125 MG Amoxicillin-Pot Clavulanate 875-125 MG 07/02/2019 12:00:00 AM ES T 1.0 {tablet} suspended Amoxicillin-Pot C lavulanate 875-125 MG eCW1 ([facility]) Prednisone 20 MG Oral Tablet PredniSONE 20 MG PredniSONE 20 MG 07/02/2019 12:00:00 AM EST 2.0 {tablet} suspended PredniSONE 20 MG eCW1 ([facility]) Amoxicillin 875 MG / Clavulanate 125 MG Oral Tablet Amoxicillin-Pot Clavulanate 875-125 MG Amoxicillin-Pot Clavulanate 875-125 MG 07/02/2019 12:00:00 AM ES T active 1 tablet eCW1 ([facility]) Prednisone 20 MG Oral Tablet PredniSONE 20 MG PredniSONE 20 MG 07/02/2019 12:00:00 AM EST suspended 2 tab let eCW1 ([facility]) Albuterol Sulfate HFA 108 (90 Base) MCG/ACT Albuterol Sulfate HFA 108 (90 Base) MCG/ACT 07/02/2019 12:00:00 AM EST active 1 puff as needed eCW1 ([facility]) Albuterol Sulfate HFA 108 (90 Base) MCG/ACT Albuterol Sulfate HFA 108 (90 Base) MCG/ACT 07/02/2019 12:00:00 AM EST active 1 puff as needed eCW1 ([facility]) Amoxicillin 875 MG / Clavulanate 125 MG Oral Tablet Amoxicillin-Pot Clavulanate 875-125 MG Amoxicillin-Pot Clavulanate 875-125 MG 07/02/2019 12:00:00 AM ES T 1.0 {tablet} suspended Amoxicillin-Pot C lavulanate 875-125 MG eCW1 ([facility]) Prednisone 20 MG Oral Tablet PredniSONE 20 MG PredniSONE 20 MG 07/02/2019 12:00:00 AM EST active 2 tablet eCW1 ([facility]) Prednisone 20 MG Oral Tablet PredniSONE 20 MG PredniSONE 20 MG 07/02/2019 12:00:00 AM EST 2.0 {tablet} suspended PredniSONE 20 MG eCW1 ([facility]) Amoxicillin 875 MG / Clavulanate 125 MG Oral Tablet Amoxicillin-Pot Clavulanate 875-125 MG Amoxicillin-Pot Clavulanate 875-125 MG 07/02/2019 12:00:00 AM ES T 1.0 {tablet} suspended Amoxicillin-Pot C lavulanate 875-125 MG eCW1 ([facility]) 20 mg 07/02/2019 12:00:00 AM EST tablet 10 TAKE TWO TABLETS BY MOUTH EVERY DAY FOR 5 DAYS TAKE TWO TABLETS BY MOUTH EVERY DAY FOR 5 DAYS SOLD: 020 [facility] Prednisone 20 MG Oral Tablet PredniSONE 20 MG PredniSONE 20 MG 07/02/2019 12:00:00 AM EST 2.0 {tablet} suspended PredniSONE 20 MG eCW1 ([facility] Prednisone 20 MG Oral Tablet PredniSONE 20 MG PredniSONE 20 MG 07/02/2019 12:00:00 AM EST 2.0 {tablet} suspended PredniSONE 20 MG eCW1 ([facility]) Amoxicillin 875 MG / Clavulanate 125 MG Oral Tablet Amoxicillin-Pot Clavulanate 875-125 MG Amoxicillin-Pot Clavulanate 875-125 MG 07/02/2019 12:00:00 AM ES T suspended 1 tablet eCW1 ([facility]) Amoxicillin 875 MG / Clavulanate 125 MG Oral Tablet Amoxicillin-Pot Clavulanate 875-125 MG Amoxicillin-Pot Clavulanate 875-125 MG 07/02/2019 12:00:00 AM ES T 1.0 {tablet} suspended Amoxicillin-Pot C lavulanate 875-125 MG eCW1 ([facility]) 875-125 mg 07/02/2019 12:00:00 AM EST tablet 20 TAKE ONE TABLET BY MOUTH EVERY 12 HOURS FOR 10 DAYS TAKE ONE TABLET BY MOUTH EVERY 12 HOURS FOR 10 DAYS SOLD: 07/02/2019 [facility] Amoxicillin 875 MG / Clavulanate 125 MG Oral Tablet Amoxicillin-Pot Clavulanate 875-125 MG Amoxicillin-Pot Clavulanate 875-125 MG 07/02/2019 12:00:00 AM ES T suspended 1 tablet eCW1 ([facility]) Amoxicillin 875 MG / Clavulanate 125 MG Oral Tablet Amoxicillin-Pot Clavulanate 875-125 MG Amoxicillin-Pot Clavulanate 875-125 MG 07/02/2019 12:00:00 AM ES T suspended 1 tablet eCW1 ([facility]) Prednisone 20 MG Oral Tablet PredniSONE 20 MG PredniSONE 20 MG 07/02/2019 12:00:00 AM EST suspended 2 tab let eCW1 [facility] 0.4 mg 06/05/2019 12:00:00 AM EST capsule 90 TAKE ONE CAPSULE BY MOUTH EVERY DAY TAKE ONE CAPSULE BY MOUTH EVERY DAY SOLD: 09/02/2019 [facility] 0.4 mg 06/05/2019 12:00:00 AM EST capsule 90 TAKE ONE CAPSULE BY MOUTH EVERY DAY TAKE ONE CAPSULE BY MOUTH EVERY DAY SOLD: 06/08/2019 [facility] 10 mg 05/31/2019 12:00:00 AM EST tablet 90 TAKE ONE TABLET BY MOUTH EVERY DAY TAKE ONE TABLET BY MOUTH EVERY DAY SOLD: 05/31/2019 [facility] 80-4.5 mcg/actuation 05/31/2019 12:00:00 AM EST HFA aerosol inhaler 10 INHALE TWO PUFFS BY MOUTH TWICE A DAY INHALE TWO PUFFS BY MOUTH TWICE A DAY SOLD: 05/31/2019 [facility] 80 mg 04/30/2019 12:00:00 AM EST tablet 90 TAKE ONE TABLET BY MOUTH EVERY DAY TAKE ONE TABLET BY MOUTH EVERY DAY SOLD: 07/27/2019 [facility] 1,000 mg 04/09/2019 12:00:00 AM EST tablet 180 TAKE ONE TABLET BY MOUTH TWICE A DAY WITH MEALS TAKE ONE TABLET BY MOUTH TWICE A DAY WITH MEALS SOLD: 07/16/2019 [facility] 0.4 mg 03/21/2019 12:00:00 AM EDT capsule 30 TAKE ONE CAPSULE BY MOUTH EVERY DAY TAKE ONE CAPSULE BY MOUTH EVERY DAY SOLD: 05/16/2019 [facility] BLOOD SUGAR DIAGNOSTIC 03/13/2019 12:00:00 AM EDT strip 50 INJECT TWO TIMES A DAY INJECT TWO TIMES A DAY SOLD: 07/16/2019 [facility] BLOOD SUGAR DIAGNOSTIC 03/13/2019 12:00:00 AM EDT strip 50 INJECT TWO TIMES A DAY INJECT TWO TIMES A DAY SOLD: 06/23/2019 [facility] BLOOD SUGAR DIAGNOSTIC 03/13/2019 12:00:00 AM EDT strip 50 INJECT TWO TIMES A DAY INJECT TWO TIMES A DAY SOLD: 05/31/2019 [facility] 0.75 mg/0.5 mL 12/25/2018 12:00:00 AM EDT pen injector 2 DIRECTED INJECT ONCE WEEKLY SUBCUTANEOUSLY DIRECTED INJECT ONCE WEEKLY SUBCUTANEOUSLY SOLD: 06/23/2019 [facility] Insurance Providers Payer name Policy type / Coverage type Policy ID Covered libertarian ID Covered libertarian's relationship to mcneal Policy Mcneal Plan Information HUMANA GOLD [id number] SP [id number] PMA MANAGEMENT JOSEFA [id number] SP [id number] HUMANA GOLD [id number] SP [id number] PMA MANAGEMENT JOSEFA UNAVAILABLE SP UNAVAILABLE WELLCARE [id number] SP [id number] PMA MANAGEMENT JOSEFA [id number] SP [id number] WELLCARE [id number] SP [id number] WELLCARE [id number] SP [id number] WELLCARE O [id number] S [id number] ANSI-Medicare Part B [id number] ANSI-Medicare Part B [id number] ANSI-Medicare Part B [id number] ANSI-Not a Secondary Insurance [id number] ANSI-Health Maintenance Organization ( O) [id number] ANSI-Medicare Part B [id number] ANSI-Medicare Part B [id number] ANSI-Medicare Part B [id number] ANSI-Not a Secondary Insurance [id number] ANSI-Health Maintenance Organization ( O) [id number] ANSI-Medicare Part B [id number] ANSI-Medicare Part B [id number] ANSI-Health Maintenance Organization ( O) [id number] ANSI-Medicare Part B [id number] ANSI-Not a Secondary Insurance [id number] ANSI-Medicare Part B [id number] ANSI-Medicare Part B [id number] ANSI-Health Maintenance Organization (HM O) [id number] ANSI-Medicare Part B [id number] ANSI-Not a Secondary Insurance [id number] [id number] [id number] [employer] [place] [id number] [place] [id number] ANSI-Health Maintenance Organization (HM O) [id number] ANSI-Medicare Part B [id number] ANSI-Medicare Part B [id number] ANSI-Not a Secondary Insurance [id number] ANSI-Medicare Part B [id number] ANSI-Medicare Part B [id number] ANSI-Not a Secondary Insurance [id number] ANSI-Medicare Part B [id number] ANSI-Health Maintenance Organization ( O) [id number] ANSI-Medicare Part B [id number] ANSI-Health Maintenance Organization (HM O) [id number] ANSI-Medicare Part B [id number] ANSI-Medicare Part B [id number] ANSI-Not a Secondary Insurance [id number] ANSI-Medicare Part B [id number] ANSI-Health Maintenance Organization ( O) [id number] ANSI-Medicare Part B [id number] ANSI-Not a Secondary Insurance [id number] ANSI-Medicare Part B [id number] ANSI-Medicare Part B [id number] ANSI-Medicare Part B [id number] ANSI-Medicare Part B 5lpksl8i-q64z-778m-r030-x21amo12838z 7tzxqp0p-s61s-807c-g379-t20qdg10440w ANSI-Not a Secondary Insurance 868u3wu3-09z9-68uo-qb2r-7keo4 r5um80z 586h3si7-84z6-36pi-oi2t-5yoz8l8mk54m ANSI-Medicare Part B [id number]-hq77-6050-9g23-8f248mr0241j 91038622-ym32-0634-8b12-7z961rq1784g ANSI-Health Maintenance Organization ( O) 66oz82ou-u7ec-2qx7-1994-2trgysom21l2 49xj31uo-o8dr-7ju9-7886-6zcnnxis20x6 ANSI-Medicare Part B o3d8623e-47g4-6580-7he9-520u4qk0451v t6v9940e-75z7-8942-7xm0-959l6ny9290x ANSI-Medicare Part B 18xg502w-5858-13kl-tk96-ycy19n5o3943 59ak225o-5372-65bp-es89-zrn05i9y9745 ANSI-Health Maintenance Organization ( O) 5i620tme-5752-800l-8119-27y10bfja38s 9k477nrx-5382-062a-3778-05n13khqw48c ANSI-Not a Secondary Insurance yg7nz827-y915-166s-t853-1lcx8 49x3652 ob2ca704-z286-033l-f677-1nhb739c6521 ANSI-Medicare Part B ug6865o6-8910-975q-04s9-18089nu13fd7 ya1649f1-1713-291x-22c8-44530cl19ja9 ANSI-Health Maintenance Organization ( O) 01oi5251-ww08-16k6-70e2-u058wrtd0913 67so6812-ly90-54f2-68m1-k950ugbc2283 ANSI-Medicare Part B 856b7wif-3x2r-7971-t359-1894awd97527 700x8cgt-9b7g-7297-s243-9236qnz23159 ANSI-Medicare Part B 46oq66kt-99b6-7726-c829-9122505sr92s 45zm13db-91k1-9496-w836-0269022sg97o ANSI-Medicare Part B 3n7950cm-a4k4-1dn0-z8ks-p2lcqh15ywep 4g2734rr-b7i4-0nw9-t0gf-v0mszy26wqzo ANSI-Not a Secondary Insurance y0g365j0-390b-4085-f854-56t3l 5z57893 w2s523w7-433e-2731-w527-87n9l9f26276 ANSI-Not a Secondary Insurance [id number]-z988-1t8o-c4r6-596fb bbrr762 50866546-s876-9b9s-t6q4-532ogfpxo269 ANSI-Health Maintenance Organization (HM O) k3lf0jf7-5y9f-694g-xfp9-361pl0zj84x6 p5ax3qw1-4v9y-020w-btx9-653nz3bc92f9 ANSI-Medicare Part B [id number]-q7m5-y3m0s0352nc4 1838v986-2012-3n84-h0t4-t3t5o7887wx4 ANSI-Medicare Part B 140uw103-s882-36b9-9h23-763m3b863jv2 047ag706-p458-49r2-9l28-768s2e578ps5 ANSI-Medicare Part B [id number]-c728-9k3k-3di0-4ly46400wz67 q9213476-g978-5i4k-9tm0-4gy99643si06 [employer] O [id number] S [id number] ANSI-Medicare Part B 1p4k2k92-22pv-7954-l574-g3o897m94667 6g2q8q70-23yz-3357-e920-s6z572p56777 ANSI-Medicare Part B 782393o2-nzk2-3f49-4a00-0yr90zqyc82e 714621m6-zwc0-3r19-7i17-4ag42mkhe49f ANSI-Not a Secondary Insurance sfxju960-p582-1vb5-9d65-3ha8e 83urq07 kefaj185-x917-1gb9-7a78-3lk3j09dbv39 ANSI-Health Maintenance Organization (HM O) 2snf026p-1302-2v18-l850-3870ve0f969o 2inj434i-7085-1x89-h049-6612fb5c853m ANSI-Medicare Part B m7o1w290-9tw2-20w3-r193-714m9kte5hf2 o2f4z530-2te4-40k4-s187-524z5lsi2sp1 ANSI-Not a Secondary Insurance zeq9407t-ur1n-3tbb-3wp5-73cr5 8j9o551 zfv2328s-cz8g-3ppc-2hi5-40rh31x3u218 ANSI-Medicare Part B 74iw514r-e58o-3uff-70ly-7134o286qz83 99yu415n-y82r-6ssl-22ii-2172t387nu77 ANSI-Medicare Part B 418797k6-5a67-93m7-b252-26lh4il6m550 071794j2-1t74-73c6-p835-11un0cq9m034 ANSI-Medicare Part B 34699a27-3214-1424-ue3c-6ayhsh9o8x65 79411b50-4528-4811-kg3s-5dkjmk6c5c63 ANSI-Medicare Part B h2gj83w8-n2l7-3f52-f83y-129790d533f5 n5lq24p4-s5w0-3x68-g78d-085737x964q7 ANSI-Medicare Part B 65e2ne8q-h2l1-0e39-m7v1-02rcpeivc322 41l1ip3p-h9z1-2u89-o9x7-44tyamctz815 ANSI-Medicare Part B 93368a4u-g162-1v56-n3pz-[id number] 50710v4e-c886-3c53-u6hb-326k52045834 ANSI-Not a Secondary Insurance hb75o36m-205r-81ii-31gj-150fc 19nc294 zk94h38i-402d-98ft-14nu-370zu74nk194 ANSI-Medicare Part B 3v8u50n0-l351-8g94-m64b-618869a7ms20 8u3x21s2-j635-3t37-e36t-342814a5cc08 ANSI-Medicare Part B [id number] ANSI-Not a Secondary Insurance [id number] ANSI-Medicare Part B [id number] PMA MANAGEMENT JOSEFA [id number] SP [id number] ANSI-Medicare Part B [id number] ANSI-Not a Secondary Insurance [id number] ANSI-Medicare Part B [id number] ANSI-Medicare Part B [id number] MEDICARE BLUE PPO 306 [id number] SP [id number] PMA MANAGEMENT JOSEFA [id number] SP [id number] MEDICARE BLUE PPO 306 [id number] SP [id number] PMA INSURANCE GROUP O [id number] [id number] [id number] S [id number] MEDICARE C [id number] S [id number] A MEDICARE C [id number] S [id number] PMA MANAGEMENT JOSEFA [id number] SP [id number] BLUE CROSS HMO [id number] S [id number] MEDICARE BLUE PPO 306 [id number] SP [id number] [employer] P [id number] S [id number] MEDICARE BLUE PPO P [id number] S [id number] BCBS [place] O [id number] S [id number] BCBS MCARE BLUE PPO O [id number] S [id number] PMA INSURANCE [id number] SP [id number] Problems, Conditions, and Diagnoses Code Display Name Description Problem Type Effective Dates Data Source(s) K21.9 [id number] Gastroesophageal ref lux disease, unspecified whether esophagitis present Problem 03/26/2020 12:00:00 AM EST eCW1 ([facility]) R13.12 [id number] Oropharyngeal dysphagia Problem 03/11/2020 1 2:00:00 AM EDT [facility] N28.89 Disorder of kidney and/or ureter Urinary retention due to benign prostatic hyperplasia Problem 09/25/2019 12:00:00 AM EDT eCW1 ([facility]) N28.89 Disorder of kidney and/or ureter Urinary retention due to benign prostatic hyperplasia Problem 09/25/2019 12:00:00 AM EDT eCW1 ([facility]) N39.0 Urinary tract infectious disease UTI (urinary tract in fection) Problem 08/16/2019 12:00:00 AM EDT eCW1 [facility]) N39.0 Urinary tract infectious disease UTI (urinary tract in fection) Problem 08/16/2019 12:00:00 AM EDT eCW1 [facility]) R33.9 Urinary retention Urinary retention Problem 07/16/2019 12:00:00 AM EST eCW1 ([facility]) R32 Urinary incontinence Urinary incontinence Problem 07/16/2019 12:00:00 AM EST eCW1 ([facility]) R33.9 Urinary retention Urinary retention Problem 07/16/2019 12:00:00 AM EST eCW1 ([facility]) R32 Urinary incontinence Urinary incontinence Problem 07/16/2019 12:00:00 AM EST eCW1 [facility]) J44.1 [id number] COPD exacerbation Problem 07/02/2019 12:00:0 0 AM EST eCW1 [facility]) J44.1 [id number] COPD exacerbation Problem 07/02/2019 12:00:0 0 AM EST eCW1 [facility]) Surgeries/Procedures Procedure Description Date Indications Data Source(s) Immunization: Flublok Quadrivalent (18 years & older) 0.5mL IM (Influenza) 04/09/2020 12:00:00 AM EST eCW1 ([facility]) US URINE CAPACITY MEASURE 10/08/2019 12:00:00 AM EDT eCW1 [facility]) PHYSICIAN TELEPHONE EVALUATION 11-20 MIN 10/04/2019 12 :00:00 AM EDT eCW1 [facility]) Voiding Trial 09/25/2019 12:00:00 AM EDT eCW1 [facility]) INSERT BLADDER CATH, COMPLEX 09/12/2019 12:00:00 AM ED T eCW1 ([facility]) THER/PROPH/DIAG INJ, SC/IM 08/16/2019 12:00:00 AM EDT eCW1 [facility]) Injection, ceftriaxone sodium, per 250 mg 08/16/2019 1 2:00:00 AM EDT eCW1 [facility]) Influenza immunization administered or previously received 07/24/2019 12:00:00 AM EST eCW1 ([facility]) Office Visit, Est Pt., Level 2 FC 07/16/2019 12:00:00 AM EST eCW1 ([facility]) Office Visit, Est Pt., Level 3 PC 07/16/2019 12:00:00 AM EST eCW1 ([facility]) INSERT TEMP BLADDER CATH 07/16/2019 12:00:00 AM EST eCW1 [facility]) ESTABILISHED PATIENT [facility] CHARGE 020 12:00:00 AM EST eCW1 [facility]) Albuterol, inhalation solution, compound ed product, administered through dme, unit dose, 1 mg 07/02/2019 12:00:00 AM EST eCW1 [facility]) Influenza A+B 07/02/2019 12:00:00 AM EST eCW1 ([facility]) INJ TRIGGER POINT 1/2 MUSCL 06/21/2019 12:00:00 AM EST eCW1 [facility]) Results ID Date Data Source [id number] 07/04/2020 11:00:00 AM EST [facility] Name Value Range Interpretation Code Description Data Zoë rce(s) Supporting Document(s) SARS coronavirus 2 RNA Not Detected [facility] [place] This lab was ordered by [facility] and reported by [facility]. ID Date Data Source LIPID PANEL (CARDIAC RISK) 04/09/2020 12:00:00 AM EST eCW1 ( [facility]) Name Value Range Interpretation Code Description Data Zoë rce(s) Supporting Document(s) Cholesterol [Moles/volume] in Serum or Plasma 160 <200 eCW1 ([facility]) Cholesterol in LDL [Mass/volume] in Serum or Plasma by calculation 77 <100 eCW1 ([facility]) Triglyceride [Mass/volume] in Serum or Plasma by calculation 77 <150 eCW1 ([facility]) Cholesterol in HDL [Moles/volume] in Serum or Plasma 68 >40 eCW1 [facility]) 92 eCW1 ([facility]) 2.352 <5 eCW1 ([facility]) ID Date Data Source FREE T4 & TSH PANEL 04/09/2020 12:00:00 AM EST eCW1 ([facility]) Name Value Range Interpretation Code Description Data Zoë rce(s) Supporting Document(s) 0.89 0.76-1.46 eCW1 ([facility]) 1.170 0.358-3.740 eCW1 ([facility]) ID Date Data Source Comprehensive Metabolic Profile (CMP) 04/09/2020 12:00:00 AM EST eCW1 [facility]) Name Value Range Interpretation Code Description Data Zoë rce(s) Supporting Document(s) 161 70-100 GLUCOSE, FASTING eCW1 ([facility]) 0.85 0.70-1.30 CREATININE FOR GFR eCW1 ([facility]) 11 7-18 BLOOD UREA NITROGEN eCW1 ([facility]) 29 21-32 CARBON DIOXIDE LEVEL eCW1 ([facility]) 139 136-145 SODIUM LEVEL eCW1 ([facility]) > 60.0 >49 GLOMERULAR FILTRATION RATE eCW 1 ([facility]) 4.7 3.5-5.1 POTASSIUM SERUM eCW1 ([facility]) 103 98-107 CHLORIDE LEVEL eCW1 ([facility]) 11 7-37 AST/SGOT eCW1 ([facility]) 97 45-117 ALKALINE PHOSPHATASE eCW1 ([facility]) 26 12-78 ALT/SGPT eCW1 ([facility]) 0.4 0.2-1.0 BILIRUBIN,TOTAL eCW1 ([facility]) 9.3 8.8-10.2 CALCIUM LEVEL eCW1 ([facility]) 1.3 ALBUMIN/GLOBULIN RATIO eCW1 ([facility]) 3.9 3.2-5.2 ALBUMIN eCW1 ([facility]) 7.0 6.4-8.2 TOTAL PROTEIN eCW1 ([facility]) ID Date Data Source CBC with Differential 04/09/2020 12:00:00 AM EST eCW1 ([facility]) Name Value Range Interpretation Code Description Data Zoë rce(s) Supporting Document(s) 4.93 4.30-6.10 RED BLOOD COUNT eCW1 ([facility]) 8.8 4.0-10.0 WHITE BLOOD COUNT eCW1 ([facility]) 15.4 13.5-17.5 HEMOGLOBIN eCW1 ([facility]) 31.2 27.0-33.0 MEAN CORPUSCULAR HEMOGLOB IN eCW1 ([facility]) 32.8 32.0-36.5 MEAN CORPUSCULAR HGB CONC eCW1 ([facility]) 95.3 80.0-96.0 MEAN CORPUSCULAR VOLUME e CW1 ([facility]) 47.0 42.0-52.0 HEMATOCRIT eCW1 ([facility]) 238 150-450 PLATELET COUNT, AUTOMATED eCW1 ([facility]) 12.6 11.5-14.5 RED CELL DISTRIBUTION WID TH eCW1 ([facility]) 68.1 36.0-66.0 NEUTROPHILS % eCW1 ([facility]) 18.4 24.0-44.0 LYMPH % eCW1 ([facility]) 0.7 0.0-1.0 BASO % eCW1 ([facility]) 6.0 1.5-8.5 NEUTROPHILS # eCW1 ([facility]) 1.4 0.0-3.0 EOS % eCW1 ([facility]) 10.8 0.0-5.0 MONO % eCW1 ([facility]) 1.6 1.5-5.0 LYMPH # eCW1 ([facility]) 0.1 0.0-0.2 BASO # eCW1 ([facility]) 0.1 0.0-0.5 EOS # eCW1 ([facility]) 1.0 0.0-0.8 MONO # eCW1 ([facility]) ID Date Data Source Basic Metabolic Profile (BMP) 09/17/2019 12:00:00 AM EDT eCW 1 ([facility]) Name Value Range Interpretation Code Description Data Zoë rce(s) Supporting Document(s) 127 70-100 GLUCOSE, FASTING eCW1 ([facility]) 141 136-145 SODIUM LEVEL eCW1 ([facility]) 13 7-18 BLOOD UREA NITROGEN eCW1 ([facility]) 1.13 0.70-1.30 CREATININE FOR GFR eCW1 ([facility]) > 60.0 >49 GLOMERULAR FILTRATION RATE eCW 1 ([facility]) 4.3 3.5-5.1 POTASSIUM SERUM eCW1 ([facility]) 9.7 8.8-10.2 CALCIUM LEVEL eCW1 ([facility]) 106 98-107 CHLORIDE LEVEL eCW1 ([facility]) 29 21-32 CARBON DIOXIDE LEVEL eCW1 ([facility]) ID Date Data Source CBC - Complete Blood Count 09/17/2019 12:00:00 AM EDT eCW1 ( [facility]) Name Value Range Interpretation Code Description Data Zoë rce(s) Supporting Document(s) 8.2 4.0-10.0 WHITE BLOOD COUNT eCW1 ([facility]) 13.3 13.5-17.5 HEMOGLOBIN eCW1 ([facility]) 41.3 42.0-52.0 HEMATOCRIT eCW1 ([facility]) 4.52 4.30-6.10 RED BLOOD COUNT eCW1 ([facility]) 29.4 27.0-33.0 MEAN CORPUSCULAR HEMOGLOB IN eCW1 ([facility]) 91.4 80.0-96.0 MEAN CORPUSCULAR VOLUME e CW1 ([facility]) 357 150-450 PLATELET COUNT, AUTOMATED eCW1 ([facility]) 32.2 32.0-36.5 MEAN CORPUSCULAR HGB CONC eCW1 ([facility]) 13.5 11.5-14.5 RED CELL DISTRIBUTION WID TH eCW1 ([facility]) Procedure Social History Code Duration Value Status Description Data Source(s ) Smoking 06/03/2020 12:00:00 AM EST Former Smoker completed Former Smoker eCW1 ([facility]) Smoking 04/09/2020 12:00:00 AM EST Former Smoker completed Former Smoker eCW1 ([facility]) Smoking 04/09/2020 12:00:00 AM EST Former Smoker completed Former Smoker eCW1 ([facility]) Smoking 04/03/2020 12:00:00 AM EST Former Smoker completed Former Smoker eCW1 [facility]) Smoking 10/08/2019 12:00:00 AM EDT Former Smoker completed Former Smoker eCW1 ([facility]) Smoking 10/08/2019 12:00:00 AM EDT Former Smoker completed Former Smoker eCW1 ([facility]) Smoking 10/08/2019 12:00:00 AM EDT Former Smoker completed Former Smoker eCW1 ([facility]) Vital Signs ID Date Data Source UNK Name Value Range Interpretation Code Description Data Source(s) Body surface area Derived from formula 2.09 m2 2.09 m2 [facility] ([facility]) Body weight 98.431 kg 98.431 kg [facility] ([facility]) [place] body weight 148 [lb_av] 148 [lb_av] MEDEN T ([facility]) Body mass index (BMI) [Ratio] 34.0 kg/m2 34.0 k g/m2 [facility] ([facility]) Body weight 217.00 [lb_av] 217.00 [lb_av] [facility] Body height 67 [in_i] 67 [in_i] [facility] ([facility]) 5'7" Diastolic blood pressure 80 mm[Hg] 80 mm[Hg] [facility] ([facility]) Systolic blood pressure 170 mm[Hg] 170 mm[Hg] M EDENT ([facility]) Diastolic blood pressure 86 mm[Hg] 86 mm[Hg] eCW1 [facility] Systolic blood pressure 181 mm[Hg] 181 mm[Hg] e CW1 ([facility]) Body temperature 97 [degF] 97 [degF] eCW1 ([facility]) Respiratory rate 18 /min 18 /min eCW1 ([facility]) Heart rate 109 /min 109 /min eCW1 ([facility]) Body mass index (BMI) [Ratio] 35.02 kg/m2 35.02 kg/m2 W1 ([facility]) Body height 66 [in_i] 66 [in_i] eCW1 ([facility]) Body weight 217 [lb_av] 217 [lb_av] eCW1 ([facility]) Diastolic blood pressure 72 mm[Hg] 72 mm[Hg] eCW1 [facility]) Systolic blood pressure 130 mm[Hg] 130 mm[Hg] e CW1 ([facility]) Body temperature 97.7 [degF] 97.7 [degF] eCW1 ( [facility]) Respiratory rate 16 /min 16 /min eCW1 ([facility]) Heart rate 106 /min 106 /min eCW1 ([facility]) Body mass index (BMI) [Ratio] 34.86 kg/m2 34.86 kg/m2 eCW1 ([facility]) Body height 66 [in_i] 66 [in_i] eCW1 ([facility]) Body weight 216 [lb_av] 216 [lb_av] eCW1 ([facility]) Diastolic blood pressure 80 mm[Hg] 80 mm[Hg] eCW1 ([facility]) Systolic blood pressure 174 mm[Hg] 174 mm[Hg] e CW1 ([facility]) Body temperature 98.1 [degF] 98.1 [degF] eCW1 ( [facility]) Respiratory rate 18 /min 18 /min eCW1 ([facility]) Heart rate 97 /min 97 /min eCW1 ([facility]) Body mass index (BMI) [Ratio] 35.02 kg/m2 35.02 kg/m2 eCW1 ([facility]) Body height 66 [in_i] 66 [in_i] eCW1 ([facility]) Body weight 217.0 [lb_av] 217.0 [lb_av] eCW1 ([facility]) Diastolic blood pressure mm[Hg] eCW1 ([facility]) Systolic blood pressure 142 mm[Hg] 142 mm[Hg] e CW1 ([facility]) Body temperature 97.9 [degF] 97.9 [degF] eCW1 ( [facility]) Respiratory rate 18 /min 18 /min eCW1 ([facility]) Heart rate 110 /min 110 /min eCW1 ([facility]) Body mass index (BMI) [Ratio] 33.89 kg/m2 33.89 kg/m2 eCW1 ([facility]) Body height 66 [in_us] 66 [in_us] eCW1 ([facility]) Body weight Measured 210 [lb_av] 210 [lb_av] eC W1 ([facility]) Diastolic blood pressure 79 mm[Hg] 79 mm[Hg] eCW1 ([facility]) Systolic blood pressure 160 mm[Hg] 160 mm[Hg] e CW1 ([facility]) Body temperature 98.4 [degF] 98.4 [degF] eCW1 ( [facility]) Respiratory rate 18 /min 18 /min eCW1 ([facility]) Heart rate 110 /min 110 /min eCW1 ([facility]) Body mass index (BMI) [Ratio] 33.57 kg/m2 33.57 kg/m2 eCW1 ([facility]) Body height 66 [in_us] 66 [in_us] eCW1 ([facility]) Body weight Measured [lb_av] eCW1 ([facility]) Diastolic blood pressure 62 mm[Hg] 62 mm[Hg] eCW1 ([facility]) Systolic blood pressure 166 mm[Hg] 166 mm[Hg] e CW1 ([facility]) Body temperature 98.2 [degF] 98.2 [degF] eCW1 ( [facility]) Respiratory rate 20 /min 20 /min eCW1 ([facility]) Heart rate 117 /min 117 /min eCW1 ([facility]) Body mass index (BMI) [Ratio] 33.57 kg/m2 33.57 kg/m2 eCW1 ([facility]) Body height 66 [in_us] 66 [in_us] eCW1 ([facility]) Body weight Measured 208 [lb_av] 208 [lb_av] eC W1 ([facility]) Diastolic blood pressure 80 mm[Hg] 80 mm[Hg] eCW1 ([facility]) Systolic blood pressure 162 mm[Hg] 162 mm[Hg] e CW1 ([facility]) Body temperature 96.9 [degF] 96.9 [degF] eCW1 ( [facility]) Respiratory rate 20 /min 20 /min eCW1 ([facility]) Heart rate 120 /min 120 /min eCW1 ([facility]) Body mass index (BMI) [Ratio] 32.44 kg/m2 32.44 kg/m2 eCW1 ([facility]) Body height 66 [in_us] 66 [in_us] eCW1 ([facility]) Body weight Measured 201 [lb_av] 201 [lb_av] eC W1 ([facility]) Diastolic blood pressure 68 mm[Hg] 68 mm[Hg] eCW1 ([facility]) Systolic blood pressure 124 mm[Hg] 124 mm[Hg] e CW1 ([facility]) Body temperature 102 [degF] 102 [degF] eCW1 ([facility]) Respiratory rate 18 /min 18 /min eCW1 ([facility]) Heart rate 121 /min 121 /min eCW1 ([facility]) Body mass index (BMI) [Ratio] 32.60 kg/m2 32.60 kg/m2 eCW1 ([facility]) Body height 66 [in_us] 66 [in_us] eCW1 ([facility]) Body weight Measured 202 [lb_av] 202 [lb_av] eC W1 ([facility]) Diastolic blood pressure 70 mm[Hg] 70 mm[Hg] eCW1 ([facility]) Systolic blood pressure 162 mm[Hg] 162 mm[Hg] e CW1 ([facility]) Body temperature 97.8 [degF] 97.8 [degF] eCW1 ( [facility]) Respiratory rate 16 /min 16 /min eCW1 ([facility]) Heart rate 103 /min 103 /min eCW1 ([facility]) Body mass index (BMI) [Ratio] 33.89 kg/m2 33.89 kg/m2 eCW1 ([facility]) Body height 66 [in_us] 66 [in_us] eCW1 ([facility]) Body weight Measured 210 [lb_av] 210 [lb_av] eC W1 ([facility]) Diastolic blood pressure 97 mm[Hg] 97 mm[Hg] eCW1 ([facility]) Systolic blood pressure 197 mm[Hg] 197 mm[Hg] e CW1 ([facility]) Body temperature 99.7 [degF] 99.7 [degF] eCW1 ( [facility]) Respiratory rate 18 /min 18 /min eCW1 ([facility]) Heart rate 111 /min 111 /min eCW1 ([facility]) Body mass index (BMI) [Ratio] 34.44 kg/m2 34.44 kg/m2 eCW1 ([facility]) Body height 66 [in_us] 66 [in_us] eCW1 ([facility]) Body weight Measured 213.4 [lb_av] 213.4 [lb_av ] eCW1 ([facility]) Diastolic blood pressure 80 mm[Hg] 80 mm[Hg] eCW1 ([facility]) Systolic blood pressure 175 mm[Hg] 175 mm[Hg] e CW1 ([facility]) Body temperature 97.2 [degF] 97.2 [degF] eCW1 ( [facility]) Respiratory rate 18 /min 18 /min eCW1 ([facility]) Heart rate 121 /min 121 /min eCW1 ([facility]) Body mass index (BMI) [Ratio] 34.38 kg/m2 34.38 kg/m2 eCW1 ([facility]) Body height 66 [in_us] 66 [in_us] eCW1 ([facility]) Body weight Measured 213.0 [lb_av] 213.0 [lb_av ] eCW1 ([facility]) Diastolic blood pressure 92 mm[Hg] 92 mm[Hg] eCW1 ([facility]) Systolic blood pressure 161 mm[Hg] 161 mm[Hg] e CW1 ([facility]) Body temperature 98.9 [degF] 98.9 [degF] eCW1 ( [facility]) Respiratory rate 18 /min 18 /min eCW1 ([facility]) Heart rate 111 /min 111 /min eCW1 ([facility]) Body mass index (BMI) [Ratio] 34.05 kg/m2 34.05 kg/m2 eCW1 ([facility]) Body height 66 [in_us] 66 [in_us] eCW1 ([facility]) Body weight Measured 211 [lb_av] 211 [lb_av] eC W1 ([facility]) Diastolic blood pressure 84 mm[Hg] 84 mm[Hg] eCW1 ([facility]) Systolic blood pressure 173 mm[Hg] 173 mm[Hg] e CW1 ([facility]) Body temperature 98.4 [degF] 98.4 [degF] eCW1 ( [facility]) Respiratory rate 18 /min 18 /min eCW1 ([facility]) Heart rate 92 /min 92 /min eCW1 ([facility]) Body mass index (BMI) [Ratio] 34.12 kg/m2 34.12 kg/m2 eCW1 ([facility]) Body height 66 [in_us] 66 [in_us] eCW1 ([facility]) Body weight Measured 211.4 [lb_av] 211.4 [lb_av ] eCW1 ([facility]) Diastolic blood pressure 83 mm[Hg] 83 mm[Hg] eCW1 ([facility]) Systolic blood pressure 182 mm[Hg] 182 mm[Hg] e CW1 ([facility]) Body temperature 97.0 [degF] 97.0 [degF] eCW1 ( [facility]) Respiratory rate 18 /min 18 /min eCW1 ([facility]) Heart rate 113 /min 113 /min eCW1 ([facility]) Body mass index (BMI) [Ratio] 34.08 kg/m2 34.08 kg/m2 eCW1 ([facility]) Body height 66 [in_us] 66 [in_us] eCW1 ([facility]) Body weight Measured 211.2 [lb_av] 211.2 [lb_av ] eCW1 [facility] Patient Treatment Plan of Care Planned Activity Planned Date Details Description Data Source (s) Compressor Nebulizer - 03/26/2020 12:00:00 AM EST eCW1 ([facility]) pantoprazole 40 MG Delayed Release Oral Tablet 03/26/2020 12:00:00 AM EST eCW1 ([facility]) Sulfamethoxazole 800 MG / Trimethoprim 160 MG Oral Tab let [Bactrim] 10/21/2019 12:00:00 AM EDT eCW1 ([facility]) Sulfamethoxazole 800 MG / Trimethoprim 160 MG Oral Tab let [Bactrim] 10/21/2019 12:00:00 AM EDT eCW1 ([facility]) Sulfamethoxazole 800 MG / Trimethoprim 160 MG Oral Tab let [Bactrim] 10/21/2019 12:00:00 AM EDT eCW1 ([facility]) Sulfamethoxazole 800 MG / Trimethoprim 160 MG Oral Tab let [Bactrim] 10/21/2019 12:00:00 AM EDT eCW1 ([facility]) Levofloxacin 500 MG Oral Tablet 09/16/2019 12:00:00 AM EDT eCW1 [facility]) Sulfamethoxazole 800 MG / Trimethoprim 160 MG Oral Tab let 08/16/2019 12:00:00 AM EDT eCW1 ([facility]) Sulfamethoxazole 800 MG / Trimethoprim 160 MG Oral Tab let [Bactrim] 07/18/2019 12:00:00 AM EST eCW1 ([facility]) Sulfamethoxazole 800 MG / Trimethoprim 160 MG Oral Tab let [Bactrim] 07/16/2019 12:00:00 AM EST eCW1 ([facility]) Prednisone 20 MG Oral Tablet 07/02/2019 12:00:00 AM EST eCW1 [facility]) Albuterol Sulfate HFA 108 (90 Base) MCG/ACT 07/02/2019 12:00:00 AM EST eCW1 [facility]) Amoxicillin 875 MG / Clavulanate 125 MG Oral Tablet 07/02/19 20 12:00:00 AM EST eCW1 ([facility])
[2020-07-09] MEDS ORDERED: LIDOCAINE 2% 100MG/5ML SDV (FOR ANES.) As Ordered ONE (13:19)
[2020-07-09] MEDS ORDERED: propofoL 200 MG/20 ML VIAL As Ordered ONE (13:19)
--- NOTE | 2020-07-09 13:52 | ROOR ---
Patient Name: Mumtaz Hubbard Procedure Date: 07/09/2020 1:13 PM Date of : 1960 Age: 59 Room: [facility] Gender: Male Note Status: Finalized Procedure: Upper GI endoscopy Indications: Epigastric abdominal pain, Dysphagia Providers: Fran Benton MD Referring MD: Kate Zamora NP Requesting Provider: Medicines: Monitored Anesthesia Care Complications: No immediate complications. Procedure: Pre-Anesthesia Assessment: - Prior to the procedure, a History and Physical was performed, and patient medications and allergies were reviewed. The patient is competent. The risks and benefits of the procedure and the sedation options and risks were discussed with the patient. All questions were answered and informed consent was obtained. Patient identification and proposed procedure were verified by the physician, the nurse and the anesthesiologist in the procedure room. Mental Status Examination: alert and oriented. Airway Examination: normal oropharyngeal airway and neck mobility. Respiratory Examination: clear to auscultation. CV Examination: normal. Prophylactic Antibiotics: The patient does not require prophylactic antibiotics. Prior Anticoagulants: The patient has taken no previous anticoagulant or antiplatelet agents. ASA Grade Assessment: II - A patient with mild systemic disease. After reviewing the risks and benefits, the patient was deemed in satisfactory condition to undergo the procedure. The anesthesia plan was to use monitored anesthesia care (MAC). Immediately prior to administration of medications, the patient was re-assessed for adequacy to receive sedatives. The heart rate, respiratory rate, oxygen saturations, blood pressure, adequacy of pulmonary ventilation, and response to care were monitored throughout the procedure. The physical status of the patient was re-assessed after the procedure. The Endoscope was introduced through the mouth, and advanced to the second part of duodenum. The upper GI endoscopy was accomplished without difficulty. The patient tolerated the procedure well. Findings: Patchy, white plaques were found in the upper third of the esophagus. Two biopsies were obtained in the lower third of the esophagus with cold forceps for histology. Verification of patient identification for the specimen was done by the physician and nurse using the patient's name, date and medical record number. Estimated blood loss was minimal. The Z-line was regular and was found 45 cm from the incisors. Patchy moderate inflammation characterized by congestion (edema), erythema, friability and granularity was found in the gastric body and in the gastric antrum. Biopsies were taken with a cold forceps for Helicobacter pylori testing. The duodenal bulb and second portion of the duodenum were normal. Impression: - Esophageal plaques were found, suspicious for candidiasis. - Z-line regular, 45 cm from the incisors. - Gastritis. Biopsied. - Normal duodenal bulb and second portion of the duodenum. - Two biopsies were obtained in the lower third of the esophagus. Recommendation: - Patient has a contact number available for emergencies. The signs and symptoms of potential delayed complications were discussed with the patient. Return to normal activities tomorrow. Written discharge instructions were provided to the patient. - High fiber diet. - Continue present medications. - Await pathology results. - Nystatin suspension 100,000 units PO QID for 2 days. - Follow an antireflux regimen. - Telephone GI clinic for pathology results in 2 weeks. - Return to primary care physician. Procedure Code(s): --- Professional --- 03102, Esophagogastroduodenoscopy, flexible, transoral; with biopsy, single or multiple Diagnosis Code(s): --- Professional --- K22.9, Disease of esophagus, unspecified K29.70, Gastritis, unspecified, without bleeding R10.13, Epigastric pain R13.10, Dysphagia, unspecified CPT copyright 2019 [employer]. All rights reserved. The codes documented in this report are preliminary and upon consular officer review may be revised to meet current compliance requirements. Fran Benton MD Fran Benton MD 07/09/2020 1:51:45 PM Electronically signed by Fran Benton MD Number of Addenda: 0 Note Initiated On: 07/09/2020 1:13 PM Estimated Blood Loss: Estimated blood loss: none.
[2020-07-09 14:00] VITALS: BP 142/79
== END 2020-07-09 14:11 | disposition home or self-care (01) ==
LOC: M OPP 11:42
PROVIDERS: ATTEND Internal Medicine Gastroenterology
DX: R10.13 Epigastric pain (principal); R13.10 Dysphagia, unspecified; D13.0 Benign neoplasm of esophagus; D13.1 Benign neoplasm of stomach; K29.70 Gastritis, unspecified, without bleeding; K22.9 Disease of esophagus, unspecified; I10 Essential (primary) hypertension; E78.5 Hyperlipidemia, unspecified; E11.9 Type 2 diabetes mellitus without complications; J44.9 Chronic obstructive pulmonary disease, unspecified; Z87.891 Personal history of nicotine dependence; Z88.5 Allergy status to narcotic agent; Z91.030 Bee allergy status; Z79.84 Long term (current) use of oral hypoglycemic drugs; Z79.899 Other long term (current) drug therapy; Z82.49 Family history of ischemic heart disease and other diseases of the circulatory system; Z80.3 Family history of malignant neoplasm of breast; Z83.3 Family history of diabetes mellitus

== ENCOUNTER → 2020-09-02 | Outpatient (CLI) | payer OTHER ==
[~2020-09-02] MED LIST changes: -NS 1,000 ML IV ONE
--- NOTE | 2020-09-09 01:19 | ECWPNPC ---
PATIENT NAME: YIMI ESPINOSA : 1960 GENDER: MALE VISIT DATE: 09/02/2020 DISCHARGE DATE: 09/02/20 1200 VISIT LOCKED DATE TIME: PHYSICIAN: BECKIE CALVILLO PHYSICIAN PAGER NO: ACTIVE RESOURCE: BECKIE CALVILLO REASON FOR APPOINTMENT 1. LOW BACK PAIN HISTORY OF PRESENT ILLNESS GENERAL: - 59-YEAR-OLD MALE IN FOR WORKER'S COMP. CHRONIC PAIN FOLLOW-UP. HE RATES HIS PAIN CURRENTLY AT A 4 OUT OF 10 AND DESCRIBES IT ACHNG, CONTINOUS, AND SHARP. THE PATIENT WAS HURT IN A WORK RELATED INJURY ON 12/26/2004 WHILE WORKING FOR [employer] A WORKHAND WHEN HE WAS PICKING UP A CALF AND INJURED HIS BACK. THE PATIENT SAYS HE HAS DIFFICULTY DOING DAILY ACTIVITIES SUCH WORKING AROUND HIS HOUSE, WALKING, AND CLEANING DUE TO THIS PAIN. FALL RISK SCREENING: SCREENING : NO FALLS REPORTED IN THE LAST YEAR. PAIN SCREENING: PATIENT HAS A COMPLAINT OF ACUTE OR CHRONIC PAIN :YES LOCATION OF PAIN:LOW BACK INTENSITY OF PAIN (SCALE OF 1 TO 10):4 WHAT DOES YOUR PAIN FEEL LIKE:ACHING, CONTINOUS, SHARP DURATION:CONTINOUS PAIN IS INCREASED BY:ACTIVITIES, PROLONGED STANDING PAIN IS DECREASED BY:SITTING, OTHERS LAYING FLAT NURSING NOTE: -. PAIN CENTER INTAKE QUESTIONS: DO YOU HAVE A HISTORY OF MRSA? :NO DO YOU TAKE A BLOOD THINNERS? :NO DO YOU HAVE ANY BLEEDING DISORDERS? :NO ANY NEW NUMBNESS OR WEAKNESS IN YOUR LEGS OR ARMS? :NO ANY PACEMAKER,DEFIBRILLATOR, OR DORSAL COLUMN STIMULATOR? :NO DO YOU HAVE ANY RASHES OR OPEN SORES? :NO ARE YOU ALLERGIC TO IV DYE? :NO ARE YOU DIABETIC? :YES ANY NEW PROBLEMS WITH YOUR MEDICATIONS? :NO HAVE YOU RECEIVED A VACCINE IN THE PAST 30 DAYS? :YES IF SO WHAT VACCINE AND WHEN? SECOND COVID VACCINATION AROUND 08/18/2020. PATIENT IS UNABLE TO RECALL THE EXACT DATE. DO YOU PLAN TO RECEIVE A VACCINE IN THE NEXT 21 DAYS? :NO DO YOU NEED ANY PRESCRIPTION? :NO DO YOU TAKE ANY IMMUNOSUPPRESSIVE MEDICATIONS? :NO DO YOU HAVE ANY KIDNEY OR LIVER DISEASE? :NO IS THERE A CHANCE YOU COULD BE ? :NO ARE YOU BREAST FEEDING? :NO CURRENT MEDICATIONS TAKING LANCET DEVICE - MISCELLANEOUS DIRECTED SUBCUTANEOUSLY BID TAKING PEN NEEDLES 31G X 6 MM MISCELLANEOUS DIRECTED SUBCUTANEOUSLY DAILY TAKING GLUCOMETER (VERIO IQ) GLUCOMETER DIRECTED E11.9 - TAKING FREESTYLE LITE TEST - STRIP DIRECTED IN VITRO BID TAKING AMLODIPINE BESYLATE 10 MG TABLET 1 TABLET ORALLY ONCE A DAY TAKING ALBUTEROL SULFATE HFA 108 (90 BASE) MCG/ACT AEROSOL SOLUTION 1 PUFF NEEDED INHALATION EVERY 4 HRS TAKING SPIRIVA HANDIHALER 18 MCG CAPSULE 1 CAPSULE INHALATION ONCE A DAY TAKING METFORMIN HCL 1000 MG TABLET 1 TABLET WITH MEALS ORALLY TWICE A DAY TAKING ATORVASTATIN CALCIUM 80 MG TABLET 1 TABLET ORALLY ONCE A DAY TAKING SYMBICORT 80-4.5 MCG/ACT AEROSOL 2 PUFFS INHALATION TWICE A DAY SEAN TAKING PANTOPRAZOLE SODIUM 40 MG TABLET DELAYED RELEASE TAKE ONE TABLET BY MOUTH EVERY DAY UNKNOWN COMPRESSOR NEBULIZER - MISCELLANEOUS DIRECTED J44.9 MASK AND TUBING UNKNOWN TRULICITY 0.75 MG/0.5ML SOLUTION PEN-INJECTOR DIRECTED SUBCUTANEOUS WEEKLY UNKNOWN BACTRIM DS 800-160 MG TABLET 1 TABLET ORALLY TWICE A DAY UNKNOWN SULFAMETHOXAZOLE-TRIMETHOPRIM 800-160 MG TABLET 1 TABLET ORALLY TWICE A DAY UNKNOWN TRULICITY 0.75 MG/0.5ML SOLUTION PEN-INJECTOR DIRECTED SUBCUTANEOUS WEEKLY, NOTES: DUPLICATE UNKNOWN BACTRIM DS 800-160 MG TABLET 1 TABLET 1 HOUR PRIOR TO YOUR CYSTOSCOPY ORALLY ONCE UNKNOWN BACTRIM DS 800-160 MG TABLET 1 TABLET ORALLY TWICE A DAY UNKNOWN PREDNISONE 20 MG TABLET 2 TABLET ORALLY ONCE A DAY UNKNOWN AMOXICILLIN-POT CLAVULANATE 875-125 MG TABLET 1 TABLET ORALLY EVERY 12 HRS MEDICATION LIST REVIEWED AND RECONCILED WITH THE PATIENT PAST MEDICAL HISTORY COPD DIABETES HTN LS SPINE DESC HERNIATION WITH RETROLISTHESIS : DARELL HOWELL, [facility] PAIN MANAGEMENT DEPRESSION ALLERGIES FENTANYL: HIVES - ALLERGY BEE VENOM: DYSPNEA - ALLERGY SOCIAL HISTORY GENERAL: TOBACCO USE ARE YOU A:FORMER SMOKER 40 YEARS HOW LONG HAS IT BEEN SINCE YOU LAST SMOKED?5-10 YEARS VAPORNO E-CIGARETTENO LATEX QUESTIONNAIRE LATEX ALLERGY : HAVE YOU EVER DEVELOPED ANY TYPE OF REACTION AFTER HANDLING LATEX PRODUCTS SUCH RUBBER GLOVES, CONDOMS, DIAPHRAGMS, BALLOONS, SOCKS, OR UNDERWEAR?NO LATEX ALLERGY : HAVE YOU EVER DEVELOPED ANY TYPE OF REACTION DURING OR AFTER DENTAL APPOINTMENT, VAGINAL/RECTAL EXAMINATION, SURGICAL PROCEDURE, OR ANY OTHER EXPOSURE?NO LATEX RISK : HAVE YOU EVER HAD ANY DIFFICULTY BREATHING OR HIVES AFTER EATING OR HANDLING ANY FRUITS, OR VEGETABLES; SUCH KIWI, BANANAS, STONE FRUITS, OR CHESTNUTSNO LATEX RISK : DO YOU HAVE A PREVIOUS PERSONAL HISTORY OF MORE THAN NINE SURGERIES, SPINA BIFIDA, OR REPEATED CATHERIZATIONS? NO LATEX RISK : ARE YOU FREQUENTLY EXPOSED TO LATEX PRODUCTS IN YOUR OCCUPATION?NO DATE ASKED : 09/02/2020 ALCOHOL USE: OCCASIONAL. BMI CARE GOAL FOLLOW-UP ABOVE NORMAL BMI FOLLOW-UPLIFESTYLE EDUCATION REGARDING DIET ALCOHOL SCREENING DID YOU HAVE A DRINK CONTAINING ALCOHOL IN THE PAST YEAR?YES HOW OFTEN DID YOU HAVE SIX OR MORE DRINKS ON ONE OCCASION IN THE PAST YEAR?MONTHLY (2 POINTS) HOW MANY DRINKS DID YOU HAVE ON A TYPICAL DAY WHEN YOU WERE DRINKING IN THE PAST YEAR?5 OR 6 (2 POINTS) HOW OFTEN DID YOU HAVE A DRINK CONTAINING ALCOHOL IN THE PAST YEAR?FOUR OR MORE TIMES A WEEK (4 POINTS) POINTS8 INTERPRETATIONPOSITIVE RECREATIONAL DRUG USE DRUG USE?NO CAFFEINE CAFFEINE USE?YES HOW OFTEN AND HOW MUCH? OCCASIONAL HIV / HEP-C SCREENING HIV TEST OFFERED TO PATIENT:YES DATE OFFERED:08/27/2018 TEST ACCEPTED:NO HEP-C TEST OFFERED TO PATIENT:YES DATE OFFERED:08/27/2018 REASON:PATIENT DECLINED TEST ACCEPTED:NO REASON:PATIENT DECLINED BROCHURE PROVIDED TO PATIENTYES TEMPLE [id number] NONE NO BUDDHISM BELIEFS THAT WOULD IMPACT HEALTH CARE. LANGUAGE LANGUAGES SPOKEN:KYRGYZ LEARNING BARRIERS / SPECIAL NEEDS CHANGE FROM LAST VISIT?NO BARRIERS TO LEARNING?NO HEARING IMPAIRED?NO VISION IMPAIRED?YES :CORRECTIVE LENSES COGNITIVELY IMPAIRED?NO READINESS TO LEARN?YES LEARNING PREFERENCES?NO LEARNING CAPABILITIES PRESENT?YES EMOTIONAL BARRIERS?NO SPECIAL DEVICES?NO BURN CENTER NURSE NEEDED?NO DOMESTIC VIOLENCE DO YOU FEEL SAFE IN YOUR ENVIRONMENT?YES OCCUPATION: DISABLED. DIET: REGULAR. EXERCISE: NO REGULAR EXERCISE. MARITAL STATUS: . OTHERS AT HOME: SPOUSE, CHILD. TODAY'S VISIT 10/03/19, PATIENT DESCRIBES PAIN : HAVE IT ALL THE TIME, SHARP, STABBING, FROM 0-10, WHAT LEVEL IS YOUR PAIN TODAY? 4, PRECIPITATING FACTORS BENDING OVER, CERTAIN POSITIONS, ALLEVIATING FACTORS LAYING FLAT. - PFS REFERRAL NEEDED?NO CLERGY REFERRAL NEEDED?NO PUBLIC HEALTH REFERRAL NEEDED?NO WAS THE PROVIDER NOTIFIED OF ANY PERTINENT INFO?YES HAS THE PATIENT BEEN EDUCATED REGARDING HIS/HER PLAN OF CARE?YES HAS THE PATIENT BEEN EDUCATED REGARDING PAIN, THE RISK FOR PAIN, THE IMPORTANCE OF EFFECTIVE PAIN MANAGEMENT, AND THE PAIN ASSESSMENT PROCESS?YES ADVANCE DIRECTIVE ADVANCE DIRECTIVE DISCUSSED WITH PATIENT:YES PT DOES NOT HAVE A HCP. PT DOES NOT WANT INFO AT THIS TIME. ASSISTANCE OFFERED WITH FILLING OUT FORM, AND PT DECLINES. REVIEW OF SYSTEMS CONSTITUTIONAL: ANY RECENT FEVER NO . CHILLS NO . WEIGHT CHANGE OF UNKNOWN REASONS NO . GASTROENTEROLOGY: NEW UNEXPLAINABLE CHANGES IN BOWEL CONTROL NO . CONSTIPATION NO . GENITOURINARY: ANY NEW CHANGE IN BLADDER CONTROL? NO . NEUROLOGY: NEW ONSET DIZZINESS OR NEUROLOGICAL CHANGES NOT MENTIONED NO . NEW NUMBNESS OR PAIN PATTERNS NOT MENTIONED AND PERTINENT TO TODAY'S VISIT NO . CARDIOLOGY: NEW CHEST PRESSURE NO . PATIENT DENIES NO . RESPIRATORY: UNEXPLAINABLE COUGH NO . NEW SHORTNESS OF BREATH NO . VITAL SIGNS WT 220.0 LBS, HT 66 IN, BMI 35.51 INDEX, BP 163/77 MM HG, HR 100 /MIN, RR 18 /MIN, TEMP 98.3 F, OXYGEN SAT % 94%, SAFE IN ENV? (Y/N) YES, NA INITIALS AW 1146, REVIEWED BY: JAMES RODRIGUEZ MA. EXAMINATION GENERAL EXAMINATION: GENERALNO ACUTE DISTRESS, WELL NOURISHED AND HYDRATED. PSYCHAPPROPRIATE MOOD AND AFFECT . LUNGS:CLEAR TO AUSCULTATION BILATERALLY, NO WHEEZES, RHONCHI, RALES. HEART:NO MURMURS, REGULAR RATE AND RHYTHM. ASSESSMENTS SPONDYLOSIS OF LUMBOSACRAL REGION WITHOUT MYELOPATHY OR RADICULOPATHY - M47.817 (PRIMARY), RISK: (NULL) TREATMENT SPONDYLOSIS OF LUMBOSACRAL REGION WITHOUT MYELOPATHY OR RADICULOPATHY NOTES: 49-YEAR-OLD MALE IN FOR WORKER'S COMP. CHRONIC PAIN FOLLOW-UP. GIVEN PRESENTING SYMPTOMS RECOMMEND FOLLOW-UP IN 3 MONTHS. PATIENT HAS EXPRESSED UNDERSTANDING OF AND WAS IN AGREEMENT WITH TREATMENT PLAN. GIVEN TIME TO ASK QUESTIONS AND EXPRESS CONCERNS. PROCEDURES PN WORKMANS' COMP OPINION IN YOUR OPINION, WAS THE INCIDENT THAT THE PATIENT DESCRIBED THE COMPETENT MEDICAL CAUSE OF THIS INJURY/ILLNESS? YES ARE THE PATIENT'S COMPLAINTS CONSISTENT WITH HIS/HER HISTORY OF THE INJURY/ILLNESS? YES IS THE PATIENT'S HISTORY OF THE INJURY/ILLNESS CONSISTENT WITH YOUR OBJECTIVE FINDING? YES WHAT IS THE PERCENTAGE OF TEMPORARY IMPAIRMENT? MODERATE TO MARKED = 66.7% IS THE PATIENT WORKING? NO DOCTOR ON SITE: JOYCE BEAULIEU MD PROCEDURE CODES FA211 ESTABILISHED PATIENT [facility] CHARGE DISPOSITION & COMMUNICATION FOLLOW UP 3 MONTHS (REASON: W/C BACK PAIN ) ELECTRONICALLY SIGNED BY ESMER CASTAÑEDA ON 09/08/2020 AT 08:58 AM EDT DISCLAIMER : THIS IS A VISIT SUMMARY EXTRACTED FROM THE [employer] CHART. IT IS NOT A COPY OF THE [employer] PROGRESS NOTE. ZAKIYA
== END ==
LOC: M PAIN 11:30
PROVIDERS: ATTEND Family Medicine
DX: M47.817 Spondylosis without myelopathy or radiculopathy, lumbosacral region (principal); J44.9 Chronic obstructive pulmonary disease, unspecified; E11.9 Type 2 diabetes mellitus without complications; I10 Essential (primary) hypertension; F32.9 Major depressive disorder, single episode, unspecified; Z87.891 Personal history of nicotine dependence; Z79.84 Long term (current) use of oral hypoglycemic drugs; Z79.899 Other long term (current) drug therapy; Z88.5 Allergy status to narcotic agent; Z91.030 Bee allergy status

== ENCOUNTER → 2020-10-07 | Outpatient (REF) | payer OTHER ==
[2020-10-08 13:06] LABS: ALBUMIN 3.8 GM/DL (3.2-5.2); ALT/SGPT 23 U/L (12-78); BILIRUBIN,TOTAL 0.4 MG/DL (0.2-1.0); BLOOD UREA NITROGEN 14 MG/DL (7-18); CALCIUM LEVEL 8.5 MG/DL (8.8-10.2); CARBON DIOXIDE LEVEL 30 MEQ/L (21-32); CHLORIDE LEVEL 107 MEQ/L (98-107); CREATININE FOR GFR 0.76 MG/DL (0.70-1.30); GLOMERULAR FILTRATION RATE > 60.0 (>49); GLUCOSE, FASTING 138 MG/DL (70-100); POTASSIUM SERUM 4.9 MEQ/L (3.5-5.1); SODIUM LEVEL 141 MEQ/L (136-145); TOTAL PROTEIN 6.9 GM/DL (6.4-8.2)
[2020-10-08 14:23] LABS: HEMOGLOBIN A1c 6.6 %
== END ==
LOC: M SFHCCLAY 15:50
PROVIDERS: ATTEND Nurse Practitioner Family
DX: E11.9 Type 2 diabetes mellitus without complications (principal)

== ENCOUNTER → 2020-11-27 | Outpatient (CLI) | payer OTHER ==
--- NOTE | 2020-12-01 06:11 | ECWPNPC ---
PATIENT NAME: YIMI ESPINOSA : 1960 GENDER: MALE VISIT DATE: 11/27/2020 DISCHARGE DATE: 11/27/20 1449 VISIT LOCKED DATE TIME: PHYSICIAN: BECKIE CALVILLO PHYSICIAN PAGER NO: ACTIVE RESOURCE: BECKIE CALVILLO REASON FOR APPOINTMENT 1. BACK PAIN HISTORY OF PRESENT ILLNESS GENERAL: 59-YEAR-OLD MALE IN FOR WORKER'S COMP. CHRONIC PAIN FOLLOW-UP. HE RATES HIS PAIN CURRENTLY AT A 7 OUT OF 10 AND DESCRIBES IT ACHING AND CONTINUOUS. THE PATIENT WAS HURT IN A WORK RELATED INJURY ON 12/26/2004 WHILE WORKING FOR [employer] A WORKHAND WHEN HE WAS PICKING UP A CALF AND INJURED HIS BACK. THE PATIENT SAYS HE HAS DIFFICULTY DOING DAILY ACTIVITIES SUCH WORKING AROUND HIS HOUSE, WALKING, AND CLEANING DUE TO THIS PAIN. FALL RISK SCREENING: SCREENING : NO FALLS REPORTED IN THE LAST YEAR. PAIN SCREENING: PATIENT HAS A COMPLAINT OF ACUTE OR CHRONIC PAIN :YES LOCATION OF PAIN:MID BACK, LOW BACK INTENSITY OF PAIN (SCALE OF 1 TO 10):7 WHAT DOES YOUR PAIN FEEL LIKE:ACHING, CONTINOUS DURATION:CONTINOUS, CONSTANT, ALL DAY PAIN IS INCREASED BY:ACTIVITIES PAIN IS DECREASED BY:OTHERS RESTING NURSING NOTE: -. PAIN CENTER INTAKE QUESTIONS: DO YOU HAVE A HISTORY OF MRSA? :NO DO YOU TAKE A BLOOD THINNERS? :NO DO YOU HAVE ANY BLEEDING DISORDERS? :NO ANY NEW NUMBNESS OR WEAKNESS IN YOUR LEGS OR ARMS? :NO ANY PACEMAKER,DEFIBRILLATOR, OR DORSAL COLUMN STIMULATOR? :NO DO YOU HAVE ANY RASHES OR OPEN SORES? :NO ARE YOU ALLERGIC TO IV DYE? :NO ARE YOU DIABETIC? :YES ANY NEW PROBLEMS WITH YOUR MEDICATIONS? :NO HAVE YOU RECEIVED A VACCINE IN THE PAST 30 DAYS? :YES IF SO WHAT VACCINE AND WHEN? SECOND COVID VACCINATION AROUND 08/18/2020. PATIENT IS UNABLE TO RECALL THE EXACT DATE. DO YOU PLAN TO RECEIVE A VACCINE IN THE NEXT 21 DAYS? :NO DO YOU NEED ANY PRESCRIPTION? :NO DO YOU TAKE ANY IMMUNOSUPPRESSIVE MEDICATIONS? :NO DO YOU HAVE ANY KIDNEY OR LIVER DISEASE? :NO IS THERE A CHANCE YOU COULD BE ? :NO ARE YOU BREAST FEEDING? :NO CURRENT MEDICATIONS TAKING AMLODIPINE BESYLATE 10 MG TABLET 1 TABLET ORALLY ONCE A DAY TAKING SPIRIVA HANDIHALER 18 MCG CAPSULE 1 CAPSULE INHALATION ONCE A DAY TAKING PANTOPRAZOLE SODIUM 40 MG TABLET DELAYED RELEASE 1 TABLET ORALLY ONCE A DAY TAKING LANCET DEVICE - MISCELLANEOUS DIRECTED SUBCUTANEOUSLY BID TAKING PEN NEEDLES 31G X 6 MM MISCELLANEOUS DIRECTED SUBCUTANEOUSLY DAILY TAKING GLUCOMETER (VERIO IQ) GLUCOMETER DIRECTED E11.9 - TAKING FREESTYLE LITE TEST - STRIP DIRECTED IN VITRO BID TAKING PANTOPRAZOLE SODIUM 40 MG TABLET DELAYED RELEASE TAKE ONE TABLET BY MOUTH EVERY DAY TAKING METFORMIN HCL 1000 MG TABLET 1 TABLET WITH MEALS ORALLY TWICE A DAY TAKING ATORVASTATIN CALCIUM 80 MG TABLET 1 TABLET ORALLY ONCE A DAY TAKING SYMBICORT 80-4.5 MCG/ACT AEROSOL 2 PUFFS INHALATION TWICE A DAY SEAN NOT-TAKING ALBUTEROL SULFATE HFA 108 (90 BASE) MCG/ACT AEROSOL SOLUTION 1 PUFF NEEDED INHALATION EVERY 4 HRS NOT-TAKING COMPRESSOR NEBULIZER - MISCELLANEOUS DIRECTED J44.9 MASK AND TUBING NOT-TAKING TRULICITY 0.75 MG/0.5ML SOLUTION PEN-INJECTOR DIRECTED SUBCUTANEOUS WEEKLY NOT-TAKING BACTRIM DS 800-160 MG TABLET 1 TABLET ORALLY TWICE A DAY NOT-TAKING SULFAMETHOXAZOLE-TRIMETHOPRIM 800-160 MG TABLET 1 TABLET ORALLY TWICE A DAY NOT-TAKING TRULICITY 0.75 MG/0.5ML SOLUTION PEN-INJECTOR DIRECTED SUBCUTANEOUS WEEKLY, NOTES: DUPLICATE NOT-TAKING BACTRIM DS 800-160 MG TABLET 1 TABLET 1 HOUR PRIOR TO YOUR CYSTOSCOPY ORALLY ONCE NOT-TAKING BACTRIM DS 800-160 MG TABLET 1 TABLET ORALLY TWICE A DAY NOT-TAKING PREDNISONE 20 MG TABLET 2 TABLET ORALLY ONCE A DAY NOT-TAKING AMOXICILLIN-POT CLAVULANATE 875-125 MG TABLET 1 TABLET ORALLY EVERY 12 HRS MEDICATION LIST REVIEWED AND RECONCILED WITH THE PATIENT PAST MEDICAL HISTORY COPD DIABETES HTN LS SPINE DESC HERNIATION WITH RETROLISTHESIS : DARELL HOWELL, [facility] PAIN MANAGEMENT DEPRESSION SECOND COVID VACCINATION AROUND 08/18/2020 ALLERGIES FENTANYL: HIVES - ALLERGY BEE VENOM: DYSPNEA - ALLERGY SOCIAL HISTORY GENERAL: TOBACCO USE ARE YOU A:FORMER SMOKER 40 YEARS HOW LONG HAS IT BEEN SINCE YOU LAST SMOKED?5-10 YEARS VAPORNO E-CIGARETTENO LATEX QUESTIONNAIRE LATEX ALLERGY : HAVE YOU EVER DEVELOPED ANY TYPE OF REACTION AFTER HANDLING LATEX PRODUCTS SUCH RUBBER GLOVES, CONDOMS, DIAPHRAGMS, BALLOONS, SOCKS, OR UNDERWEAR?NO LATEX ALLERGY : HAVE YOU EVER DEVELOPED ANY TYPE OF REACTION DURING OR AFTER DENTAL APPOINTMENT, VAGINAL/RECTAL EXAMINATION, SURGICAL PROCEDURE, OR ANY OTHER EXPOSURE?NO LATEX RISK : HAVE YOU EVER HAD ANY DIFFICULTY BREATHING OR HIVES AFTER EATING OR HANDLING ANY FRUITS, OR VEGETABLES; SUCH KIWI, BANANAS, STONE FRUITS, OR CHESTNUTSNO LATEX RISK : DO YOU HAVE A PREVIOUS PERSONAL HISTORY OF MORE THAN NINE SURGERIES, SPINA BIFIDA, OR REPEATED CATHERIZATIONS? NO LATEX RISK : ARE YOU FREQUENTLY EXPOSED TO LATEX PRODUCTS IN YOUR OCCUPATION?NO DATE ASKED : 11/27/2020 ALCOHOL USE: OCCASIONAL. BMI CARE GOAL FOLLOW-UP ABOVE NORMAL BMI FOLLOW-UPLIFESTYLE EDUCATION REGARDING DIET ALCOHOL SCREENING DID YOU HAVE A DRINK CONTAINING ALCOHOL IN THE PAST YEAR?YES HOW OFTEN DID YOU HAVE SIX OR MORE DRINKS ON ONE OCCASION IN THE PAST YEAR?MONTHLY (2 POINTS) HOW MANY DRINKS DID YOU HAVE ON A TYPICAL DAY WHEN YOU WERE DRINKING IN THE PAST YEAR?5 OR 6 (2 POINTS) HOW OFTEN DID YOU HAVE A DRINK CONTAINING ALCOHOL IN THE PAST YEAR?FOUR OR MORE TIMES A WEEK (4 POINTS) POINTS8 INTERPRETATIONPOSITIVE RECREATIONAL DRUG USE DRUG USE?NO CAFFEINE CAFFEINE USE?YES HOW OFTEN AND HOW MUCH? OCCASIONAL HIV / HEP-C SCREENING HIV TEST OFFERED TO PATIENT:YES DATE OFFERED:08/27/2018 TEST ACCEPTED:NO HEP-C TEST OFFERED TO PATIENT:YES DATE OFFERED:08/27/2018 REASON:PATIENT DECLINED TEST ACCEPTED:NO REASON:PATIENT DECLINED BROCHURE PROVIDED TO PATIENTYES GNOSTICIST [id number] NONE NO JAINISM BELIEFS THAT WOULD IMPACT HEALTH CARE. LANGUAGE LANGUAGES SPOKEN:GERMAN LEARNING BARRIERS / SPECIAL NEEDS CHANGE FROM LAST VISIT?NO BARRIERS TO LEARNING?NO HEARING IMPAIRED?NO VISION IMPAIRED?YES :CORRECTIVE LENSES COGNITIVELY IMPAIRED?NO READINESS TO LEARN?YES LEARNING PREFERENCES?NO LEARNING CAPABILITIES PRESENT?YES EMOTIONAL BARRIERS?NO SPECIAL DEVICES?NO SOFTWARE ASSET MANAGER NEEDED?NO DOMESTIC VIOLENCE DO YOU FEEL SAFE IN YOUR ENVIRONMENT?YES OCCUPATION: DISABLED. DIET: REGULAR. EXERCISE: NO REGULAR EXERCISE. MARITAL STATUS: . OTHERS AT HOME: SPOUSE, CHILD. TODAY'S VISIT 10/03/19, PATIENT DESCRIBES PAIN : HAVE IT ALL THE TIME, SHARP, STABBING, FROM 0-10, WHAT LEVEL IS YOUR PAIN TODAY? 4, PRECIPITATING FACTORS BENDING OVER, CERTAIN POSITIONS, ALLEVIATING FACTORS LAYING FLAT. - PFS REFERRAL NEEDED?NO CLERGY REFERRAL NEEDED?NO PUBLIC HEALTH REFERRAL NEEDED?NO WAS THE PROVIDER NOTIFIED OF ANY PERTINENT INFO?YES HAS THE PATIENT BEEN EDUCATED REGARDING HIS/HER PLAN OF CARE?YES HAS THE PATIENT BEEN EDUCATED REGARDING PAIN, THE RISK FOR PAIN, THE IMPORTANCE OF EFFECTIVE PAIN MANAGEMENT, AND THE PAIN ASSESSMENT PROCESS?YES ADVANCE DIRECTIVE ADVANCE DIRECTIVE DISCUSSED WITH PATIENT:YES PT DOES NOT HAVE A HCP. PT DOES NOT WANT INFO AT THIS TIME. ASSISTANCE OFFERED WITH FILLING OUT FORM, AND PT DECLINES. REVIEW OF SYSTEMS CONSTITUTIONAL: ANY RECENT FEVER NO . CHILLS NO . WEIGHT CHANGE OF UNKNOWN REASONS NO . GASTROENTEROLOGY: NEW UNEXPLAINABLE CHANGES IN BOWEL CONTROL NO . CONSTIPATION NO . GENITOURINARY: ANY NEW CHANGE IN BLADDER CONTROL? NO . NEUROLOGY: NEW ONSET DIZZINESS OR NEUROLOGICAL CHANGES NOT MENTIONED NO . NEW NUMBNESS OR PAIN PATTERNS NOT MENTIONED AND PERTINENT TO TODAY'S VISIT NO . CARDIOLOGY: NEW CHEST PRESSURE NO . PATIENT DENIES NO . RESPIRATORY: UNEXPLAINABLE COUGH NO . NEW SHORTNESS OF BREATH NO . VITAL SIGNS WT 214.2 LBS, HT 66 IN, BMI 34.57 INDEX, BP 178/84 MM HG, REPEAT BP 160/80 MM HG, HR 106 /MIN, RR 18 /MIN, TEMP 98.1 F, OXYGEN SAT % 95%, BLOOD GLUCOSE LEVEL DID NOT CHECK, SAFE IN ENV? (Y/N) YES, NA INITIALS AW 1426T.AVINASH BURNHAM. EXAMINATION GENERAL EXAMINATION: GENERALNO ACUTE DISTRESS, WELL NOURISHED AND HYDRATED. PSYCHAPPROPRIATE MOOD AND AFFECT . LUNGS:CLEAR TO AUSCULTATION BILATERALLY, NO WHEEZES, RHONCHI, RALES. HEART:NO MURMURS, REGULAR RATE AND RHYTHM. ASSESSMENTS SPONDYLOSIS OF LUMBOSACRAL REGION WITHOUT MYELOPATHY OR RADICULOPATHY - M47.817 (PRIMARY), RISK: (NULL) TREATMENT SPONDYLOSIS OF LUMBOSACRAL REGION WITHOUT MYELOPATHY OR RADICULOPATHY NOTES: 59-YEAR-OLD MALE IN FOR WORKER'S COMP. CHRONIC PAIN FOLLOW-UP. GIVEN PRESENTING SYMPTOMS RECOMMEND FOLLOW-UP IN 3 MONTHS. PATIENT HAS EXPRESSED UNDERSTANDING OF AND WAS IN AGREEMENT WITH TREATMENT PLAN. GIVEN TIME TO ASK QUESTIONS AND EXPRESS CONCERNS. PROCEDURES PN WORKMANS' COMP OPINION IN YOUR OPINION, WAS THE INCIDENT THAT THE PATIENT DESCRIBED THE COMPETENT MEDICAL CAUSE OF THIS INJURY/ILLNESS? YES ARE THE PATIENT'S COMPLAINTS CONSISTENT WITH HIS/HER HISTORY OF THE INJURY/ILLNESS? YES IS THE PATIENT'S HISTORY OF THE INJURY/ILLNESS CONSISTENT WITH YOUR OBJECTIVE FINDING? YES WHAT IS THE PERCENTAGE OF TEMPORARY IMPAIRMENT? MODERATE TO MARKED = 66.7% IS THE PATIENT WORKING? NO DOCTOR ON SITE: JOYCE BEAULIEU MD PROCEDURE CODES FA211 ESTABILISHED PATIENT [facility] CHARGE DISPOSITION & COMMUNICATION FOLLOW UP 3 MONTHS (REASON: LOW BACK PAIN ) ELECTRONICALLY SIGNED BY ESMER CASTAÑEDA ON 11/30/2020 AT 01:18 PM EDT DISCLAIMER : THIS IS A VISIT SUMMARY EXTRACTED FROM THE [employer] CHART. IT IS NOT A COPY OF THE [employer] PROGRESS NOTE. ZAKIYA
== END ==
LOC: M PAIN 14:30
PROVIDERS: ATTEND Family Medicine
DX: M47.817 Spondylosis without myelopathy or radiculopathy, lumbosacral region (principal); G89.29 Other chronic pain; E11.9 Type 2 diabetes mellitus without complications; J44.9 Chronic obstructive pulmonary disease, unspecified; Z86.59 Personal history of other mental and behavioral disorders; Z87.891 Personal history of nicotine dependence; Z88.5 Allergy status to narcotic agent; Z91.030 Bee allergy status; Z79.84 Long term (current) use of oral hypoglycemic drugs; Z79.899 Other long term (current) drug therapy

== ENCOUNTER → 2021-02-24 | Outpatient (CLI) | payer OTHER | LOC: M PAIN 14:45 | PROVIDERS: ATTEND Anesthesiology | DX: M96.1 Postlaminectomy syndrome, not elsewhere classified (principal); J44.9 Chronic obstructive pulmonary disease, unspecified; E11.9 Type 2 diabetes mellitus without complications; I10 Essential (primary) hypertension; F32.9 Major depressive disorder, single episode, unspecified; M51.26 Other intervertebral disc displacement, lumbar region; Z87.891 Personal history of nicotine dependence; Z79.84 Long term (current) use of oral hypoglycemic drugs; Z79.899 Other long term (current) drug therapy; Z91.030 Bee allergy status; Z88.5 Allergy status to narcotic agent ==

== ENCOUNTER → 2021-04-08 | Outpatient (REF) | payer OTHER | LOC: M SFHCCLAY 11:11 | PROVIDERS: ATTEND Nurse Practitioner Family | DX: Z20.822 Contact with and (suspected) exposure to COVID-19 (principal) ==

== ENCOUNTER 2021-04-09 13:18 | Outpatient (CLI) | payer OTHER ==
[~2021-04-09] VITALS: Ht 167.6 cm; Wt 96.0 kg
[~2021-04-09 13:18] MED LIST changes: +ALBUTEROL 90 MCG/ACT 8GM HFA INHALER INH PRN; +ALBUTEROL SULFATE 2.5 MG/0.5 ML INH NEB SOLN INH PRN; +EPINEPHrine INJ 1 MG/ML 1ML AMP IM PRN; +NS 1,000 ML IV SCH; +diphenhydrAMINE 50MG/ML VIAL (J1200) IV PRN; +methylPREDNISolone 125MG 2ML VIAL IV PRN
[2021-04-09] MEDS ORDERED: CASIRIVIMAB (REGN10933) 600 MG, IMDEVIMAB (REGN10987) 600 MG in NS 250 ML IV ONE (13:30)
[2021-04-09 14:22] VITALS: BP 170/79
[2021-04-09 14:52] VITALS: BP 148/72
[2021-04-09 15:22] VITALS: BP 148/77
[2021-04-09 16:22] VITALS: BP 150/80
== END 2021-04-09 16:22 | disposition home or self-care (01) ==
LOC: M OPCLI4PR 13:18
PROVIDERS: ATTEND Nurse Practitioner Family
DX: U07.1 COVID-19 (principal); Z88.8 Allergy status to other drugs, medicaments and biological substances; Z91.030 Bee allergy status

== ENCOUNTER → 2021-06-25 | Outpatient (CLI) | payer OTHER ==
[~2021-06-25] MED LIST changes: -ALBUTEROL 90 MCG/ACT 8GM HFA INHALER INH PRN; -ALBUTEROL SULFATE 2.5 MG/0.5 ML INH NEB SOLN INH PRN; -EPINEPHrine INJ 1 MG/ML 1ML AMP IM PRN; -NS 1,000 ML IV SCH; -diphenhydrAMINE 50MG/ML VIAL (J1200) IV PRN; -methylPREDNISolone 125MG 2ML VIAL IV PRN
== END ==
LOC: M RAD 13:02
PROVIDERS: ATTEND Nurse Practitioner Family
DX: Z12.2 Encounter for screening for malignant neoplasm of respiratory organs (principal); F17.210 Nicotine dependence, cigarettes, uncomplicated; R91.8 Other nonspecific abnormal finding of lung field

== ENCOUNTER → 2022-04-06 | Outpatient (REF) | payer MEDICARE ==
[2022-04-06 12:06] LABS: BASO # 0.1 10^3/uL (0.0-0.2); BASO % 0.9 % (0.0-1.0); EOS # 0.2 10^3/uL (0.0-0.5); EOS % 2.2 % (0.0-3.0); HEMATOCRIT 47.8 % (42.0-52.0); HEMOGLOBIN 15.5 g/dl (13.5-17.5); LYMPH # 2.1 10^3/uL (1.5-5.0); MEAN CORPUSCULAR HEMOGLOBIN 30.7 pg (27.0-33.0); MEAN CORPUSCULAR HGB CONC 32.4 g/dl (32.0-36.5); MEAN CORPUSCULAR VOLUME 94.7 fl (80.0-96.0); MONO # 0.9 10^3/uL (0.0-0.8); MONO % 11.9 % (2.0-8.0); NEUTROPHILS # 4.1 10^3/uL (1.5-8.5); NEUTROPHILS % 55.1 % (36.0-66.0); PLATELET COUNT, AUTOMATED 243 10^3/uL (150-450); RED BLOOD COUNT 5.05 10^6/uL (4.30-6.10); WHITE BLOOD COUNT 7.4 10^3/uL (4.0-10.0)
[2022-04-06 12:39] LABS: HEMOGLOBIN A1c 7.3 % (4.0-6.0)
[2022-04-06 12:43] LABS: CREATININE, URINE 69.3 MG/DL; MAU/CREAT RATIO 60.6 MCG/MG (0.0-30.0)
[2022-04-06 12:47] LABS: ALT/SGPT 34 U/L (7.0-40); BILIRUBIN,TOTAL 0.4 MG/DL (0.3-1.2); BLOOD UREA NITROGEN 10 MG/DL (9-23); CALCIUM LEVEL 9.3 MG/DL (8.3-10.6); CARBON DIOXIDE LEVEL 30 MMOL/L (20-31); CHLORIDE LEVEL 101 MMOL/L (98-107); CHOLESTEROL LEVEL 159 MG/DL (<200); CHOLESTEROL RISK RATIO 2.24 (<5); CREATININE FOR GFR 0.69 MG/DL (0.70-1.30); FREE T4 1.18 NG/DL (0.89-1.76); GLOMERULAR FILTRATION RATE > 60.0 (>49); GLUCOSE, FASTING 160 MG/DL (74-106); HDL CHOLESTEROL 70.9 MG/DL (>40); LDL CHOLESTEROL 69.1 MG/DL (<100); NON-HDL-C 88 MG/DL; POTASSIUM SERUM 5.3 MMOL/L (3.5-5.1); SODIUM LEVEL 140 MMOL/L (136-145); THYROID STIMULATING HORMONE 1.234 uIU/ML (0.55-4.78); TRIGLYCERIDES LEVEL 95 MG/DL (<150)
== END ==
LOC: M SFHCCLAY 09:21
PROVIDERS: ATTEND Nurse Practitioner Family
DX: E11.9 Type 2 diabetes mellitus without complications (principal); I10 Essential (primary) hypertension

== ENCOUNTER → 2022-07-07 | Outpatient (REF) | payer MEDICARE ==
[2022-07-07 13:03] LABS: ALBUMIN 3.9 G/DL (3.2-5.2); ALKALINE PHOSPHATASE 102 U/L (46-116); ALT/SGPT 29 U/L (7.0-40); AST/SGOT 22 U/L (<34); BILIRUBIN,TOTAL 0.7 MG/DL (0.3-1.2); BLOOD UREA NITROGEN 7 MG/DL (9-23); CALCIUM LEVEL 9.5 MG/DL (8.3-10.6); CARBON DIOXIDE LEVEL 32 MMOL/L (20-31); CHLORIDE LEVEL 102 MMOL/L (98-107); CREATININE FOR GFR 0.74 MG/DL (0.70-1.30); GLOMERULAR FILTRATION RATE > 60.0 (>49); GLUCOSE, FASTING 134 MG/DL (74-106); HEMOGLOBIN A1c 7.4 % (4.0-6.0); POTASSIUM SERUM 5.1 MMOL/L (3.5-5.1); SODIUM LEVEL 139 MMOL/L (136-145); TOTAL PROTEIN 7.1 G/DL (5.7-8.2)
== END ==
LOC: M SFHCCLAY 07:44
PROVIDERS: ATTEND Nurse Practitioner Family
DX: E11.9 Type 2 diabetes mellitus without complications (principal)

== ENCOUNTER → 2022-08-17 | Outpatient (CLI) | payer MEDICARE, OTHER | LOC: M CLY 13:36 | PROVIDERS: ATTEND Nurse Practitioner Family | DX: J44.9 Chronic obstructive pulmonary disease, unspecified (principal) ==

== ENCOUNTER → 2022-09-07 | Outpatient (REF) | payer OTHER, MEDICARE ==
[2022-09-07 17:49] LABS: ALBUMIN 3.9 G/DL (3.2-5.2); ALKALINE PHOSPHATASE 124 U/L (46-116); ALT/SGPT 26 U/L (7.0-40); AST/SGOT 15 U/L (<34); BILIRUBIN,TOTAL 0.3 MG/DL (0.3-1.2); BLOOD UREA NITROGEN 8 MG/DL (9-23); CALCIUM LEVEL 9.1 MG/DL (8.3-10.6); CARBON DIOXIDE LEVEL 31 MMOL/L (20-31); CHLORIDE LEVEL 102 MMOL/L (98-107); GLOMERULAR FILTRATION RATE > 60.0 (>49); GLUCOSE, FASTING 122 MG/DL (74-106); MAGNESIUM LEVEL 1.9 MG/DL (1.8-2.4); POTASSIUM SERUM 4.4 MMOL/L (3.5-5.1); SODIUM LEVEL 139 MMOL/L (136-145); TOTAL PROTEIN 7.1 G/DL (5.7-8.2)
[2022-09-07 18:26] LABS: HEMOGLOBIN A1c 6.9 % (4.0-6.0)
== END ==
LOC: M SFHCCLAY 13:04
PROVIDERS: ATTEND Nurse Practitioner Family
DX: E11.9 Type 2 diabetes mellitus without complications (principal)

== ENCOUNTER → 2022-09-23 | Outpatient (CLI) | payer OTHER, MEDICARE | LOC: M PAIN 08:00 | PROVIDERS: ATTEND Nurse Practitioner Family | DX: M79.10 Myalgia, unspecified site (principal); J44.9 Chronic obstructive pulmonary disease, unspecified; E11.9 Type 2 diabetes mellitus without complications; I10 Essential (primary) hypertension; F32.A Depression, unspecified; M51.27 Other intervertebral disc displacement, lumbosacral region; Z87.891 Personal history of nicotine dependence; Z79.84 Long term (current) use of oral hypoglycemic drugs; Z79.899 Other long term (current) drug therapy; Z88.5 Allergy status to narcotic agent; Z91.030 Bee allergy status ==

== ENCOUNTER → 2022-12-12 | Outpatient (CLI) | payer MEDICARE, OTHER | LOC: M PAIN 14:30 | PROVIDERS: ATTEND Nurse Practitioner Family | DX: M79.18 Myalgia, other site (principal); G89.29 Other chronic pain; M51.27 Other intervertebral disc displacement, lumbosacral region; M25.551 Pain in right hip; J44.9 Chronic obstructive pulmonary disease, unspecified; E11.9 Type 2 diabetes mellitus without complications; I10 Essential (primary) hypertension; F32.A Depression, unspecified; Z87.891 Personal history of nicotine dependence; Z79.84 Long term (current) use of oral hypoglycemic drugs; Z79.899 Other long term (current) drug therapy; Z88.5 Allergy status to narcotic agent; Z91.030 Bee allergy status ==

== ENCOUNTER → 2023-03-16 | Outpatient (CLI) | payer OTHER ==
[~2023-03-16] MED LIST changes: +TRIAMCINOLONE ACETONIDE SUSP 40MG/ML 1ML VIAL As Ordered ONE
== END ==
LOC: M PAIN 14:15
PROVIDERS: ATTEND Anesthesiology
DX: M79.18 Myalgia, other site (principal); J44.9 Chronic obstructive pulmonary disease, unspecified; E11.9 Type 2 diabetes mellitus without complications; I10 Essential (primary) hypertension; F32.A Depression, unspecified; Z79.84 Long term (current) use of oral hypoglycemic drugs; Z87.891 Personal history of nicotine dependence; Z88.5 Allergy status to narcotic agent; Z91.030 Bee allergy status
CPT/HCPCS: 20552; J0665; J3301

== ENCOUNTER → 2023-04-25 | Outpatient (CLI) | payer OTHER ==
[~2023-04-25] MED LIST changes: -TRIAMCINOLONE ACETONIDE SUSP 40MG/ML 1ML VIAL As Ordered ONE
== END ==
LOC: M PAIN 14:00
PROVIDERS: ATTEND Nurse Practitioner Family
DX: M96.1 Postlaminectomy syndrome, not elsewhere classified (principal); G89.29 Other chronic pain; Z80.3 Family history of malignant neoplasm of breast; Z87.891 Personal history of nicotine dependence; Z88.5 Allergy status to narcotic agent; Z91.030 Bee allergy status; Z79.84 Long term (current) use of oral hypoglycemic drugs; Z79.899 Other long term (current) drug therapy

== ENCOUNTER → 2023-05-24 | Outpatient (REF) | payer OTHER ==
[2023-05-24 18:50] LABS: BASO # 0.1 10^3/uL (0.0-0.2); BASO % 0.6 % (0.0-1.0); EOS # 0.1 10^3/uL (0.0-0.5); EOS % 0.9 % (0.0-3.0); HEMATOCRIT 45.3 % (42.0-52.0); HEMOGLOBIN 14.5 g/dl (13.5-17.5); LYMPH # 1.5 10^3/uL (1.5-5.0); LYMPH % 15.3 % (24.0-44.0); MEAN CORPUSCULAR HEMOGLOBIN 30.7 pg (27.0-33.0); MEAN CORPUSCULAR VOLUME 95.8 fl (80.0-96.0); MONO % 9.7 % (2.0-8.0); NEUTROPHILS # 7.3 10^3/uL (1.5-8.5); NEUTROPHILS % 72.9 % (36.0-66.0); PLATELET COUNT, AUTOMATED 318 10^3/uL (150-450); RED BLOOD COUNT 4.73 10^6/uL (4.30-6.10)
[2023-05-24 19:54] LABS: ALBUMIN 3.6 G/DL (3.2-5.2); ALKALINE PHOSPHATASE 101 U/L (46-116); ALT/SGPT 30 U/L (7.0-40); AST/SGOT 12 U/L (<34); BILIRUBIN,TOTAL 0.3 MG/DL (0.3-1.2); BLOOD UREA NITROGEN 11 MG/DL (9-23); CALCIUM LEVEL 9.1 MG/DL (8.3-10.6); CARBON DIOXIDE LEVEL 31 MMOL/L (20-31); CHLORIDE LEVEL 106 MMOL/L (98-107); GLOMERULAR FILTRATION RATE > 60.0 (>49); GLUCOSE, FASTING 159 MG/DL (74-106); POTASSIUM SERUM 4.6 MMOL/L (3.5-5.1); SODIUM LEVEL 142 MMOL/L (136-145); TOTAL PROTEIN 6.7 G/DL (5.7-8.2)
[2023-05-24 19:56] LABS: FREE T4 1.16 NG/DL (0.89-1.76); THYROID STIMULATING HORMONE 1.156 uIU/ML (0.55-4.78)
[2023-05-24 20:33] LABS: HEMOGLOBIN A1c 7.5 % (4.0-6.0)
== END ==
LOC: M SFHCCLAY 13:13
PROVIDERS: ATTEND Nurse Practitioner Family
DX: I10 Essential (primary) hypertension (principal); E11.9 Type 2 diabetes mellitus without complications; M96.1 Postlaminectomy syndrome, not elsewhere classified

== ENCOUNTER → 2023-08-04 | Outpatient (CLI) | payer OTHER | LOC: M RAD 12:57 | PROVIDERS: ATTEND Nurse Practitioner Family | DX: M51.16 Intervertebral disc disorders with radiculopathy, lumbar region (principal) ==

== ENCOUNTER → 2023-10-26 | Outpatient (CLI) | payer OTHER | LOC: M PAIN 15:00 | PROVIDERS: ATTEND Nurse Practitioner Family | DX: M51.16 Intervertebral disc disorders with radiculopathy, lumbar region (principal); M96.1 Postlaminectomy syndrome, not elsewhere classified; G89.29 Other chronic pain; J44.9 Chronic obstructive pulmonary disease, unspecified; E11.9 Type 2 diabetes mellitus without complications; I10 Essential (primary) hypertension; F32.A Depression, unspecified; Z87.891 Personal history of nicotine dependence; Z79.84 Long term (current) use of oral hypoglycemic drugs; Z79.899 Other long term (current) drug therapy; Z88.5 Allergy status to narcotic agent; Z91.030 Bee allergy status ==

== ENCOUNTER → 2023-11-29 | Outpatient (CLI) | payer OTHER | LOC: M PAIN 15:30 | PROVIDERS: ATTEND Anesthesiology | DX: M96.1 Postlaminectomy syndrome, not elsewhere classified (principal); M47.816 Spondylosis without myelopathy or radiculopathy, lumbar region; M54.50 Low back pain, unspecified; G89.29 Other chronic pain; E11.9 Type 2 diabetes mellitus without complications; J44.9 Chronic obstructive pulmonary disease, unspecified; I10 Essential (primary) hypertension; F32.A Depression, unspecified; Z87.891 Personal history of nicotine dependence; Z79.84 Long term (current) use of oral hypoglycemic drugs; Z79.899 Other long term (current) drug therapy; Z88.5 Allergy status to narcotic agent; Z91.030 Bee allergy status ==

== ENCOUNTER → 2024-02-21 | Outpatient (CLI) | payer OTHER | LOC: M PAIN 15:30 | PROVIDERS: ATTEND Anesthesiology | DX: M47.816 Spondylosis without myelopathy or radiculopathy, lumbar region (principal); G89.29 Other chronic pain; J44.9 Chronic obstructive pulmonary disease, unspecified; E11.9 Type 2 diabetes mellitus without complications; I10 Essential (primary) hypertension; F32.A Depression, unspecified; Z87.891 Personal history of nicotine dependence; Z79.84 Long term (current) use of oral hypoglycemic drugs; Z79.899 Other long term (current) drug therapy; Z88.5 Allergy status to narcotic agent; Z91.030 Bee allergy status | CPT/HCPCS: 76000; G0463 ==

== ENCOUNTER → 2024-03-26 | Outpatient (CLI) | payer OTHER ==
[~2024-03-26] MED LIST changes: +ISOVUE-M 300 61% 15ML VIAL As Ordered ONE; +LIDOCAINE 1% SDV 30ML VIAL As Ordered ONE; +TRIAMCINOLONE ACETONIDE SUSP 40MG/ML 1ML VIAL As Ordered ONE
== END ==
LOC: M PAIN 14:15
PROVIDERS: ATTEND Anesthesiology
DX: M47.816 Spondylosis without myelopathy or radiculopathy, lumbar region (principal); G89.29 Other chronic pain; M54.50 Low back pain, unspecified; J44.9 Chronic obstructive pulmonary disease, unspecified; E11.9 Type 2 diabetes mellitus without complications; I10 Essential (primary) hypertension; F32.A Depression, unspecified; Z87.891 Personal history of nicotine dependence; Z79.899 Other long term (current) drug therapy; Z88.5 Allergy status to narcotic agent; Z91.030 Bee allergy status
CPT/HCPCS: 64493; 64494; J0665; J3301; Q9967

== ENCOUNTER → 2024-04-12 | Outpatient (REF) | payer OTHER ==
[~2024-04-12] MED LIST changes: -ISOVUE-M 300 61% 15ML VIAL As Ordered ONE; -LIDOCAINE 1% SDV 30ML VIAL As Ordered ONE; -TRIAMCINOLONE ACETONIDE SUSP 40MG/ML 1ML VIAL As Ordered ONE
[2024-04-12 11:45] LABS: BASO # 0.1 10^3/uL (0.0-0.2); BASO % 0.8 % (0.0-1.0); EOS # 0.1 10^3/uL (0.0-0.5); EOS % 1.3 % (0.0-3.0); HEMATOCRIT 46.6 % (42.0-52.0); HEMOGLOBIN 15.3 g/dl (13.5-17.5); LYMPH # 1.6 10^3/uL (1.5-5.0); LYMPH % 21.9 % (24.0-44.0); MEAN CORPUSCULAR HEMOGLOBIN 31.5 pg (27.0-33.0); MEAN CORPUSCULAR HGB CONC 32.8 g/dl (32.0-36.5); MEAN CORPUSCULAR VOLUME 95.9 fl (80.0-96.0); MONO # 0.9 10^3/uL (0.0-0.8); MONO % 11.6 % (2.0-8.0); NEUTROPHILS # 4.8 10^3/uL (1.5-8.5); NEUTROPHILS % 63.6 % (36.0-66.0); PLATELET COUNT, AUTOMATED 279 10^3/uL (150-450); RED BLOOD COUNT 4.86 10^6/uL (4.30-6.10); WHITE BLOOD COUNT 7.5 10^3/uL (4.0-10.0)
[2024-04-12 12:06] LABS: ALBUMIN 3.7 G/DL (3.2-5.2); ALKALINE PHOSPHATASE 109 U/L (40-129); ALT/SGPT 21 U/L (7.0-40); AST/SGOT < 8 U/L (<34); BILIRUBIN,TOTAL 0.5 MG/DL (0.3-1.2); BLOOD UREA NITROGEN 13 MG/DL (9-23); CALCIUM LEVEL 9.9 MG/DL (8.3-10.6); CARBON DIOXIDE LEVEL 30 MMOL/L (20-31); CHLORIDE LEVEL 105 MMOL/L (98-107); CHOLESTEROL LEVEL 203 MG/DL (<200); CHOLESTEROL RISK RATIO 2.46 (<5); CREATININE FOR GFR 0.77 MG/DL (0.70-1.30); GLOMERULAR FILTRATION RATE > 60.0 (>49); GLUCOSE, FASTING 185 MG/DL (74-106); HDL CHOLESTEROL 82.2 MG/DL (>40); LDL CHOLESTEROL 88.4 MG/DL (<100); MAGNESIUM LEVEL 1.8 MG/DL (1.8-2.4); NON-HDL-C 120.8 MG/DL; POTASSIUM SERUM 4.4 MMOL/L (3.5-5.1); SODIUM LEVEL 141 MMOL/L (136-145); TRIGLYCERIDES LEVEL 162 MG/DL (<150)
[2024-04-12 12:08] LABS: FREE T4 1.24 NG/DL (0.89-1.76); THYROID STIMULATING HORMONE 1.002 uIU/ML (0.55-4.78)
== END ==
LOC: M SFHCCLAY 09:11
PROVIDERS: ATTEND Nurse Practitioner Family
DX: I10 Essential (primary) hypertension (principal); E11.9 Type 2 diabetes mellitus without complications

== ENCOUNTER → 2024-04-12 | Outpatient (CLI) | payer OTHER | LOC: M CLY 09:15 | PROVIDERS: ATTEND Nurse Practitioner Family | DX: M16.11 Unilateral primary osteoarthritis, right hip (principal) ==

== ENCOUNTER → 2024-04-26 | Outpatient (CLI) | payer OTHER | LOC: M PAIN 14:30 | PROVIDERS: ATTEND Nurse Practitioner Family | DX: M47.816 Spondylosis without myelopathy or radiculopathy, lumbar region (principal); G89.29 Other chronic pain; J44.9 Chronic obstructive pulmonary disease, unspecified; E11.9 Type 2 diabetes mellitus without complications; I10 Essential (primary) hypertension; F32.A Depression, unspecified; M51.27 Other intervertebral disc displacement, lumbosacral region; Z87.891 Personal history of nicotine dependence; Z79.84 Long term (current) use of oral hypoglycemic drugs; Z79.899 Other long term (current) drug therapy; Z88.5 Allergy status to narcotic agent; Z91.030 Bee allergy status ==

== ENCOUNTER → 2024-06-10 | Outpatient (CLI) | payer MEDICARE, OTHER | LOC: M RAD 07:14 | PROVIDERS: ATTEND Nurse Practitioner Family | DX: F17.218 Nicotine dependence, cigarettes, with other nicotine-induced disorders (principal); R91.8 Other nonspecific abnormal finding of lung field; I25.10 Atherosclerotic heart disease of native coronary artery without angina pectoris ==

== ENCOUNTER → 2024-09-17 | Outpatient (REF) | payer OTHER ==
[2024-09-17 14:32] LABS: ALBUMIN 3.7 G/DL (3.2-5.2); ALKALINE PHOSPHATASE 107 U/L (40-129); ALT/SGPT 29 U/L (7.0-40); AST/SGOT 11 U/L (<34); BILIRUBIN,TOTAL 0.3 MG/DL (0.3-1.2); BLOOD UREA NITROGEN 12 MG/DL (9-23); CALCIUM LEVEL 9.1 MG/DL (8.3-10.6); CARBON DIOXIDE LEVEL 27 MMOL/L (20-31); CHLORIDE LEVEL 101 MMOL/L (98-107); CHOLESTEROL LEVEL 144 MG/DL (<200); CHOLESTEROL RISK RATIO 1.86 (<5); CREATININE FOR GFR 0.54 MG/DL (0.70-1.30); GLOMERULAR FILTRATION RATE > 90.0 (>49); GLUCOSE, FASTING 148 MG/DL (74-106); HDL CHOLESTEROL 77.1 MG/DL (>40); LDL CHOLESTEROL 55.1 MG/DL (<100); MAGNESIUM LEVEL 1.9 MG/DL (1.8-2.4); NON-HDL-C 66.9 MG/DL; POTASSIUM SERUM 4.4 MMOL/L (3.5-5.1); SODIUM LEVEL 137 MMOL/L (136-145); TOTAL PROTEIN 7.1 G/DL (5.7-8.2); TRIGLYCERIDES LEVEL 59 MG/DL (<150)
== END ==
LOC: M LABDRAWC 12:29
PROVIDERS: ATTEND Internal Medicine Cardiovascular Disease
DX: E78.2 Mixed hyperlipidemia (principal); R06.02 Shortness of breath; I50.9 Heart failure, unspecified

== ENCOUNTER → 2024-09-24 | Outpatient (CLI) | payer MEDICARE | LOC: M RAD 07:48 | PROVIDERS: ATTEND Nurse Practitioner Family | DX: I25.10 Atherosclerotic heart disease of native coronary artery without angina pectoris (principal); Z13.6 Encounter for screening for cardiovascular disorders; F17.210 Nicotine dependence, cigarettes, uncomplicated; R14.0 Abdominal distension (gaseous); I65.23 Occlusion and stenosis of bilateral carotid arteries ==

== ENCOUNTER 2024-11-29 12:13 | Outpatient (RCR) | payer MEDICARE ==
[~2024-11-29 12:13] MED LIST changes: +CELE0.09 PO; +OYST1TAB PO; +SEMA2PEN PO; +VENTAER INH
[2024-12-03] MEDS ORDERED: METF-839 PO (16:52)
[2024-12-04] MEDS ORDERED: PERCOCET PO (12:57)
[2024-12-04] MEDS ORDERED: ASPI81TAEC PO (12:57)
[2024-12-04] MEDS ORDERED: PRIL20TA2 PO (13:01)
[2024-12-04] MEDS ORDERED: SENO8.6T10 PO (13:01)
[2024-12-04] MEDS ORDERED: CARA1TAB6 PO (13:01)
== END 2024-12-19 ==
LOC: M PT 12:13
PROVIDERS: ATTEND Neuromusculoskeletal Medicine, Sports Medicine
DX: R26.81 Unsteadiness on feet (principal)

== ENCOUNTER 2024-12-03 06:13 | Observation (INO) | payer MEDICARE ==
[~2024-12-03] VITALS: Ht 167.6 cm; Wt 96.0 kg
[2024-12-03] VITALS (7 sets, daily range): BP systolic 122–177; BP diastolic 73–84; TEMP 98.1–98.6; O2SAT 91–95
[2024-12-03] MEDS: LR 1,000 ML IV SCH ×2 (06:35→14:20)
[2024-12-03] MEDS ORDERED: MIDAZOLAM INJ 2 MG/2 ML VIAL As Ordered ONE (06:55)
[2024-12-03] MEDS ORDERED: ACETAMINOPHEN 1000MG/100ML IV BAG As Ordered ONE (06:56)
[2024-12-03] MEDS ORDERED: HYDROmorphone HCL 2 MG/ML 1 ML VIAL As Ordered ONE (06:57)
[2024-12-03] MEDS ORDERED: LIDOCAINE 2% 100 MG/5 ML SDV (FOR ANES.) As Ordered ONE (06:57)
[2024-12-03] MEDS ORDERED: dexAMETHasone 4 MG/ML 1 ML VIAL As Ordered ONE (07:04)
[2024-12-03] MEDS ORDERED: ONDANSETRON 4MG 2ML VIAL As Ordered ONE (07:04)
[2024-12-03] MEDS ORDERED: SUGAMMADEX SODIUM 500 MG/5 ML VIAL As Ordered ONE (07:05)
[2024-12-03] MEDS ORDERED: ROCURONIUM BROMIDE 50MG/5ML VIAL As Ordered ONE (07:05)
[2024-12-03] MEDS ORDERED: VANCOMYCIN HCL 1,500 MG, VIAL MATE ADAPTER 1 EACH in NS 250 ML IV ONE (07:15)
[2024-12-03] MEDS: ceFAZolin SODIUM 2 GM in DEXTROSE 5% (D5W) ADV/MINI-BAG 50 ML IV ONE (08:15)
[2024-12-03] MEDS ORDERED: LABETALOL 100 MG/20 ML VIAL As Ordered ONE (08:48)
[2024-12-03] MEDS: LIDOCAINE 2% W/EPINEPHrine 20 ML VIAL **PRES FREE As Ordered ONE (08:59)
[2024-12-03] MEDS: VANCOMYCIN 1000MG/20ML VIAL As Ordered ONE (10:27)
[2024-12-03] MEDS: KETOROLAC 30 MG/ML 1 ML VIAL As Ordered ONE (10:31)
[2024-12-03] MEDS: HYDROMORPHONE HCL 0.5 MG/0.5 ML SYRINGE IV PRN (11:58)
[2024-12-03] MEDS: PERCOCET 5MG/325MG TAB PO PRN (12:08)
[2024-12-03] MEDS ORDERED: PERCOCET 5MG/325MG TAB PO PRN (13:00)
[2024-12-03] MEDS ORDERED: ONDANSETRON 4MG 2ML VIAL IV PRN (13:00)
[2024-12-03] MEDS ORDERED: ACETAMINOPHEN 325 MG TAB PO PRN (13:00)
[2024-12-03] MEDS ORDERED: GLUCAGON INJ 1 MG VIAL SC PRN (16:20)
[2024-12-03] MEDS ORDERED: GLUCOSE 4 GM CHEW PO PRN (16:20)
[2024-12-03] MEDS ORDERED: DEXTROSE 50% 50 ML SYRINGE IV PRN (16:20)
[2024-12-03] MEDS: ceFAZolin SODIUM 2 GM in DEXTROSE 5% (D5W) ADV/MINI-BAG 50 ML IV SCH (16:47)
[2024-12-03] MEDS: PERCOCET 5MG/325MG TAB PO ONE (16:48)
[2024-12-03] MEDS ORDERED: METF-839 PO (16:52)
[2024-12-03 17:04] LABS: PLATELET COUNT, AUTOMATED 232 10^3/uL (150-450)
[2024-12-03] MEDS: INSULIN LISPRO (NovoLOG) PER UNIT SC SCH ×2 (17:30→20:39)
[2024-12-03 17:34] LABS: ESTIMATED AVERAGE GLUCOSE 126.0 MG/DL (60-110)
[2024-12-03 17:38] LABS: CALCIUM LEVEL 8.3 MG/DL (8.3-10.6); CARBON DIOXIDE LEVEL 23 MMOL/L (20-31); CHLORIDE LEVEL 97 MMOL/L (98-107); CREATININE FOR GFR 0.56 MG/DL (0.70-1.30); GLOMERULAR FILTRATION RATE > 90.0 (>49); POTASSIUM SERUM 6.0 MMOL/L (3.5-5.1); SODIUM LEVEL 134 MMOL/L (136-145)
[2024-12-03] MEDS: SYMBICORT 160/4.5MCG INHALER 6GM INH SCH (20:21)
[2024-12-03] MEDS: ATORVASTATIN 20 MG TAB PO SCH (20:29)
[2024-12-03] MEDS: CALCIUM/VITAMIN D 500 MG TAB PO SCH (20:29)
[2024-12-03] MEDS: ASPIRIN 81 MG ENTERIC TABLET PO SCH (20:30)
[2024-12-04] VITALS: BP 163/84; TEMP 98.8; O2SAT 92
[2024-12-04 04:00] VITALS: BP 178/91; TEMP 98.1; O2SAT 94
[2024-12-04 06:13] LABS: BASO # 0.0 10^3/uL (0.0-0.2); BASO % 0.4 % (0.0-1.0); EOS # 0.0 10^3/uL (0.0-0.5); EOS % 0.1 % (0.0-3.0); LYMPH # 1.1 10^3/uL (1.5-5.0); LYMPH % 9.7 % (24.0-44.0); MONO # 1.5 10^3/uL (0.0-0.8); MONO % 13.7 % (2.0-8.0); NEUTROPHILS # 8.4 10^3/uL (1.5-8.5); NEUTROPHILS % 75.3 % (36.0-66.0); PLATELET COUNT, AUTOMATED 256 10^3/uL (150-450)
[2024-12-04 06:46] LABS: CALCIUM LEVEL 8.9 MG/DL (8.3-10.6); CARBON DIOXIDE LEVEL 26 MMOL/L (20-31); CHLORIDE LEVEL 100 MMOL/L (98-107); CREATININE FOR GFR 0.61 MG/DL (0.70-1.30); GLOMERULAR FILTRATION RATE > 90.0 (>49); POTASSIUM SERUM 4.8 MMOL/L (3.5-5.1); SODIUM LEVEL 138 MMOL/L (136-145)
[2024-12-04 08:00] VITALS: BP 158/83; TEMP 98.4; O2SAT 90
[2024-12-04 09:00] VITALS: BP 151/80
[2024-12-04] MEDS: amLODIPine 10 MG TAB PO SCH (09:00)
[2024-12-04 12:00] VITALS: BP 158/82; TEMP 98.2; O2SAT 95
[2024-12-04] MEDS ORDERED: ASPI81TAEC PO (12:57)
[2024-12-04] MEDS ORDERED: PERCOCET PO (12:57)
[2024-12-04] MEDS ORDERED: CARA1TAB6 PO (13:01)
[2024-12-04] MEDS ORDERED: SENO8.6T10 PO (13:01)
[2024-12-04] MEDS ORDERED: PRIL20TA2 PO (13:01)
== END 2024-12-04 13:45 | disposition home or self-care (01) ==
LOC: M SDC 06:13 → M RR INP 06:14 → M MS5PR 14:15 → OBSVTOIN 12-04 07:55 → INTOOBSV 12-04 07:55
PROVIDERS: ADMIT General Practice; ATTEND General Practice
DX: M16.11 Unilateral primary osteoarthritis, right hip (principal); J44.9 Chronic obstructive pulmonary disease, unspecified; E11.9 Type 2 diabetes mellitus without complications; I16.0 Hypertensive urgency; R00.0 Tachycardia, unspecified; M51.9 Unspecified thoracic, thoracolumbar and lumbosacral intervertebral disc disorder; F32.A Depression, unspecified; M43.10 Spondylolisthesis, site unspecified; Z90.89 Acquired absence of other organs; Z98.1 Arthrodesis status; Z90.79 Acquired absence of other genital organ(s); Z82.49 Family history of ischemic heart disease and other diseases of the circulatory system; Z82.3 Family history of stroke; Z80.3 Family history of malignant neoplasm of breast; Z87.891 Personal history of nicotine dependence; Z88.5 Allergy status to narcotic agent; Z79.899 Other long term (current) drug therapy; Z79.51 Long term (current) use of inhaled steroids; Z79.84 Long term (current) use of oral hypoglycemic drugs; Z79.85 Long-term (current) use of injectable non-insulin antidiabetic drugs; Z79.2 Long term (current) use of antibiotics
CPT/HCPCS: 27130; 36415; 72170; 80048; 83036; 85025; 85027; 87641; 88304; 94640; 94664; 96374; 96376; 97116; 97161; 97165; 97530; 97535; C1713; C1776; G0378; J0131; J0665; J0666; J0690; J1100; J1171; J1815; J1885; J1920; J2250; J2405; J3373; S2900

== ENCOUNTER → 2024-12-13 | Outpatient (CLI) | payer MEDICARE ==
[~2024-12-13] MED LIST changes: +ASPI81TAEC PO; +CARA1TAB6 PO; +METF-839 PO; +PERCOCET PO; +PRIL20TA2 PO; +SENO8.6T10 PO
== END ==
LOC: M SOG 06:49
PROVIDERS: ATTEND Physician Assistant
DX: M16.11 Unilateral primary osteoarthritis, right hip (principal); Z96.641 Presence of right artificial hip joint

== ENCOUNTER → 2025-01-15 | Outpatient (CLI) | payer MEDICARE | LOC: M SOG 06:59 | PROVIDERS: ATTEND Neuromusculoskeletal Medicine, Sports Medicine | DX: Z96.641 Presence of right artificial hip joint (principal); M16.11 Unilateral primary osteoarthritis, right hip ==

== ENCOUNTER → 2025-02-13 | Outpatient (REF) | payer MEDICARE ==
[2025-02-13 12:51] LABS: BASO # 0.1 10^3/uL (0.0-0.2); BASO % 0.7 % (0.0-1.0); EOS # 0.1 10^3/uL (0.0-0.5); EOS % 1.7 % (0.0-3.0); LYMPH # 1.7 10^3/uL (1.5-5.0); LYMPH % 22.0 % (24.0-44.0); MONO # 1.0 10^3/uL (0.0-0.8); MONO % 13.3 % (2.0-8.0); NEUTROPHILS # 4.6 10^3/uL (1.5-8.5); NEUTROPHILS % 61.4 % (36.0-66.0); PLATELET COUNT, AUTOMATED 230 10^3/uL (150-450); PSA SCREENING 1.27 NG/ML (< 4.00)
[2025-02-13 12:55] LABS: CHOLESTEROL LEVEL 136.0 MG/DL (<200); CHOLESTEROL RISK RATIO 1.92 (<5); LDL CHOLESTEROL 47.9 MG/DL (<100); MAGNESIUM LEVEL 1.9 MG/DL (1.8-2.4); NON-HDL-C 65.5 MG/DL; THYROXINE (T4) 5.2 UG/DL (4.5-10.9); TRIGLYCERIDES LEVEL 88.0 MG/DL (<150)
[2025-02-13 12:59] LABS: T UPTAKE 37.0 % (22.5-37.0)
== END ==
LOC: M SFHCCLAY 08:06
PROVIDERS: ATTEND Nurse Practitioner Family
DX: E11.9 Type 2 diabetes mellitus without complications (principal); E78.5 Hyperlipidemia, unspecified; I25.10 Atherosclerotic heart disease of native coronary artery without angina pectoris; I10 Essential (primary) hypertension; Z12.5 Encounter for screening for malignant neoplasm of prostate; J44.9 Chronic obstructive pulmonary disease, unspecified; G47.30 Sleep apnea, unspecified
CPT/HCPCS: 80061; 83735; 84436; 84443; 84479; 85025; G0103